=== PATIENT | female | born 1950 | race Caucasian/White ===

== ENCOUNTER 2021-10-27 13:24 | Outpatient (REF) | payer MEDICARE, SELFPAY ==
[2021-10-27 16:32] LABS: MANUAL DIFF FLAG NO
[2021-10-27 16:36] LABS: Basophils Percent Auto 0.3 % (0-2); Eosinophils Absolute Auto 0.1 X10*3/uL (0.0-0.4); Eosinophils Percent Auto 0.8 % (0-4); Hematocrit 35.3 % (37.0-47.0); Hemoglobin 11.5 g/dl (12.0-16.0); Imm Gran Abs Auto 0.03 X10*3/uL (0.00-0.03); Imm Gran Pct Auto 0.4 % (0.0-0.4); Lymphocytes Percent Auto 28.3 % (20-40); Mean Corpuscular HGB Conc 32.6 g/dl (31.0-35.0); Mean Corpuscular Hemoglobin 30.3 pg (27.0-33.0); Mean Corpuscular Volume 92.9 fL (80.0-98.0); Mean Platelet Volume 10.2 fL (9.4-12.3); Monocytes Absolute Auto 0.5 X10*3/uL (0.1-1.2); Monocytes Percent Auto 7.2 % (2-11); Neutrophils Absolute Auto 4.6 x10*3/uL (2.0-8.3); Platelet Count 315 X10*3/uL (160-400); Red Cell Distribution Width 15.1 % (11.0-16.0); White Blood Count 7.2 X10*3/uL (4.8-10.8)
[2021-10-27 16:55] LABS: Alanine Aminotransferase 18 U/L (0-31); Albumin Level 4.2 g/dL (3.5-5.0); Alkaline Phosphatase 89 U/L (39-117); Anion Gap 13 (12-20); Aspartate Amino Transferase 23 U/L (5-31); Bilirubin Total 0.6 mg/dL (0.0-1.0); Blood Urea Nitrogen 17 mg/dL (9-16); Calcium 9.8 mg/dL (8.4-10.2); Carbon Dioxide 26 mmol/L (22-29); Chloride 103 mmol/L (96-108); Cholesterol 286 mg/dL; Estimated Glomerular Filt Rate > 60; Glucose Fasting 89 mg/dL (60-99); HDL Cholesterol 56 mg/dL; Iron 63 mcg/dL (30-160); LDL Cholesterol Calculated 205 mg/dl; Magnesium 1.8 mg/dL (1.6-2.6); Percent Iron Saturation 23 % (15-50); Potassium 4.1 mmol/L (3.3-5.1); Sodium 138 mmol/L (135-145); Total Iron Binding Capacity 279 mcg/dL (228-428); Total Protein 7.2 g/dL (6.5-8.0); Triglycerides 129 mg/dL; Unsaturated Iron Binding 216 ug/dL
[2021-10-27 17:15] LABS: TSH reflex Free T4 1.32 uIU/mL (0.32-4.0)
== END 2021-10-27 13:25 | disposition home or self-care (01) ==
LOC: HO.HMGCLDS 13:24
PROVIDERS: PCP Internal Medicine; Visit Provider Internal Medicine
DX: Z00.00 Encounter for general adult medical examination without abnormal findings (principal); E78.5 Hyperlipidemia, unspecified; K21.9 Gastro-esophageal reflux disease without esophagitis; R25.2 Cramp and spasm; E55.9 Vitamin D deficiency, unspecified
CPT/HCPCS: 36415; 80053; 80061; 83540; 83735; 84443; 85025

== ENCOUNTER 2021-11-27 12:48 | Outpatient (REF) | payer MEDICARE, SELFPAY ==
--- NOTE | ~2021-11-27 | US_ITS ---
EXAMINATION: US VENOUS ULTRASOUND WITH DOPPLER LOWER EXTREMITY, LEFT CLINICAL INFORMATION: Swelling COMPARISON: None TECHNIQUE: Ultrasound of the deep veins is performed from the hip to the calf with compression sonography and color and pulse Doppler assessment. Spectral analysis with color-flow imaging is performed. FINDINGS: There is normal venous compression and respiratory variation and augmented flow. The visualized common femoral vein, superficial femoral vein, profunda femoral vein, popliteal vein, and the trifurcation region shows no evidence of deep venous thrombosis. There is no significant popliteal fossa cyst. US/US venous duplex LE LT IMPRESSION: No DVT demonstrated in the left lower extremity.
[2021-11-27 15:28] LABS: Vitamin D 25-OH Total 64.5 ng/mL (>30)
== END 2021-11-27 12:49 | disposition home or self-care (01) ==
LOC: HO.HMGCLDS 12:48
PROVIDERS: PCP Internal Medicine; Visit Provider Internal Medicine
DX: E55.9 Vitamin D deficiency, unspecified (principal); M79.89 Other specified soft tissue disorders
CPT/HCPCS: 36415; 82306; 93971

== ENCOUNTER 2021-12-22 13:55 | Outpatient (REF) | payer MEDICARE, SELFPAY | END 2021-12-22 13:56 | disposition home or self-care (01) | LOC: HO.HMGCX 13:55 | PROVIDERS: Visit Provider Internal Medicine | DX: R09.89 Other specified symptoms and signs involving the circulatory and respiratory systems (principal) | CPT/HCPCS: 93880 ==

== ENCOUNTER 2022-01-19 12:53 | Outpatient (REF) | payer MEDICARE, SELFPAY ==
--- NOTE | ~2022-01-19 | US_ITS ---
EXAMINATION: US THYROID CLINICAL INFORMATION: Nontoxic single thyroid nodule. COMPARISON: Carotid ultrasound 12/22/2021. TECHNIQUE: Linear transducer grayscale and color Doppler examination with attention to the region of the thyroid. FINDINGS: SIZE: Measurements of the thyroid lobes and nodules are given in sagittal, anteroposterior and transverse dimensions respectively. Right Thyroid Lobe: 5.5 x 3.5 x 3.9 cm, volume 39.3 mL. Parenchyma: The gland echotexture is heterogeneous. Thyroid vascularity is increased. Left Thyroid Lobe: 2.8 x 1.0 x 1.0 cm, volume 1.4 mL. Parenchyma: The gland echotexture is homogeneous. Thyroid vascularity is increased. Isthmus: 0.3 cm in maximum AP dimension. Estimated total number of nodules greater than or equal to 1 cm: 1. Finishing Room Supervisor nodules are described as follows: 1. Location: Right mid/lower pole. Size: 4.3 x 3.5 x 3.9 cm, volume 30.2 mL. Nodule characteristics: Composition: Solid/almost completely solid (2). Echogenicity: Hypoechoic (2). Shape: Not taller than wide (0). Margins: Smooth (0). Echogenic Foci: Macrocalcifications (1). ACR TI-RADS total points: 5 ACR TI-RADS category: 4 NODES: No lymphadenopathy is seen in the tissue surrounding the thyroid gland. US/US thyroid IMPRESSION: Enlarged heterogeneous right lobe and increased thyroid vascularity. Large right thyroid nodule. According to TI RADS criteria, fine-needle aspiration recommended. ACR TI-RADS RECOMMENDATION REFERENCE: Ultrasound-guided fine-needle aspiration, followup ultrasound, no further follow up. * TR1 (0 point) and TR 2 (2 points): No FNA or follow up. * TR3 (3 points): FNA if more than or equal to 2.5 cm in maximum dimension, followup ultrasound in 1, 3 and 5 years if 1.5 to 2.4 cm in maximum dimension. * TR4 (4-6 points): FNA if more than or equal to 1.5 cm in maximum dimension, followup ultrasound in 1, 2, 3 and 5 years if 1 to 1.4 cm in maximum dimension. * TR5 (more than or equal to 7 points): FNA if more than or equal to 1 cm in maximum dimension, followup ultrasound every year for 5 years if 0.5 to 0.9 cm in maximum dimension. * TR3, TR4 or TR5 nodules that are below the size threshold for followup receive no follow up.
== END 2022-01-19 12:54 | disposition home or self-care (01) ==
LOC: HO.HMGCX 12:53
PROVIDERS: PCP Internal Medicine; Visit Provider Internal Medicine
DX: E04.1 Nontoxic single thyroid nodule (principal)
CPT/HCPCS: 76536

== ENCOUNTER → 2022-02-09 14:49 | Outpatient (BNVA) | payer MEDICARE, SELFPAY | PROVIDERS: PCP Internal Medicine; Visit Provider Internal Medicine | DX: E04.1 Nontoxic single thyroid nodule (principal) | CPT/HCPCS: 99202 ==

== ENCOUNTER 2022-02-17 12:40 | Outpatient (REF) | payer MEDICARE, SELFPAY ==
--- NOTE | ~2022-02-17 | CT_ITS ---
CT SOFT TISSUE NECK WITHOUT CONTRAST CLINICAL INFORMATION: Nontoxic thyroid nodule. COMPARISON: Thyroid ultrasound 01/19/2022. TECHNIQUE: Helical imaging was performed in the axial plane with generation of coronal and sagittal reformatted images. This CT examination was performed using dose optimization techniques as appropriate, variously including the following: *Automated exposure control *Adjustment of mA and/or kV according to patient size (this includes techniques or standardized protocols for targeted exams where dose is matched to indication/reason for exam; i.e. extremities or head) *Use of iterative reconstruction technique FINDINGS: Redemonstration of an up to 4.3 cm large nodule within the right thyroid lobe that inferiorly contacts the upper margin of the brachiocephalic artery, that results in mild leftward deviation of the trachea and esophagus just above the thoracic inlet (both of which remain patent), and that laterally results in lateralization of the right internal jugular vein and the right common carotid artery. Partial fatty replacement of the parotid glands and submandibular glands bilaterally. The orbital soft tissues are unremarkable. No definite superficial mucosal space lesions however assessment is limited by the lack of intravenous contrast. There is sublingual gland herniation through the mylohyoid boutonniere's bilaterally. Laryngeal structures are symmetric and normal. There is no definite pathologic size criteria cervical lymphadenopathy with assessment limited by the lack of contrast. There is multilevel cervical spondylosis. There is mild mucosal thickening within the maxillary sinuses bilaterally and the right sphenoid sinus. Leftward deviation of the nasal septum. Degenerative changes involving the TMJs bilaterally. The imaged upper lungs are clear. Imaged upper mediastinum is unremarkable. CT/CT soft tissue neck wo IV con IMPRESSION: Redemonstration of an up to 4.3 cm large nodule within the right thyroid lobe that inferiorly contacts the upper margin of the brachiocephalic artery, that results in mild leftward deviation of the trachea and esophagus just above the thoracic inlet (both of which remain patent), and that laterally results in lateralization of the right internal jugular vein and the right common carotid artery. No substernal extension. As discussed on the prior ultrasound, FNA is recommended of the thyroid nodule.
== END 2022-02-17 12:41 | disposition home or self-care (01) ==
LOC: HO.CT 12:40
PROVIDERS: Visit Provider Internal Medicine
DX: E04.1 Nontoxic single thyroid nodule (principal)
CPT/HCPCS: 70490

== ENCOUNTER 2022-04-16 08:42 | Outpatient (REF) | payer MEDICARE, SELFPAY ==
--- NOTE | 2022-04-16 09:06 | PM.OP ---
Brief Operative Note Date of Service: 04/16/22 Pre-op diagnosis: Multinodular Thyroid Procedure: This is doctor Estrellita Mccann. This is an ultrasound-guided fine-needle aspiration report. Date of Examination: 04/16/2022 Indication: Multinodular Thyroid Porcedure: Procedure was explained to the patient. Alternatives, the risk and benefits were discussed. Written consent was obtained. A time-out was also obtained. After sterile preparation, fine-needle aspiration of a right mid pole 4.3 cm thyroid nodule was performed using direct ultrasound guidance to confirm accurate needle placement. Four aspirations were made using 27 gauge needles. Samples were submitted for cytology. One pass was dedicated for Afir[employer] Gene sequencing operations research scientist testing. The patient tolerated the procedure well. Aftercare instructions were provided. Impression: Uncomplicated fine needle aspiration biopsy of a right mid pole 4.3 cm thyroid nodule under ultrasound guidance. Surgeon: Estrellita Mccann, DO Was an Breaker Up Machine Operator used for this Procedure?: No Estimated blood loss (mL): 0
[2022-04-16] MEDS: Lidocaine HCl 1 % MPF 5 ML VIAL SUBCUT (09:26)
== END 2022-04-16 08:43 | disposition home or self-care (01) ==
LOC: HO.US 08:42
PROVIDERS: PCP Internal Medicine; Visit Provider Internal Medicine
DX: E04.2 Nontoxic multinodular goiter (principal)
CPT/HCPCS: 10005; 88172; 88173; 88177; 88305

== ENCOUNTER 2022-04-30 13:25 | Outpatient (REF) | payer MEDICARE, SELFPAY ==
[2022-04-30 15:12] LABS: Albumin Level 4.1 g/dL (3.5-5.0); Phosphorus 3.7 mg/dL (2.7-4.5)
[2022-04-30 15:24] LABS: Vitamin D 25-OH Total 62.7 ng/mL (>30)
[2022-05-04 13:15] LABS: Calcium (PTHI) 9.5 mg/dL (8.6-10.4); PTHI 55 pg/mL (16-77)
== END 2022-04-30 13:26 | disposition home or self-care (01) ==
LOC: HO.LAB 13:25
PROVIDERS: PCP Internal Medicine; Visit Provider Internal Medicine
DX: E04.1 Nontoxic single thyroid nodule (principal); E55.9 Vitamin D deficiency, unspecified
CPT/HCPCS: 36415; 82040; 82306; 83970; 84100; 99212

== ENCOUNTER 2022-07-08 11:25 | Outpatient (REF) | payer MEDICARE, SELFPAY ==
[2022-07-08 15:41] LABS: Free T4 (Free Thyroxine) 0.95 ng/dL (0.71-1.85); Thyroid Stimulating Hormone 3.33 uIU/mL (0.32-4.0); Vitamin D 25-OH Total 86.9 ng/mL (>30)
[2022-07-10 13:29] LABS: Calcium (PTHI) 9.6 mg/dL (8.6-10.4); PTHI 28 pg/mL (16-77)
== END 2022-07-08 11:26 | disposition home or self-care (01) ==
LOC: HO.HMGCLDS 11:25
PROVIDERS: PCP Internal Medicine; Visit Provider Internal Medicine
DX: E04.1 Nontoxic single thyroid nodule (principal); E55.9 Vitamin D deficiency, unspecified
CPT/HCPCS: 36415; 82040; 82306; 83970; 84439; 84443

== ENCOUNTER → 2022-07-16 13:33 | Outpatient (BNVA) | payer MEDICARE, SELFPAY | PROVIDERS: PCP Internal Medicine; Visit Provider Internal Medicine | DX: E04.1 Nontoxic single thyroid nodule (principal); E55.9 Vitamin D deficiency, unspecified | CPT/HCPCS: 99212 ==

== ENCOUNTER 2022-09-14 07:51 | Outpatient (REF) | payer MEDICARE, SELFPAY ==
[2022-09-14 12:14] LABS: Albumin Level 3.9 g/dL (3.5-5.0); Phosphorus 3.7 mg/dL (2.7-4.5)
[2022-09-14 12:35] LABS: Free T4 (Free Thyroxine) 0.91 ng/dL (0.71-1.85); Thyroid Stimulating Hormone 4.35 uIU/mL (0.32-4.0); Vitamin D 25-OH Total 68.6 ng/mL (>30)
[2022-09-15 16:44] LABS: Calcium (PTHI) 9.8 mg/dL (8.6-10.4); PTHI 38 pg/mL (16-77)
== END 2022-09-14 07:52 | disposition home or self-care (01) ==
LOC: HO.HMGCLDS 07:51
PROVIDERS: PCP Internal Medicine; Visit Provider Internal Medicine
DX: E04.1 Nontoxic single thyroid nodule (principal); E55.9 Vitamin D deficiency, unspecified
CPT/HCPCS: 36415; 82040; 82306; 83970; 84100; 84439; 84443

== ENCOUNTER 2022-09-25 10:40 | Outpatient (REF) | payer MEDICARE, SELFPAY ==
--- NOTE | ~2022-09-25 | XR_ITS ---
EXAMINATION: XR FOOT, RIGHT EXAMINATION: XR foot RT min 3V CLINICAL INFORMATION: Pain COMPARISON: None TECHNIQUE: 3 views of the foot FINDINGS: No fracture or dislocation. Post surgical changes of the first metatarsal with a surgical screw. No evidence of hardware fracture or complication. Mild degenerative changes the first metatarsal phalangeal joint with borderline loss of joint space. No joint effusion. Soft tissues are unremarkable. XR/XR foot RT min 3V IMPRESSION: 1. Post surgical changes of the first metatarsal. No evidence of hardware fracture or complication. 2. Mild degenerative changes the first metatarsophalangeal joint with borderline loss of joint space.
== END 2022-09-25 10:41 | disposition home or self-care (01) ==
LOC: HO.HMGCX 10:40
PROVIDERS: PCP Internal Medicine; Visit Provider Internal Medicine
DX: M79.671 Pain in right foot (principal); E03.9 Hypothyroidism, unspecified; E55.9 Vitamin D deficiency, unspecified; M10.9 Gout, unspecified
CPT/HCPCS: 73630

== ENCOUNTER 2022-10-02 10:36 | Outpatient (REF) | payer MEDICARE, SELFPAY ==
[2022-10-02 13:25] LABS: MANUAL DIFF FLAG NO
[2022-10-02 13:38] LABS: Basophils Percent Auto 0.4 % (0-2); Eosinophils Absolute Auto 0.1 X10*3/uL (0.0-0.4); Eosinophils Percent Auto 1.9 % (0-4); Hematocrit 35.8 % (37.0-47.0); Hemoglobin 11.2 g/dl (12.0-16.0); Imm Gran Abs Auto 0.02 X10*3/uL (0.00-0.03); Imm Gran Pct Auto 0.4 % (0.0-0.4); Lymphocytes Absolute Auto 1.6 X10*3/uL (1.2-4.9); Lymphocytes Percent Auto 28.8 % (20-40); Mean Corpuscular HGB Conc 31.3 g/dl (31.0-35.0); Mean Corpuscular Hemoglobin 29.2 pg (27.0-33.0); Mean Corpuscular Volume 93.2 fL (80.0-98.0); Mean Platelet Volume 10.7 fL (9.4-12.3); Monocytes Absolute Auto 0.4 X10*3/uL (0.1-1.2); Monocytes Percent Auto 6.9 % (2-11); Neutrophils Absolute Auto 3.5 x10*3/uL (2.0-8.3); Neutrophils Percent Auto 61.6 % (45-73); Platelet Count 309 X10*3/uL (160-400); Red Blood Count 3.84 X10*6/uL (4.20-5.50); Red Cell Distribution Width 14.6 % (11.0-16.0); White Blood Count 5.7 X10*3/uL (4.8-10.8)
[2022-10-02 15:27] LABS: Free T4 (Free Thyroxine) 0.82 ng/dL (0.71-1.85); Vitamin D 25-OH Total 63.4 ng/mL (>30)
[2022-10-02 15:48] LABS: Alanine Aminotransferase 39 U/L (0-31); Albumin Level 3.9 g/dL (3.5-5.0); Alkaline Phosphatase 142 U/L (39-117); Anion Gap 13 (12-20); Aspartate Amino Transferase 26 U/L (5-31); Blood Urea Nitrogen 13 mg/dL (9-16); Carbon Dioxide 25 mmol/L (22-29); Chloride 106 mmol/L (96-108); Cholesterol 238 mg/dL; Estimated Glomerular Filt Rate > 60; Glucose Fasting 90 mg/dL (60-99); HDL Cholesterol 45 mg/dL; Iron 63 mcg/dL (30-160); LDL Cholesterol Calculated 167 mg/dl; Percent Iron Saturation 27 % (15-50); Potassium 4.4 mmol/L (3.3-5.1); Sodium 140 mmol/L (135-145); Thyroid Stimulating Hormone 4.58 uIU/mL (0.32-4.0); Total Iron Binding Capacity 234 mcg/dL (228-428); Triglycerides 133 mg/dL; Unsaturated Iron Binding 171 ug/dL; Uric Acid 8.5 mg/dL (2.4-5.7)
[2022-10-02 16:33] LABS: Bilirubin Total 0.6 mg/dL (0.0-1.0)
== END 2022-10-02 10:37 | disposition home or self-care (01) ==
LOC: HO.HMGCLDS 10:36
PROVIDERS: Absent Provider Internal Medicine; PCP Internal Medicine; Visit Provider Internal Medicine
DX: E03.9 Hypothyroidism, unspecified (principal); E55.9 Vitamin D deficiency, unspecified; M10.9 Gout, unspecified; E04.1 Nontoxic single thyroid nodule
CPT/HCPCS: 36415; 80053; 80061; 82306; 83540; 84439; 84443; 84550; 85025

== ENCOUNTER 2022-10-23 11:42 | Outpatient (REF) | payer MEDICARE, SELFPAY ==
[2022-10-23 15:15] LABS: Free T4 (Free Thyroxine) 0.93 ng/dL (0.71-1.85); Thyroid Stimulating Hormone 2.32 uIU/mL (0.32-4.0)
== END 2022-10-23 11:43 | disposition home or self-care (01) ==
LOC: HO.HMGCLDS 11:42
PROVIDERS: PCP Internal Medicine; Visit Provider Internal Medicine
DX: E03.9 Hypothyroidism, unspecified (principal)
CPT/HCPCS: 36415; 84439; 84443

== ENCOUNTER 2022-10-28 08:11 | Outpatient (AMB) | payer MEDICARE, SELFPAY ==
--- NOTE | 2022-10-28 08:11 | MHC.OFFVIS ---
Intake Intake Visit Reasons: F/U Postoperative hypothyroidism Intake Note: Postoperative Hypothyroidism follow up visit. Electrical Design Technician Required: No Allergies nitrofurantoin [From MACROBID] Allergy (Severe, Verified 10/28/22 11:26) ANAPHYLAXIS Epdkfrd-UAR-RiS Reductase Inhibitor [QEWQLNH-TWE-XSF REDUCTASE INHIBITOR] Allergy (Intermediate, Verified 10/28/22 11:26) MUSCLE ACHES atorvastatin [Lipitor] Adverse Reaction (Unknown, Verified 10/28/22 11:26) muscle cramping Medication List - Last Reconciled 10/28/22 by Estrellita Mccann, allopurinol 200 mg PO DAILY levothyroxine 25 mcg PO DAILY 30 days omeprazole 10 mg PO DAILY HPI HPI Comments History of Present Illness Details 72 YO F with PMHx Sjogen's syndrome and a thyroid nodule who is seen in F/U for a thyroid nodule. Was initially diagnosed with a thyroid nodule in 2021 with a thyroid US revealing a 4.3 cm solitary R lobe thyroid nodule. She does currently complain of dysphagia as well as vocal hoarseness. She underwent FNA biopsy 04/16/2022 of her RMP 4.3 cm thyroid nodule with cytology revealing atypia of undetermined significance (bethesda category III). Affirma was suspicious. She also had a CT of the neck which revealed leftward deviation of the trachea and esophagus due to the thyroid nodule. She was referred to Dr. Rehman and underwent a R lobectomy 05/26/2022. Official surgical path revealed NIFT-P 4 cm. Postoperatively she was started on levothyroxine and remains on levothyroxine 25 mcg PO daily. Denies any history of head or neck irradiation. Denies any family history of thyroid cancer. Thyroid US: 01/05/2022 Right Thyroid Lobe: 5.5 x 3.5 x 3.9 cm, volume 39.3 mL. Parenchyma: The gland echotexture is heterogeneous. Thyroid vascularity is increased. Left Thyroid Lobe: 2.8 x 1.0 x 1.0 cm, volume 1.4 mL. Parenchyma: The gland echotexture is homogeneous. Thyroid vascularity is increased. Isthmus: 0.3 cm in maximum AP dimension. Estimated total number of nodules greater than or equal to 1 cm: 1. Director Of Kids nodules are described as follows: 1. Location: Right mid/lower pole. ?? ? Size: 4.3 x 3.5 x 3.9 cm, volume 30.2 mL. ?? ? Nodule characteristics: ?? ? Composition: Solid/almost completely solid (2). ?? ? Echogenicity: Hypoechoic (2). ?? ? Shape: Not taller than wide (0). ?? ? Margins: Smooth (0). ?? ? Echogenic Foci: Macrocalcifications (1). ?? ? ACR TI-RADS total points: 5 ?? ? ACR TI-RADS category: 4 NODES: No lymphadenopathy is seen in the tissue surrounding the thyroid gland. CT Neck: 02/17/2022 FINDINGS: Redemonstration of an up to 4.3 cm large nodule within the right thyroid lobe that inferiorly contacts the upper margin of the brachiocephalic artery, that results in mild leftward deviation of the trachea and esophagus just above the thoracic inlet (both of which remain patent), and that laterally results in lateralization of the right internal jugular vein and the right common carotid artery. Partial fatty replacement of the parotid glands and submandibular glands bilaterally. The orbital soft tissues are unremarkable. No definite superficial mucosal space lesions however assessment is limited by the lack of intravenous contrast. There is sublingual gland herniation through the mylohyoid boutonniere's bilaterally. Laryngeal structures are symmetric and normal. There is no definite pathologic size criteria cervical lymphadenopathy with assessment limited by the lack of contrast. There is multilevel cervical spondylosis. There is mild mucosal thickening within the maxillary sinuses bilaterally and the right sphenoid sinus. Leftward deviation of the nasal septum. Degenerative changes involving the TMJs bilaterally. The imaged upper lungs are clear. Imaged upper mediastinum is unremarkable. CT/CT soft tissue neck wo IV con IMPRESSION: Redemonstration of an up to 4.3 cm large nodule within the right thyroid lobe that inferiorly contacts the upper margin of the brachiocephalic artery, that results in mild leftward deviation of the trachea and esophagus just above the thoracic inlet (both of which remain patent), and that laterally results in lateralization of the right internal jugular vein and the right common carotid artery. No substernal extension. As discussed on the prior ultrasound, FNA is recommended of the thyroid nodule. Labs: Laboratory Tests 09/14/22 10/23/22 08:05 11:52 TSH 2.32 Free T4 0.93 PTH Intact 38 Calcium (PTH Intac t) 9.8 PFSH Medical History Hypothyroidism Primary osteoarthritis of both knees Raynaud's syndrome Surgical History H/O colonoscopy H/O esophagogastroduodenoscopy History of lobectomy of thyroid Hx of ultrasound guided needle biopsy S/P foot surgery, right Family History Mother No problems noted. Social History Household Members: None Housing: Other Patient Tobacco Use Status: Former Tobacco user Quit Date: >40yrs Current occupational status: retired Cognitive needs: No Hearing needs: Yes Vision needs: Yes Assessment & Plan Assessment & Plan (1) Thyroid nodule: Comment: US 02/10,R thyroid nodule 3.5 cm x 4.3 cm, s/p partial thyroidectomy 06/11 f/u [facility] endo Code(s): E04.1 - Nontoxic single thyroid nodule Plan: Patient with a solitary R lobe thyroid nodule. FNA revealed atypia of undetermined significance (bethesda category III) with suspicious affirma. She underwent R thyroid lobectomy 05/26/2022 with official surgical path revealing NIFT-P. We reviewed that NIFT-P is considered a benign lesion. No indication for completion thyroidectomy at this time. She remains on levothyroxine 25 mcg PO daily. TSH is at goal. Plan for now is for her to F/U with her PCP for further management of her hypothyroidism. All of her questions were answered. She is in agreement with this plan of care. I spent 20 minutes in reviewing the record, seeing the patient and documenting in the medical record, including 5 minutes on the phone with the Patient. Telehealth Telehealth Location of provider rendering services: practice address Location of patient: address on file Patient Identification confirmed using: Name, : Yes Telehealth method: voice only Patient verbally consented to treatment: Yes Patient verbally consented to billing insurance company: Yes Patient informed of any privacy concerns related to visit: Yes Coding Level of Care Code Tele Est Pt Level 3 (35191) Diagnoses Thyroid nodule E04.1
== END 2022-10-28 14:37 | disposition home or self-care (01) ==
LOC: HO.ENCR 08:11
PROVIDERS: PCP Internal Medicine; Visit Provider Internal Medicine
DX: E04.1 Nontoxic single thyroid nodule (principal)
CPT/HCPCS: 99443

== ENCOUNTER → 2022-10-28 08:11 | Outpatient (BNVA) | payer MEDICARE, SELFPAY | PROVIDERS: PCP Internal Medicine; Visit Provider Internal Medicine ==

== ENCOUNTER 2022-12-14 09:23 | Outpatient (REF) | payer MEDICARE, SELFPAY ==
[2022-12-14 13:21] LABS: Alanine Aminotransferase 9 U/L (0-31); Alkaline Phosphatase 95 U/L (39-117); Anion Gap 16 (12-20); Aspartate Amino Transferase 18 U/L (5-31); Bilirubin Total 0.7 mg/dL (0.0-1.0); Blood Urea Nitrogen 12 mg/dL (9-16); Carbon Dioxide 25 mmol/L (22-29); Chloride 102 mmol/L (96-108); Estimated Glomerular Filt Rate > 60; Glucose Fasting 98 mg/dL (60-99); Sodium 139 mmol/L (135-145); Total Protein 7.1 g/dL (6.5-8.0); Uric Acid 8.1 mg/dL (2.4-5.7)
[2022-12-14 13:26] LABS: TSH reflex Free T4 2.87 uIU/mL (0.32-4.0)
== END 2022-12-14 09:24 | disposition home or self-care (01) ==
LOC: HO.HMGCLDS 09:23
PROVIDERS: PCP Internal Medicine; Visit Provider Internal Medicine
DX: E03.9 Hypothyroidism, unspecified (principal); M10.9 Gout, unspecified; R79.89 Other specified abnormal findings of blood chemistry
CPT/HCPCS: 36415; 80053; 84443; 84550

== ENCOUNTER 2022-12-31 10:50 | Outpatient (AMB) | payer MEDICARE, SELFPAY ==
[2022-12-31 10:52] VITALS: BP 122/70; PULSE 69; O2SAT 96; BMI 29.9
--- NOTE | 2022-12-31 10:52 | A.OFFPC_ITS ---
Vital Signs 12/31/22 10:52 Height 5 ft 4 in Weight 174 lb BMI 29.9 BP 122/70 Blood Pressure Location Lt brachial Position Sitting Pulse 69 Pulse Source Pulse Oximeter Pulse Oximetry (%) 96 Oxygen Delivery Method Room Air Intake Visit Reasons: Lab f/u Intake Note: Pt is here today for a follow up visit on labs. Allergies nitrofurantoin [From MACROBID] Allergy (Severe, Verified 12/31/22 10:55) ANAPHYLAXIS Rmxhsux-SNO-EjS Reductase Inhibitor [CRDREPL-FOX-ADF REDUCTASE INHIBITOR] Allergy (Intermediate, Verified 12/31/22 10:55) MUSCLE ACHES atorvastatin [Lipitor] Adverse Reaction (Unknown, Verified 12/31/22 10:55) muscle cramping Tobacco use date assessed: 12/31/22 Fall risk assessment: No Falls in past year Last assessed Fall Risk: 12/31/22 Dental Screening Dental Screen Date: 12/31/22 Did you have a dental visit in the last 12 months?: Yes Did you have a dental problem in the last 6 months where you did not have access to dental care?: No Was dental information given to patient?: Patient has dentist HPI Lab f/u HPI Details Pt presents for f/u hypothyroid s/p partial thyroidectomy 06/11, benign pathology. Pt c/o L foot pain for 6 weeks started after hiking. Pt f/o with ortho. Patient reports feeling tired and having dyspnea on exertion after walking up the stairs. She denies palpitations chest pain PND orthopnea. Patient reports chronic GERD despite taking omeprazole. She is planning to call GI for colonoscopy and repeat EGD. [facility] Medical History Hypothyroidism Primary osteoarthritis of both knees Raynaud's syndrome Surgical History History of lobectomy of thyroid Hx of ultrasound guided needle biopsy S/P foot surgery, right H/O esophagogastroduodenoscopy H/O colonoscopy Family History Mother No problems noted. Social History Household Members: None Housing: Other Patient Tobacco Use Status: Former Tobacco user Quit Date: >40yrs e-Cigarette/Vaping Use: Never Used Current occupational status: retired Cognitive needs: No Hearing needs: Yes Vision needs: Yes Questionnaire Thrive Questionnaire Date Thrive assessed: 12/31/22 I am a: Patient What is your living situation today?: I have a steady place to live Within the past 12 months, did the food you bought not last and you didn't have the money to get more?: Never true Within the past 12 months, did you worry whether your food would run out before you got money to buy more?: Never true Do you have trouble paying for medicines?: No Do you have trouble getting transportation to medical appointments?: No Do you have trouble paying your heating and electricity bill?: No Do you have trouble taking care of your child, family member or friend?: No Do you have trouble with day-to-day activities such as bathing, preparing meals, shopping, managing finances, etc.?: No Are you currently unemployed and looking for a job?: No Are you interested in more education?: No Please select the resources that you would like help with: None NAOMI-7 AMB Questionnaire NAOMI-7 Date NAOMI - 7 assessed: 12/31/22 Feeling nervous, anxious, or on edge: 0 = Not at all Not being able to stop or control worryin = Not at all Worrying too much about different things: 0 = Not at all Trouble relaxin = Not at all Being so restless that it is hard to sit still: 0 = Not at all Becoming easily annoyed or irritable: 0 = Not at all Feeling afraid as if something awful might happen: 0 = Not at all Total NAOMI-7 score (0-4 normal; 5-9 mild; 10-14 moderate; 15-21 severe): 0 Source: Developed by Drs. Kirt Najera, Cici Wynn, James Scott and colleagues, with an educational amish from [employer]. Review of Systems Const All systems reviewed & are unremarkable except as noted in HPI and below Reports no additional complaints Eyes Reports no additional complaints ENT Reports no additional complaints Card Reports no additional complaints Resp Reports no additional complaints GI Reports no additional complaints Reports no additional complaints Physical exam (Primary Care) Vital Signs: Last Vital Signs Pulse 69 12/31/22 10:52 BP 122/70 12/31/22 10:52 Pulse Ox 96 12/31/22 10:52 Oxygen Delivery Method Room Air 12/31/22 10:52 BMI result Body Mass Index 29.9 Tobacco/Smoking Status: Tobacco use Status Tobacco use date assessed 12/31/22 12/31/22 11:02 Patient Tobacco Use Status Former Tobacco user 12/31/22 10:52 e-Cigarette/Vaping Use Never Used 12/31/22 11:02 Thrive Assessment: Date of Thrive Assessment Date Thrive assessed 12/31/22 12/31/22 11:02 Const General: no acute distress HENMT Ears: hearing grossly normal bilaterally Throat: Yes posterior oropharynx normal Eyes General: appearance normal, both eyes and all related structures Resp Effort & Inspection: normal respiratory effort Auscultation: clear to auscultation bilaterally Cardio Rhythm: regular rhythm Heart sounds: S1 normal heart sound present and S2 normal heart sound present GI Inspection: Yes normal to inspection Palpation (GI): Soft to palpation Percussion: Yes normal to percussion Auscultation: normal bowel sounds Assessment and Plan Assessment & Plan (1) Gout: Code(s): M10.9 - Gout, unspecified Plan: Continue allopurinol check uric acid in 2 months (2) Hypothyroidism: Comment: s/p partial thyroidectomy Code(s): E03.9 - Hypothyroidism, unspecified Plan: Continue levothyroxine monitor TSH (3) Hyperlipidemia: Comment: Intolerant to multiple statins Code(s): E78.5 - Hyperlipidemia, unspecified Plan: Continue low-cholesterol diet check lipid profile in 2 months (4) ROCA (dyspnea on exertion): Code(s): R06.09 - Other forms of dyspnea Plan: Obtain echocardiogram Orders: Orders Comprehensive [place]. Panel Fast 2 Months E03.9 - Hypothyroidism, unspecified, E78.5 - Hyperlipidemia, unspecified, M10.9 - Gout, unspecified TSH reflex Free T4 2 Months E03.9 - Hypothyroidism, unspecified, E78.5 - Hyperlipidemia, unspecified, M10.9 - Gout, unspecified Vitamin B12 and Folate 2 Months E03.9 - Hypothyroidism, unspecified, E78.5 - Hyperlipidemia, unspecified, M10.9 - Gout, unspecified Vitamin D 25-OH Total 2 Months E03.9 - Hypothyroidism, unspecified, E78.5 - Hyperlipidemia, unspecified, M10.9 - Gout, unspecified CA echo transthoracic complete Today R06.09 - Other forms of dyspnea Lipid Panel 2 Months E03.9 - Hypothyroidism, unspecified, E78.5 - Hyperlipidemia, unspecified, M10.9 - Gout, unspecified Uric Acid 2 Months E03.9 - Hypothyroidism, unspecified, E78.5 - Hyperlipidemia, unspecified, M10.9 - Gout, unspecified Complete Blood Count Auto Diff 2 Months E03.9 - Hypothyroidism, unspecified, E78.5 - Hyperlipidemia, unspecified, M10.9 - Gout, unspecified IRON PROFILE 2 Months E03.9 - Hypothyroidism, unspecified, E78.5 - Hyperlipidemia, unspecified, M10.9 - Gout, unspecified Coding Level of Care Code Est Pt Level 4 (81337) Diagnoses Gout M10.9 Hypothyroidism E03.9 Hyperlipidemia E78.5 ROCA (dyspnea on exertion) R06.09
== END 2022-12-31 11:37 | disposition home or self-care (01) ==
PROVIDERS: PCP Internal Medicine; Visit Provider Internal Medicine
DX: M10.9 Gout, unspecified (principal); E03.9 Hypothyroidism, unspecified; E78.5 Hyperlipidemia, unspecified; R06.09 Other forms of dyspnea
CPT/HCPCS: 99214

== ENCOUNTER → 2023-02-08 09:45 | Outpatient (REF) | payer MEDICARE, SELFPAY ==
--- NOTE | 2023-02-08 09:47 | CA_ITS ---
Transthoracic Echocardiogram Patient (Last, First, Middle): Magaly Ramirez C Gender: Female Date of : 1950 Age: 72 Procedure Date: 02/08/2023 Procedure Type: Transthoracic Echocardiogram Location: OP Height: 162.56 cm Weight: 79.38 kg BSA: 1.85 m2 Heart Rate: bpm BP: 110 / 70 mmHg Stress Analyst: Referring MD: Angela Deal MD Symptoms: R06.09 - Other forms of dyspnea Study Quality: Fair ECG Rhythm: Sinus Conclusions: - The left ventricular systolic function is normal. The calculated ejection fraction is 65% by biplane method. - No obvious valvular pathology seen on this study. Findings Left Ventricle Normal left ventricular cavity size. There is mildly increased left ventricular wall thickness. The left ventricular systolic function is normal. The calculated ejection fraction is 65% by biplane method. There is no evidence of regional wall motion abnormalities. Diastolic function is normal for age. Right Ventricle Normal right ventricular cavity size and systolic function. Atria Both atria are normal in size. Aortic Valve There is a normal trileaflet aortic valve. There is no aortic valve stenosis. There is no aortic valve regurgitation. Mitral Valve There is mild mitral annular calcification. There is mild mitral valve regurgitation. There is no mitral valve stenosis. Pulmonic Valve The pulmonic valve is likely normal. Tricuspid Valve There is mild tricuspid valve regurgitation. There is no evidence of pulmonary hypertension. Great Vessels The asc aorta is normal in size. Venous The inferior vena cava is normal in size and collapses greater than 50% with inspiration. Pericardium/Pleural There is no evidence of pericardial effusion. Prior Study Comparison No prior study available for comparison. Recommendations, Care & Conclusions No obvious valvular pathology seen on this study. Measurements 2D Linear Measurements IVSd: 1.11 0.6-0.9/0.6-1.0 cm LVIDd: 4.42 3.9-5.3/4.2-5.9 cm LVIDd Index: 2.39 2.4-3.2/2.2-3.1 cm/m2 LVIDs: 3.17 2.0-3.6 cm LVPWd: 1.21 0.7-1.1 cm Ao Root: 2.90 2.1-3.5 cm LA Diam: 3.60 2.7-3.8/3.0-4.0 cm LAIDs Index: 1.95 1.5-2.3 cm/m2 LV Mass: 228.62 67-162/88-224 g LV Mass Index: 123.58 43-95/49-115 g/m2 LVOT Diam: 2.00 3.0+(-)1.3 cm 2D Systolic Function EF 4C: 64.10 >55% EF 2C: 59.90 >55% EF BiP: 64.80 >55% Mitral Valve MV Pk E: 0.91 MV PK A: 0.76 MV Decel Time: 213.00 E/A: 1.20 E'Lateral: 8.59 E'Medial: 5.87 E/E' Med: 15.60 E/E' Lat: 10.60 PHT: 62.00 MVA PHT: 3.55 Decel Hughes: 4.28 Aortic Valve AoV Pk Gregorio: 1.13 AoV Mn Gregorio: 0.70 AoV VTI: 0.27 AoV Pk Grad: 5.00 Aov Mn Grad: 2.00 MIREYA Cont.VTI: 2.82 LVOT LVOT Pk Gregorio: 0.91 LVOT Mn Gregorio: 0.59 LVOT VTI: 0.24 LVOT Pk Grad: 3.00 LVOT Mn Grad: 2.00 LVOT Diam: 2.00 LVOT Area: 3.14 Diastolic Function MV Pk E: 0.91 MV Pk A: 0.76 E/A: 1.20 E'Medial: 5.87 E/E' Med: 15.60 E' Laterial: 8.59 E/E' Lat: 10.60 Right Ventricle TAPSE (mm): 27.00 TVS' Gregorio: 12.00 Tricuspid Valve TR Pk Gregorio: 2.31 TR Pk Grad: 21.00 RA Press: 3.00 RVSP: 24.00 Great Vessels Aorta Ao Root-2D: 2.90 2.0-3.7 cm Ao Asc: 3.20 2.1-3.4 cm Updated in Other Vendor System with Status of Final Jeffery Green MD electronically signed on 02/08/2023 4:08:42 PM with status of Final
== END ==
LOC: HO.CARD 09:45
PROVIDERS: PCP Internal Medicine; Visit Provider Internal Medicine
DX: R06.09 Other forms of dyspnea (principal)
CPT/HCPCS: 93306

== ENCOUNTER → 2023-02-08 09:47 | Outpatient (BNV) | payer MEDICARE, SELFPAY | PROVIDERS: PCP Internal Medicine; Visit Provider Internal Medicine | DX: I34.0 Nonrheumatic mitral (valve) insufficiency (principal) | CPT/HCPCS: 93306 ==

== ENCOUNTER 2023-03-01 11:00 | Outpatient (REF) | payer MEDICARE, SELFPAY ==
[2023-03-01 13:17] LABS: MANUAL DIFF FLAG NO
[2023-03-01 13:43] LABS: Basophils Percent Auto 0.5 % (0-2); Eosinophils Absolute Auto 0.1 X10*3/uL (0.0-0.4); Eosinophils Percent Auto 1.2 % (0-4); Imm Gran Abs Auto 0.02 X10*3/uL (0.00-0.03); Imm Gran Pct Auto 0.4 % (0.0-0.4); Lymphocytes Absolute Auto 1.5 X10*3/uL (1.2-4.9); Lymphocytes Percent Auto 25.9 % (20-40); Mean Corpuscular HGB Conc 31.4 g/dl (31.0-35.0); Mean Corpuscular Hemoglobin 29.4 pg (27.0-33.0); Mean Corpuscular Volume 93.6 fL (80.0-98.0); Mean Platelet Volume 10.9 fL (9.4-12.3); Monocytes Absolute Auto 0.4 X10*3/uL (0.1-1.2); Monocytes Percent Auto 7.8 % (2-11); Neutrophils Absolute Auto 3.6 x10*3/uL (2.0-8.3); Neutrophils Percent Auto 64.2 % (45-73); Platelet Count 265 X10*3/uL (160-400); Red Blood Count 3.74 X10*6/uL (4.20-5.50); Red Cell Distribution Width 15.6 % (11.0-16.0); White Blood Count 5.6 X10*3/uL (4.8-10.8)
[2023-03-01 14:10] LABS: Alanine Aminotransferase 14 U/L (0-31); Albumin Level 4.1 g/dL (3.5-5.0); Alkaline Phosphatase 92 U/L (39-117); Anion Gap 11 (12-20); Aspartate Amino Transferase 23 U/L (5-31); Bilirubin Total 0.5 mg/dL (0.0-1.0); Blood Urea Nitrogen 14 mg/dL (9-16); Calcium 9.4 mg/dL (8.4-10.2); Carbon Dioxide 24 mmol/L (22-29); Chloride 107 mmol/L (96-108); Cholesterol 237 mg/dL (<200); Estimated Glomerular Filt Rate 59; Glucose Fasting 93 mg/dL (60-99); HDL Cholesterol 44 mg/dL (>40); Iron 60 mcg/dL (30-160); LDL Cholesterol Calculated 160 mg/dL (<100); Percent Iron Saturation 25 % (15-50); Sodium 138 mmol/L (135-145); Total Iron Binding Capacity 243 mcg/dL (228-428); Total Protein 7.1 g/dL (6.5-8.0); Triglycerides 165 mg/dL (<150); Unsaturated Iron Binding 183 ug/dL; Uric Acid 6.2 mg/dL (2.4-5.7)
[2023-03-01 14:28] LABS: TSH reflex Free T4 2.88 uIU/mL (0.32-4.0); Vitamin D 25-OH Total 42.2 ng/mL (>30)
[2023-03-01 14:33] LABS: Folate 8.9 ng/mL (> or = 4.0); Vitamin B12 888 pg/mL (200-900)
== END 2023-03-01 11:01 | disposition home or self-care (01) ==
LOC: HO.HMGCLDS 11:00
PROVIDERS: PCP Internal Medicine; Visit Provider Internal Medicine
DX: M10.9 Gout, unspecified (principal); E03.9 Hypothyroidism, unspecified; E78.5 Hyperlipidemia, unspecified
CPT/HCPCS: 36415; 80053; 80061; 82306; 82607; 82746; 83540; 84443; 84550; 85025

== ENCOUNTER 2023-03-05 10:47 | Outpatient (AMB) | payer MEDICARE, SELFPAY ==
--- NOTE | 2023-03-05 11:10 | A.OFFPC_ITS ---
Vital Signs 03/05/23 11:11 Height 5 ft 4 in Weight 176 lb BMI 30.2 BP 124/66 Blood Pressure Location Lt brachial Position Sitting Pulse 70 Pulse Source Pulse Oximeter Intake Visit Reasons: Pre op L foot surgery on 03/19/23 Intake Note: Pt is here today for a pre op visit Allergies nitrofurantoin [From MACROBID] Allergy (Severe, Verified 03/05/23 11:24) ANAPHYLAXIS Fzpqmic-IKG-BhN Reductase Inhibitor [EQJMYWP-XVY-HOB REDUCTASE INHIBITOR] Allergy (Intermediate, Verified 03/05/23 11:24) MUSCLE ACHES atorvastatin [Lipitor] Adverse Reaction (Unknown, Verified 03/05/23 11:24) muscle cramping Medication List - Last Reconciled 03/05/23 by Angela Deal MD allopurinol 100 mg PO BID levothyroxine 25 mcg PO DAILY omeprazole 10 mg PO DAILY Tobacco use date assessed: 12/31/22 HPI Pre op L foot surgery on 03/19/23 HPI Details Pt is for preop for L foot hammertoe/hallux surgery. Hypothyroidism is stable on levothyroxine. [facility] Medical History (Updated 03/05/23 @ 12:29 by Angela Deal MD) Hypothyroidism Primary osteoarthritis of both knees Raynaud's syndrome Surgical History History of lobectomy of thyroid Hx of ultrasound guided needle biopsy S/P foot surgery, right H/O esophagogastroduodenoscopy H/O colonoscopy Family History Mother No problems noted. Social History Household Members: None Housing: Other Patient Tobacco Use Status: Former Tobacco user Quit Date: >40yrs e-Cigarette/Vaping Use: Never Used Current occupational status: retired Cognitive needs: No Hearing needs: Yes Vision needs: Yes Questionnaire Thrive Questionnaire Date Thrive assessed: 12/31/22 NAOMI-7 AMB Questionnaire NAOMI-7 Date NAOMI - 7 assessed: 12/31/22 Source: Developed by Drs. Kirt Najera, Cici Wynn, James Scott and colleagues, with an educational amish from [employer]. Review of Systems Const All systems reviewed & are unremarkable except as noted in HPI and below Reports no additional complaints Eyes Reports no additional complaints ENT Reports no additional complaints Card Reports no additional complaints Resp Reports no additional complaints GI Reports no additional complaints Reports no additional complaints Physical exam (Primary Care) Vital Signs: Last Vital Signs Pulse 70 03/05/23 11:11 BP 124/66 03/05/23 11:11 BMI result Body Mass Index 30.2 Tobacco/Smoking Status: Tobacco use Status Tobacco use date assessed 12/31/22 03/05/23 11:11 Patient Tobacco Use Status Former Tobacco user 03/05/23 11:11 e-Cigarette/Vaping Use Never Used 03/05/23 11:11 Thrive Assessment: Date of Thrive Assessment Date Thrive assessed 12/31/22 03/05/23 11:11 Const General: no acute distress HENMT Head: Yes normal to inspection Ears: hearing grossly normal bilaterally Face and sinus: Yes normal facial exam Throat: Yes posterior oropharynx normal Eyes General: appearance normal, both eyes and all related structures Resp Effort & Inspection: normal respiratory effort Auscultation: clear to auscultation bilaterally Cardio Rhythm: regular rhythm Heart sounds: S1 normal heart sound present and S2 normal heart sound present GI Inspection: Yes normal to inspection Palpation (GI): Soft to palpation Percussion: Yes normal to percussion Auscultation: normal bowel sounds Assessment and Plan Assessment & Plan (1) Hypothyroidism: Comment: s/p partial thyroidectomy Code(s): E03.9 - Hypothyroidism, unspecified Plan: CONTINUE LEVOTHYROXINE (2) Hyperlipidemia: Comment: Intolerant to multiple statins, refused PCSK9 Code(s): E78.5 - Hyperlipidemia, unspecified Plan: Continue low-cholesterol diet (3) Pre-op exam: Code(s): Z01.818 - Encounter for other preprocedural examination (4) Hallux flexus of right foot: Code(s): M20.21 - Hallux rigidus, right foot Plan: EKG showed normal sinus rhythm no ST-T changes, patient is medically cleared for hallux and hammertoe surgery Orders: Orders AMB EKG-In Office Today R06.09 - Other forms of dyspnea, R09.89 - Other specified symptoms and signs involving the circulatory and respiratory systems, Z00.00 - Encounter for general adult medical examination without abnormal findings Prothrombin Time INR Today Z01.818 - Encounter for other preprocedural examination Complete Blood Count Auto Diff 6 Months E03.9 - Hypothyroidism, unspecified, E78.5 - Hyperlipidemia, unspecified Comprehensive [place]. Panel Fast 6 Months E03.9 - Hypothyroidism, unspecified, E78.5 - Hyperlipidemia, unspecified TSH reflex Free T4 6 Months E03.9 - Hypothyroidism, unspecified, E78.5 - Hyperlipidemia, unspecified Lipid Panel 6 Months E03.9 - Hypothyroidism, unspecified, E78.5 - Hyperlipidemia, unspecified Partial Thromboplastin Time Today Z01.818 - Encounter for other preprocedural examination Uric Acid 6 Months E03.9 - Hypothyroidism, unspecified, E78.5 - Hyperlipidemia, unspecified Coding Level of Care Code Est Pt Level 3 (58058) Diagnoses Hypothyroidism E03.9 Hyperlipidemia E78.5 Pre-op exam Z01.818 Hallux flexus of right foot M20.21
[2023-03-05 11:11] VITALS: BP 124/66; PULSE 70; BMI 30.2
== END 2023-03-05 12:29 | disposition home or self-care (01) ==
PROVIDERS: PCP Internal Medicine; Visit Provider Internal Medicine
DX: E03.9 Hypothyroidism, unspecified (principal); E78.5 Hyperlipidemia, unspecified; Z01.818 Encounter for other preprocedural examination; M20.21 Hallux rigidus, right foot
CPT/HCPCS: 99213

== ENCOUNTER 2023-03-05 12:20 | Outpatient (REF) | payer MEDICARE, SELFPAY ==
[2023-03-05 13:41] LABS: INTERNATIONAL NORM RATIO 0.9 (0.9-1.1); Prothrombin Time 10.8 SEC (11.1-13.3)
[2023-03-05 13:44] LABS: Partial Thromboplastin Time 29.7 SEC (26.0-36.4)
== END 2023-03-05 12:21 | disposition home or self-care (01) ==
LOC: HO.HMGCLDS 12:20
PROVIDERS: PCP Internal Medicine; Visit Provider Internal Medicine
DX: Z01.818 Encounter for other preprocedural examination (principal)
CPT/HCPCS: 36415; 85610; 85730

== ENCOUNTER 2023-05-18 08:26 | Outpatient (AMB) | payer MEDICARE, SELFPAY ==
--- NOTE | 2023-05-18 08:28 | MHC.PC.OV ---
Vital Signs 05/18/23 08:29 Height 5 ft 4 in Weight 177 lb BMI 30.4 BP 126/72 Blood Pressure Location Lt brachial Position Sitting Pulse 80 Pulse Source Pulse Oximeter Pulse Oximetry (%) 100 Oxygen Delivery Method Room Air Intake Visit Reasons: ? of neuropathy Allergies nitrofurantoin [From MACROBID] Allergy (Severe, Verified 05/18/23 08:31) ANAPHYLAXIS Bghjznu-WFV-MjK Reductase Inhibitor [REDHFCH-ZSV-BHE REDUCTASE INHIBITOR] Allergy (Intermediate, Verified 05/18/23 08:31) MUSCLE ACHES atorvastatin [Lipitor] Adverse Reaction (Unknown, Verified 05/18/23 08:31) muscle cramping Medication List - Last Reconciled 05/18/23 by Angela Deal MD allopurinol 100 mg PO BID doxycycline hyclate 100 mg PO BID levothyroxine 25 mcg PO DAILY omeprazole 10 mg PO DAILY Tobacco use date assessed: 05/18/23 Fall risk assessment: No Falls in past year Last assessed Fall Risk: 05/18/23 Dental Screening Dental Screen Date: 05/18/23 Did you have a dental visit in the last 12 months?: Yes Did you have a dental problem in the last 6 months where you did not have access to dental care?: No Was dental information given to patient?: Patient has dentist HPI ? of neuropathy HPI Details Patient complains of chronic sensation of numbness in both feet progressing to ankle level for the last month. Patient denies any weakness change in balance when walking. She complains of right foot rash and itching sensation. Patient was seen by party planner and doxycycline was prescribed. Patient had left bunion surgery and recovered well. Patient denies lower back pain pain radiating to lower extremities change in bowel or bladder function, claudication. [facility] Medical History Hypothyroidism Primary osteoarthritis of both knees Raynaud's syndrome Surgical History History of lobectomy of thyroid Hx of ultrasound guided needle biopsy S/P foot surgery, right H/O esophagogastroduodenoscopy H/O colonoscopy Family History Mother No problems noted. Social History Household Members: None Housing: Other Patient Tobacco Use Status: Former Tobacco user Quit Date: >40yrs e-Cigarette/Vaping Use: Never Used Current occupational status: retired Cognitive needs: No Hearing needs: Yes Vision needs: Yes Questionnaire PHQ-9 Over the last 2 weeks, how often have you been bothered by any of the following problems? 1. Little interest or pleasure in doing things: not at all 2. Feeling down, depressed, or hopeless: not at all 3. Trouble falling or staying asleep, or sleeping too much: not at all 4. Feeling tired or having little energy: several days 5. Poor appetite or overeating: not at all 6. Feeling bad about yourself - or that you are a failure or have let yourself or your family down: not at all 7. Trouble concentrating on things, such as reading the newspaper or watching television: not at all 8. Moving or speaking so slowly that other people could have noticed. Or the opposite - being so fidgety or restless that you have been moving around a lot more than usual: not at all 9. Thoughts that you would be better off or of hurting yourself in some way: not at all Total score: 1 Depression Screening Interpretation: Negative Depression Screening Done: Yes 08095 - PHQ-9 Billing: Yes Source: Developed by Drs. Kirt Najera, Cici Wynn, James Scott and colleagues, with an educational amish from [employer] Thrive Questionnaire Date Thrive assessed: 05/18/23 I am a: Patient What is your living situation today?: I have a steady place to live Within the past 12 months, did the food you bought not last and you didn't have the money to get more?: Never true Within the past 12 months, did you worry whether your food would run out before you got money to buy more?: Never true Do you have trouble paying for medicines?: No Do you have trouble getting transportation to medical appointments?: No Do you have trouble paying your heating and electricity bill?: No Do you have trouble taking care of your child, family member or friend?: No Do you have trouble with day-to-day activities such as bathing, preparing meals, shopping, managing finances, etc.?: No Are you currently unemployed and looking for a job?: No Are you interested in more education?: No THRIVE Score: 0 AUDIT C Alcohol Use Questionnaire (AUDIT-C) 1. How often do you have a drink containing alcohol?: Monthly or less 2. How many drinks containing alcohol do you have on a typical day when you are drinking?: 1 or 2 3. How often do you have six or more drinks on one occasion?: Never Total Score: 1 NAOMI-7 AMB Questionnaire NAOMI-7 Date NAOMI - 7 assessed: 05/18/23 Feeling nervous, anxious, or on edge: 1 = Several days Not being able to stop or control worryin = Not at all Worrying too much about different things: 1 = Several days Trouble relaxin = Not at all Being so restless that it is hard to sit still: 0 = Not at all Becoming easily annoyed or irritable: 0 = Not at all Feeling afraid as if something awful might happen: 0 = Not at all Total NAOMI-7 score (0-4 normal; 5-9 mild; 10-14 moderate; 15-21 severe): 2 Source: Developed by Drs. Kirt Najera, Cici Wynn, James Scott and colleagues, with an educational amish from [employer] Review of Systems Const All systems reviewed & are unremarkable except as noted in HPI and below ENT Reports no additional complaints Card Reports no additional complaints Resp Reports no additional complaints GI Reports no additional complaints Reports no additional complaints Physical exam (Primary Care) Vital Signs: Last Vital Signs Pulse 80 05/18/23 08:29 BP 126/72 05/18/23 08:29 Pulse Ox 100 05/18/23 08:29 Oxygen Delivery Method Room Air 05/18/23 08:29 BMI result Body Mass Index 30.4 Tobacco/Smoking Status: Tobacco use Status Tobacco use date assessed 05/18/23 05/18/23 08:37 Patient Tobacco Use Status Former Tobacco user 05/18/23 08:37 e-Cigarette/Vaping Use Never Used 05/18/23 08:37 PHQ-9: PHQ-9 Score PHQ-9: Total score 1 05/18/23 08:40 Depression Screening Interpretation: Negative Thrive Assessment: Date of Thrive Assessment Date Thrive assessed 05/18/23 05/18/23 08:37 Const General: no acute distress HENMT Head: Yes normal to inspection Face and sinus: Yes normal facial exam Resp Effort & Inspection: normal respiratory effort Auscultation: clear to auscultation bilaterally Cardio Rhythm: regular rhythm Heart sounds: S1 normal heart sound present and S2 normal heart sound present Neuro Other: Decreased sensation to monofilament and vibration at the ankle level bilaterally, right foot erythematous vesicular rash Assessment and Plan Assessment & Plan (1) Numbness and tingling of both feet: Code(s): R20.0 - Anesthesia of skin; R20.2 - Paresthesia of skin Plan: Check EMG to evaluate for neuropathy, patient had normal B12 vitamin-D and thyroid level in February Orders: Orders NE electromyogram (EMG) Today R20.0 - Anesthesia of skin, R20.2 - Paresthesia of skin Coding Level of Care Code Est Pt Level 3 (06420) Diagnoses Numbness and tingling of both feet R20.0; R20.2
[2023-05-18 08:29] VITALS: BP 126/72; PULSE 80; O2SAT 100; BMI 30.4
== END 2023-05-18 09:09 | disposition home or self-care (01) ==
PROVIDERS: PCP Internal Medicine; Visit Provider Internal Medicine
DX: R20.0 Anesthesia of skin (principal); R20.2 Paresthesia of skin
CPT/HCPCS: 99213

== ENCOUNTER 2023-06-14 10:02 | Outpatient (AMB) | payer MEDICARE, SELFPAY ==
[2023-06-14 10:06] VITALS: BP 146/74; PULSE 67; BMI 30.3
--- NOTE | 2023-06-14 10:06 | A.OFFVIS_ITS ---
Intake Vital Signs 06/14/23 10:06 Height 5 ft 4 in Weight 176 lb 5.917 oz BMI 30.3 BP 146/74 H Blood Pressure Location Lt brachial Position Sitting Pulse 67 Intake Visit Reasons: GERD, Discuss Colonoscopy Intake Note: Magaly presents in the office as a new patient for GERD to discuss colonoscopy. CC: She states that she suffers from acid reflux. Her PCP has been hounding her to have a COLO for 2 years. Technical Training Coordinator Required: No Allergies nitrofurantoin [From MACROBID] Allergy (Severe, Verified 06/14/23 10:13) ANAPHYLAXIS Xdyqccv-FWO-TcN Reductase Inhibitor [QEQTNIW-QEZ-QVG REDUCTASE INHIBITOR] Allergy (Intermediate, Verified 06/14/23 10:13) MUSCLE ACHES atorvastatin [Lipitor] Adverse Reaction (Unknown, Verified 06/14/23 10:13) muscle cramping HPI GERD, Discuss Colonoscopy HPI Details HPI 72 yr old f here for assessment for GI s x she has reflux and regurgiation--not often, wakes her up at night, she is happy with the omeprazole her bowel habit is v variable, can be pellets, or soft sometimes, takes probitoics no blood in stool appetite is good weight is stable occ feels food gettign stuck upper throat, but unsure if due to sjogrens takes b12 regularly last colonoscopy--2011-- diverticulosis, last EGD: 2018-- small hiatal hernia. LA grade A esophagitis ROS: Constitutional : No Weight loss, No Fever, No Chills ENT/Mouth : No sore throat, No Rhinorrhea Eyes: No Swelling, No Redness Cardiovascular : No Chest Pain, No SOB, No Edema Respiratory : No Cough, No Sputum, No Wheezing Gastrointestinal : see HPI Genitourinary : NO Dysuria, No Urinary Frequency, No Hematuria, No Urgency Musculoskeletal : + joint pain, No Myalgias, No Joint Swelling Skin : No Skin Lesions, No rash Neuro : No Weakness, No Dizziness, No Headache--numbness in both legs Psych : No Anxiety/Panic, No Depression Heme/Lymph: No Bruising, No Lymphadenopathy Endocrine : No Polyuria, No Polydipsia All other systems reviewed and are negative. Medical History Hypothyroidism Primary osteoarthritis of both knees Raynaud's syndrome Surgical History H/O colonoscopy H/O esophagogastroduodenoscopy History of lobectomy of thyroid Hx of ultrasound guided needle biopsy S/P foot surgery, right Family History father NHL brother -throat ca mother - CHF Social History former smoker--no alcohol, or drug use EXAM: GENERAL: The patient is well developed and nontoxic. VITAL SIGNS:see workflow HEENT: Nonicteric sclerae, PERRLA, EOMI. Oropharynx clear. Moist mucous membranes. Conjunctivae appear well perfused. No thyroid mass. CHEST: Chest wall is nontender. HEART: Regular rate and rhythm without murmurs. LUNGS: Clear to auscultation bilaterally. ABDOMEN: Soft, positive bowel sounds, nontender, no organomegaly.no flank tenderness SKIN: bandages and stocking on NEUROLOGIC: Cranial nerves II-XII intact without motor/sensory deficit. Psych: normal affect A/P: 1/ GERD--dysphagia, possible due to sjog rens or stricture, worsening hiatal hernia 2/ colon screening PLAN: 1/ suprep for colonoscopy 2/ EGD with possible dilation --cont PPI meantime [facility] Medical History Hypothyroidism Primary osteoarthritis of both knees Raynaud's syndrome Surgical History History of lobectomy of thyroid Hx of ultrasound guided needle biopsy S/P foot surgery, right H/O esophagogastroduodenoscopy H/O colonoscopy Family History Mother No problems noted. Social History Household Members: None Housing: Other Patient Tobacco Use Status: Former Tobacco user Quit Date: >40yrs e-Cigarette/Vaping Use: Never Used Current occupational status: retired Cognitive needs: No Hearing needs: Yes Vision needs: Yes Physical Exam Vital Signs: Last Vital Signs Pulse 67 06/14/23 10:06 BP 146/74 H 06/14/23 10:06 BMI result Body Mass Index 30.3 Assessment & Plan Assessment & Plan (1) GERD (gastroesophageal reflux disease): Comment: EGD 2019, H. pylori txd Code(s): K21.9 - Gastro-esophageal reflux disease without esophagitis Plan: see above Medications: New sodium,potassium,mag sulfates 17.5-3.13-1.6 gram (Suprep Bowel Prep Kit) DILUTE; drink 1/2 at 6-8 pm and half at 11 PM- 1AM 354 mL 0RF Coding Level of Care Code New Pt Level 4 (04584) Diagnoses GERD (gastroesophageal reflux disease) K21.9
== END 2023-06-14 11:01 | disposition home or self-care (01) ==
PROVIDERS: PCP Internal Medicine; Visit Provider Internal Medicine Gastroenterology
DX: K21.9 Gastro-esophageal reflux disease without esophagitis (principal)
CPT/HCPCS: 99204

== ENCOUNTER → 2023-06-14 10:02 | Outpatient (BNVA) | payer MEDICARE, SELFPAY | PROVIDERS: PCP Internal Medicine; Visit Provider Internal Medicine Gastroenterology | DX: K21.9 Gastro-esophageal reflux disease without esophagitis (principal) | CPT/HCPCS: 99202 ==

== ENCOUNTER 2023-06-23 12:45 | Outpatient (REF) | payer MEDICARE, SELFPAY ==
--- NOTE | 2023-06-23 12:48 | EMG_ITS ---
Chief complaint: Bilateral feet numbness, intermittent back pain Reason for referral: Evaluate for neuropathy Referred by: Dr. Deal Procedure done: Bilateral lower extremity NCS, right lower extremity EMG Precautions and/or limitations: She has in nonhealing wound on left dorsal foot. Deferred NCS on dorsal foot. Can not do needle EMG on left lower extremity due to nonhealing wound. The limb temperature was monitored continuously and remained between 32-36 degrees C during the performance of the NCS. Nerve Conduction Studies Anti Sensory Summary Table ?Stim Site NR Onset (ms) Norm Onset (ms) Peak (ms) Norm Peak (ms) O-P Amp (?V) Norm O-P Amp Site1 Site2 Delta-0 (ms) Dist (cm) Gregorio (m/s) Norm Gregorio (m/s) Left Sural Anti Sensory (Lat Mall) Calf ? 2.5 3.8 <4.0 14.0 >5.0 Calf Lat Mall 2.5 14.0 56 Calf ? 2.1 3.5 8.3 Calf ? 2.2 3.5 21.5 Right Sural Anti Sensory (Lat Mall) Calf ? 2.3 3.4 <4.0 0.6 >5.0 Calf Lat Mall 2.3 14.0 61 Calf ? 2.0 2.9 4.0 Calf ? 1.5 2.8 6.9 Motor Summary Table ?Stim Site NR Onset (ms) Norm Onset (ms) O-P Amp (mV) Norm O-P Amp iAmp (mV) Amp (1st) (%) Site1 Site2 Delta-0 (ms) Dist (cm) Gregorio (m/s) Norm Gregorio (m/s) Right Peroneal Motor (Ext Dig Brev) Ankle ? 5.4 <4.0 2.3 >2.5 2.7 100.0 Ankle Ext Dig Brev 5.4 0.0 B Fib ? 12.3 2.2 2.5 95.7 B Fib Ankle 6.9 30.5 44 >40 Poplt ? 13.1 2.2 2.4 95.7 Poplt B Fib 0.8 4.5 56 >40 Right Tibial Motor (Abd Simon Brev) Ankle ? 4.7 <5 1.0 >2.5 1.3 100.0 Ankle Abd Simon Brev 4.7 0.0 Knee ? 12.6 0.8 1.2 80.0 Knee Ankle 7.9 37.0 47 >40 EMG ?Side Muscle Nerve Root Ins Act Fibs Psw Amp Dur Poly Recrt Int Pat Comment Right AbdHallucis MedPlantar S1-2 Nml Nml Nml Nml Nml 0 Nml Complete Right AntTibialis Dp Br Peron L4-5 Incr 1+ 1+ Nml Nml 0 Nml Complete Right PostTibialis Tibial L5, S1 Nml Nml Nml Nml Nml 0 Nml Complete Right MedGastroc Tibial S1-2 Nml Nml Nml Nml Nml 0 Nml Complete Right VastusMed Femoral L2-4 Nml Nml Nml Nml Nml 0 Nml Complete Paraspinal EMG ?Side Muscle Nerve Root Ins Act Fibs Psw Comment Right Lumbar Upper Rami Nml Nml Nml Right Lumbar Mid Rami Nml Nml Nml Right Lumbar Lower Rami Nml Nml Nml FINDINGS: Right peroneal nerve showed prolonged distal latency, small amplitude and normal conduction velocity. Right tibial nerve showed normal distal latency, small amplitude and normal conduction velocity. Bilateral sural nerves were present with normal amplitudes. Concentric needle EMG was performed in selected muscles of the right lower extremity and lumbar paraspinals. Study revealed Signs of electric abnormalities as shown in the table below. Right TA showed increased insertional activity, PSWs and fibrillations. IMPRESSION: 1. This is an abnormal study. 2. There is electrodiagnostic evidence for right L5-S1 radiculopathy. 3. No findings for peripheral neuropathy given normal sural sensory nerves. CLINICAL COMMENT: Further clinical correlation recommended. Thank you for your kind referral. Leila Larkin MD, ALAN Board Certified, [place] Board [employer] and Rehabilitation (ABPMR) Board Certified, [place] Board [employer] Electrodiagnostic Medicine (ABEM) [place] [id number] [facility]
== END 2023-06-23 12:46 | disposition home or self-care (01) ==
LOC: HO.NEURO 12:45
PROVIDERS: PCP Internal Medicine; Visit Provider Internal Medicine
DX: R20.0 Anesthesia of skin (principal); R20.2 Paresthesia of skin
CPT/HCPCS: 95886; 95908

== ENCOUNTER → 2023-06-23 12:48 | Outpatient (BNV) | payer MEDICARE, SELFPAY | PROVIDERS: PCP Internal Medicine; Visit Provider Physical Medicine & Rehabilitation | DX: M54.16 Radiculopathy, lumbar region (principal) | CPT/HCPCS: 95886; 95908 ==

== ENCOUNTER 2023-07-14 14:14 | Outpatient (AMB) | payer MEDICARE, SELFPAY ==
[2023-07-14 14:26] VITALS: BP 150/80; TEMP 36.7; BMI 30.6
--- NOTE | 2023-07-14 14:26 | AM.OFFWIN_ITS ---
Intake Vital Signs 07/14/23 14:26 Height 5 ft 4 in Weight 178 lb BMI 30.6 BP 150/80 H Blood Pressure Location Lt brachial Position Sitting Temp 98.1 F Temp Source Temporal Artery Scan Intake Visit Reasons: EP ?Phlebitis Intake Note: pt is here today for phlebites on rt cafe Patient Tobacco Use Status: Former Tobacco user Quit Date: >40yrs Allergies nitrofurantoin [From MACROBID] Allergy (Severe, Verified 07/14/23 14:30) ANAPHYLAXIS Crkdtcy-XSH-HcZ Reductase Inhibitor [LLZPFHO-WTT-HKY REDUCTASE INHIBITOR] Allergy (Intermediate, Verified 07/14/23 14:30) MUSCLE ACHES atorvastatin [Lipitor] Adverse Reaction (Unknown, Verified 07/14/23 14:30) muscle cramping Do you need a note to return to daycare/school/sports/work: No HPI HPI Comments History of Present Illness Details She presents to office with R medial calf tenderness Ongoing x 1.5 weeks Occured after a tens unit was placed on area for a nerve conduction study She has hx of varicose veins Has had pain similar in past with superficial phlebitis No hx of DVT, blood thinner use, calf pain, travel, surgery or stasis No CP or SOB Has tried compression stockings which helps Was tender to palpation but improved No redness but feels slightly hot No fever or chills PFSH Medical History Hypothyroidism Primary osteoarthritis of both knees Raynaud's syndrome Surgical History History of lobectomy of thyroid Hx of ultrasound guided needle biopsy S/P foot surgery, right H/O esophagogastroduodenoscopy H/O colonoscopy Family History Mother No problems noted. Social History Household Members: None Housing: Other Patient Tobacco Use Status: Former Tobacco user Quit Date: >40yrs e-Cigarette/Vaping Use: Never Used Current occupational status: retired Cognitive needs: No Hearing needs: Yes Vision needs: Yes Review of Systems Const Denies chills and Denies fever(s) Card Denies chest pain and Denies dyspnea Resp Denies cough and Denies dyspnea Musc Denies numbness, Denies tingling and Reports other (R medial calf tenderness) Skin/Breast Reports skin pain Neuro Denies numbness and Denies tingling Physical Exam Vital Signs: Last Vital Signs Temp 98.1 F 07/14/23 14:26 BP 150/80 H 07/14/23 14:26 BMI result Body Mass Index 30.6 General: Non-toxic, NAD. Speaking full sentences. Skin: Warm dry throughout. R lower extfremities has varicose veins. R anterio- medial calf has area of induration and slight tenderness to palpation. Approx 2cm x 3cm in size. No erythema or warmth. Respiratory: No respiratory distress Cardiac: No posterior calf tenderness or pitting edema MSK: Full ROM extremities. Neurology: A/O. No aphasia or facial droop. Gait without abnormality Psych: Good mood and affect Assessment & Plan Assessment & Plan (1) Superficial phlebitis: Code(s): I80.9 - Phlebitis and thrombophlebitis of unspecified site Plan: PE is consistent with superficial phlebitis vs hematoma Warm compress Naproxen (stop if GI upset) Compression stockings F/U with pcp and note sent to PCP about new vascular referral (Dr. Santoyo retiring) ER if worse Medications: New naproxen 500 mg PO BID 5 days 20 tabs 0RF Coding Level of Care Code Est Pt Level 3 (42963) Diagnoses Superficial phlebitis I80.9
== END 2023-07-14 14:49 | disposition home or self-care (01) ==
PROVIDERS: PCP Internal Medicine; Visit Provider Physician Assistant
DX: I80.9 Phlebitis and thrombophlebitis of unspecified site (principal)
CPT/HCPCS: 99213

== ENCOUNTER 2023-08-17 14:13 | Outpatient (AMB) | payer MEDICARE, SELFPAY ==
--- NOTE | 2023-08-17 14:15 | MHC.OFFVIS ---
Intake Visit Reasons: CARPENTER HELPER/PCP referral regarding Intake Note: New patient presents for . Patient states in the last 2 months her pain has been worsening. Right leg is worse. Has been elevating, and using heating pads. Also states she is using compression socks. Patient is a non smoker and does not have diabetes. Accompanied by: Self / Same As Patient Allergies nitrofurantoin [From MACROBID] Allergy (Severe, Verified 08/17/23 14:18) ANAPHYLAXIS Oaqlwhh-WIQ-SdC Reductase Inhibitor [[id number] REDUCTASE INHIBITOR] Allergy (Intermediate, Verified 08/17/23 14:18) MUSCLE ACHES atorvastatin [Lipitor] Adverse Reaction (Unknown, Verified 08/17/23 14:18) muscle cramping HPI HPI CARPENTER HELPER/PCP referral regarding : Details: Pleasant 72-year-old female patient presents for painful varicose veins. Complaints include pain over varicosities, swelling of lower extremities, of bilateral lower extremities. It has been affecting there daily activities including walking. It is noted more so in left leg. Patient notes prior venous ablation is by Dr. Santoyo - right leg in 2010 and left leg in 2014 Patient denies any history of DVT/ PE. Patient denies any history of phlebitis. Trial of compression includes - [id number]-[id number] They now present for vascular evaluation regarding their varicose veins. [facility] Medical History Hypothyroidism Primary osteoarthritis of both knees Raynaud's syndrome Surgical History History of lobectomy of thyroid Hx of ultrasound guided needle biopsy S/P foot surgery, right H/O esophagogastroduodenoscopy H/O colonoscopy Family History Mother No problems noted. Social History Household Members: None Housing: Other Patient Tobacco Use Status: Former Tobacco user Quit Date: >40yrs e-Cigarette/Vaping Use: Never Used Current occupational status: retired Cognitive needs: No Hearing needs: Yes Vision needs: Yes Review of Systems Const Reports as per HPI ENT Reports no additional complaints Card Denies chest pain, Denies chest pain at rest and Denies chest pain with activity Resp Denies chest congestion and Denies cough GI Reports no additional complaints Musc Details: pain over varicosities, aching of lower extremities, swelling, cramping, heaviness and tiredness, itching Denies abnormal gait Skin/Breast Reports pruritus and Denies wounds Neuro Reports no additional complaints and Denies abnormal gait Psych Denies no additional complaints Physical Exam Const General: cooperative, healthy appearing and comfortable Orientation/consciousness: oriented to person, oriented to place and oriented to time Neck Carotids: no bruits Chest Chest palpation & inspection: normal inspection of the chest and normal palpation of entire chest wall Resp Effort & Inspection: normal respiratory effort and able to speak in complete sentences Cardio Rate: regular rate Heart sounds: S1 normal heart sound present and S2 normal heart sound present Peripheral pulses: Peripheral pulses 2+ throughout GI Inspection: Yes normal to inspection Skin Other: +2 edema, large rope-like varicosities greater than 4 mm in particular left knee and thigh CEAP Classification C4 - skin color changes Ep - Etiology Primary As - superficial veins P - reflux General skin exam: dry skin Neuro General: oriented to person, oriented to place and oriented to time Extrem Right lower extremity: full ROM, normal capillary refill and edema Left lower extremity: full ROM, normal capillary refill and edema Psych Mental Status: mental status grossly normal Assessment & Plan Assessment & Plan (1) Varicose veins of left lower extremity with inflammation: Code(s): I83.12 - Varicose veins of left lower extremity with inflammation Category: Medical Plan: In short, the patient has evidence of venous insufficiency. I have discussed the pathophysiology with the patient. In addition I have provided informational material regarding venous disease to the patient. We have discussed conservative measures including compression, elevation, and exercise. I have also provided a handout regarding appropriate use of compression stockings and where to purchase good compression stockings as well. I have taken the liberty of ordering venous insufficiency testing with the patient. They will follow up with me after testing. The patient had an opportunity to ask questions regarding the treatment plan. All questions were answered. Imaging studies, laboratory studies and physical exam results were discussed and reviewed in detail. No major barriers to understanding were identified. The patient expressed understanding and agreement with the above treatment plan. The patient is aware they should contact our office by phone for worsening of the current condition or the appearance of new symptoms. Thank you for allowing me to participate in the vascular care of this patient. If you have any questions or concerns regarding the treatment for the above condition please do not hesitate to contact me. The office telephone contact is [phone]. This note is constructed using voice recognition software. While every effort has been made to ensure accuracy, supervisor frame sample and pattern errors may have been included. Thank you for allowing me to participate in the care of your patient. Yours sincerely, Silver Pulliam MD, FACS, R.P.V.I. Orders: Orders US venous duplex LE BI 1 Week I83.12 - Varicose veins of left lower extremity with inflammation Coding Level of Care Code New Pt Level 4 (93603) Diagnoses Varicose veins of left lower extremity with inflammation I83.12
== END 2023-08-17 14:49 | disposition home or self-care (01) ==
PROVIDERS: PCP Internal Medicine; Visit Provider Surgery Vascular Surgery
DX: I83.12 Varicose veins of left lower extremity with inflammation (principal)
CPT/HCPCS: 99203

== ENCOUNTER → 2023-08-17 14:13 | Outpatient (BNVA) | payer MEDICARE, SELFPAY | PROVIDERS: PCP Internal Medicine; Visit Provider Surgery Vascular Surgery | DX: I83.12 Varicose veins of left lower extremity with inflammation (principal) | CPT/HCPCS: 99202 ==

== ENCOUNTER 2023-08-24 12:44 | Outpatient (REF) | payer MEDICARE, SELFPAY ==
--- NOTE | ~2023-08-24 | US_ITS ---
EXAMINATION: US LOWER EXTREMITY VENOUS (REFLUX EXAM), BILATERAL CLINICAL INDICATION: Varicose veins of the left lower extremity COMPARISON: None. TECHNIQUE: Color flow triplex imaging and compression Doppler was performed to evaluate both the deep and the superficial systems bilaterally. To evaluate the superficial system, the examination was performed in the upright position. Color-flow Doppler ultrasound and compression ultrasound were utilized. In addition, maneuvers were utilized to demonstrate reflux. FINDINGS: RIGHT: 1. DEEP VENOUS ULTRASOUND OF THE RIGHT LOWER EXTREMITY: Common Femoral Vein: Compressible, normal respiratory variation and augmented flow. Popliteal Vein: Compressible, normal augmentation. Deep Venous Reflux: There is no evidence of reflux in the deep system in either the common femoral vein or the popliteal vein. There is no evidence of a Mehta's cyst. 2. SUPERFICIAL ULTRASOUND WITH DOPPLER OF RIGHT LOWER EXTREMITY: RIGHT GREAT SAPHENOUS VEIN: Saphenofemoral Junction: 7 mm. No reflux. Proximal Thigh: 5 mm. 1256 ms reflux. Mid Thigh: 4 mm. 1484 ms reflux. Above Knee: 2 mm. No reflux. Below Knee: Not seen Mid Calf: 2 mm. No reflux. Ankle: 2 mm. No reflux. DUPLICATED GREAT SAPHENOUS VEIN: None RIGHT SMALL SAPHENOUS VEIN: Proximal: 3 mm. No reflux. Distal: 3 mm. No reflux. PERFORATORS: Mid thigh: 5 mm. 944 ms reflux Below knee: 3 mm. No reflux Mid calf: 2 mm. 1208 ms reflux Varicose vein: Mid thigh: 4 mm. No reflux. LEFT: 1. DEEP VENOUS ULTRASOUND OF THE LEFT LOWER EXTREMITY: Common Femoral Vein: Compressible, normal respiratory variation and augmented flow. Popliteal Vein: Compressible, normal augmentation. Deep Venous Reflux: Positive for prolonged reflux within the common femoral vein 64243 ms. Femoral and popliteal veins also show evidence of reflux, but below threshold criteria. Mehta's cyst measures 4.4 x 1.1 x 1.9 cm. 2. SUPERFICIAL ULTRASOUND WITH DOPPLER OF LEFT LOWER EXTREMITY: LEFT GREAT SAPHENOUS VEIN: Saphenofemoral Junction: 6 mm. No reflux. Proximal Thigh: 4 mm. 1592 ms reflux. Mid Thigh: 3 mm. No reflux. Above Knee: 2 mm. No reflux. Below Knee: 3 mm. No reflux. Mid Calf: 1 mm. 2412 ms reflux. Ankle: 3 mm. 2128 ms reflux. DUPLICATED GREAT SAPHENOUS VEIN: None LEFT SMALL SAPHENOUS VEIN: Proximal: 3 mm. No reflux. Distal: 3 mm. No reflux. PERFORATORS: Distal calf: 3 mm. No reflux Mid calf: 4 mm. 2620 ms reflux. Varicose veins: Mid thigh: 3 mm. 932 ms Below knee: 5 mm. 1656 ms US/US venous duplex LE BI IMPRESSION: 1. Prolonged superficial venous reflux within the right great saphenous vein at the proximal and mid thigh. 2. Prolonged superficial venous reflux within the left great saphenous vein at the proximal thigh, mid calf, and ankle. 3. Prolonged reflux within left lower extremity varicosities at the mid thigh and below knee. 4. Prolonged deep venous reflux within the common femoral vein meeting threshold criteria. 5. Left popliteal cyst measures 4.4 x 1.1 x 1.9 cm. Abnormal lower extremity venous reflux times: Superficial and deep calf veins: >500 ms Femoropopliteal veins: >1000 ms Perforating veins: >350 ms Dottie N, Armando J, Miquel L, Kat AK, Tej SS, Joanne Martin M, Tyson WH. Definition of venous reflux in lower-extremity veins.J Vasc Surg. 2003; 38:793?798.
== END 2023-08-24 12:45 | disposition home or self-care (01) ==
LOC: HO.US 12:44
PROVIDERS: PCP Internal Medicine; Visit Provider Surgery Vascular Surgery
DX: I83.12 Varicose veins of left lower extremity with inflammation (principal)
CPT/HCPCS: 93970

== ENCOUNTER 2023-09-20 10:22 | Outpatient (REF) | payer MEDICARE, SELFPAY ==
[2023-09-20 13:42] LABS: MANUAL DIFF FLAG NO
[2023-09-20 13:51] LABS: Basophils Percent Auto 0.4 % (0-2); Eosinophils Percent Auto 0.7 % (0-4); Hematocrit 35.1 % (37.0-47.0); Hemoglobin 11.3 g/dl (12.0-16.0); Imm Gran Abs Auto 0.01 X10*3/uL (0.00-0.03); Imm Gran Pct Auto 0.2 % (0.0-0.4); Lymphocytes Absolute Auto 1.3 X10*3/uL (1.2-4.9); Lymphocytes Percent Auto 24.1 % (20-40); Mean Corpuscular HGB Conc 32.2 g/dl (31.0-35.0); Mean Corpuscular Hemoglobin 30.3 pg (27.0-33.0); Mean Corpuscular Volume 94.1 fL (80.0-98.0); Mean Platelet Volume 10.8 fL (9.4-12.3); Monocytes Absolute Auto 0.4 X10*3/uL (0.1-1.2); Monocytes Percent Auto 7.6 % (2-11); Neutrophils Absolute Auto 3.7 x10*3/uL (2.0-8.3); Platelet Count 286 X10*3/uL (160-400); Red Blood Count 3.73 X10*6/uL (4.20-5.50); Red Cell Distribution Width 14.7 % (11.0-16.0); White Blood Count 5.5 X10*3/uL (4.8-10.8)
[2023-09-20 14:11] LABS: Alanine Aminotransferase 8 U/L (0-31); Alkaline Phosphatase 97 U/L (39-117); Anion Gap 11 (12-20); Aspartate Amino Transferase 19 U/L (5-31); Bilirubin Total 0.5 mg/dL (0.0-1.0); Blood Urea Nitrogen 13 mg/dL (9-16); Calcium 9.9 mg/dL (8.4-10.2); Carbon Dioxide 26 mmol/L (22-29); Chloride 105 mmol/L (96-108); Cholesterol 213 mg/dL (<200); Estimated Glomerular Filt Rate > 60; Glucose Fasting 91 mg/dL (60-99); HDL Cholesterol 43 mg/dL (>40); LDL Cholesterol Calculated 142 mg/dL (<100); Potassium 4.1 mmol/L (3.3-5.1); Sodium 138 mmol/L (135-145); Total Protein 6.9 g/dL (6.5-8.0); Triglycerides 142 mg/dL (<150); Uric Acid 6.6 mg/dL (2.4-5.7)
[2023-09-20 14:27] LABS: TSH reflex Free T4 2.64 uIU/mL (0.32-4.0)
== END 2023-09-20 10:23 | disposition home or self-care (01) ==
LOC: HO.HMGCLDS 10:22
PROVIDERS: PCP Internal Medicine; Visit Provider Internal Medicine
DX: E03.9 Hypothyroidism, unspecified (principal); E78.5 Hyperlipidemia, unspecified
CPT/HCPCS: 36415; 80053; 80061; 84443; 84550; 85025

== ENCOUNTER 2023-09-27 08:01 | Outpatient (AMB) | payer MEDICARE, SELFPAY ==
--- NOTE | 2023-09-27 08:06 | A.OFFVIS_ITS ---
Intake Vital Signs 09/27/23 08:07 Height 5 ft 4 in Weight 177 lb 2 oz BMI 30.4 BP 120/80 Blood Pressure Location Rt brachial Position Sitting Pulse 70 Pulse Source Pulse Oximeter Pulse Oximetry (%) 96 Oxygen Delivery Method Room Air Intake Visit Reasons: AWV Allergies nitrofurantoin [From MACROBID] Allergy (Severe, Verified 09/27/23 08:08) ANAPHYLAXIS Dprokip-YTA-HoM Reductase Inhibitor [ODCFILL-ODY-OSR REDUCTASE INHIBITOR] Allergy (Intermediate, Verified 09/27/23 08:08) MUSCLE ACHES atorvastatin [Lipitor] Adverse Reaction (Unknown, Verified 09/27/23 08:08) muscle cramping Medication List - Last Reconciled 09/27/23 by Angela Deal MD A-C-E-zinc ox-selen AA-copper 1,000 unit-60 mg-30 unit tabs PO allopurinol 100 mg PO BID lactobacillus combination no.9 (Adult 50 Plus Probiotic) 4,000 mmu cells PO DAILY levothyroxine 25 mcg PO DAILY lysine (L-Lysine) 500 mg PO DAILY mecobalamin (vitamin B12) 1,000 mcg PO DAILY omeprazole 10 mg PO DAILY quercetin mg PO sodium,potassium,mag sulfates 17.5-3.13-1.6 gram (Suprep Bowel Prep Kit) DILUTE; drink 1/2 at 6-8 pm and half at 11 PM- 1AM HPI AWV HPI Details Initiated the conversation about Advanced Directives. Advanced Directives help? patients prepare for current and future decisions about their medical treatment? and place of care. Discussed with patient that it is a process where a patients? current condition and prognosis are reviewed, their wishes for information? regarding their illness are elicited, and likely medical dilemmas are presented? and options discussed. The form can be amended as needed, reviewed yearly and? make changes as needed IPPE/AWV ? year old presents? for her ? Annual? Wellness Visit, initial visit.? Medical / Social History Reviewed? Past Medical History ?Yes? . ? [place]? of Care / Care Team list updated ?Yes . ? Surgical/Hospitalization? History ?Yes . ? Current Medications? (including OTC and supplements) ?Yes . ? Family History ?Yes? . ? Tobacco? Control form ?Yes . ? AUDIT-C (Alcohol use) form? ?Yes . ? Illicit drug use in Social? History ?Yes . ? Current diagnosis of? depression? ?No ? Appropriate PHQ2/PHQ9? completed ?Yes . ? Data entered by ?Medical? Patient Service Specialist and reviewed by provider ? Fall Risk ? Fall? History? Have you had any falls with? injury in the past year? ?No . ? Have you had two or more? falls in the past year? ?No . ? Fall Risk Assessment: ?No? falls in the past year . ? HRA filled out by? the patient, reviewed by Provider and scanned. ? IPPE/AWV ? Balance? [place]? ?Yes . ? Tandem? walk ?Yes . ? Walk and? Turn ?Yes . ? Rise from? sit to stand ?Yes . ?Vision? Corrective? lens ?Yes ? Vision? screen ? Up-to-date, has an appointment [] for vision? screening and glaucoma screening ?Hearing? Whisper? test ?pass .? Initiated the conversation about Advanced Directives. Advanced Directives help? patients prepare for current and future decisions about their medical treatment? and place of care. Discussed with patient that it is a process where a patients? current condition and prognosis are reviewed, their wishes for information? regarding their illness are elicited, and likely medical dilemmas are presented? and options discussed. The form can be amended as needed, reviewed yearly and? make changes as needed Written? Plan?Completed. See Patient? Documents. [facility] Medical History Hypothyroidism Primary osteoarthritis of both knees Raynaud's syndrome Surgical History History of lobectomy of thyroid Hx of ultrasound guided needle biopsy S/P foot surgery, right H/O esophagogastroduodenoscopy H/O colonoscopy Family History Mother No problems noted. Social History Household Members: None Housing: Other Patient Tobacco Use Status: Former Tobacco user e-Cigarette/Vaping Use: Never Used Current occupational status: retired Cognitive needs: No Hearing needs: Yes Vision needs: Yes Questionnaire Medicare Wellness Checkup [age] What gender do you identify with?: female During the past 4 weeks, how much have you been bothered by emotional problems such as feeling anxious, depressed, irritable, sad or downhearted, and blue?: no t at all During the past 4 weeks, has your physical & emotional health limited your social activities with family, friends, neighbors, or groups?: not at all During the past 4 weeks, how much bodily pain have you generally had?: mild pain During the past 4 weeks, was someone available to help you if you needed & wanted help?: yes, as much as I wanted During the past 4 weeks, what was the hardest physical activity you could do for at least 2 minutes?: moderate Can you get to places out of walking distance without help? (For eg., can you travel alone on buses, taxis or drive your car?): Yes Can you go shopping for groceries or clothes without someone's help?: Yes Can you prepare your own meals?: Yes Can you do your housework without help?: Yes Because of any health problems, do you need the help of another person with your personal care needs such as eating, bathing, dressing or getting around the house?: No Can you handle your own money without help?: Yes During the past 4 weeks, how would you rate your health in general?: very good During the past 4 weeks how have things been going for you?: pretty well Are you having difficulties driving your car?: no Do you always fasten your seat belt when you are in a car?: yes, usually During past 4 weeks, have you been bothered by the following: never: Falling or dizzy when standing up, Sexual problems?, Trouble eating well?, Teeth or denture problems? and Problems using the telephone? and seldom: Tiredness or fatigue? Have you fallen 2 or more times in the past year?: No Are you afraid of falling?: No Are you a smoker?: no During the past 4 weeks, how many drinks of wine, beer, or other alcoholic beverages did you have?: no alcohol at all Do you exercise for about 20 minutes 3 or more times a week?: yes, most of the time Have you been given information to help with the following?: no: Hazards in your house that might hurt you? and no: Keeping track of your medications? How often do you have trouble taking medicines the way you have been told to take them?: I always take medicine as prescribed How confident are you that you can control & manage most of your health problems?: very confident What is your race?: White Mini Mental State Exam (MMSE) Orientation What is the (year) (season) (date) (day) (month)?: year, season, date, day and month Where are we (state) (county) (town or city) (hospital) (floor)?: state, county, town or city, hospital/clinic and floor Registration Name of 3 unrelated objects clearly and slowly, then ask patient to repeat all 3 of them. (1st repeat determines score. Make sure they can repeat all three): object 1, object 2 and object 3 Attention & Calculation (CHOOSE ONE) Spell WORLD backwards (DLROW): 5 letters Recall Ask patient to repeat the 3 items from question #3.: object 1, object 2 and object 3 Language Show patient a wristwatch & ask what it is. Repeat for pencil.: watch and pencil Ask the patient to repeat the phrase 'No ifs, ands, or buts' after you.: correct Ask the patient to 'take a piece of paper with their right hand' 'fold paper in half' 'place paper on floor': take paper in right hand, fold paper in half and place paper on floor Print the sentence 'CLOSE YOUR EYES' on a piece. If patient actually closes eyes then score.: followed written direction Give patient a blank piece of paper & ask to write a sentence. Score if it contains a noun & verb.: sentence contains subject and verb Score Score: 29 PHQ-9 Over the last 2 weeks, how often have you been bothered by any of the following problems? 1. Little interest or pleasure in doing things: not at all 2. Feeling down, depressed, or hopeless: not at all 3. Trouble falling or staying asleep, or sleeping too much: not at all 4. Feeling tired or having little energy: several days 5. Poor appetite or overeating: not at all 6. Feeling bad about yourself - or that you are a failure or have let yourself or your family down: not at all 7. Trouble concentrating on things, such as reading the newspaper or watching television: not at all 8. Moving or speaking so slowly that other people could have noticed. Or the opposite - being so fidgety or restless that you have been moving around a lot more than usual: not at all 9. Thoughts that you would be better off or of hurting yourself in some way: not at all Total score: 1 Depression Screening Interpretation: Negative Depression Screening Done: Yes 97205 - PHQ-9 Billing: Yes Source: Developed by Drs. Kirt Najera, Cici Wynn, James Scott and colleagues, with an educational amish from [employer]. Review of Systems Const All systems reviewed & are unremarkable except as noted in HPI and below Eyes Reports no additional complaints ENT Reports no additional complaints Card Reports no additional complaints Resp Reports no additional complaints GI Reports no additional complaints Reports no additional complaints Musc Reports no additional complaints Physical Exam Vital Signs: Last Vital Signs Pulse 70 09/27/23 08:07 BP 120/80 09/27/23 08:07 Pulse Ox 96 09/27/23 08:07 Oxygen Delivery Method Room Air 09/27/23 08:07 BMI result Body Mass Index 30.4 Const General: no acute distress HEENT Head: Yes normal to inspection Ears: hearing grossly normal bilaterally General nose exam: Normal external nose present Face and sinus: Yes normal facial exam Mouth: Normal oral and palatal mucosa present Teeth and gingiva: dentition normal Throat: Yes posterior oropharynx normal Eyes General: appearance normal, both eyes and all related structures Neck Neck: Yes no lymphadenopathy and Yes supple Resp Effort & Inspection: normal respiratory effort Auscultation: clear to auscultation bilaterally Cardio Rhythm: regular rhythm Heart sounds: S1 normal heart sound present and S2 normal heart sound present GI Inspection: Yes normal to inspection Palpation (GI): Soft to palpation Percussion: Yes normal to percussion Auscultation: normal bowel sounds Extrem Other: Chronic venous stasis changes in both lower extremities General: Yes no clubbing, cyanosis or edema Assessment & Plan Assessment & Plan (1) Annual physical exam: Code(s): Z00.00 - Encounter for general adult medical examination without abnormal findings Plan: Well-balanced diet regular physical activity weight loss discussed with the patient. She will return in 1 year. Patient is up-to-date with the mammogram (2) Hyperlipidemia: Comment: Intolerant to multiple statins, refused PCSK9 Code(s): E78.5 - Hyperlipidemia, unspecified Plan: Continue low-cholesterol diet (3) Vitamin D deficiency: Code(s): E55.9 - Vitamin D deficiency, unspecified Plan: Continue vitamin-D supplement (4) Hypothyroidism: Comment: s/p partial thyroidectomy Code(s): E03.9 - Hypothyroidism, unspecified Plan: Continue levothyroxine Orders: Orders Complete Blood Count Auto Diff 1 Year E03.9 - Hypothyroidism, unspecified, E55.9 - Vitamin D deficiency, unspecified, E78.5 - Hyperlipidemia, unspecified, Z00.00 - Encounter for general adult medical examination without abnormal findings TSH reflex Free T4 1 Year E03.9 - Hypothyroidism, unspecified, E55.9 - Vitamin D deficiency, unspecified, E78.5 - Hyperlipidemia, unspecified, Z00.00 - Encounter for general adult medical examination without abnormal findings TSH reflex Free T4 6 Months E03.9 - Hypothyroidism, unspecified MR lumbar spine wo con Today M54.16 - Radiculopathy, lumbar region Comprehensive [place]. Panel Fast 1 Year E03.9 - Hypothyroidism, unspecified, E55.9 - Vitamin D deficiency, unspecified, E78.5 - Hyperlipidemia, unspecified, Z00.00 - Encounter for general adult medical examination without abnormal findings Lipid Panel 1 Year E03.9 - Hypothyroidism, unspecified, E55.9 - Vitamin D deficiency, unspecified, E78.5 - Hyperlipidemia, unspecified, Z00.00 - Encounter for general adult medical examination without abnormal findings Vitamin D 25-OH Total 1 Year E03.9 - Hypothyroidism, unspecified, E55.9 - Vitamin D deficiency, unspecified, E78.5 - Hyperlipidemia, unspecified, Z00.00 - Encounter for general adult medical examination without abnormal findings Vitamin B12 and Folate 1 Year E03.9 - Hypothyroidism, unspecified, E55.9 - Vitamin D deficiency, unspecified, E78.5 - Hyperlipidemia, unspecified, Z00.00 - Encounter for general adult medical examination without abnormal findings Quality Reporting (2020) Depression/Bipolar (159/160/161/177) PHQ-9: Total score: 1 Coding Level of Care Code Medicare Subsequent (G0439) Diagnoses Annual physical exam Z00.00 Hyperlipidemia E78.5 Vitamin D deficiency E55.9 Hypothyroidism E03.9 CPT Codes Advance Care Planning - Time spent: 1-15 minutes, on File ([id number]) Advance Care Planning Advance Care Planning discussion: Completed/Scanned Forms completed: Health Care Proxy Time spent: 1-15 minutes, on File Did not discuss due to Cultural/Spiritual beliefs: Yes
[2023-09-27 08:07] VITALS: BP 120/80; PULSE 70; O2SAT 96; BMI 30.4
== END 2023-09-27 10:35 | disposition home or self-care (01) ==
PROVIDERS: PCP Internal Medicine; Visit Provider Internal Medicine
DX: Z00.00 Encounter for general adult medical examination without abnormal findings (principal); E78.5 Hyperlipidemia, unspecified; E55.9 Vitamin D deficiency, unspecified; E03.9 Hypothyroidism, unspecified
CPT/HCPCS: 1123F; G0439

== ENCOUNTER 2023-09-30 09:22 | Day surgery (SDC) | payer MEDICARE, SELFPAY ==
--- NOTE | 2023-09-29 09:24 | P.CONAN_ITS ---
Documented by User: Vee Ferris NP 09/29/23 09:25 HPI - Anesthesia Eval Consult details Narrative: 72yo F for Upper Endoscopy and Colonoscopy PMFSH Active Problems Active Problems: All Active Problems Varicose veins of left lower extremity with inflammation (Acute) Venous insufficiency (chronic) (peripheral) (Acute) Superficial phlebitis (Acute) Sciatica (Acute) Numbness and tingling of both feet (Acute) Hallux flexus of right foot (Acute) Pre-op exam (Acute) ROCA (dyspnea on exertion) (Acute) Elevated LFTs (Acute) Gout (Acute) Hypothyroidism (Acute) Thyroid nodule (Acute) Hx of screening mammography (Acute) Vitamin B12 deficiency (Acute) Carotid artery bruit (Acute) Left leg swelling (Acute) Vitamin D deficiency (Acute) Hyperlipidemia (Acute) Annual physical exam (Acute) Leg cramps (Acute) GERD (gastroesophageal reflux disease) (Acute) Past Medical History Medical History Hypothyroidism Primary osteoarthritis of both knees Raynaud's syndrome Family History Family History Mother No problems noted. Surgical History Surgical History History of lobectomy of thyroid Hx of ultrasound guided needle biopsy S/P foot surgery, right H/O esophagogastroduodenoscopy H/O colonoscopy Social History Social History Household Members: None Housing: Other Patient Tobacco Use Status: Former Tobacco user e-Cigarette/Vaping Use: Never Used Use of substances other than those prescribed or required for medical reasons: No Are you DNR?: No Advance Directives: No Advance Directives Information Provided: Yes Current occupational status: retired Cognitive needs: No Hearing needs: Yes Vision needs: Yes Meds Allergies Allergy/AdvReac Type Severity Reaction Status Date / Time nitrofurantoin Allergy Severe ANAPHYLAXIS Verified 09/27/23 08:08 [From MACROBID] Vougcmk-LNF-YmU Reductase Allergy Intermediate MUSCLE Verified 09/27/23 08:08 Inhibitor ACHES [KBNPKXZ-WUQ-OXL REDUCTASE INHIBITOR] atorvastatin [Lipitor] AdvReac Unknown muscle Verified 09/27/23 08:08 cramping Home Medications ?Medication ?Instructions ?Recorded ?Confirmed ?Last Taken ?Type lactobacillus combination no.9 4 4,000 mmu cells PO DAILY 06/14/23 09/27/23 Unknown History billion cell capsule (Adult 50 Plus Probiotic) lysine 500 mg tablet (L-Lysine) 500 mg PO DAILY 06/14/23 09/27/23 Unknown History mecobalamin (vitamin B12) 1,000 1,000 mcg PO DAILY 06/14/23 09/27/23 Unknown History mcg lozenges quercetin 500 mg capsule mg PO 06/14/23 09/27/23 Unknown History vit A 1,000 unit-C 60 mg-E 30 tab PO 06/14/23 09/27/23 Unknown History unit-zinc oxid-selenium AA-copper tablet Exam Pertinent Lab Results Pertinent Lab Results: Laboratory Tests 09/20/23 09/20/23 10:55 10:58 WBC 5.5 Hgb 11.3 L Hct 35.1 L Plt Count 286 Sodium 138 Potassium 4.1 Chloride 105 Carbon Dioxide 26 BUN 13 Creatinine 0.89 Assessment and Plan Assessment Anesthesia Assessment: Chart Reviewed Documented by User: Harrison Villa MD 09/30/23 10:53 COUNTS INCLUDE 234 BEDS AT THE [facility] Past Medical History Medical History Hypothyroidism Primary osteoarthritis of both knees Raynaud's syndrome Family History Family History Mother No problems noted. Family history of problems with anesthesia: No Surgical History Surgical History History of lobectomy of thyroid Hx of ultrasound guided needle biopsy S/P foot surgery, right H/O esophagogastroduodenoscopy H/O colonoscopy History of Problems with Anesthesia: No Social History Social History Household Members: None Housing: Other Patient Tobacco Use Status: Former Tobacco user e-Cigarette/Vaping Use: Never Used Use of substances other than those prescribed or required for medical reasons: No Are you DNR?: No Advance Directives: No Advance Directives Information Provided: Yes Current occupational status: retired Cognitive needs: No Hearing needs: Yes Vision needs: Yes Meds Allergies Allergy/AdvReac Type Severity Reaction Status Date / Time nitrofurantoin Allergy Severe ANAPHYLAXIS Verified 09/27/23 08:08 [From MACROBID] Hjqtqmr-IKG-CfZ Reductase Allergy Intermediate MUSCLE Verified 09/27/23 08:08 Inhibitor ACHES [ZBZROGD-IAA-ZFO REDUCTASE INHIBITOR] atorvastatin [Lipitor] AdvReac Unknown muscle Verified 09/27/23 08:08 cramping Home Medications ?Medication ?Instructions ?Recorded ?Confirmed ?Last Taken ?Type lactobacillus combination no.9 4 4,000 mmu cells PO DAILY 06/14/23 09/27/23 Unknown History billion cell capsule (Adult 50 Plus Probiotic) lysine 500 mg tablet (L-Lysine) 500 mg PO DAILY 06/14/23 09/27/23 Unknown History mecobalamin (vitamin B12) 1,000 1,000 mcg PO DAILY 06/14/23 09/27/23 Unknown History mcg lozenges quercetin 500 mg capsule mg PO 06/14/23 09/27/23 Unknown History vit A 1,000 unit-C 60 mg-E 30 tab PO 06/14/23 09/27/23 Unknown History unit-zinc oxid-selenium AA-copper tablet Exam Airway Mallampati Class: II TM Dist: >3cm Neck ROM: Full Other: permanent bridge, upper Assessment and Plan Assessment Anesthesia Assessment: Anesthesia Plan Discussed Final Anesthetic Review Family History of Problems with Anesthesia: No History of Problems with Anesthesia: No NPO: Yes ASA Class: II Final Preanesthetic Review: No Changes in Pt Med Stat, Meds/Allgs Chart Reviewed, Consent Obtained/Reviewed and Anes Risks/Benef Reviewed Patient Risk: Intermediate Procedure Risk: Low Anesthetic Plan Anesthetic Plan: TIVA Disposition: Standard PACU
[2023-09-30 10:23] VITALS: BP 143/74; PULSE 75; RESP 16; TEMP 36.4; O2SAT 98; BMI 30.4
[2023-09-30] MEDS: Lactated Ringers 1,000 ML 100 ML IVCONT (10:39)
--- NOTE | 2023-09-30 11:50 | MHC.SHP ---
Pre-Procedural Eval Section A - 24 Hr Update-Section A only Date of Service: 09/30/23 Section B - Complete if H&P > 30 days Chief Complaint: gerd and colo screen Relevant Family History (Specify if Yes): No Relevant Social History: None Present Medications: see Short Stay Collaborative assessment Medical History: Significant History (Hypothyroidism Primary osteoarthritis of both knees Raynaud's syndrome) History of Previous Operations: Relevant previous surgery/procedure and date(s) (History of lobectomy of thyroid Hx of ultrasound guided needle biopsy S/P foot surgery, right H/O esophagogastroduodenoscopy H/O colonoscopy) Allergies: Allergies Allergy/AdvReac Type Severity Reaction Status Date / Time nitrofurantoin Allergy Severe ANAPHYLAXIS Verified 09/27/23 08:08 [From MACROBID] Nfttlpk-MBN-UwC Reductase Allergy Intermediate MUSCLE Verified 09/27/23 08:08 Inhibitor ACHES [DDIELVD-IEG-LRU REDUCTASE INHIBITOR] atorvastatin [Lipitor] AdvReac Unknown muscle Verified 09/27/23 08:08 cramping Review of Systems Sugical H&P ROS: Negative: Constitution, Cardiovascular, Respiratory, Neurological, Psychiatric, Hem-Onc, Allergic/Immunologic, Gastrointestinal, Genitourinary, Musculoskeletal, Integumentary, Endocrine and Eyes/Ears/Nose/Throat Exam Surgical H&P Exam: Normal: HEENT, Normal: Heart, Normal: Lungs, Normal: Extremities, Normal: Abdomen, Normal: Skin and Normal: Neurological Plan Diagnosis/Plan: Unchanged I have reviewed the history and physical and performed a pertinent physical examination on my patient. No changes have occurred unless specified. Time Spent With Patient Time: Total time managing care of this patient today ____ minutes.
--- NOTE | 2023-09-30 13:03 | P.OPN-COLO_ITS ---
Colonoscopy Operative Note Operative Note Date of Service: 09/30/23 Narrative: Operative Information Procedure Description: EGD, Colonoscopy Indication: dysphagia Anesthesia: MAC FLEXIBLE TRANSORAL UPPER GASTROINTESTINAL ENDOSCOPY AND COLONOSCOPY PROCEDURE NOTE UPPER ENDOSCOPY Consent: Indications for the procedure and potential complications of bleeding, perforation, reaction to medications and missed diagnosis were discussed with the patient and informed consent was obtained. Instrument: Olympus GIF H 190 J mid size upper endoscope Monitoring: Vital signs and clinical assessment, continuous EKG monitoring, Pulse oximetry, Carbon Dioxide monitoring and blood pressure monitoring were done throughout the procedure. Procedure: The patient was placed in the left lateral decubitis position and pre-procedure medications were administered and a bite block was placed. The endoscope was inserted into the mouth and advanced under direct vision to the third part of duodenum. A careful inspection was made as the upper endoscope was withdrawn including a retroflexed examination of the proximal stomach; Findings and interventions are described below. Findings: Larynx:normal Esophagus: GE junction at 32 cm, diaphragm hiatus at 37 cm, consistent with 5 cm hiatal hernia, fixed. schatzki ring noted with lax LES, Balloon dilation done to 20 mm at UES and LES--no tears seen Stomach: Normal mucosa. Grade 3 flap valve on retroflexed examination of the cardia. Duodenum: Normal bulb and descending duodenum, Intervention: Biopsies as noted above, balloon dilation COLONOSCOPY Instrument: Olympus variable stiffness pediatric scope 190L Colonoscopy Monitoring: Vital signs and clinical assessment, continuous EKG monitoring, Pulse oximetry, Carbon Dioxide monitoring and blood pressure monitoring were done throughout the procedure. Colon withdrawal time was 7 minutes. Procedure: The patient was placed in the left lateral decubitis position and pre-procedure medications were administered. After a digital rectal examination of the ano-rectum, the video colonoscope was inserted into the rectum and advanced through the colon to the cecum/TI. The colonoscope was slowly withdrawn in a retrograde panoramic fashion and the colon mucosa was carefully examined including a retroflexed view of the rectum. Findings and interventions are described below. Procedure Difficulty:moderate Findings: Terminal Ileum-normal Cecum:normal Ascending Colon: normal Transverse Colon -normal Descending Colon:normal Sigmoid Colon: moderate severe diverticulosis Rectum: Retroflexion with small internal hemorrhoids, grade I Anorectum - normal Colon preparation: [place] Bowel Preparation Scale Right colon; 1-2 Transverse colon: 2 Left colon; 1-2 (0 = Unprepared colon segment with mucosa not seen due to solid stool that cannot be cleared. 1 = Portion of mucosa of the colon segment seen, but other areas of the colon segment not well seen due to staining, residual stool and/or opaque liquid. 2 = Minor amount of residual staining, small fragments of stool and/or opaque liquid, but mucosa of colon segment seen well. 3 = Entire mucosa of colon segment seen well with no residual staining, small fragments of stool or opaque liquid) Impression and Post Procedure Diagnosis: Endoscopy Findings: schatzki ring hiatal hernia lax LES Colonoscopy Findings: diverticulosis internal hemorrhoids Plan: Await Pathology results Repeat Colonoscopy in 3 years or earlier if clinically indicated High fiber diet leaflet avoid straining at stool, epsom salts and sitz bath, anusol supps or cream GERD precautions, consider referral for surgical repair of hiatal hernia Above findings were reviewed with the patient and relevant handouts were provided if indicated.
[2023-09-30 13:23] VITALS: BP 95/44; PULSE 75; RESP 18; TEMP 36.3; O2SAT 97
[2023-09-30 13:38] VITALS: BP 114/55; PULSE 64; RESP 18; TEMP 37; O2SAT 99
== END 2023-09-30 14:24 | disposition home or self-care (01) ==
PROVIDERS: PCP Registered Nurse; Visit Provider Internal Medicine Gastroenterology
PROC: (CPT 43249; principal; 2023-09-30 12:20)
DX: K22.2 Esophageal obstruction (principal); K22.4 Dyskinesia of esophagus; K44.9 Diaphragmatic hernia without obstruction or gangrene; K21.9 Gastro-esophageal reflux disease without esophagitis; R13.10 Dysphagia, unspecified; Z12.11 Encounter for screening for malignant neoplasm of colon; K57.30 Diverticulosis of large intestine without perforation or abscess without bleeding; K64.0 First degree hemorrhoids; Z87.891 Personal history of nicotine dependence; Z79.02 Long term (current) use of antithrombotics/antiplatelets; Z79.899 Other long term (current) drug therapy
CPT/HCPCS: 43249; 43239; G0121; 88305; 88313; C1726; J2704

== ENCOUNTER → 2023-09-30 09:22 | Outpatient (BNV) | payer MEDICARE, SELFPAY | PROVIDERS: PCP Registered Nurse; Visit Provider Internal Medicine Gastroenterology | DX: Z12.11 Encounter for screening for malignant neoplasm of colon (principal); K57.30 Diverticulosis of large intestine without perforation or abscess without bleeding; K64.0 First degree hemorrhoids; R13.10 Dysphagia, unspecified; K21.9 Gastro-esophageal reflux disease without esophagitis; K22.2 Esophageal obstruction | CPT/HCPCS: 43239; 43249; G0121 ==

== ENCOUNTER 2023-10-15 10:42 | Outpatient (AMB) | payer MEDICARE, SELFPAY ==
--- NOTE | 2023-10-15 10:52 | A.OFFVIS_ITS ---
Vital Signs 10/15/23 10:54 Height 5 ft 4 in Weight 174 lb 2.643 oz BMI 29.9 BP 141/65 H Blood Pressure Location Lt brachial Position Sitting Pulse 70 Intake Visit Reasons: S/P Dr. Nikki Young Intake Note: Magaly presents in the office as a follow up EGD and COLO. CC: No concerns - has questions about hiatal hernia. Allergies nitrofurantoin [From MACROBID] Allergy (Severe, Verified 10/15/23 10:55) ANAPHYLAXIS Lanujzk-OCH-NdI Reductase Inhibitor [TTUZTWD-JGZ-PIY REDUCTASE INHIBITOR] Allergy (Intermediate, Verified 10/15/23 10:55) MUSCLE ACHES atorvastatin [Lipitor] Adverse Reaction (Unknown, Verified 10/15/23 10:55) muscle cramping HPI HPI S/P Hector, Dr. Jordan: Details: 73 yr old f here for f/u RECAP: she has reflux and regurgiation--not often, wakes her up at night, she is happy with the omeprazole her bowel habit is v variable, can be pellets, or soft sometimes, takes probitoics occ feels food getting stuck upper throat, but unsure if due to sjogrens takes b12 regularly last colonoscopy--2011-- diverticulosis, last EGD: 2019-- small hiatal hernia. LA grade A esophagitis EGD/COlo- 09/2023 Endoscopy Findings: schatzki ring hiatal hernia lax LES Colonoscopy Findings: diverticulosis internal hemorrhoids INTERIM: no blood in stool appetite is good weight is stable ongoing issues with regurg and occ dysphagia EXAM: GENERAL: The patient is well developed and nontoxic. VITAL SIGNS:see workflow HEENT: Nonicteric sclerae, PERRLA, EOMI. Oropharynx clear. Moist mucous membranes. Conjunctivae appear well perfused. No thyroid mass. CHEST: Chest wall is nontender. HEART: Regular rate and rhythm without murmurs. LUNGS: Clear to auscultation bilaterally. ABDOMEN: Soft, positive bowel sounds, nontender, no organomegaly.no flank tenderness SKIN: bandages and stocking on NEUROLOGIC: Cranial nerves II-XII intact without motor/sensory deficit. Psych: normal affect A/P: 1/ GERD--dysphagia, due worsening hiatal hernia 2/ colon screening rept 3 yrs, has diverticulosis PLAN: 1/ see bariatrics for discussion abt hernia repair, 2/ she does not wish to increase PPI at this time although I recommend it [facility] Medical History Hypothyroidism Primary osteoarthritis of both knees Raynaud's syndrome Surgical History History of lobectomy of thyroid Hx of ultrasound guided needle biopsy S/P foot surgery, right H/O esophagogastroduodenoscopy H/O colonoscopy Family History Mother No problems noted. Social History (Reviewed 09/27/23 @ 08: by Angela Deal MD) Household Members: None Housing: Other Patient Tobacco Use Status: Former Tobacco user e-Cigarette/Vaping Use: Never Used Current occupational status: retired Cognitive needs: No Hearing needs: Yes Vision needs: Yes Physical Exam Vital Signs: Last Vital Signs Pulse 70 10/15/23 10:54 BP 141/65 H 10/15/23 10:54 BMI result Body Mass Index 29.9 Assessment & Plan Assessment & Plan (1) GERD (gastroesophageal reflux disease): Comment: EGD 2020, H. pylori txd Code(s): K21.9 - Gastro-esophageal reflux disease without esophagitis Category: Medical Plan: see above Coding Level of Care Code Est Pt Level 3 (24958) Diagnoses GERD (gastroesophageal reflux disease) K21.9
[2023-10-15 10:54] VITALS: BP 141/65; PULSE 70; BMI 29.9
== END 2023-10-15 11:42 | disposition home or self-care (01) ==
PROVIDERS: PCP Internal Medicine; Visit Provider Internal Medicine Gastroenterology
DX: K21.9 Gastro-esophageal reflux disease without esophagitis (principal)
CPT/HCPCS: 99213

== ENCOUNTER → 2023-10-15 10:42 | Outpatient (BNVA) | payer MEDICARE, SELFPAY | PROVIDERS: PCP Internal Medicine; Visit Provider Internal Medicine Gastroenterology | DX: K21.9 Gastro-esophageal reflux disease without esophagitis (principal) | CPT/HCPCS: 99212 ==

== ENCOUNTER 2023-10-28 12:47 | Outpatient (AMB) | payer MEDICARE, SELFPAY ==
--- NOTE | 2023-10-28 12:58 | MHC.OFFVIS ---
Vital Signs 10/28/23 13:00 Height 5 ft 4 in Weight 174 lb BMI 29.9 Intake Visit Reasons: Follow up [facility] 08/24/23 Intake Note: follow up 08/24/23 for bilateral LE VV, pt has history of bilateral venous ablations w/ . Pt states she has multiple superficial thrombus that are starting to go away on the right leg. Accompanied by: Self / Same As Patient Allergies nitrofurantoin [From MACROBID] Allergy (Severe, Verified 10/28/23 13:04) ANAPHYLAXIS Mqwytec-QYB-GgS Reductase Inhibitor [LDFPZOI-BIP-ZMV REDUCTASE INHIBITOR] Allergy (Intermediate, Verified 10/28/23 13:04) MUSCLE ACHES atorvastatin [Lipitor] Adverse Reaction (Unknown, Verified 10/28/23 13:04) muscle cramping HPI HPI Follow up [facility] 08/24/23: Details: Pleasant 73-year-old female presents for follow-up regarding venous insufficiency. She has had prior venous ablation is and continues to have swollen lower extremities and varicosities which have become phlebitic in nature. She has used compression with minimal relief. She now presents for follow-up with venous insufficiency testing. [facility] Medical History Hypothyroidism Primary osteoarthritis of both knees Raynaud's syndrome Surgical History History of lobectomy of thyroid Hx of ultrasound guided needle biopsy S/P foot surgery, right H/O esophagogastroduodenoscopy H/O colonoscopy Family History Mother No problems noted. Social History Household Members: None Housing: Other Patient Tobacco Use Status: Former Tobacco user e-Cigarette/Vaping Use: Never Used Current occupational status: retired Cognitive needs: No Hearing needs: Yes Vision needs: Yes Review of Systems Const Reports as per HPI ENT Reports no additional complaints Card Denies chest pain, Denies chest pain at rest and Denies chest pain with activity Resp Denies chest congestion and Denies cough GI Reports no additional complaints Musc Details: pain over varicosities, aching of lower extremities, swelling, cramping, heaviness and tiredness, itching Denies abnormal gait Skin/Breast Reports pruritus and Denies wounds Neuro Reports no additional complaints and Denies abnormal gait Psych Denies no additional complaints Physical Exam Vital Signs: BMI result Body Mass Index 29.9 Const General: cooperative, healthy appearing and comfortable Orientation/consciousness: oriented to person, oriented to place and oriented to time Neck Carotids: no bruits Chest Chest palpation & inspection: normal inspection of the chest and normal palpation of entire chest wall Resp Effort & Inspection: normal respiratory effort and able to speak in complete sentences Cardio Rate: regular rate Heart sounds: S1 normal heart sound present and S2 normal heart sound present Peripheral pulses: Peripheral pulses 2+ throughout GI Inspection: Yes normal to inspection Skin Other: +2 edema, large rope-like varicosities greater than 4 mm CEAP Classification C4 - skin color changes Ep - Etiology Primary As - superficial veins P - reflux General skin exam: dry skin Neuro General: oriented to person, oriented to place and oriented to time Extrem Right lower extremity: full ROM, normal capillary refill and edema Left lower extremity: full ROM, normal capillary refill and edema Psych Mental Status: mental status grossly normal Results Reviewed Results Reviewed: Brief summary of venous insufficiency testing is as follows: right great saphenous vein: Positive right small saphenous vein: negative right accessory vein: none present left great saphenous vein: Positive left small saphenous vein: negative left accessory vein: none present Please note there is no evidence of any venous aneurysms or significant tortuosity Assessment & Plan Assessment & Plan (1) Varicose veins of right lower extremity with inflammation: Code(s): I83.11 - Varicose veins of right lower extremity with inflammation Category: Medical Plan: This patient has varicose veins with inflammation. They continue to be a source of discomfort for the patient. The patient has tried conservative treatment with compression, leg elevation and exercise program for over 3 months time. They have been compliant with all treatment. This has provided minimal relief for the patient. I do not anticipate this course of treatment will alter the underlying etiology. The patient has been scheduled for lower extremity venous treatment inclusive of --- right great saphenous vein Cyanoacralate ablation. Risks, benefits, and complications of this procedure has been discussed in detail with the patient including but not limited to bleeding, infection, and the development of a DVT. The patient has demonstrated a clear understanding and has consented. We will schedule the patient as soon as possible. Thank you for allowing us to participate in this patient's care. If there are any questions or concerns please do not hesitate to contact us. Coding Level of Care Code Est Pt Level 4 (79648) Diagnoses Varicose veins of right lower extremity with inflammation I83.11
[2023-10-28 13:00] VITALS: BMI 29.9
== END 2023-10-28 13:44 | disposition home or self-care (01) ==
PROVIDERS: PCP Internal Medicine; Visit Provider Surgery Vascular Surgery
DX: I83.11 Varicose veins of right lower extremity with inflammation (principal)
CPT/HCPCS: 99214

== ENCOUNTER → 2023-10-28 12:47 | Outpatient (BNVA) | payer MEDICARE, SELFPAY | PROVIDERS: PCP Internal Medicine; Visit Provider Surgery Vascular Surgery | DX: I83.11 Varicose veins of right lower extremity with inflammation (principal) | CPT/HCPCS: 99212 ==

== ENCOUNTER 2023-11-08 10:43 | Outpatient (AMB) | payer MEDICARE, SELFPAY ==
--- NOTE | 2023-11-08 10:45 | MHC.OFFVISWM ---
VS Expanded 11/08/23 11:03 BP 141/81 H Blood Pressure Location Rt brachial Blood Pressure Position Sitting Pulse 70 Pulse Source Pulse Oximeter Temp 96.5 F L Temperature Source Temporal Artery Scan Pulse Oximetry 95 Oxygen Delivery Method Room Air Height 5 ft 4 in Weight 172 lb 12.8 oz BMI 29.7 Body Fat % 38.8 Body Fat Mass 67.0 Fat Free Mass 105.6 Visceral Fat Rating 11.0 Body Water % 43.0 Body Water Mass 74.2 Muscle Mass/Score 100.4 Basal Metabolic Rate/Score 1,437 Intake Visit Reasons: OV Hiatal Hernia - Dr. Jordan Ref. Allergies nitrofurantoin [From MACROBID] Allergy (Severe, Verified 11/08/23 11:50) ANAPHYLAXIS Irdciyh-NJW-FoG Reductase Inhibitor [QRHXVYM-MRS-UWC REDUCTASE INHIBITOR] Allergy (Intermediate, Verified 11/08/23 10:57) MUSCLE ACHES atorvastatin [Lipitor] Adverse Reaction (Unknown, Verified 11/08/23 10:57) muscle cramping Medication List - Last Reconciled 11/08/23 by Milton Nino MD A-C-E-zinc ox-selen AA-copper 1,000 unit-60 mg-30 unit tabs PO allopurinol 100 mg PO BID collagenase clostridium histo. (Santyl) topical DAILY lactobacillus combination no.9 (Adult 50 Plus Probiotic) 4,000 mmu cells PO DAILY levothyroxine 25 mcg PO DAILY lysine (L-Lysine) 500 mg PO DAILY mecobalamin (vitamin B12) 1,000 mcg PO DAILY omeprazole 10 mg PO DAILY quercetin mg PO HPI Comments Details: Referred by Dr. Jordan for a 5cm fixed hiatal hernia. Patient reports persistent heartburn even on continuous use of Omeprazole. In addition, she reports episodes of regurgitation when she sleeps that wake her up and they are terrifying to her. She wants to fix the hernia EGD: 5cm HH Path: moderate esophagits H pylori negative PFSH Medical History Hypothyroidism Primary osteoarthritis of both knees Raynaud's syndrome Surgical History History of lobectomy of thyroid Hx of ultrasound guided needle biopsy S/P foot surgery, right H/O esophagogastroduodenoscopy H/O colonoscopy Family History Mother No problems noted. Social History (Updated 11/08/23 @ 10:58 by Marietta Peck CMA) Household Members: None Housing: Other Alcohol intake: current Alcohol intake frequency: holidays/special occasions only Patient Tobacco Use Status: Former Tobacco user e-Cigarette/Vaping Use: Never Used Current occupational status: retired Cognitive needs: No Hearing needs: Yes Vision needs: Yes Physical Exam Vital Signs: Last Vital Signs Temp 96.5 F L 11/08/23 11:03 Pulse 70 11/08/23 11:03 BP 141/81 H 11/08/23 11:03 Pulse Ox 95 11/08/23 11:03 Oxygen Delivery Method Room Air 11/08/23 11:03 BMI result Body Mass Index 29.7 GI Inspection: Yes normal to inspection (android body habitus), Yes incision (well healed) and Yes obesity Extrem Right lower extremity: lower leg (varicose veins) Left lower extremity: lower leg (varicose veins) Assessment & Plan Assessment & Plan (1) Hiatal hernia: Code(s): K44.9 - Diaphragmatic hernia without obstruction or gangrene Category: Medical Plan: 1. We discussed the potential etiology of the hernia that could have been worsened by her weight. We discussed the details of the diaphragmatic hernia repair and the potential technical challenges such as being able to achieve enough mobilization of the esophagus back in the abdomen and being able to close the diaphragmatic muscle (crura) primarily with sutures. We also discussed the possibility of using a biologic mesh to close the hernia defect if the crura cannot be adequately re-approximated primarily with sutures. We also discussed the option of doing a gastropexy or a fundoplication to prevent postoperative reflux and prevent hernia recurrence. As we discussed, I favor the gastropexy as the fundoplication can cause several distrurbing symptoms such as gas-bloating, flatulence, inability to burp which can be bothersome to patients. Also we discussed the complexity of a potential hernia recurrence in association with a hernia recurrence. He was in agreement not to have a fundoplication. The patient is in agreement to proceed with the surgery and we will schedule it. Orders: Orders RT home sleep study Today G47.30 - Sleep apnea, unspecified, Z01.818 - Encounter for other preprocedural examination ECG 12 lead EKG Today G47.30 - Sleep apnea, unspecified, Z01.818 - Encounter for other preprocedural examination
[2023-11-08 11:03] VITALS: BP 141/81; PULSE 70; TEMP 35.8; O2SAT 95; BMI 29.7
== END 2023-11-08 11:55 | disposition home or self-care (01) ==
PROVIDERS: PCP Registered Nurse; Visit Provider Surgery
DX: K44.9 Diaphragmatic hernia without obstruction or gangrene (principal)
CPT/HCPCS: 99204

== ENCOUNTER → 2023-11-08 10:43 | Outpatient (REF) | payer MEDICARE, SELFPAY ==
--- NOTE | 2023-11-08 11:57 | ECG_ITS ---
Test Reason : PER OP Blood Pressure : / mmHG Vent. Rate : 067 BPM Atrial Rate : 067 BPM P-R Int : 146 ms QRS Dur : 094 ms QT Int : 392 ms P-R-T Axes : 029 -25 039 degrees QTc Int : 414 ms Normal sinus rhythm Normal ECG No previous ECGs available Referred By: Milton Nino Electronically Signed By:KATHLEEN HERNANDEZ
== END ==
LOC: HO.CARD 10:43
PROVIDERS: PCP Registered Nurse; Visit Provider Surgery
DX: Z01.818 Encounter for other preprocedural examination (principal); G47.30 Sleep apnea, unspecified
CPT/HCPCS: 93005; 99202

== ENCOUNTER → 2023-11-15 14:01 | Outpatient (REF) | payer MEDICARE, SELFPAY | LOC: HO.SL 14:01 | PROVIDERS: Visit Provider Surgery | DX: G47.30 Sleep apnea, unspecified (principal); Z01.818 Encounter for other preprocedural examination | CPT/HCPCS: 95806 ==

== ENCOUNTER → 2023-11-16 14:29 | Outpatient (BNV) | payer MEDICARE, SELFPAY | PROVIDERS: Visit Provider Internal Medicine | DX: G47.33 Obstructive sleep apnea (adult) (pediatric) (principal) | CPT/HCPCS: 95806 ==

== ENCOUNTER 2023-11-29 13:49 | Outpatient (AMB) | payer MEDICARE, SELFPAY ==
--- NOTE | 2023-11-29 13:50 | MHC.OFFVISWM ---
VS Expanded 11/29/23 14:00 BP 141/82 H Blood Pressure Location Rt brachial Blood Pressure Position Sitting Pulse 83 Pulse Source Pulse Oximeter Temp 97.4 F Temperature Source Temporal Artery Scan Pulse Oximetry 99 Oxygen Delivery Method Room Air Height 5 ft 4 in Weight 168 lb 12.8 oz BMI 29.0 Body Fat % 41.2 Body Fat Mass 69.4 Fat Free Mass 99.2 Visceral Fat Rating 12.0 Body Water % 41.4 Body Water Mass 69.8 Muscle Mass/Score 94.2 Basal Metabolic Rate/Score 1,366 Intake Visit Reasons: (OV) Pre Op Hiatal Hernia 12/14/23 *SEE COMMENTS* Allergies nitrofurantoin [From MACROBID] Allergy (Severe, Verified 11/29/23 13:54) ANAPHYLAXIS Accqtak-KIB-UjL Reductase Inhibitor [IUJTVMF-LCJ-RDL REDUCTASE INHIBITOR] Allergy (Intermediate, Verified 11/29/23 13:54) MUSCLE ACHES atorvastatin [Lipitor] Adverse Reaction (Unknown, Verified 11/29/23 13:54) muscle cramping Medication List - Last Reviewed 11/29/23 by Marietta Peck CMA A-C-E-zinc ox-selen AA-copper 1,000 unit-60 mg-30 unit tabs PO allopurinol 100 mg PO BID collagenase clostridium histo. (Santyl) topical DAILY lactobacillus combination no.9 (Adult 50 Plus Probiotic) 4,000 mmu cells PO DAILY levothyroxine 25 mcg PO DAILY lysine (L-Lysine) 500 mg PO DAILY mecobalamin (vitamin B12) 1,000 mcg PO DAILY omeprazole 10 mg PO DAILY ondansetron 4 mg PO Q12H pantoprazole 40 mg PO DAILY polyethylene glycol 3350 17 grams PO DAILY quercetin mg PO sucralfate 10 mL PO BID HPI Comments Details: Here for her preoperative visit for laparoscopic diaphragmatic hernia repair [facility] Medical History Hypothyroidism Primary osteoarthritis of both knees Raynaud's syndrome Surgical History History of lobectomy of thyroid Hx of ultrasound guided needle biopsy S/P foot surgery, right H/O esophagogastroduodenoscopy H/O colonoscopy Family History Mother No problems noted. Social History (Updated 11/08/23 @ 10:58 by Marietta Peck CMA) Household Members: None Housing: Other Alcohol intake: current Alcohol intake frequency: holidays/special occasions only Patient Tobacco Use Status: Former Tobacco user e-Cigarette/Vaping Use: Never Used Current occupational status: retired Cognitive needs: No Hearing needs: Yes Vision needs: Yes Assessment & Plan Assessment & Plan (1) Hiatal hernia: Code(s): K44.9 - Diaphragmatic hernia without obstruction or gangrene Category: Medical Plan: 1. I discussed the details of the diaphragmatic hernia repair and the potential technical challenges such as being able to achieve enough mobilization of the esophagus back in the abdomen and being able to close the diaphragmatic muscle (crura) primarily with sutures. I also discussed the possibility of using a biologic mesh to close the hernia defect if the crura cannot be adequately re-approximated primarily with sutures. I also discussed the option of doing a gastropexy or a fundoplication to prevent postoperative reflux and prevent hernia recurrence. As we discussed, I favor the gastropexy as the fundoplication can cause several distrurbing symptoms such as gas-bloating, flatulence, inability to burp which can be bothersome to patients. Also we discussed the complexity of a potential hernia recurrence in association with a hernia recurrence. She was in agreement not to have a fundoplication. Risks and complications were discussed in detail including possible conversion to an open procedure, infection from esophageal or gastric injury, bleeding requiring transfusion, small bowel obstruction, , DVT and pulmonary embolism, cardiac, or pulmonary complications. 2. Preop prescriptions were provided and explained the purpose of each one. Need to be purchased preop. Start Pantoprazole now as you get it from the pharmacy, 1 pill per day. Sucralfate and Zofran are for after surgery as needed. 3. Bowel prep: please do 7 packets ?of Miralax mixing each one with a an 8oz glass of water, crystal light, gatorade zero, or propel ?on 12/12/23 and the same amount on 12/13/23. The Miralax you begin with one packet at a time in 8oz water or crystal light, gatorade zero, or propel ?as early in the day as you can and you do them back to back until you finish them. Continue the protein shakes during ?the bowel prep. 4. Needs to purchase 1oz medicine cups . 5. Needs to purchase Children's liquid Tylenol for postop pain control. 6. She needs to stop all supplements as of tomorrow such as Quercetin, Santyl. Copper. Probiotics. Lysine. Avoid aspirin, motrin, Advil, Aleve, Ibuprofen, Naproxyn. Tylenol is OK. 7. She needs to purchase the Celebrate REBUILD protein shakes from the hospital's gift shop. 8. Will do basic preop blood work-up any day between Wednesday12/06/23 and Wednesday12/10/23 fasting for 12 hours and is scheduled to see the Anesthesiologist prior to the day of surgery. 9. Importance of adherence to postop folllow-up and recommendations was underscored and she understands that. 10.Stop food and bars as of 12/09/23 and continue with 4 Celebrate Rebuild protein shakes (ONE scoop EACH in 8oz almond milk) at 10am-12pm, 1pm-3pm, 4pm-6pm, 7pm-9pm and one more Celebrate REBUILD protein shake with TWO scoops in 8oz of almond milk at 10pm-12am (midnight) 11. No soups, broths or V8 12. The patient's?medical?history has been reviewed and they are considered low risk for post op DVT and therefore DVT prophylaxis is not considered necessary. Travel after surgery was reviewed. The patient has not disclosed any travel plans during the first 30 days after surgery and they have been advised that within the first 30 days after surgery any bus, plane, train or car travel over 2 hours in duration is contraindicated due to the possibility of developing blood clots from immobility. Any travel, needs to include periods of ambulation of 10 minutes in duration every 2 hours.? Patient was instructed to discuss any plans for travel during this period with their bariatric surgeon.? 13. Please take at the day of surgery the following medications: NONE 14. Absolutely no smoking or vaping, or marijuana until the surgery and for at least the first 4 weeks. Only nicotine patches are allowed. 15. Avoid any steroids by mouth for any reason. Let me know if someone prescribes them to you Orders: Orders TSH reflex Free T4 Today E03.9 - Hypothyroidism, unspecified, E78.5 - Hyperlipidemia, unspecified, K21.9 - Gastro-esophageal reflux disease without esophagitis, K44.9 - Diaphragmatic hernia without obstruction or gangrene Prothrombin Time INR Today E03.9 - Hypothyroidism, unspecified, E78.5 - Hyperlipidemia, unspecified, K21.9 - Gastro-esophageal reflux disease without esophagitis, K44.9 - Diaphragmatic hernia without obstruction or gangrene Type and Screen Today E03.9 - Hypothyroidism, unspecified, E78.5 - Hyperlipidemia, unspecified, K21.9 - Gastro-esophageal reflux disease without esophagitis, K44.9 - Diaphragmatic hernia without obstruction or gangrene Complete Blood Count Auto Diff Today E03.9 - Hypothyroidism, unspecified, E78.5 - Hyperlipidemia, unspecified, K21.9 - Gastro-esophageal reflux disease without esophagitis, K44.9 - Diaphragmatic hernia without obstruction or gangrene Lipid Panel Today E03.9 - Hypothyroidism, unspecified, E78.5 - Hyperlipidemia, unspecified, K21.9 - Gastro-esophageal reflux disease without esophagitis, K44.9 - Diaphragmatic hernia without obstruction or gangrene Partial Thromboplastin Time Today E03.9 - Hypothyroidism, unspecified, E78.5 - Hyperlipidemia, unspecified, K21.9 - Gastro-esophageal reflux disease without esophagitis, K44.9 - Diaphragmatic hernia without obstruction or gangrene Comprehensive Met. Panel Today E03.9 - Hypothyroidism, unspecified, E78.5 - Hyperlipidemia, unspecified, K21.9 - Gastro-esophageal reflux disease without esophagitis, K44.9 - Diaphragmatic hernia without obstruction or gangrene Hemoglobin A1c Today E03.9 - Hypothyroidism, unspecified, E78.5 - Hyperlipidemia, unspecified, K21.9 - Gastro-esophageal reflux disease without esophagitis, K44.9 - Diaphragmatic hernia without obstruction or gangrene C Reactive Protein Today E03.9 - Hypothyroidism, unspecified, E78.5 - Hyperlipidemia, unspecified, K21.9 - Gastro-esophageal reflux disease without esophagitis, K44.9 - Diaphragmatic hernia without obstruction or gangrene Medications: New sucralfate 10 mL PO BID 600 mL 2RF K21.9 - Gastro-esophageal reflux disease without esophagitis ondansetron Only take one every 12 hours as needed if you have nausea 4 mg PO Q12H 20 tabs 0RF nausea and vomiting R11.0 - Nausea polyethylene glycol 3350 Mix each measuring cup with 8oz of water, Crystal light, or Gatorade zero, or Propel and do 7 measuring cups on 12/12/23 and another 7 measuring cups on 12/13/23 17 grams PO DAILY 238 grams 0RF Z01.818 - Encounter for other preprocedural examination pantoprazole 40 mg PO DAILY 90 tabs 0RF K21.9 - Gastro-esophageal reflux disease without esophagitis
[2023-11-29 14:00] VITALS: BP 141/82; PULSE 83; TEMP 36.3; O2SAT 99; BMI 29.0
== END 2023-11-29 14:17 | disposition home or self-care (01) ==
PROVIDERS: PCP Registered Nurse; Visit Provider Surgery
DX: K44.9 Diaphragmatic hernia without obstruction or gangrene (principal)
CPT/HCPCS: 99214

== ENCOUNTER → 2023-11-29 13:49 | Outpatient (BNVA) | payer MEDICARE, SELFPAY | PROVIDERS: PCP Registered Nurse; Visit Provider Surgery | DX: K44.9 Diaphragmatic hernia without obstruction or gangrene (principal) | CPT/HCPCS: 99212 ==

== ENCOUNTER 2023-12-14 09:44 | Inpatient (IN) | payer MEDICARE, SELFPAY ==
[2023-12-10 09:57] LABS: MANUAL DIFF FLAG NO
[2023-12-10 11:01] LABS: Basophils Percent Auto 0.3 % (0-2); Eosinophils Absolute Auto 0.1 X10*3/uL (0.0-0.4); Eosinophils Percent Auto 1.5 % (0-4); Hematocrit 35.3 % (37.0-47.0); Hemoglobin 11.3 g/dl (12.0-16.0); Imm Gran Abs Auto 0.02 X10*3/uL (0.00-0.03); Imm Gran Pct Auto 0.3 % (0.0-0.4); Lymphocytes Absolute Auto 1.4 X10*3/uL (1.2-4.9); Lymphocytes Percent Auto 22.5 % (20-40); Mean Corpuscular Hemoglobin 29.7 pg (27.0-33.0); Mean Corpuscular Volume 92.7 fL (80.0-98.0); Mean Platelet Volume 10.7 fL (9.4-12.3); Monocytes Absolute Auto 0.4 X10*3/uL (0.1-1.2); Neutrophils Absolute Auto 4.2 x10*3/uL (2.0-8.3); Neutrophils Percent Auto 68.4 % (45-73); Platelet Count 282 X10*3/uL (160-400); Red Blood Count 3.81 X10*6/uL (4.20-5.50); Red Cell Distribution Width 14.8 % (11.0-16.0); White Blood Count 6.1 X10*3/uL (4.8-10.8)
[2023-12-10 11:08] LABS: Prothrombin Time 11.2 SEC (10.9-12.4)
[2023-12-10 11:09] LABS: Estimated Average Glucose 111 mg/dL; Hemoglobin A1c % 5.5 % (<6.0)
[2023-12-10 11:11] LABS: Partial Thromboplastin Time 30.3 SEC (26.0-36.8)
[2023-12-10 11:55] LABS: Alanine Aminotransferase 10 U/L (0-31); Albumin Level 4.1 g/dL (3.5-5.0); Alkaline Phosphatase 107 U/L (39-117); Anion Gap 14 (12-20); Aspartate Amino Transferase 19 U/L (5-31); Bilirubin Total 0.6 mg/dL (0.0-1.0); Blood Urea Nitrogen 15 mg/dL (9-16); C Reactive Protein 1.23 mg/dL (< or = 0.50); Calcium 9.6 mg/dL (8.4-10.2); Carbon Dioxide 26 mmol/L (22-29); Chloride 107 mmol/L (96-108); Cholesterol 211 mg/dL (<200); Estimated Glomerular Filt Rate > 60; Glucose Random 98 mg/dL (60-115); HDL Cholesterol 40 mg/dL (>40); LDL Cholesterol Calculated 143 mg/dL (<100); Potassium 4.5 mmol/L (3.3-5.1); Sodium 142 mmol/L (135-145); Total Protein 7.3 g/dL (6.5-8.0); Triglycerides 140 mg/dL (<150)
[2023-12-10 12:03] LABS: TSH reflex Free T4 2.56 uIU/mL (0.32-4.0)
--- NOTE | 2023-12-10 13:19 | HO.ANESPROP2 ---
Documented by User: Vee Ferris NP 12/10/23 13:22 HPI - Anesthesia Eval Consult details Narrative: 73yo F for Hernia Diaphragmatic Lap PMFSH Active Problems Active Problems: All Active Problems Hiatal hernia (Acute) Varicose veins of right lower extremity with inflammation (Acute) Varicose veins of left lower extremity with inflammation (Acute) Venous insufficiency (chronic) (peripheral) (Acute) Superficial phlebitis (Acute) Sciatica (Acute) Numbness and tingling of both feet (Acute) Hallux flexus of right foot (Acute) Pre-op exam (Acute) ROCA (dyspnea on exertion) (Acute) Elevated LFTs (Acute) Gout (Acute) Hypothyroidism (Acute) Thyroid nodule (Acute) Hx of screening mammography (Acute) Vitamin B12 deficiency (Acute) Carotid artery bruit (Acute) Left leg swelling (Acute) Vitamin D deficiency (Acute) Hyperlipidemia (Acute) Annual physical exam (Acute) Leg cramps (Acute) GERD (gastroesophageal reflux disease) (Acute) Past Medical History Medical History Hypothyroidism Primary osteoarthritis of both knees Raynaud's syndrome Family History Family History Mother No problems noted. Family history of problems with anesthesia: No Surgical History Surgical History History of lobectomy of thyroid Hx of ultrasound guided needle biopsy S/P foot surgery, right H/O esophagogastroduodenoscopy H/O colonoscopy History of Problems with Anesthesia: No Social History Social History Household Members: None Housing: Other Alcohol intake: current Alcohol intake frequency: holidays/special occasions only Patient Tobacco Use Status: Former Tobacco user e-Cigarette/Vaping Use: Never Used Have you been hit, kicked, punched, or otherwise hurt by someone within the past year? If so, by whom?: No Are you DNR?: No Advance Directives: No Nutrition Risks: No Nutritional Risk Current occupational status: retired Cognitive needs: No Hearing needs: Yes Vision needs: Yes Meds Allergies Allergy/AdvReac Type Severity Reaction Status Date / Time nitrofurantoin Allergy Severe ANAPHYLAXIS Verified 11/29/23 13:54 [From MACROBID] Wqmdskw-DJS-WvQ Reductase Allergy Intermediate MUSCLE Verified 11/29/23 13:54 Inhibitor ACHES [[id number]-[id number]-VNL REDUCTASE INHIBITOR] atorvastatin [Lipitor] AdvReac Unknown muscle Verified 11/29/23 13:54 cramping Home Medications ?Medication ?Instructions ?Recorded ?Confirmed ?Last Taken ?Type lysine 500 mg tablet (L-Lysine) 500 mg PO DAILY 06/14/23 12/14/23 11/23/23 History quercetin 500 mg capsule 500 mg PO DAILY 06/14/23 12/14/23 11/23/23 History Mecobalamin Sylvester 1,000 mcg PO DAILY 12/14/23 12/14/23 11/23/23 History ascorbic acid (vitamin C) 500 mg 500 mg PO DAILY 12/14/23 12/14/23 11/23/23 History tablet (Vitamin C) ergocalciferol (vitamin D2) 200 100 mcg PO DAILY 12/14/23 12/14/23 11/23/23 History mcg/mL (8,000 unit/mL) oral drops levothyroxine 25 mcg tablet 25 mcg PO DAILY@0600 12/14/23 12/14/23 12/13/23 History pantoprazole 40 mg tablet,delayed 40 mg PO DAILY@0630 12/14/23 12/14/23 Unknown History release Exam Pertinent Lab Results Pertinent Lab Results: Laboratory Tests 12/10/23 12/10/23 09:20 09:56 WBC 6.1 RBC 3.81 L Hgb 11.3 L Hct 35.3 L MCV 92.7 MCH 29.7 MCHC 32.0 RDW 14.8 Plt Count 282 MPV 10.7 Immature Gran % (Auto) 0.3 Neut % (Auto) 68.4 Lymph % (Auto) 22.5 Gregory % (Auto) 7.0 Eos % (Auto) 1.5 Baso % (Auto) 0.3 Lymph # (Auto) 1.4 Gregory # (Auto) 0.4 Eos # (Auto) 0.1 Baso # (Auto) 0.0 Abs Immat Gran (auto) 0.02 Absolute Neuts (auto) 4.2 Absolute Nucleated RBC 0.000 Nucleated RBC % (auto) 0.0 PT 11.2 INR 1.0 APTT 30.3 Sodium 142 Potassium 4.5 Chloride 107 Carbon Dioxide 26 Anion Gap 14 BUN 15 Creatinine 0.83 Estim Creat Clear Calc TNP Estimated GFR > 60 Random Glucose 98 Estimat Average Glucose 111 Hemoglobin A1c % 5.5 Calcium 9.6 Total Bilirubin 0.6 AST 19 ALT 10 Alkaline Phosphatase 107 C-Reactive Protein 1.23 H Total Protein 7.3 Albumin 4.1 Triglycerides 140 Cholesterol 211 H LDL Cholesterol, Calc 143 H HDL Cholesterol 40 L TSH 2.56 Blood Type A Positive Antibody Screen NEGATIVE Narrative Narrative: EKG 10/2023 Vent. Rate : 067 BPM Atrial Rate : 067 BPM P-R Int : 146 ms QRS Dur : 094 ms QT Int : 392 ms P-R-T Axes : 029 -25 039 degrees QTc Int : 414 ms Normal sinus rhythm Normal ECG No previous ECGs available US carotid duplex BI 2021 IMPRESSION: 1. RIGHT: Minimal, non-hemodynamically significant stenosis of the proximal right internal carotid artery corresponding to a 0-49% stenosis by velocity criteria. 2. LEFT: Minimal, non-hemodynamically significant stenosis of the proximal left internal carotid artery corresponding to a 0-49% stenosis by velocity criteria. 3. Right thyroid nodule and bilateral small cervical lymph nodes. Consider dedicated thyroid ultrasound for further evaluation. Assessment and Plan Assessment Anesthesia Assessment: Chart Reviewed Final Anesthetic Review Family History of Problems with Anesthesia: No History of Problems with Anesthesia: No Documented by User: Dorothy Vogel MD 12/14/23 12:33 [facility] Past Medical History Medical History Hypothyroidism Primary osteoarthritis of both knees Raynaud's syndrome Family History Family History Mother No problems noted. Surgical History Surgical History History of lobectomy of thyroid Hx of ultrasound guided needle biopsy S/P foot surgery, right H/O esophagogastroduodenoscopy H/O colonoscopy Social History Social History Household Members: None Housing: Other Alcohol intake: current Alcohol intake frequency: holidays/special occasions only Patient Tobacco Use Status: Former Tobacco user e-Cigarette/Vaping Use: Never Used Have you been hit, kicked, punched, or otherwise hurt by someone within the past year? If so, by whom?: No Are you DNR?: No Advance Directives: No Nutrition Risks: No Nutritional Risk Current occupational status: retired Cognitive needs: No Hearing needs: Yes Vision needs: Yes Meds Allergies Allergy/AdvReac Type Severity Reaction Status Date / Time nitrofurantoin Allergy Severe ANAPHYLAXIS Verified 11/29/23 13:54 [From MACROBID] Whqlwor-WUS-CoR Reductase Allergy Intermediate MUSCLE Verified 11/29/23 13:54 Inhibitor ACHES [PAUEFXN-JHG-UGG REDUCTASE INHIBITOR] atorvastatin [Lipitor] AdvReac Unknown muscle Verified 11/29/23 13:54 cramping Home Medications ?Medication ?Instructions ?Recorded ?Confirmed ?Last Taken ?Type lysine 500 mg tablet (L-Lysine) 500 mg PO DAILY 06/14/23 12/14/23 11/23/23 History quercetin 500 mg capsule 500 mg PO DAILY 06/14/23 12/14/23 11/23/23 History Mecobalamin Sylvester 1,000 mcg PO DAILY 12/14/23 12/14/23 11/23/23 History ascorbic acid (vitamin C) 500 mg 500 mg PO DAILY 12/14/23 12/14/23 11/23/23 History tablet (Vitamin C) ergocalciferol (vitamin D2) 200 100 mcg PO DAILY 12/14/23 12/14/23 11/23/23 History mcg/mL (8,000 unit/mL) oral drops levothyroxine 25 mcg tablet 25 mcg PO DAILY@0600 12/14/23 12/14/23 12/13/23 History pantoprazole 40 mg tablet,delayed 40 mg PO DAILY@0612/14/23 12/14/23 Unknown History release Exam Airway Mallampati Class: III TM Dist: >3cm Neck ROM: Full Heart: rrr Lungs: cta Assessment and Plan Assessment Anesthesia Assessment: Anesthesia Plan Discussed Final Anesthetic Review NPO: Yes ASA Class: III Final Preanesthetic Review: No Changes in Pt Med Stat, Meds/Allgs Chart Reviewed, Consent Obtained/Reviewed and Anes Risks/Benef Reviewed Patient Risk: Intermediate Procedure Risk: Low Anesthetic Plan Anesthetic Plan: GA Disposition: Standard PACU
[2023-12-14] VITALS (15 sets, daily range): BP systolic 129–157; BP diastolic 55–74; PULSE 68–97; RESP 16–20; TEMP 36–36.6; O2SAT 95–100; BMI 28.2
[2023-12-14] MEDS: Aprepitant 32 MG/4.4 ML VIAL IVPUSH (10:12)
[2023-12-14] MEDS: Lactated Ringers 1,000 ML 999 ML IV (10:13)
[2023-12-14] MEDS: Lactated Ringers 1,000 ML 100 ML IVCONT ×2 (10:14→20:06)
--- NOTE | 2023-12-14 10:34 | PHA.MEDREC ---
Addendum entered by Jesse Dowling [facility] 12/14/23 10:40: Pt states she took omeprazole at home, but has stopped and stitched to Protonix post op. Addendum entered by Jesse Dowling [facility] 12/14/23 10:37: Reviewed by [facility]. Original Note: Pharmacy Consult ? Medication Reconciliation Pharmacy has completed the medication reconciliation. Spoke to patent to confirm med list.
--- NOTE | 2023-12-14 12:03 | PC.NURSE ---
one liter of fluid given in preop pt to bathroom voided
--- NOTE | 2023-12-14 12:17 | PM.OP ---
Brief Operative Note Date of Service: 12/14/23 Pre-op diagnosis: Diaphragmatic hernia and GERD with comorbidities (see below) Post-op diagnosis: same Procedure: Date of Service: 12/14/23 Pre-op diagnosis: Paraesophageal hernia Post-op diagnosis: same (Giant paraesophageal hernia & abdominal adhesions) Procedure: Procedure: COMORBIDITIES: GERD, diaphragmatic hernia, hypothyroidism, sleep apnea, gout ?INDICATIONS: The patient is a 73 year old female who was referred to me from Dr. Jordan for a diaphragmatic hernia and GERD confirmed by EGD. The patient is scheduled today for diaphragmatic hernia repair. Risks of recurrent hernia, dysphagia, persistent GERD, VTE, leak, infection and bleeding were discussed with the patient and he is in agreement with the plan. PROCEDURE: Esophago-gastroscopy, laparoscopic lysis of adhesions, laparoscopic repair of incarcerated diaphragmatic hernia and laparoscopic gastropexy. DESCRIPTION OF PROCEDURE: After informed consent was obtained from the patient, the patient was given preoperative antibiotics, and was transferred to the operating room. After successful induction of general anesthesia, pneumatic compression devices were placed on both lower extremities. An upper endoscopy was performed next. The oropharynx and upper esophagus appeared to be within normal limits. Because of the paraesophageal hernia I was not able to pass the scope into the distal stomach. After all fluid and air were suctioned and the stomach was fully decompressed, the scope was withdrawn and secured in the mid esophagus. The patient was then prepped and draped in the usual sterile manner. Access to the abdomen was estalbished at the left uper quadrant with the Cynthia technique. A 12mm Cynthia port was inserted and the abdomen was insufflated with CO2 to a pressure of 15 mmHg and a 5 mm Versi step port was placed at the left mid-abdomen. Following that additional ports were placed, specifically two 5 mm Versi-step ports to the left upper quadrant and one 5 mm Versi step right upper quadrant.. 1% lidocaine plain was used to infiltrate all port sites as well as all fascia defects. Following that, the patient was placed in a steep reverse Trendelenburg position. An additional 5 mm port was placed to the right flank for the Mediflex retractor that was used to retract the left lobe of the liver. There was a large diaphragmatic hernia with about half of the stomach herniated into the chest next to the esophagus. I then opened the gastrocolic ligament between the transverse colon and the greater curvature of the stomach with the ultrasonic device to enter the lesser sac and facilitate the ligation of the short gastric vessels. I started at at the upper third along the greater curvature and using the Thunderbeat, all attachments were divided. There was an obvious significant-sized hiatal hernia. The stomach was incarcerated into the mediastinum with multiple thick adhesions. Mobilization of the stomach was difficult and required tedious and careful dissection. I continued dissecting along the hiatus toward the left ebony into the mediastinum mobilizing the hernia sac from the mediastinum. The esophagus was dissected off the aorta. The pars flaccida was opened. The vena cava was identified and it was carefully protected. I then continued by dissecting even further into the posterior retro-esophageal space all the way to the angle of His. I continued to mobilize the esophagus into the mediastinum circumferentially. The esophagus was densely adhrent to the aorta and the majority of these adhesions were mobilized. Both vagal nerves were seen and preserved. With extensive circumferential dissection into the mediastinum, I was able to bring the GE junction at least 4cm below the crura. I closed the hernia defect with three interrupted #0 Surgidac sutures using the Endo Stitch device, two of which were placed posterior and one of which anterior to the esophagus. ? A gastropexy was then performed in order to prevent postoperative GERD and partial gastric volvulus. Several interrupted 2.0 Surgidac sutures were placed between the greater curvature of the dissected stomach and the previously divided greater omentum and gastro-colic ligament using the Endo-Stitch device. ?An upper endoscopy was performed. There was no narrowing at the GE junction or any esophageal injury. The scope was easily advanced all the way to the pylorus which was clearly visualized. There was no narrowing anywhere. I confirmed that the GE junction was 3cm intra-abdominally. At that point the gastroscope was withdrawn from the patient?s mouth while we were decompressing the bowel and the stomach from any remaining air. I looked into the lesser sac to see how the stomach was situating and it was situating well. There was no bleeding from the, spleen, or short gastric vessels. The Mediflex retractor was removed, and the undersurface of the liver was inspected and there was no bleeding. The patient was placed in supine position. Then 30cc of Ropivacaine plain with 10 mg of Dexamethasone were used to infiltrate the fascial closure as well as all skin incisions. At this point, the abdomen was deflated, all ports were removed under direct vision, and no bleeding was noted from any of the port sites. The skin incisions were irrigated with saline and were closed with 4-0 absorbable monofilament sutures. Steri-Strips and OpSites were used to cover all incisions. The patient was extubated and was transferred in stable condition to the recovery room for further care. I was present and performed all del toro parts of the procedure. Mr. Lundy was the general surgery physician assistant. There were no residents to assist with this case. Harpal Nino MD, PhD, FACS Surgeon: Milton Nino MD Anesthesia: GETA, local and other (TAP block) Was an Automotive T[employer] Technician used for this Procedure?: No Automotive T[employer] Technician: Daniel Lundy Estimated blood loss (mL): 10 IV fluids (mL): 2,000 Urine output (mL): 0 (No Toro to record output) Pathology: other (gastro-esophageal fat pad) Condition: stable Disposition: PACU
--- NOTE | 2023-12-14 12:21 | P.PNGS_ITS ---
Subjective Subjective Date of Service: 12/15/23 Interval history: Feels well. Mild incisional pain. She is tolerating phase 1 bariatric diet Physical Exam 2 Vital Signs: Vital Signs: Last Vital Signs Temp 97.7 F 12/14/23 09:45 Pulse 79 12/14/23 09:45 Resp 20 12/14/23 09:45 BP 141/55 H 12/14/23 09:45 Pulse Ox 98 12/14/23 09:45 O2 Del Method Room Air 12/14/23 09:45 BMI result Body Mass Index 28.2 GI: Inspection: Yes normal to inspection and Yes incision (clean, dry and intact) Palpation (GI): Soft to palpation Extrem: Right lower extremity: normal to inspection (no calf tenderness) L eft lower extremity: normal to inspection (no calf tenderness) Objective Data Active Medications Lactated Ringer's (Lr) 1,000 mls @ 100 mls/hr IVCONT .Q10H JIMI Last Admin: 12/14/23 10:14 Dose: 100 mls/hr Documented By: [facility] 12/15/23 05:56 12/15/23 05:56 Procedures Date of Service Date of Service: 12/15/23 Progress Note: A&P Assessment and plan (1) S/P laparoscopic hernia repair: Status: Acute Assessment and Plan: s/p laparoscopic lysis of adhesions, diaphragmatic hernia repair and gastropexy Doing well Will check am labs and if OK the patient will be discharged home (2) Hiatal hernia: Status: Acute (3) Gout: Status: Acute (4) Hypothyroidism: Status: Acute Time Spent With Patient Time: Total time managing care of this patient today ____ minutes. Quality Stroke Does the patient have a stroke diagnosis?: No VTE Prior VTE?: No VTE Risk Level:: Surgical - moderate VTE Device Contraindication: N/A - Device Ordered VTE Drug Contraindication: Treatment Not Indicated
--- NOTE | 2023-12-14 13:17 | MHC.SHP ---
Pre-Procedural Eval Section A - 24 Hr Update-Section A only Date of Service: 12/14/23 The patient is an INPATIENT: Yes The patient has been examined within 24 hours of the surgical procedure. The History & Physical has been completed within 30 days and I have reviewed it.: No Section B - Complete if H&P > 30 days Chief Complaint: Diaphragmatic hernia Relevant Family History (Specify if Yes): No Relevant Social History: None Present Medications: None Medical History: No relevant PMH History of Previous Operations: No relevant previous surgery Allergies: Allergies Allergy/AdvReac Type Severity Reaction Status Date / Time nitrofurantoin Allergy Severe ANAPHYLAXIS Verified 11/29/23 13:54 [From MACROBID] Tqlhxdx-QIO-ZsE Reductase Allergy Intermediate MUSCLE Verified 11/29/23 13:54 Inhibitor ACHES [[id number]-[id number]-OBO REDUCTASE INHIBITOR] atorvastatin [Lipitor] AdvReac Unknown muscle Verified 11/29/23 13:54 cramping Review of Systems Sugical H&P ROS: Negative: Constitution, Cardiovascular, Respiratory, Neurological, Psychiatric, Hem-Onc, Allergic/Immunologic, Gastrointestinal, Genitourinary, Musculoskeletal, Integumentary, Endocrine and Eyes/Ears/Nose/Throat Exam Surgical H&P Exam: Normal: HEENT, Normal: Heart, Normal: Lungs, Normal: Extremities, Normal: Abdomen, Normal: Skin and Normal: Neurological Plan Diagnosis/Plan: Unchanged I have reviewed the history and physical and performed a pertinent physical examination on my patient. No changes have occurred unless specified. Time Spent With Patient Time: Total time managing care of this patient today ____ minutes.
--- NOTE | 2023-12-14 15:46 | P.DS_ITS ---
DS: Providers Provider Date of Service: 12/15/23 Date of admission: 12/14/23 09:44 Primary care physician: SHARRON Valiente DS: Summary Hospital Course Hospital Course: ADMITTING DIAGNOSIS: hiatal hernia, gout hypothyroid, hld ? DISCHARGE DIAGNOSIS: same, s/p laparoscopic repair diaphragmatic hernia ? PAST SURGICAL HISTORY: right thyroidectomy ? PROCEDURE: upper endoscopy, laparoscopic repair of diaphragmatic hernia ? DISCHARGE SUMMARY: ? History of Present Illness: ? The patient is a?73 year-old woman with a BMI of??28.2 kg/m2 and associated co- morbidities as described above. The patient had extensive work-up and was electively scheduled for laparoscopic, possible open repair of diaphragmatic hernia and gastropexy. Risks and complications of the surgery were discussed with the patient in advance, particularly the possibility of , pulmonary embolism, anastomotic leak, bleeding, bowel injury, GERD, cardiac, renal or pulmonary complications. The patient understood all the risks and was in agreement with the surgical plan. ? Hospital Course: ? The patient underwent an uneventful laparoscopic repair of diaphragmatic hernia with gastropexy on the day of admission. Postoperatively, the patient was transferred to the surgical floor. The patient received IV Acetaminophen and IV dilaudid for pain control. Patient was started on bariatric phase 1 diet POD #0. On postoperative day one, the patient was feeling well without nausea, vomiting, fevers, or tachycardia. The patient had some mild incisional pain and the abdomen was soft. ? On the morning of postoperative day one, the patient was continued on 1 ounce of water or ice every half hour. During the day, the patient did fairly well, having some incisional pain, but able to ambulate adequately and to tolerate liquids well. ? Since the patient is doing well, we decided that the patient was ready to be discharged. The patient was given instructions to follow-up with me next week and to call my office for any fever over 101, persistent abdominal pain, nausea, vomiting, GERD, symptoms of DVT such as calf tenderness, or leg swelling, or pulmonary embolism such as chest pain or shortness of breath. The patient was also instructed to drink 40-60 ounces of liquids per day using the 1-ounce cups. The patient had been given prescriptions for Tylenol for pain, Zofran prn for nausea, and pantoprazole and carafate previously. The patient was encouraged to ambulate and use the incentive spirometer. The patient was allowed to shower, but no baths, and encouraged to stay active at home. All of these instructions were given to the patient personally. All questions were answered and the patient understood all instructions, the instructions were also given to the patient in print. Time Attestation Total time managing care of this patient today: 25 mintues. Discharge Coordination Time (in mins): 25 Quality: Safe Use of Opioids Does Pt have an Active Cancer Diagnosis on the Problem List?: No Quality: Stroke Does the patient have a stroke diagnosis?: No Physical Exam Vital Signs: Vital Signs: Last Vital Signs Temp 97.7 F 12/14/23 09:45 Pulse 79 12/14/23 09:45 Resp 20 12/14/23 09:45 BP 141/55 H 12/14/23 09:45 Pulse Ox 98 12/14/23 09:45 O2 Del Method Room Air 12/14/23 09:45 BMI result Body Mass Index 28.2 DS: Data Data Completed and Pending Pending studies at discharge: Pending at discharge 12/14/23 15:05 Surgical [PTH] Routine Discharge Plan Discharge Anticipated Discharge Date/Time: 12/15/23 12:20 Patient Disposition: Home, Self-Care Discharge Diagnosis: Diaphragmatic hernia Referrals: Ileana Paige FNP [Nurse Practitioner] - 1 Week Discharge Medications: Continued allopurinol 100 mg tablet 100 mg PO BID Qty: 180 3RF Mecobalamin [place] 1,000 mcg fluid extract 1,000 mcg PO DAILY levothyroxine 25 mcg tablet 25 mcg PO DAILY@0600 ascorbic acid (vitamin C) [Vitamin C] 500 mg Tablet 500 mg PO DAILY pantoprazole 40 mg tablet,delayed release (DR/EC) 40 mg PO DAILY@0630 sucralfate 100 mg/mL suspension 10 ml PO BID Qty: 600 2RF ondansetron 4 mg tablet,disintegrating 4 mg PO Q12H Qty: 20 0RF Rx Instructions: Only take one every 12 hours as needed if you have nausea Held ergocalciferol (vitamin D2) 200 mcg/mL (8,000 unit/mL) Drops 100 mcg PO DAILY Hold Instructions: Resume on 12/22/23. lysine [L-Lysine] 500 mg tablet 500 mg PO DAILY Hold Instructions: Resume on 12/22/23. quercetin 500 mg capsule 500 mg PO DAILY Hold Instructions: Resume on 12/22/23. Discharge Orders: Discharge Order (Routine); Ordered 12/15/23 Ordered By: Milton Nino Activity on Discharge: No heavy lifting Stand Alone Forms: Patient Portal Discharge page Print Language: Spanish Care Plan Goals: improve gerd Health Concerns: gerd Plan of Treatment: No tub baths, sex or returning to work until discussed at first post op appoi ntment. No exercise, alcohol, tobacco or illegal drug use. Continue to use incentive spirometer hourly while awake. Walk in home for 5- 10 minutes every 2 hours during the first week. Follow all instructions in the bariatric handbook and call with any questions.Discharge Instructions 1. Please call your doctor or come back to the emergency room should any new symptoms arise. 2. You will receive a courtesy call from [facility] 24-48 hours after discharge. 3. Activity: abstain from alcohol, practice limited stair climbing, no bending, no driving, no exercise, no illicit substances, no lifting, no sex, no tub bath, no work. 4. Diet: continue as discussed with Dr. Nino. 5. Dressing Change/Wound Care: Your incision is covered by clear bandages and guaze underneath. If the area is tender, you may apply an ice pack for short intervals (no more than 20 minutes on, followed by at least 20 minutes off). Do not apply heat. Do not use creams, lotions, or topical antibiotics unless instructed to do so by your surgeon. These can cause infection or allergic reaction. 6. Call your doctor if: - Your temperature exceeds 101.5 F - You experience excessive pain or swelling - You have an unexpected reaction to medication - You have excessive bleeding - You experience continued vomiting/nausea - Your incision begins to separate - Your incision shows signs of infection such as increased redness, swelling, excessive pain, heat, or drainage (light blood or clear fluid is normal) 7. General instructions: No lifting greater than 5 lbs for 1 week and not more than 20lbs the next 3?weeks. No driving until seen at the office in 5-7 days after surgery. If you do not move your bowels in the next 2 days, please tell?Dr. Nino. Please walk around your home every hour or two to prevent blood clots from forming in your legs. You do not need to wake from sleeping to walk. Please sleep in a bed or couch to prevent kinking at the hips and knees. Please take your incentive spirometer (your lung research advisor) home with you and use it for the next few days to prevent pneumonia. You may shower, no hot tubs, baths or swimming pools.?Please follow the post op diet instructions you are?given by Dr Nino? and text me daily at 5-6pm for an update.?If you have any issues or concerns or questions please communicate this to him via text.? The Celebrate shakes have all of the bariatric vitamins you need if you consume these shakes. If you are drinking other protein shakes, you will need to purchase the Celebrate multivitamins and calcium that are available in the hospital gift shop on the first floor of the [facility].??Do not take anything without first discussing with Dr Nino. Please make sure you are consuming at least 40 ounces of fluids per day starting the?day AFTER your discharge from the hospital. Always drink 1-2 ml per minute using the 5ml?syringe. If you drink faster you may experience?bloating,?gas pain, burping, nausea or heartburn. In that case please slow down your pace and use the syringe to?understand better the?proper?pace and volume of drinking. Do not hesitate to contact the office with any questions at . The patient's medical history has been reviewed and they are considered low risk for post op DVT and therefore DVT prophylaxis is not considered necessary. Travel after surgery was reviewed. The patient has not disclosed any travel plans during the first 30 days after surgery and they have been advised that within the first 30 days after surgery any bus, plane, train or car travel over 2 hours in duration is contraindicated due to the possibility of developing blood clots from immobility. Any travel, needs to include periods of ambulation of 10 minutes in duration every 2 hours.? The patient was instructed to discuss any plans for travel during this period with their bariatric surgeon. Assessment: stable s/p laparoscopic repair of diaphragmatic hernia Discharge Date/Time: 12/15/23 09:32
[2023-12-14] MEDS: HYDROmorphone HCl 0.5 MG/0.5 ML SYRINGE 0.25 MG IVPUSH ×2 (15:48→19:44)
[2023-12-14 16:30] LABS: Hematocrit 32.7 % (37.0-47.0)
[2023-12-14 18:15] LABS: Anion Gap 14 (12-20); Blood Urea Nitrogen 21 mg/dL (9-16); Calcium 9.4 mg/dL (8.4-10.2); Carbon Dioxide 20 mmol/L (22-29); Chloride 108 mmol/L (96-108); Creatinine Clr Calc Pharmacy 58.2; Estimated Glomerular Filt Rate > 60; Glucose Random 117 mg/dL (60-115); Potassium 4.1 mmol/L (3.3-5.1); Sodium 138 mmol/L (135-145)
[2023-12-14] MEDS: ceFAZolin Sodium/Dextrose,Iso 2 GM/50 ML PIGGYBACK IV (18:40)
[2023-12-14] MEDS: Acetaminophen 1,000 MG/100 ML PIGGYBACK 16.7 MG IV (20:05)
[2023-12-14] MEDS: 0.9 % Sodium Chloride Flush 3 ML SYRINGE IVFLUSH (21:37)
[2023-12-14] MEDS: Famotidine/PF 20 MG/2 ML VIAL IVPUSH (21:54)
[2023-12-15] MEDS: Acetaminophen 1,000 MG/100 ML PIGGYBACK 16.7 MG IV (02:02)
[2023-12-15 03:46] VITALS: BP 127/66; PULSE 58; RESP 16; TEMP 36.2; O2SAT 96
[2023-12-15] MEDS: HYDROmorphone HCl 0.5 MG/0.5 ML SYRINGE 0.25 MG IVPUSH (04:06)
[2023-12-15] MEDS: Levothyroxine Sodium 25 MCG TABLET PO (05:34)
[2023-12-15] MEDS: Lactated Ringers 1,000 ML 100 ML IVCONT (05:40)
[2023-12-15 06:10] LABS: MANUAL DIFF FLAG NO
[2023-12-15 06:21] LABS: Basophils Percent Auto 0.1 % (0-2); Hematocrit 33.8 % (37.0-47.0); Hemoglobin 11.1 g/dl (12.0-16.0); Imm Gran Abs Auto 0.05 X10*3/uL (0.00-0.03); Imm Gran Pct Auto 0.5 % (0.0-0.4); Lymphocytes Absolute Auto 0.9 X10*3/uL (1.2-4.9); Lymphocytes Percent Auto 10.3 % (20-40); Mean Corpuscular HGB Conc 32.8 g/dl (31.0-35.0); Mean Corpuscular Hemoglobin 29.9 pg (27.0-33.0); Mean Corpuscular Volume 91.1 fL (80.0-98.0); Mean Platelet Volume 10.7 fL (9.4-12.3); Monocytes Absolute Auto 0.2 X10*3/uL (0.1-1.2); Monocytes Percent Auto 1.7 % (2-11); Neutrophils Percent Auto 87.4 % (45-73); Platelet Count 262 X10*3/uL (160-400); Red Blood Count 3.71 X10*6/uL (4.20-5.50); Red Cell Distribution Width 14.3 % (11.0-16.0); White Blood Count 9.2 X10*3/uL (4.8-10.8)
[2023-12-15 06:41] LABS: Anion Gap 15 (12-20); Blood Urea Nitrogen 17 mg/dL (9-16); Calcium 9.1 mg/dL (8.4-10.2); Carbon Dioxide 21 mmol/L (22-29); Chloride 106 mmol/L (96-108); Creatinine Clr Calc Pharmacy 55.6; Estimated Glomerular Filt Rate > 60; Glucose Random 144 mg/dL (60-115); Potassium 4.5 mmol/L (3.3-5.1); Sodium 137 mmol/L (135-145)
[2023-12-15 08:00] VITALS: BP 145/66; PULSE 57; RESP 16; TEMP 36.8; O2SAT 94
[2023-12-15] MEDS: 0.9 % Sodium Chloride Flush 3 ML SYRINGE IVFLUSH (08:52)
[2023-12-15] MEDS: Famotidine/PF 20 MG/2 ML VIAL IVPUSH (08:52)
--- NOTE | 2023-12-15 09:16 | MHC.CM.PN ---
Patient lives in a mobile home alone. Functionally independent. Has walker/cane, but does not use. Denies use of services. PCP Angela Deal MD Patient reports she has an HCP naming friend, Sandra, as HCA. Copy requested. IMM delivered. DP: Per EMR, patient medically cleared for dc home self care. Friend will transport. RN aware.
== END 2023-12-15 09:32 | disposition home or self-care (01) | DRG 328 ==
LOC: HO.SSSA 12:21 → HO.S3 20:04
PROVIDERS: Physician Assistant Surgical; Admitting Provider Surgery; PCP Internal Medicine; Visit Provider Surgery
PROC: 0BQT4ZZ Repair Diaphragm, Percutaneous Endoscopic Approach (ICD-10-PCS; CPT 43281; principal; 2023-12-14 11:40)
DX: K44.0 Diaphragmatic hernia with obstruction, without gangrene (principal); E89.0 Postprocedural hypothyroidism; K66.0 Peritoneal adhesions (postprocedural) (postinfection); K21.9 Gastro-esophageal reflux disease without esophagitis; G47.30 Sleep apnea, unspecified; M10.9 Gout, unspecified; Z87.891 Personal history of nicotine dependence; Z79.890 Hormone replacement therapy; Z79.899 Other long term (current) drug therapy
CPT/HCPCS: 43281; 43659; 36415; 80048; 80053; 80061; 83036; 84443; 85014; 85018; 85025; 85610; 85730; 86140; 86850; 86900; 86901; 88304; 88305; 96365; 96366; 96367; 96375; 96376; A4649; C9145; J0131; J0690; J1100; J1170; J2250; J2371; J2405; J2704; J2795; J3010; J7120

== ENCOUNTER → 2023-12-14 09:44 | Outpatient (BNV) | payer MEDICARE, SELFPAY | PROVIDERS: Admitting Provider Surgery; PCP Registered Nurse; Visit Provider Surgery | DX: K44.9 Diaphragmatic hernia without obstruction or gangrene (principal) | CPT/HCPCS: 43281; 99024; 99499 ==

== ENCOUNTER 2023-12-21 12:08 | Outpatient (AMB) | payer MEDICARE, SELFPAY ==
--- NOTE | 2023-12-21 12:10 | MHC.OFFVISWM ---
VS Expanded 12/21/23 12:17 BP 148/70 H Blood Pressure Location Rt brachial Blood Pressure Position Sitting Pulse 73 Pulse Source Pulse Oximeter Temp 96.9 F Temperature Source Temporal Artery Scan Pulse Oximetry 100 Oxygen Delivery Method Room Air Intake Visit Reasons: (OV) s/p Hiatal Hernia 12/14/23 Allergies nitrofurantoin [From MACROBID] Allergy (Severe, Verified 12/21/23 12:17) ANAPHYLAXIS Klxrcjc-TCR-MbD Reductase Inhibitor [VAFYBQM-EXG-KNH REDUCTASE INHIBITOR] Allergy (Intermediate, Verified 12/21/23 12:17) MUSCLE ACHES atorvastatin [Lipitor] Adverse Reaction (Unknown, Verified 12/21/23 12:17) muscle cramping HPI Comments Details: 73-year-old female, status post hiatal hernia repair performed on 12/14/2023. She is postop day 7. She is tolerating 3 celebrate rebuild shakes with 1 scoop each and approximately 40 oz of fluids per day. She has moved her bowels. Offers no complaints of pain. [facility] Medical History Hypothyroidism Primary osteoarthritis of both knees Raynaud's syndrome Surgical History (Updated 12/21/23 @ 12:18 by Marietta Peck CMA) S/P laparoscopic hernia repair History of lobectomy of thyroid Hx of ultrasound guided needle biopsy S/P foot surgery, right H/O esophagogastroduodenoscopy H/O colonoscopy Family History Mother No problems noted. Social History Household Members: None Housing: Other Housing Other:: mobile home Do you presently have visiting nurse or other home services: No Alcohol intake: current Alcohol intake frequency: holidays/special occasions only Patient Tobacco Use Status: Former Tobacco user Tobacco use type: Cigarette e-Cigarette/Vaping Use: Never Used service: No Current occupational status: retired Cognitive needs: No Hearing needs: Yes Vision needs: Yes Physical Exam Vital Signs: Last Vital Signs Temp 96.9 F 12/21/23 12:17 Pulse 73 12/21/23 12:17 BP 148/70 H 12/21/23 12:17 Pulse Ox 100 12/21/23 12:17 Oxygen Delivery Method Room Air 12/21/23 12:17 GI Inspection: Yes incision (Clean, dry, intact.) Assessment & Plan Assessment & Plan (1) S/P laparoscopic hernia repair: Code(s): Z98.890 - Other specified postprocedural states; Z87.19 - Personal history of other diseases of the digestive system Category: Surgical Plan: Patient is a pleasant 77-year-old female who is 7 days post hiatal hernia repair. She is tolerating 3 celebrate rebuild shakes. She offers no significant complaints. She has been instructed to continue to wear her abdominal binder for 2 weeks with exercise and activity. She will text with Dr. Nino regarding her meal plan. We will have her follow-up in the office in approximately 3 weeks.
[2023-12-21 12:17] VITALS: BP 148/70; PULSE 73; TEMP 36.1; O2SAT 100
== END 2023-12-21 12:36 | disposition home or self-care (01) ==
LOC: HO.HBS 12:08
PROVIDERS: PCP Internal Medicine; Visit Provider Physician Assistant Surgical
DX: Z98.890 Other specified postprocedural states (principal); Z87.19 Personal history of other diseases of the digestive system
CPT/HCPCS: 99024

== ENCOUNTER → 2023-12-21 12:08 | Outpatient (BNVA) | payer MEDICARE, SELFPAY | PROVIDERS: PCP Internal Medicine; Visit Provider Physician Assistant Surgical | DX: Z48.815 Encounter for surgical aftercare following surgery on the digestive system (principal) | CPT/HCPCS: 99212 ==

== ENCOUNTER 2023-12-31 13:48 | Outpatient (AMB) | payer MEDICARE, SELFPAY ==
[2023-12-31 14:00] VITALS: BP 118/74; PULSE 72; O2SAT 100; BMI 27.3
--- NOTE | 2023-12-31 14:00 | A.OFFPC_ITS ---
Vital Signs 12/31/23 14:00 Height 5 ft 4 in Weight 159 lb BMI 27.3 BP 118/74 Blood Pressure Location Lt brachial Position Sitting Pulse 72 Pulse Source Pulse Oximeter Pulse Oximetry (%) 100 Oxygen Delivery Method Room Air Intake Visit Reasons: Hospital follow up after hernia surgery Intake Note: Pt is here today for a Hospital follow up visit after hernia surgery. Allergies nitrofurantoin [From MACROBID] Allergy (Severe, Verified 12/31/23 14:04) ANAPHYLAXIS Ueyzcxy-ZWD-MuV Reductase Inhibitor [WVOTWMS-ZBV-PRO REDUCTASE INHIBITOR] Allergy (Intermediate, Verified 12/31/23 14:04) MUSCLE ACHES atorvastatin [Lipitor] Adverse Reaction (Unknown, Verified 12/31/23 14:04) muscle cramping Tobacco use date assessed: 12/31/23 Fall risk assessment: No Falls in past year Last assessed Fall Risk: 12/31/23 Dental Screening Dental Screen Date: 05/18/23 [facility] Hospital follow up after hernia surgery HPI Details PATIENT PRESENTS FOR THE FOLLOW-UP. She underwent laparoscopic hiatal hernia repair on December 13. Patient has been drinking shakes and starting to eat solid foods had eggs this morning. She has been having normal bowel movements , denies nausea vomiting fever chills. Patient complains of leg cramps worse at night. [facility] Medical History (Updated 12/23/23 @ 00:01 by Ronak Ozuna) Superficial phlebitis Pre-op exam ROCA (dyspnea on exertion) Elevated LFTs Thyroid nodule Hx of screening mammography Annual physical exam Hypothyroidism Primary osteoarthritis of both knees Raynaud's syndrome Surgical History (Updated 12/31/23 @ 14:48 by Angela Deal MD) S/P laparoscopic hernia repair History of lobectomy of thyroid Hx of ultrasound guided needle biopsy S/P foot surgery, right H/O esophagogastroduodenoscopy H/O colonoscopy Family History Mother No problems noted. Social History Household Members: None Housing: Other Housing Other:: mobile home Do you presently have visiting nurse or other home services: No Alcohol intake: current Alcohol intake frequency: holidays/special occasions only Patient Tobacco Use Status: Former Tobacco user Tobacco use type: Cigarette e-Cigarette/Vaping Use: Never Used service: No Current occupational status: retired Cognitive needs: No Hearing needs: Yes Vision needs: Yes Questionnaire PHQ-9 Over the last 2 weeks, how often have you been bothered by any of the following problems? 1. Little interest or pleasure in doing things: not at all 2. Feeling down, depressed, or hopeless: not at all 3. Trouble falling or staying asleep, or sleeping too much: not at all 4. Feeling tired or having little energy: several days 5. Poor appetite or overeating: not at all 6. Feeling bad about yourself - or that you are a failure or have let yourself or your family down: not at all 7. Trouble concentrating on things, such as reading the newspaper or watching television: not at all 8. Moving or speaking so slowly that other people could have noticed. Or the opposite - being so fidgety or restless that you have been moving around a lot more than usual: not at all 9. Thoughts that you would be better off or of hurting yourself in some way: not at all Total score: 1 Depression Screening Interpretation: Negative Depression Screening Done: Yes 51355 - PHQ-9 Billing: Yes Source: Developed by Drs. Kirt Najera, Cici Wynn, James Scott and colleagues, with an educational amish from [employer]. Thrive Questionnaire Date Thrive assessed: 12/29/23 I am a: Patient What is your living situation today?: I have a steady place to live Within the past 12 months, did the food you bought not last and you didn't have the money to get more?: Never true Within the past 12 months, did you worry whether your food would run out before you got money to buy more?: Never true Do you have trouble paying for medicines?: No Do you have trouble getting transportation to medical appointments?: No Do you have trouble paying your heating and electricity bill?: No Do you have trouble taking care of your child, family member or friend?: No Do you have trouble with day-to-day activities such as bathing, preparing meals, shopping, managing finances, etc.?: No Are you interested in more education?: No Please select the resources that you would like help with: None Currently or been in a relationship where the following occur: No concerns reported THRIVE Score: 0 AUDIT C Alcohol Use Questionnaire (AUDIT-C) 1. How often do you have a drink containing alcohol?: Never 3. How often do you have six or more drinks on one occasion?: Never Total Score: 0 NAOMI-7 AMB Questionnaire NAOMI-7 Date NAOMI - 7 assessed: 12/31/23 Feeling nervous, anxious, or on edge: 0 = Not at all Not being able to stop or control worryin = Not at all Worrying too much about different things: 0 = Not at all Trouble relaxin = Not at all Being so restless that it is hard to sit still: 0 = Not at all Becoming easily annoyed or irritable: 0 = Not at all Feeling afraid as if something awful might happen: 0 = Not at all Total NAOMI-7 score (0-4 normal; 5-9 mild; 10-14 moderate; 15-21 severe): 0 Source: Developed by Drs. Kirt Najera, Cici Wynn, James Scott and colleagues, with an educational amish from [employer]. Review of Systems Const All systems reviewed & are unremarkable except as noted in HPI and below Eyes Reports no additional complaints ENT Reports no additional complaints Card Reports no additional complaints Resp Reports no additional complaints GI Reports no additional complaints Physical exam (Primary Care) Vital Signs: Last Vital Signs Pulse 72 12/31/23 14:00 BP 118/74 12/31/23 14:00 Pulse Ox 100 12/31/23 14:00 Oxygen Delivery Method Room Air 12/31/23 14:00 BMI result Body Mass Index 27.3 Tobacco/Smoking Status: Tobacco use Status Tobacco use date assessed 12/31/23 12/31/23 14:07 Patient Tobacco Use Status Former Tobacco user 12/31/23 14:07 Tobacco use type Cigarette 12/31/23 14:07 e-Cigarette/Vaping Use Never Used 12/31/23 14:07 PHQ-9: PHQ-9 Score PHQ-9: Total score 1 12/31/23 14:07 Depression Screening Interpretation: Negative Thrive Assessment: Date of Thrive Assessment Date Thrive assessed 12/29/23 12/31/23 14:07 Currently or been in a relationship where the following occur: No concerns reported Const General: no acute distress Resp Effort & Inspection: normal respiratory effort Auscultation: clear to auscultation bilaterally Cardio Rhythm: regular rhythm Heart sounds: S1 normal heart sound present and S2 normal heart sound present GI Inspection: Yes normal to inspection Palpation (GI): Soft to palpation Percussion: Yes normal to percussion Auscultation: normal bowel sounds Extrem General: Yes no clubbing, cyanosis or edema Coding Level of Care Code Est Pt Level 3 (80075) Diagnoses S/P laparoscopic hernia repair Z98.890; Z87.19 Hypothyroidism E03.9 Assessment & Plan Assessment & Plan (1) S/P laparoscopic hernia repair: Comment: 12/14/2023 [facility] Code(s): Z98.890 - Other specified postprocedural states; Z87.19 - Personal history of other diseases of the digestive system Category: Surgical Plan: FOLLOW-UP WITH SURGERY (2) Hypothyroidism: Comment: s/p partial thyroidectomy Code(s): E03.9 - Hypothyroidism, unspecified Category: Medical Plan: Continue levothyroxine
== END 2023-12-31 14:48 | disposition home or self-care (01) ==
PROVIDERS: PCP Internal Medicine; Visit Provider Internal Medicine
DX: Z98.890 Other specified postprocedural states (principal); Z87.19 Personal history of other diseases of the digestive system; E03.9 Hypothyroidism, unspecified

== ENCOUNTER → 2023-12-31 13:48 | Outpatient (BNVA) | payer MEDICARE, SELFPAY | PROVIDERS: PCP Internal Medicine; Visit Provider Internal Medicine | DX: E03.9 Hypothyroidism, unspecified (principal); Z98.890 Other specified postprocedural states; Z87.19 Personal history of other diseases of the digestive system | CPT/HCPCS: 96127; 99212 ==

== ENCOUNTER 2024-01-07 09:19 | Outpatient (AMB) | payer MEDICARE, SELFPAY ==
[2024-01-07 09:25] VITALS: BMI 27.3
--- NOTE | 2024-01-07 09:25 | MHC.OFFVIS ---
Vital Signs 01/07/24 09:25 Height 5 ft 4 in Weight 159 lb BMI 27.3 Intake Visit Reasons: Venaseal Allergies nitrofurantoin [From MACROBID] Allergy (Severe, Verified 12/31/23 14:04) ANAPHYLAXIS Abnmzls-GWT-XxP Reductase Inhibitor [MHIBEZU-NDO-HDJ REDUCTASE INHIBITOR] Allergy (Intermediate, Verified 12/31/23 14:04) MUSCLE ACHES atorvastatin [Lipitor] Adverse Reaction (Unknown, Verified 12/31/23 14:04) muscle cramping PFSH Medical History (Updated 01/07/24 @ 11:16 by Silver Pulliam MD) Superficial phlebitis Pre-op exam ROCA (dyspnea on exertion) Elevated LFTs Thyroid nodule Hx of screening mammography Annual physical exam Hypothyroidism Primary osteoarthritis of both knees Raynaud's syndrome Surgical History (Updated 12/31/23 @ 14:48 by Angela Deal MD) S/P laparoscopic hernia repair History of lobectomy of thyroid Hx of ultrasound guided needle biopsy S/P foot surgery, right H/O esophagogastroduodenoscopy H/O colonoscopy Family History Mother No problems noted. Social History Household Members: None Housing: Other Housing Other:: mobile home Do you presently have visiting nurse or other home services: No Alcohol intake: current Alcohol intake frequency: holidays/special occasions only Patient Tobacco Use Status: Former Tobacco user Tobacco use type: Cigarette e-Cigarette/Vaping Use: Never Used service: No Current occupational status: retired Cognitive needs: No Hearing needs: Yes Vision needs: Yes Physical Exam Vital Signs: BMI result Body Mass Index 27.3 Office Procedures Vascular Office Procedure Details Details: Diagnosis: Right Leg varicose veins with inflammation Procedure: Endovenous Ablation of the right Great Saphenous Vein with VenaSeal Closure System Anesthesia: Local infiltration 5 cc, Estimated Blood Loss: min Specimen: none Duplex ultrasound was used to map out the insufficient saphenous vein, and access was determined and marked on the overlying skin. The depth and diameter of the vein(s) to be treated was documented. The patient was placed supine on the procedure table and the leg was prepped and draped using sterile technique. Ultasound guidance was again used to localize the access site. 1% lidocaine was injected as a local anesthetic in the subcutaneous tissues at the target location in the GSV in the lower leg. Using ultrasound guidance, access was gained at this location with the 19 gauge thin walled access needle and followed by introduction of a short guidewire, location confirmed with ultrasound. A small, 3 mm incision was made at the access site to allow for introduction and placement of the 7 Fr x7cm introducer/dilator. The dilator and guidewire were removed. The 0.035 guidewire from the VenaSeal kit was then introduced and positioned at the saphenofemoral junction using ultrasound guidance. The 80 cm 7 Fr introducer sheath/dilator was positioned 5cm from the saphenofemoral junction. The guidewire and dilator were removed, and the remaining sheath was flushed with sterile saline, with the syringe remaining in place prior to the next steps. The cyanoacrylate adhesive was precisely primed into the 5 F delivery catheter and this catheter/syringe combination was attached within the dispenser gun. This assembly was introduced through the 7F sheath and positioned 5 cm caudal of the saphenofemoral junction under ultrasound guidance. The steps from the IFU were followed for dispensing amounts, locations and compression times, 2 aliquots proximally with 3 minutes of compression, and 1 aliquot every 3 cm distally with 30 sec of compression along the course of the vessel. Following the last injection and compression sequence, the catheter and introducer sheath were pulled out from the access site. Hemostasis was achieved with manual compression and an adhesive bandage was applied to the incision. Ultrasound confirmed complete coaptation and closure of the treated segments of the GSV, and the absence of any DVT at the saphenofemoral junction. Treatment time was approximately 5 minutes and the vein length treated was 22 cm. The drapes were removed and the patient cleaned and prepared for discharge. Post op ultrasound check is scheduled for 48-72 hours and the patient was given written post-op instructions. 34274 - Endoven Ther Chem Adhes 1st All charges added?: Procedure code (CPT) selection complete Assessment & Plan Assessment & Plan (1) Varicose veins of right lower extremity with inflammation: Comment: 01/07/2024 - right great saphenous vein Cyanoacralate ablation Code(s): I83.11 - Varicose veins of right lower extremity with inflammation Category: Medical Plan: See op note Coding Level of Care Code Procedure Only Diagnoses Varicose veins of right lower extremity with inflammation I83.11 CPT Codes Details - Vascular 3: 45406 - Endoven Ther Chem Adhes 1st ([id number])
== END 2024-01-07 11:18 | disposition home or self-care (01) ==
PROVIDERS: PCP Registered Nurse; Visit Provider Surgery Vascular Surgery
DX: I83.11 Varicose veins of right lower extremity with inflammation (principal)
CPT/HCPCS: 36482

== ENCOUNTER → 2024-01-07 09:19 | Outpatient (BNVA) | payer MEDICARE, SELFPAY | PROVIDERS: PCP Registered Nurse; Visit Provider Surgery Vascular Surgery | DX: I83.11 Varicose veins of right lower extremity with inflammation (principal) | CPT/HCPCS: 36482; J2003 ==

== ENCOUNTER 2024-01-10 13:49 | Outpatient (REF) | payer MEDICARE, SELFPAY ==
--- NOTE | ~2024-01-10 | US_ITS ---
EXAMINATION: TRIPLEX SCANNING OF RIGHT LOWER EXTREMITY; SUPERFICIAL ULTRASOUND WITH DOPPLER OF RIGHT LOWER EXTREMITY CLINICAL INFORMATION: Status post cyanoacrylate ablation of the right great saphenous vein. Originally performed on 01/07/2024. COMPARISON: preprocedure studies. TECHNIQUE: Color flow triplex imaging and compression Doppler were performed as well as superficial ultrasound with Doppler. FINDINGS: TRIPLEX SCANNING OF RIGHT LOWER EXTREMITY: Respiratory variation, normal compression and augmented flow are noted throughout the lower extremity. The visualized common femoral vein, femoral vein, profunda femoral vein, popliteal vein and the calf veins show no evidence of deep venous thrombosis. SUPERFICIAL ULTRASOUND WITH DOPPLER OF RIGHT LOWER EXTREMITY: The right great saphenous vein is occluded from the access site to just before the sapheno-femoral junction, with a 0.7 cm patent proximal great saphenous vein at the level of the saphenofemoral junction. There is no extension of thrombus into the deep system. There is no evidence of Mehta's cyst. US/US venous duplex LE RT IMPRESSION: 1. Normal triplex scan of the right without evidence of deep venous thrombosis. 2. Occluded right great saphenous vein status post cyanoacrylate ablation. Electronically signed by: Enedina Stevens MD 01/20/2024 09:14 AM EDT
== END 2024-01-10 13:50 | disposition home or self-care (01) ==
LOC: HO.HMGCX 13:49
PROVIDERS: PCP Internal Medicine; Visit Provider Surgery Vascular Surgery
DX: M79.604 Pain in right leg (principal)
CPT/HCPCS: 93971

== ENCOUNTER 2024-01-11 14:21 | Outpatient (AMB) | payer MEDICARE, SELFPAY ==
--- NOTE | 2024-01-11 14:23 | A.OFFVIS_ITS ---
VS Expanded 01/11/24 14:36 BP 125/73 Blood Pressure Location Lt brachial Blood Pressure Position Sitting Pulse 90 Pulse Oximetry 97 Height 5 ft 4 in Weight 155 lb 6 oz BMI 26.7 Body Fat % 41.1 Body Fat Mass 64.0 Fat Free Mass 91.4 Visceral Fat Rating 11.0 Body Water % 41.3 Body Water Mass 64.2 Muscle Mass/Score 86.8 Basal Metabolic Rate/Score 1,267 Intake Visit Reasons: (ov) Hiatal hernia 12/14/23 F/u Allergies nitrofurantoin [From MACROBID] Allergy (Severe, Verified 01/11/24 14:37) ANAPHYLAXIS Ykpundu-MKG-VmT Reductase Inhibitor [RPVLONI-BUN-LOI REDUCTASE INHIBITOR] Allergy (Intermediate, Verified 01/11/24 14:37) MUSCLE ACHES atorvastatin [Lipitor] Adverse Reaction (Unknown, Verified 01/11/24 14:37) muscle cramping HPI Comments Details: Patient is a pleasant 73-year-old female who returns to the office today in follow-up. She is approximately 1 month status post hiatal hernia repair performed on 12/14/2023. She is tolerating 2 celebrate rebuild shakes with 1 scoop each, 2 celebrate bars and a meal with 6 forks of protein and 6 of vegetables. She is having several tbsp of cottage cheese without difficulty. She does not like yogurt. She reports that she was supposed to be having for shakes but is becoming intolerant to them. She is getting to in. She will discuss this with Dr. Nino to potentially add an extra scoop to each of the 2 shakes that she is taking. She reports some fatigue in the late afternoon otherwise no complaints. She is drinking approximately 48 oz of fluid in addition to her shakes. No nausea no vomiting. FORMERLY [facility] Medical History Superficial phlebitis Pre-op exam ROCA (dyspnea on exertion) Elevated LFTs Thyroid nodule Hx of screening mammography Annual physical exam Hypothyroidism Primary osteoarthritis of both knees Raynaud's syndrome Surgical History S/P laparoscopic hernia repair History of lobectomy of thyroid Hx of ultrasound guided needle biopsy S/P foot surgery, right H/O esophagogastroduodenoscopy H/O colonoscopy Family History Mother No problems noted. Social History Household Members: None Housing: Other Housing Other:: mobile home Do you presently have visiting nurse or other home services: No Alcohol intake: current Alcohol intake frequency: holidays/special occasions only Patient Tobacco Use Status: Former Tobacco user Tobacco use type: Cigarette e-Cigarette/Vaping Use: Never Used service: No Current occupational status: retired Cognitive needs: No Hearing needs: Yes Vision needs: Yes Physical Exam Vital Signs: Last Vital Signs Pulse 90 01/11/24 14:36 BP 125/73 01/11/24 14:36 Pulse Ox 97 01/11/24 14:36 BMI result Body Mass Index 26.7 GI Inspection: Yes incision (Clean, dry, intact.) Assessment & Plan Assessment & Plan (1) S/P laparoscopic hernia repair: Comment: 12/14/2023 [facility] [place] Code(s): Z98.890 - Other specified postprocedural states; Z87.19 - Personal history of other diseases of the digestive system Category: Surgical Plan: Overall doing very well. She will discuss with Dr. Nino her intolerance to the multiple shakes per day. She may increase scoops per shake, based on his advice. She will continue to communicate and text weight is weekly as well as any concerns regarding her meal plan. She is overall very satisfied with the results of her procedure.
[2024-01-11 14:36] VITALS: BP 125/73; PULSE 90; O2SAT 97; BMI 26.7
== END 2024-01-11 15:07 | disposition home or self-care (01) ==
PROVIDERS: PCP Internal Medicine; Visit Provider Physician Assistant Surgical
DX: Z98.890 Other specified postprocedural states (principal); Z87.19 Personal history of other diseases of the digestive system
CPT/HCPCS: 99024

== ENCOUNTER → 2024-01-11 14:21 | Outpatient (BNVA) | payer MEDICARE, SELFPAY | PROVIDERS: PCP Internal Medicine; Visit Provider Physician Assistant Surgical | DX: K44.9 Diaphragmatic hernia without obstruction or gangrene (principal); Z98.890 Other specified postprocedural states | CPT/HCPCS: 99212 ==

== ENCOUNTER 2024-01-20 12:47 | Outpatient (AMB) | payer MEDICARE, SELFPAY ==
--- NOTE | 2024-01-20 12:54 | A.OFFVIS_ITS ---
Intake Visit Reasons: 2 week follow up venaseal Intake Note: Patient presents for venaseal follow up . States she had pain for about a week and a half. Accompanied by: Self / Same As Patient Allergies nitrofurantoin [From MACROBID] Allergy (Severe, Verified 01/20/24 12:55) ANAPHYLAXIS Kqhvlpk-FWD-ZrA Reductase Inhibitor [XATZLFX-TJA-BEX REDUCTASE INHIBITOR] Allergy (Intermediate, Verified 01/20/24 12:55) MUSCLE ACHES atorvastatin [Lipitor] Adverse Reaction (Unknown, Verified 01/20/24 12:55) muscle cramping HPI HPI 2 week follow up venaseal: Details: Very pleasant 73-year-old female presents for follow-up status post right lower extremity Cyanoacralate ablation. Reports doing extremely well postprocedure. No interval issues. Now presents for routine postprocedure follow-up. FORMERLY [facility] Medical History Superficial phlebitis Pre-op exam ROCA (dyspnea on exertion) Elevated LFTs Thyroid nodule Hx of screening mammography Annual physical exam Hypothyroidism Primary osteoarthritis of both knees Raynaud's syndrome Surgical History S/P laparoscopic hernia repair History of lobectomy of thyroid Hx of ultrasound guided needle biopsy S/P foot surgery, right H/O esophagogastroduodenoscopy H/O colonoscopy Family History Mother No problems noted. Social History Household Members: None Housing: Other Housing Other:: mobile home Do you presently have visiting nurse or other home services: No Alcohol intake: current Alcohol intake frequency: holidays/special occasions only Patient Tobacco Use Status: Former Tobacco user Tobacco use type: Cigarette e-Cigarette/Vaping Use: Never Used service: No Current occupational status: retired Cognitive needs: No Hearing needs: Yes Vision needs: Yes Review of Systems Const All systems reviewed & are unremarkable except as noted in HPI and below Reports no additional complaints ENT Reports Normal hearing present Card Denies chest pain, Denies chest pain at rest, Denies chest pain with activity and Denies pedal edema Resp Denies cough GI Denies abdominal pain Musc Denies abnormal gait, Denies muscle cramps and Denies radiating pain into limb Skin/Breast Denies skin ulcer and Denies wounds Neuro Reports Normal hearing present and Denies abnormal gait Psych Reports no additional complaints Physical Exam Const General: cooperative, healthy appearing and comfortable Orientation/consciousness: oriented to person, oriented to place and oriented to time HEENT Head: Yes normal to inspection Neck Neck: Yes normal visual inspection Carotids: no bruits Chest Chest palpation & inspection: normal inspection of the chest Resp Effort & Inspection: normal respiratory effort and able to speak in complete sentences Auscultation: clear to auscultation bilaterally, no crackles, no rales, no rhonchi and no wheezes Cardio Rate: regular rate Rhythm: regular rhythm Heart sounds: S1 normal heart sound present and S2 normal heart sound present Bruits: no carotid bruits Peripheral pulses: Peripheral pulses 2+ throughout GI Inspection: Yes normal to inspection Skin Wounds: no wounds Hair: normal Neuro General: oriented to person, oriented to place and oriented to time Cranial nerves: Yes CN's II-XII intact bilaterally and Yes Normal hearing present Cognition (Neuro): normal cognition Motor exam (neuro): 5/5 motor strength present throughout Extrem Other: venous exam: No significant superficial varicosities or spider telangiectasias, minimal edema General: No clubbing, No cyanosis and No edema Psych Appearance: grossly normal Mental Status: mental status grossly normal Speech and movement: Normal speech and movement present Assessment & Plan Assessment & Plan (1) Varicose veins of right lower extremity with inflammation: Comment: 01/07/2024 - right great saphenous vein Cyanoacralate ablation Code(s): I83.11 - Varicose veins of right lower extremity with inflammation Category: Medical Plan: The patient has done extremely well with all venous treatments. Patient's may often experience postprocedure phlebitic episodes and I have discussed with the patient use of warm compresses and NSAIDS if tolerated for pain discomfort. In addition, I have discussed continued conservative measures including use of compression, leg elevation, and exercise. The patient was also given an information sheet regarding appropriate use of compression stockings and future purchases. Thank you for allowing us to care for your patient with venous disease. (2) Varicose veins of left lower extremity with inflammation: Code(s): I83.12 - Varicose veins of left lower extremity with inflammation Category: Medical Plan: Currently asymptomatic from the left side. Vein is also smaller in caliber. Should it become an issue in the future we requested that she call us for re- evaluation. Coding Level of Care Code Est Pt Level 3 (89178) Diagnoses Varicose veins of right lower extremity with inflammation I83.11 Varicose veins of left lower extremity with inflammation I83.12
== END 2024-01-20 13:19 | disposition home or self-care (01) ==
LOC: HO.HVS 12:48
PROVIDERS: PCP Registered Nurse; Visit Provider Surgery Vascular Surgery
DX: I83.11 Varicose veins of right lower extremity with inflammation (principal); I83.12 Varicose veins of left lower extremity with inflammation
CPT/HCPCS: 99213

== ENCOUNTER → 2024-01-20 12:47 | Outpatient (BNVA) | payer MEDICARE, SELFPAY | PROVIDERS: PCP Registered Nurse; Visit Provider Surgery Vascular Surgery | DX: I83.11 Varicose veins of right lower extremity with inflammation (principal); I83.12 Varicose veins of left lower extremity with inflammation | CPT/HCPCS: 99212 ==

== ENCOUNTER 2024-02-14 14:14 | Outpatient (AMB) | payer MEDICARE, SELFPAY ==
--- NOTE | 2024-02-14 14:15 | MHC.OFFVISWM ---
VS Expanded 02/14/24 14:33 BP 121/58 L Blood Pressure Location Rt brachial Blood Pressure Position Sitting Pulse 87 Pulse Source Pulse Oximeter Temp 98.1 F Temperature Source Temporal Artery Scan Pulse Oximetry 99 Oxygen Delivery Method Room Air Height 5 ft 4 in Weight 145 lb 12.8 oz BMI 25.0 Body Fat % 37.5 Body Fat Mass 54.6 Fat Free Mass 91.0 Visceral Fat Rating 10.0 Body Water % 43.9 Body Water Mass 64.0 Muscle Mass/Score 86.4 Basal Metabolic Rate/Score 1,246 Intake Visit Reasons: (ov) Hiatal hernia 12/14/23 F/u Allergies nitrofurantoin [From MACROBID] Allergy (Severe, Verified 01/20/24 12:55) ANAPHYLAXIS Xghokzn-UUS-RxW Reductase Inhibitor [MQWJYNO-JQG-ILO REDUCTASE INHIBITOR] Allergy (Intermediate, Verified 01/20/24 12:55) MUSCLE ACHES atorvastatin [Lipitor] Adverse Reaction (Unknown, Verified 01/20/24 12:55) muscle cramping HPI Comments Details: Patient is a pleasant 73-year-old female who returns to the office today in follow-up. She is approximately 2 months status post hiatal hernia repair performed on 12/14/2023. Weight today is 145.8 lb with a BMI of 25. She is tolerating 2 celebrate rebuild shakes with 1 scoop each, and a meal with 5 forks of protein and 5 of vegetables. She states that she has recently noticed a feeling of fullness in the upper abdomen. She is no longer using the medicine cups although she states she is taking 2 hours to finish her shakes. She is not measuring the volume of her sips. She does not feel as though she has this problem with solids. She additionally reports 2 episodes of vomiting over the past week, at night, she does drink much more fluids at night because of her history of dry mouth. She offers no other complaints at this time. FORMERLY [facility], [facility] Medical History Superficial phlebitis Pre-op exam ROCA (dyspnea on exertion) Elevated LFTs Thyroid nodule Hx of screening mammography Annual physical exam Hypothyroidism Primary osteoarthritis of both knees Raynaud's syndrome Surgical History S/P laparoscopic hernia repair History of lobectomy of thyroid Hx of ultrasound guided needle biopsy S/P foot surgery, right H/O esophagogastroduodenoscopy H/O colonoscopy Family History Mother No problems noted. Social History Household Members: None Housing: Other Housing Other:: mobile home Do you presently have visiting nurse or other home services: No Alcohol intake: current Alcohol intake frequency: holidays/special occasions only Patient Tobacco Use Status: Former Tobacco user Tobacco use type: Cigarette e-Cigarette/Vaping Use: Never Used service: No Current occupational status: retired Cognitive needs: No Hearing needs: Yes Vision needs: Yes Physical Exam GI Inspection: Yes incision (Clean, dry, intact.) Assessment & Plan Assessment & Plan (1) S/P laparoscopic hernia repair: Comment: 12/14/2023 [facility] [place] Code(s): Z98.890 - Other specified postprocedural states; Z87.19 - Personal history of other diseases of the digestive system Category: Surgical Plan: Discussed the importance of following recommendations for p.o. intake. I have recommended that she return to using the 1 oz medicine cup every 15 minutes with a goal of approximately 15 sips per cup or 2 mL/minute she states that she does not particularly care for almond milk and would like to use water for her shakes which she can do. Additionally discussed decreasing her overall volume at night as she did have 2 episodes of vomiting. She does drink more fluid at night given her dry mouth. We will have her return to the office in approximately 1 month, encouraged to text with any further issues or concerns.
[2024-02-14 14:33] VITALS: BP 121/58; PULSE 87; TEMP 36.7; O2SAT 99; BMI 25.0
== END 2024-02-14 14:55 | disposition home or self-care (01) ==
PROVIDERS: PCP Internal Medicine; Visit Provider Physician Assistant Surgical
DX: Z98.890 Other specified postprocedural states (principal); Z87.19 Personal history of other diseases of the digestive system
CPT/HCPCS: 99024

== ENCOUNTER → 2024-02-14 14:14 | Outpatient (BNVA) | payer MEDICARE, SELFPAY | PROVIDERS: PCP Internal Medicine; Visit Provider Physician Assistant Surgical | DX: Z71.3 Dietary counseling and surveillance (principal); Z87.19 Personal history of other diseases of the digestive system; Z98.890 Other specified postprocedural states | CPT/HCPCS: 99212 ==

== ENCOUNTER 2024-03-13 12:43 | Outpatient (AMB) | payer MEDICARE, SELFPAY ==
--- OUTSIDE RECORDS SUMMARY | 2024-03-13 12:47 | XMS_ITS | Data Portability ---
Author Organization [place] [facility] [place] Address [address] [place] [address] Care Team Providers Care Sales And Merchandising Representative Name Role Phone ANDRE SNYDER Primary Care Provider [phone] Assessment Encounter Date Assessment Date Assessment LastModified by Organization Details LastModified Time 06/10/2023 06/10/2023 She is now approximately 3 months postoperatively. It is certainly normal for her to have this degree of ongoing swelling 3 months postoperatively. I have given her prescription for Santyl as I think this may help with debriding her wound. We discussed that we could consider a damp to dry dressing if the Santyl is not working. She will follow-up in 6 weeks or sooner if needed. She does not need imaging at her next visit. She can certainly follow-up sooner or send a photo of her wound if she has any concerns as well. Not available 06/13/2023 15:57:05 07/08/2023 07/08/2023 Her swelling has continued to improve. She will continue with the Santyl as it is certainly improving her wound and she is taking great care of this. She will follow-up in 4 weeks for wound check. She does not need any imaging. Not available 07/08/2023 13:03:26 08/05/2023 08/05/2023 Her wound continues to improve and is looking great. continue with Santyl use and monitoring. Follow up with Dr. Almonte in 4 weeks for another wound check. [email or web address] Not available 08/05/2023 11:39:38 09/09/2023 09/09/2023 Overall, she is doing much better. Her wound has finally healed. She may continue to advance her activities and we discussed that her swelling should continue to improve. She will follow-up in 3 months for repeat evaluation with repeat x-rays of her left foot. She may contact me sooner if she needs. [email or web address] Not available 09/09/2023 13:34:57 12/09/2023 12/09/2023 She is approximately 9 months out from surgery. Her foot looks great. She may follow-up as needed. [email or web address] Not available 12/11/2023 18:56:40 Plan of Treatment Reminders Order Date Submit Date Provider Last Modified By Organization Details Last Modified Time Details Appointments None recorded. Lab None recorded. Referral None recorded. Procedures None recorded. Surgeries None recorded. Imaging XR, foot, 3 or more view 2023 024 [email or web address] [id number] [facility], [address], [place], [address], 20:15:48 XR, foot, 3 or more view 2023 024 [place] [id number] [facility], [address], [place], [address], 4 13:53:06 Medication Orders Santyl 250 unit/gram topical ointment 2023 024 [email or web address] [id number], [address] [place], [address], 11:33:19 Patient TargetsNo targets recorded. Patient Instructions Encounter Date Encounter Id Patient Instructions Last Modified By Organization Details Last Modified Time 06/10/2023 [id number] 3 views of the left foot obtained weightbearing demonstrate a first MTP fusion as well as PIP arthroplasties of the second, third, fourth, and fifth toes. There is second and third metatarsal osteotomies. Alignment of her forefoot is excellent. [email or web address] Not available 06/10/2023 09:33:04 07/08/2023 [id number] 3 views of the left foot obtained weightbearing demonstrate a first MTP fusion as well as PIP arthroplasties of the second, third, fourth, and fifth toes. There is second and third metatarsal osteotomies. Alignment of her forefoot is excellent. [email or web address] Not available 07/08/2023 07:56:02 08/05/2023 32758 3 views of the left foot obtained weightbearing demonstrate a first MTP fusion as well as PIP arthroplasties of the second, third, fourth, and fifth toes. There is second and third metatarsal osteotomies. Alignment of her forefoot is excellent. [email or web address] Not available 08/05/2023 09:10:00 09/09/2023 85501 3 views of the left foot obtained weightbearing demonstrate a first MTP fusion as well as PIP arthroplasties of the second, third, fourth, and fifth toes. There is second and third metatarsal osteotomies. Alignment of her forefoot is excellent. Not available 09/09/2023 08:14:20 12/09/2023 73727 3 views of the left foot obtained weightbearing 12/09/2023 demonstrate a first MTP fusion as well as PIP arthroplasties of the second, third, fourth, and fifth toes. There are second and third metatarsal osteotomies. Alignment of her forefoot is excellent. Not available 12/11/2023 18:57:35 Reason for Referral None Reported. Problems Name Problem SNOMED Code Status Onset Date Resolution Date Notes Provider Name and Address Organization Details Recorded Time Metatarsalg ia of left foot 7795091369722 06 Active 2022 OLGA WEI PA-C [address], [place], [address], [place] [facility] 3 11:59:54 Hammer toe 565945927 Active 2022 OLGA WEI PA-C [address], [place], [address], [place] [facility] 3 12:00:22 Hammer toe 827763073 Active 2022 OLGA WEI PA-C [address], [place], [address], [place] [facility] 3 12:00:29 Acquired left hallux rigidus 0593346873218 05 Active 2022 Zulema Almonte MD [address], [place], [address], [facility], [facility] 3 16:04:28 Postoperati ve wound infection 86747866 Active 2023 Zulema Almonte MD [address], [place], [address], [facility], [facility] 4 13:16:07 Problem Notes None recorded. Procedures Surgical History Date Name Laterality Status Provider Name and Address Organization Details Recorded Time procedure on foot completed Merrick Avila [facility] 07/08/2023 11:21:54 Imaging Results None recorded. Procedure Notes None recorded. Medical Equipment None Reported. Allergies Allergen ID Allergen Name Allergen Category Reaction Reaction Severity Criticality Documentation Date Start Date Code Code System Note Provider Name and Address Organization Details Recorded Time 8157 Macrobid medicatio n Not available Not available Not available 12/03/2022 09209 1 RxNorm Isabel baer, [facility], [facility] 3 11:53:33 8158 Product containin g 3-hydroxy -3-methyl glutaryl- coenzyme A reductase inhibitor (product) medicatio n Not available Not available Not available 12/03/2022 48188 [facility] 11:[facility] Medications Name Sig Start Date Stop Date Status Note LastModified by Organization Details LastModified Time Santyl 250 unit/gram topical ointment APPLY TO CLEANSED AFFECTED AREA BY TOPICAL ROUTE ONCE DAILY 09/08 completed Not Available Not Available Not Available terbinafine HCl 1 % topical cream APPLY 1 APPLICATI ON (TOPICAL) 2 TIMES PER DAY FOR 1 WEEKS *OTC N/C* 09/08 completed Not Available Not Available Not Available valacyclovi r 1 gram tablet TAKE 1 TABLET BY MOUTH 3 TIMES A DAY FOR 7 DAYS 09/08 completed Not Available Not Available Not Available sucralfate 100 mg/mL oral suspension TAKE 10ML BY MOUTH TWICE A DAY active Not Available Not Available No t Available prednisone 20 mg tablet TAKE 2 TABLETS BY MOUTH EVERY DAY FOR 5 DAYS 12/01 completed Not Available Not Available Not Available allopurinol 100 mg tablet active Not Available Not Available Not Available doxycycline monohydrate 100 mg tablet TAKE 1 TABLET BY MOUTH TWICE A DAY AFTER MEALS, NO DAIRY FOR 10 DAYS 09/08 completed Not Available Not Available Not Available levothyroxi ne 25 mcg tablet TAKE ONE TABLET BY MOUTH DAILY. active Not Available Not Available No t Available omeprazole 10 mg capsule,del ayed release TAKE 1 CAPSULE BY MOUTH EVERY DAY active Not Available Not Available No t Available triamcinolo ne acetonide 0.025 % topical cream APPLY TO THE AFFECTED AREA TWICE A DAY X 7 DAYS 09/08 completed Not Available Not Available Not Available cephalexin 500 mg capsule TAKE 1 CAPSULE BY MOUTH EVERY 6 HOURS FOR 7 DAYS 09/08 completed Not Available Not Available Not Available pantoprazol e 40 mg tablet,pedro yed release TAKE 1 TABLET BY MOUTH EVERY DAY active Not Available Not Available No t Available mupirocin 2 % topical ointment APPLY TO AFFECTED AREA TWICE A DAY 09/08 completed Not Available Not Available Not Available ibuprofen 600 mg tablet TAKE 1 TABLET BY MOUTH EVERY 6 HOURS 04/01 completed Not Available Not Available Not Available ondansetron 4 mg disintegrat ing tablet TAKE 1 TABLET BY MOUTH EVERY 12 HOURS NEEDED FOR NAUSEA VOMITING active Not Available Not Available No t Available naproxen 500 mg tablet TAKE 1 TABLET BY MOUTH TWICE A DAY FOR 5 DAYS 09/08 completed Not Available Not Available Not Available amoxicillin 875 mg-potassiu m clavulanate 125 mg tablet TAKE 1 TABLET BY MOUTH TWICE A DAY FOR 7 DAYS 09/08 completed Not Available Not Available Not Available oxycodone 5 mg tablet TAKE 1 TABLET BY MOUTH EVERY 4 HOURS 04/01 completed Not Available Not Available Not Available metronidazo le 1 % topical gel APPLY TO FACE EVERY DAY 03/22 completed Not Available Not Available Not Available Gavilax 17 gram/dose oral powder PLEASE SEE ATTACHED FOR DETAILED DIRECTION S active Not Available Not Available No t Available sodium,pota ssium,mag sulfates 17.5 gram-3.13 gram-1.6 gram oral soln DILUTE DRINK 1/2 AT 6-8 PM AND HALF AT 11 PM- 1AM active Not Available Not Available No t Available Vitals Date Recorded Body height Body mass index (BMI) Body weight Provider Name and Address Organization Details Last Updated DateTime 06/10/2023 167.64 cm 28.2 kg/m2 35518.[address] [place] [facility] 06/10/2023 12:59:32 Date Recorded Body height Body mass index (BMI) Body weight Provider Name and Address Organization Details Last Updated DateTime 07/08/2023 167.64 cm 28.2 kg/m2 48905.[address] [place] [facility] 07/08/2023 11:19:03 Date Recorded Body height Body mass index (BMI) Body weight Provider Name and Address Organization Details Last Updated DateTime 08/05/2023 167.64 cm 28.2 kg/m2 83028.66 g Merrick Austin [facility] 08/05/2023 11:31:57 Date Recorded Body height Body mass index (BMI) Body weight Provider Name and Address Organization Details Last Updated DateTime 09/09/2023 167.64 cm 28.2 kg/m2 57484.66 g Merrick Wheat [facility] 09/09/2023 11:25:04 Date Recorded Body height Body mass index (BMI) Body weight Provider Name and Address Organization Details Last Updated DateTime 12/09/2023 167.64 cm 28.2 kg/m2 09529.66 g Merrick Austin [facility] 12/09/2023 11:12:53 Social History Question Answer Notes LastModified by Organizat ion Details LastModified Time Tobacco Smoking Status Former Smoker Merrick Avila null, [place] [facility] 12/17/2022 12:05:24 What Is Your Level Of Alcohol Consumption? None [email or web address] Information not available 12/17/2022 Sex: Unknown Functional Status None recorded. Mental Status None recorded. Family History Nothing Reported. Medical History Condition Response Gout Y Reflux/GERD Y Gynecological HistoryNo gynecological history recorded. Obstetrics History GPAL:G 0 P 0 0 0 0 Past Encounters Encounter ID Performer Location Encounter Start Date Encounter Closed Date Diagnosis/Indication Diagnosis SNOMED-CT Code Diagnosis ICD10 Code [id number] MD KAMALJIT Castaneda [facility] [address] [place], [place] [address] 12/03/2022 11:41:10 12/03/2022 13:18:25 Pain in left foot 4048602784 86733 M79.672 Metatarsal [place] of left foot 6130259615 92363 M77.42 Hammer toe 278784521 M20 .42 [id number] MD KAMALJIT Castaneda [place] [id number] 12/17/2022 11:35:43 12/17/2022 12:18:59 Metatarsalgia of left foot 2821625673 14510 M77.42 Hammer toe 533031686 M20 .42 [id number] MD KAMALJIT Castaneda [place] [id number] 01/07/2023 12:46:19 01/07/2023 13:17:32 Metatarsalgia of left foot 5947139875 21753 M77.42 Hammer toe 679418041 M20 .42 [id number] MD KAMALJIT Castaneda [place] [id number] 02/25/2023 11:34:58 02/25/2023 12:03:50 Metatarsalgia of left foot 5093510625 32370 M77.42 Hammer toe 062691566 M20 .42 Acquired l eft hallux rigidus 9215829785 03190 M20.22 [id number] MD KAMALJIT Castaneda [address] [address] 04/01/2023 12:53:30 04/01/2023 14:00:12 Metatarsalgia of left foot 8673189876 02235 M77.42 Hammer toe 056399960 M20 .42 Acquired l eft hallux rigidus 2112559267 22485 M20.22 [id number] MD KAMALJIT Castaneda [place] [id number] 04/29/2023 12:47:41 04/29/2023 13:41:06 Metatarsalgia of left foot 2153381882 34403 M77.42 Hammer toe 417652897 M20 .42 Acquired l eft hallux rigidus 5723982209 61276 M20.22 [id number] [place] [address] 06/10/2023 12:52:47 06/10/2023 13:19:16 Metatarsalgia of left foot 1621003061 73573 M77.42 Hammer toe 904346587 M20 .42 Acquired l eft hallux rigidus 0198474393 19424 M20.22 Postoperat bekah wound infection 75317154 T81.49XA [id number] [place] [address] 07/08/2023 11:17:45 07/08/2023 11:33:43 Metatarsalgia of left foot 7538873303 45568 M77.42 Hammer toe 425528397 M20 .42 Acquired l eft hallux rigidus 3429279857 12527 M20.22 Postoperat bekah wound infection 30035038 T81.49XA [id number] Zulema Almonte MD [place] [address] 08/05/2023 11:18:12 08/05/2023 11:39:37 Metatarsalgia of left foot 8095303024 74223 M77.42 Hammer toe 762242930 M20 .42 Acquired l eft hallux rigidus 7160661959 84204 M20.22 Postoperat bekah wound infection 02211990 T81.49XA [id number] Zulema Almonte MD [place] [address] 09/09/2023 11:22:08 09/09/2023 12:04:59 Metatarsalgia of left foot 8628255063 15229 M77.42 Hammer toe 355829358 M20 .42 Acquired l eft hallux rigidus 2321243171 72072 M20.22 Postoperat bekah wound infection 51731477 T81.49XA [id number] MD KAMALJIT Castaneda [place] [address] [facility] [address] [place] [address] 12/09/2023 11:10:32 12/09/2023 11:29:02 Metatarsalgia of left foot 5801216464 13069 M77.42 Hammer toe 333255267 M20 .42 Acquired l eft hallux rigidus 6303852469 23028 M20.22 Postoperat bekah wound infection 65892603 T81.49XA Health Concerns Section Related Observation LastModified by Organization Detai ls LastModified Time None Recorded Concern Status LastModified by Organization Details LastModified Time None Recorded Advance Directives Directive None Recorded Payers Encounter Date Sequence Insurance Name Policy Number Policy [place] Covered Member ID [place] Member ID Guarantor Name 06/10/2023 1 [place]: [employer] Magaly Fisheregrini [id number] Magaly Fisheregrini 06/10/2023 2 [employer] - OPTIONS Magaly Fisheregrini [id number] Magaly Fisheregrini 07/08/2023 1 [place] [employer] Magaly Robbins [place] [id number] Magaly Fisheregrini 07/08/2023 2 [employer] - OPTIONS Magaly Fisheregrini [id number] Magaly Fisheregrini 08/05/2023 2 [employer] - OPTIONS Magaly Fisheregrini [id number] Magaly Fisheregrini 08/05/2023 1 [place] Magaly Robbins [place] [id number] Magaly Fisheregrini 09/09/2023 2 [employer] - OPTIONS Magaly Fisheregrini [id number] Magaly Fisheregrini 09/09/2023 1 [place] Magaly Robbins [place] [id number] Magaly Ashley 12/09/2023 2 [employer] - OPTIONS Magaly Fisheregrini [id number] Magaly Ashley 12/09/2023 1 [place] Magaly Robbins [place] [id number] Magaly Ashley Notes Date Note Type Note Provider Name and Address Organization Details Recorded Time 06/10/2023 text/html Date of Surgery: 03/19/23 left foot 1st MTP fusion, hammertoe correction 2-5, modified umu osteotomies 2 and 3 Magaly Ramirez is a 72-year-old female who presents today for follow-up evaluation regarding her left foot. She had sent a photo of her foot and earlier this week that a scab is fallen off her lateral foot. She was placed provisionally on antibiotics and recommended to follow-up in the office. She reports that her pain is a 7-10 out of 10. It is moderate and intermittent. She reports ongoing swelling over her foot. She denies any drainage from her left dorsal midfoot. From 04/29/23 (AJF): for follow-up evaluation now approximately 6 weeks postoperatively. She is overall doing well. She does report ongoing eschar over her lateral foot. Her pain is burning and shooting and stabbing and a 5-7 out of 10. It is moderate and intermittent and improving. From 04/01/23 (TK): for her first post operative appointment. She is doing well. Her pain is well controlled. She is only requiring Tylenol at this time. Pain is a 6/10 on average. {{He She*}} denies chest pain, shortness of breath, calf pain, calf swelling or fevers. From 02/25/23 AJ: today for follow-up evaluation regarding her left foot. She would like to proceed with operative intervention as she reports ongoing pain. Of note, she had an echocardiogram performed last week and is scheduled to see her primary care physician next week. She reports ongoing pain whenever she wears shoes and is limited in how far she can walk secondary to her toe pain. She takes Advil with moderate improvement. From 01/07/23 (AJ): for follow-up evaluation regarding her left foot. She reports that she has made some improvements but she still cannot wear multiple shoes or walk for long distances. Her pain continues to be on average of 4 and at worst a 10 out of 10. It is moderate and constant and improving. She does feel like her swelling has improved. She takes Advil as needed. From 12/17/22 (AJ): for follow-up evaluation regarding her left foot. She reports that she took a train [place] the [place] in [place] and then got out to climb to the top over a few rocks and began experiencing foot pain. She reports that by the time she got home that evening, she had significant pain and difficulty weightbearing. She then iced and elevated and took Advil and ultimately went to an urgent care where she was given a prednisone Dosepak. She presented to our urgent care for follow-up as she was having ongoing pain. She localizes her pain is predominantly over her second MTP joint. She reports that this also radiates back across her midfoot. Her pain is burning, shooting, stabbing, and sharp. It is an 8-10 out of 10. It is moderate and constant. She feels like some of her swelling has improved but overall she continues to have ongoing severe pain. She has past medical history of previous right forefoot surgery x2 that she feels both went quite poorly. She has a past medical history of reflux and hypothyroidism. She is retired. She does not smoke. Zulema Almonte MD [address], [place], [address], [place] [facility] 06/13/2023 15:57:15 07/08/2023 text/html Date of Surgery: 03/19/23 left foot 1st MTP fusion, hammertoe correction 2-5, modified umu osteotomies 2 and 3 Magaly Ramirez is a 72-year-old female who presents today for follow-up evaluation regarding her left foot. She has been using Santyl in her wound and she feels like it is getting smaller. She has been debriding this with a Q-tip and placing the Santyl. She does note she has ongoing swelling over her second toe. Overall, she is improving. From 06/10/23 ([facility]): who presents today for follow-up evaluation regarding her left foot. She had sent a photo of her foot and earlier this week that a scab is fallen off her lateral foot. She was placed provisionally on antibiotics and recommended to follow-up in the office. She reports that her pain is a 7-10 out of 10. It is moderate and intermittent. She reports ongoing swelling over her foot. She denies any drainage from her left dorsal midfoot. From 04/29/23 ([facility]): for follow-up evaluation now approximately 6 weeks postoperatively. She is overall doing well. She does report ongoing eschar over her lateral foot. Her pain is burning and shooting and stabbing and a 5-7 out of 10. It is moderate and intermittent and improving. From 04/01/23 (TK): for her first post operative appointment. She is doing well. Her pain is well controlled. She is only requiring Tylenol at this time. Pain is a 6/10 on average. {{He She*}} denies chest pain, shortness of breath, calf pain, calf swelling or fevers. From 02/25/23 AJ: today for follow-up evaluation regarding her left foot. She would like to proceed with operative intervention as she reports ongoing pain. Of note, she had an echocardiogram performed last week and is scheduled to see her primary care physician next week. She reports ongoing pain whenever she wears shoes and is limited in how far she can walk secondary to her toe pain. She takes Advil with moderate improvement. From 01/07/23 (AJ): for follow-up evaluation regarding her left foot. She reports that she has made some improvements but she still cannot wear multiple shoes or walk for long distances. Her pain continues to be on average of 4 and at worst a 10 out of 10. It is moderate and constant and improving. She does feel like her swelling has improved. She takes Advil as needed. From 12/17/22 (AJ): for follow-up evaluation regarding her left foot. She reports that she took a [place] and then got out to climb to the top over a few rocks and began experiencing foot pain. She reports that by the time she got home that evening, she had significant pain and difficulty weightbearing. She then iced and elevated and took Advil and ultimately went to an urgent care where she was given a prednisone Dosepak. She presented to our urgent care for follow-up as she was having ongoing pain. She localizes her pain is predominantly over her second MTP joint. She reports that this also radiates back across her midfoot. Her pain is burning, shooting, stabbing, and sharp. It is an 8-10 out of 10. It is moderate and constant. She feels like some of her swelling has improved but overall she continues to have ongoing severe pain. She has past medical history of previous right forefoot surgery x2 that she feels both went quite poorly. She has a past medical history of reflux and hypothyroidism. She is retired. She does not smoke. Zulema Almonte MD [address], [place], [address], [place] [facility] 07/08/2023 13:03:36 08/05/2023 text/html Date of Surgery: 03/19/23 left foot 1st MTP fusion, hammertoe correction 2-5, modified umu osteotomies 2 and 3 Magaly Ramirez is a 72-year-old female who presents today for her wound check of the left foot. She has continued with Santyl use. She denies any recent drainage, erythema or warmth. She has been keeping this covered with a bandaid. She has avoided soaking the foot. From 07/08/23 AJF: follow-up evaluation regarding her left foot. She has been using Santyl in her wound and she feels like it is getting smaller. She has been debriding this with a Q-tip and placing the Santyl. She does note she has ongoing swelling over her second toe. Overall, she is improving. From 06/10/23 (AJF): who presents today for follow-up evaluation regarding her left foot. She had sent a photo of her foot and earlier this week that a scab is fallen off her lateral foot. She was placed provisionally on antibiotics and recommended to follow-up in the office. She reports that her pain is a 7-10 out of 10. It is moderate and intermittent. She reports ongoing swelling over her foot. She denies any drainage from her left dorsal midfoot. From 04/29/23 (AJF): for follow-up evaluation now approximately 6 weeks postoperatively. She is overall doing well. She does report ongoing eschar over her lateral foot. Her pain is burning and shooting and stabbing and a 5-7 out of 10. It is moderate and intermittent and improving. From 04/01/23 (TK): for her first post operative appointment. She is doing well. Her pain is well controlled. She is only requiring Tylenol at this time. Pain is a 6/10 on average. {{He She*}} denies chest pain, shortness of breath, calf pain, calf swelling or fevers. From 02/25/23 AJF: today for follow-up evaluation regarding her left foot. She would like to proceed with operative intervention as she reports ongoing pain. Of note, she had an echocardiogram performed last week and is scheduled to see her primary care physician next week. She reports ongoing pain whenever she wears shoes and is limited in how far she can walk secondary to her toe pain. She takes Advil with moderate improvement. From 01/07/23 ([facility]): for follow-up evaluation regarding her left foot. She reports that she has made some improvements but she still cannot wear multiple shoes or walk for long distances. Her pain continues to be on average of 4 and at worst a 10 out of 10. It is moderate and constant and improving. She does feel like her swelling has improved. She takes Advil as needed. From 12/17/22 ([facility]): for follow-up evaluation regarding her left foot. She reports that she took a train [place] the [place] in [place] and then got out to climb to the top over a few rocks and began experiencing foot pain. She reports that by the time she got home that evening, she had significant pain and difficulty weightbearing. She then iced and elevated and took Advil and ultimately went to an urgent care where she was given a prednisone Dosepak. She presented to our urgent care for follow-up as she was having ongoing pain. She localizes her pain is predominantly over her second MTP joint. She reports that this also radiates back across her midfoot. Her pain is burning, shooting, stabbing, and sharp. It is an 8-10 out of 10. It is moderate and constant. She feels like some of her swelling has improved but overall she continues to have ongoing severe pain. She has past medical history of previous right forefoot surgery x2 that she feels both went quite poorly. She has a past medical history of reflux and hypothyroidism. She is retired. She does not smoke. ZITA LEOS PA-C [address], [place], [address], [place] [facility] 08/05/2023 11:39:51 09/09/2023 text/html Date of Surgery: 03/19/23 left foot 1st MTP fusion, hammertoe correction 2-5, modified umu osteotomies 2 and 3 Magaly Ramirez is a 72-year-old female who presents today for follow-up evaluation regarding her left foot. She reports that she is overall doing better. She does have ongoing pain over her second toe when she ambulates or with close she was on a did have to buy shoes that are half size bigger. She notes that her wound is finally fully healed. From 08/05/23 (TK): for her wound check of the left foot. She has continued with Santyl use. She denies any recent drainage, erythema or warmth. She has been keeping this covered with a bandaid. She has avoided soaking the foot. From 07/08/23 AJ[facility]: follow-up evaluation regarding her left foot. She has been using Santyl in her wound and she feels like it is getting smaller. She has been debriding this with a Q-tip and placing the Santyl. She does note she has ongoing swelling over her second toe. Overall, she is improving. From 06/10/23 ([facility]): who presents today for follow-up evaluation regarding her left foot. She had sent a photo of her foot and earlier this week that a scab is fallen off her lateral foot. She was placed provisionally on antibiotics and recommended to follow-up in the office. She reports that her pain is a 7-10 out of 10. It is moderate and intermittent. She reports ongoing swelling over her foot. She denies any drainage from her left dorsal midfoot. From 04/29/23 ([facility]): for follow-up evaluation now approximately 6 weeks postoperatively. She is overall doing well. She does report ongoing eschar over her lateral foot. Her pain is burning and shooting and stabbing and a 5-7 out of 10. It is moderate and intermittent and improving. From 04/01/23 (TK): for her first post operative appointment. She is doing well. Her pain is well controlled. She is only requiring Tylenol at this time. Pain is a 6/10 on average. {{He She*}} denies chest pain, shortness of breath, calf pain, calf swelling or fevers. From 02/25/23 AJF: today for follow-up evaluation regarding her left foot. She would like to proceed with operative intervention as she reports ongoing pain. Of note, she had an echocardiogram performed last week and is scheduled to see her primary care physician next week. She reports ongoing pain whenever she wears shoes and is limited in how far she can walk secondary to her toe pain. She takes Advil with moderate improvement. From 01/07/23 ([facility]): for follow-up evaluation regarding her left foot. She reports that she has made some improvements but she still cannot wear multiple shoes or walk for long distances. Her pain continues to be on average of 4 and at worst a 10 out of 10. It is moderate and constant and improving. She does feel like her swelling has improved. She takes Advil as needed. From 12/17/22 ([facility]): for follow-up evaluation regarding her left foot. She reports that she [place] a [place] the [place] and then got out to climb to the top over a few rocks and began experiencing foot pain. She reports that by the time she got home that evening, she had significant pain and difficulty weightbearing. She then iced and elevated and took Advil and ultimately went to an urgent care where she was given a prednisone Dosepak. She presented to our urgent care for follow-up as she was having ongoing pain. She localizes her pain is predominantly over her second MTP joint. She reports that this also radiates back across her midfoot. Her pain is burning, shooting, stabbing, and sharp. It is an 8-10 out of 10. It is moderate and constant. She feels like some of her swelling has improved but overall she continues to have ongoing severe pain. She has past medical history of previous right forefoot surgery x2 that she feels both went quite poorly. She has a past medical history of reflux and hypothyroidism. She is retired. She does not smoke. Zulema Almonte MD [address], [place], [address], [place] [facility] 09/09/2023 13:35:08 12/09/2023 text/html Date of Surgery: 03/19/23: Left foot 1st MTP fusion, hammertoe correction 2-5, modified umu osteotomies 2 and 3 Magaly Ramirez is a 73-year-old female who presents today for follow-up evaluation regarding her left foot. She is now approximately 9 months postoperatively. She reports that her wound is healed. She continues to have some difficulty with shoewear and her third toe nail did not grow back. Otherwise, she is pleased with her outcome. From 09/09/23 ([facility]): for follow-up evaluation regarding her left foot. She reports that she is overall doing better. She does have ongoing pain over her second toe when she ambulates or with close she was on a did have to buy shoes that are half size bigger. She notes that her wound is finally fully healed. From 08/05/23 (TK): for her wound check of the left foot. She has continued with Santyl use. She denies any recent drainage, erythema or warmth. She has been keeping this covered with a bandaid. She has avoided soaking the foot. From 07/08/23 AJF: follow-up evaluation regarding her left foot. She has been using Santyl in her wound and she feels like it is getting smaller. She has been debriding this with a Q-tip and placing the Santyl. She does note she has ongoing swelling over her second toe. Overall, she is improving. From 06/10/23 (AJF): who presents today for follow-up evaluation regarding her left foot. She had sent a photo of her foot and earlier this week that a scab is fallen off her lateral foot. She was placed provisionally on antibiotics and recommended to follow-up in the office. She reports that her pain is a 7-10 out of 10. It is moderate and intermittent. She reports ongoing swelling over her foot. She denies any drainage from her left dorsal midfoot. From 04/29/23 (AJ[facility]): for follow-up evaluation now approximately 6 weeks postoperatively. She is overall doing well. She does report ongoing eschar over her lateral foot. Her pain is burning and shooting and stabbing and a 5-7 out of 10. It is moderate and intermittent and improving. From 04/01/23 (TK): for her first post operative appointment. She is doing well. Her pain is well controlled. She is only requiring Tylenol at this time. Pain is a 6/10 on average. {{He She*}} denies chest pain, shortness of breath, calf pain, calf swelling or fevers. From 02/25/23 AJF: today for follow-up evaluation regarding her left foot. She would like to proceed with operative intervention as she reports ongoing pain. Of note, she had an echocardiogram performed last week and is scheduled to see her primary care physician next week. She reports ongoing pain whenever she wears shoes and is limited in how far she can walk secondary to her toe pain. She takes Advil with moderate improvement. From 01/07/23 ([facility]): for follow-up evaluation regarding her left foot. She reports that she has made some improvements but she still cannot wear multiple shoes or walk for long distances. Her pain continues to be on average of 4 and at worst a 10 out of 10. It is moderate and constant and improving. She does feel like her swelling has improved. She takes Advil as needed. From 12/17/22 ([facility]): for follow-up evaluation regarding her left foot. She reports that she took a [place] and then got out to climb to the top over a few rocks and began experiencing foot pain. She reports that by the time she got home that evening, she had significant pain and difficulty weightbearing. She then iced and elevated and took Advil and ultimately went to an urgent care where she was given a prednisone Dosepak. She presented to our urgent care for follow-up as she was having ongoing pain. She localizes her pain is predominantly over her second MTP joint. She reports that this also radiates back across her midfoot. Her pain is burning, shooting, stabbing, and sharp. It is an 8-10 out of 10. It is moderate and constant. She feels like some of her swelling has improved but overall she continues to have ongoing severe pain. She has past medical history of previous right forefoot surgery x2 that she feels both went quite poorly. She has a past medical history of reflux and hypothyroidism. She is retired. She does not smoke. Zulema Almonte MD [address], [place], [id number], [place] - [facility] 12/11/2023 18:57:46 OBGyn Episode No OBEpisode recorded.
--- NOTE | 2024-03-13 13:02 | MHC.OFFVISWM ---
VS Expanded 03/13/24 13:12 BP 125/66 Blood Pressure Location Rt brachial Blood Pressure Position Sitting Pulse 83 Pulse Source Pulse Oximeter Temp 97.8 F Temperature Source Temporal Artery Scan Pulse Oximetry 98 Oxygen Delivery Method Room Air Height 5 ft 4 in Weight 141 lb BMI 24.2 Body Fat % 34.4 Body Fat Mass 48.6 Fat Free Mass 92.4 Visceral Fat Rating 9.0 Body Water % 46.0 Body Water Mass 64.8 Muscle Mass/Score 87.8 Basal Metabolic Rate/Score 1,251 Intake Visit Reasons: (OV) Hiatal hernia 12/14/23 Allergies nitrofurantoin [From MACROBID] Allergy (Severe, Verified 03/13/24 13:05) ANAPHYLAXIS Uuupytt-PYU-WlK Reductase Inhibitor [OXXWJAC-[id number]-ODL REDUCTASE INHIBITOR] Allergy (Intermediate, Verified 03/13/24 13:05) MUSCLE ACHES atorvastatin [Lipitor] Adverse Reaction (Unknown, Verified 03/13/24 13:05) muscle cramping HPI Comments Details: Patient is a pleasant 73-year-old female who returns to the office today in follow-up. She is approximately 3 months status post hiatal hernia repair performed on 12/14/2023. Weight today is 141 lb with a BMI of 24.2. She is generally doing well. She has had no nausea no vomiting. She did have episode of diarrhea requiring Imodium x1. She stopped her medications and shakes. The diarrhea has resolved. She has no pain and is overall feeling satisfied with the results of her procedure. She was enquiring about food. Discussed following a meal plan including 1 premier protein shake and 2 small meals. She states that she has absolutely willing to do this. She additionally is exercising daily using her treadmill for a proximally 45 minutes to an hour. [facility] Medical History Superficial phlebitis Pre-op exam ROCA (dyspnea on exertion) Elevated LFTs Thyroid nodule Hx of screening mammography Annual physical exam Hypothyroidism Primary osteoarthritis of both knees Raynaud's syndrome Surgical History S/P laparoscopic hernia repair History of lobectomy of thyroid Hx of ultrasound guided needle biopsy S/P foot surgery, right H/O esophagogastroduodenoscopy H/O colonoscopy Family History Mother No problems noted. Social History Household Members: None Housing: Other Housing Other:: mobile home Do you presently have visiting nurse or other home services: No Alcohol intake: current Alcohol intake frequency: holidays/special occasions only Patient Tobacco Use Status: Former Tobacco user Tobacco use type: Cigarette e-Cigarette/Vaping Use: Never Used service: No Current occupational status: retired Cognitive needs: No Hearing needs: Yes Vision needs: Yes Physical Exam Const General: cooperative, healthy appearing and no acute distress Orientation/consciousness: patient oriented x3 Neuro General: patient oriented x3 Assessment & Plan Assessment & Plan (1) S/P laparoscopic hernia repair: Comment[place] [facility] [place]): Z98.890 - Other specified postprocedural states; Z87.19 - Personal history of other diseases of the digestive system Category: Surgical Plan: Patient is a proximally three-month postop. She is doing well. Recommend 1 premier protein ready to drink shake followed by 2 small meals throughout the day. She may continue to have fruit if she wishes. Imodium as needed for diarrhea. Follow-up with GI as previously scheduled in March. Continue exercises she is doing. Return to the office as needed.
[2024-03-13 13:12] VITALS: BP 125/66; PULSE 83; TEMP 36.6; O2SAT 98; BMI 24.2
== END 2024-03-13 13:28 | disposition home or self-care (01) ==
PROVIDERS: PCP Internal Medicine; Visit Provider Physician Assistant Surgical
DX: Z98.890 Other specified postprocedural states (principal); Z87.19 Personal history of other diseases of the digestive system
CPT/HCPCS: 99024

== ENCOUNTER → 2024-03-13 12:43 | Outpatient (BNVA) | payer MEDICARE, SELFPAY | PROVIDERS: PCP Internal Medicine; Visit Provider Physician Assistant Surgical | DX: Z98.890 Other specified postprocedural states (principal); Z87.19 Personal history of other diseases of the digestive system | CPT/HCPCS: 99212 ==

== ENCOUNTER → 2024-04-14 11:01 | Outpatient (BNVA) | payer MEDICARE, SELFPAY | PROVIDERS: PCP Internal Medicine; Visit Provider Internal Medicine Gastroenterology | DX: R19.8 Other specified symptoms and signs involving the digestive system and abdomen (principal) | CPT/HCPCS: 99212 ==

== ENCOUNTER 2024-06-08 11:53 | Day surgery (SDC) | payer MEDICARE, SELFPAY ==
--- OUTSIDE RECORDS SUMMARY | 2024-05-22 08:14 | XMS_ITS | Clinical Summary ---
Author Organization [facility] Address [phone] [address] [place] [address] Care Team Providers Care Run Boat Operator Name Role Phone Angela Deal MD Primary Care Provider [phone] Allergies Active Allergy Reactions Criticality Noted Date Comments Nitrofurantoin Monohyd/M-Cryst Unknown 01/28 Medications Medication Sig Dispensed Refills Start Date End Date Status omeprazole (PRILOSEC) 10 MG capsule Take 10 mg by mouth daily. Active Encounters Date Type Department Care Team Description 04/17/2024 Transcribe Orders Virtual Department [address] [place] [address] Hesham Jordan MD Other specified symptoms and signs involving the digestive system and abdomen (Primary Dx) from Last 3 Months Social History Tobacco Use Types Packs/Day Years Used Date Smoking Tobacco: Former Cigarettes Q uit: 01/29/1976 Smokeless Tobacco: Never Alcohol Use Standard Drinks/Week Comments Not Currently 0 (1 standard drink = 0.6 oz pur e alcohol) Education Answer Date Recorded Are you interested in more education? Not on mia e 07/18/2022 Are you concerned about learning? Not on file 07/18/2022 No 07/18/2022 No 07/18/2022 Digital Access Answer Date Recorded No 08/16/2022 No 08/16/2022 No 08/16/2022 Reliable internet access at home? Not on file 08/16/2022 Device with a working camera? Not on file Sex and Gender Information Value Date Recorded Sex Assigned at Not on file Gender Identity Not on file Sexual Orientation Not on file Last Filed Vital Signs Vital Sign Reading Time Taken Comments Blood Pressure - - Pulse - - Temperature - - Respiratory Rate - - Oxygen Saturation - - Inhaled Oxygen Concentration - - Weight 74.8 kg (165 lb) 01/28/2021 11:29 AM EST Height 162.6 cm (5' 4 ) 08/22/2021 9:32 AM EDT Body Mass Index 28.32 01/28/2021 11:29 AM EST Plan of Treatment Upcoming Encounters Date Type Department Care Team (Late st Contact Info) Description 05/31/2024 1:45 PM EDT Office Visit [facility] [address] [place] [id number] Kindra Marie MD [address] [place] [address] Orthopedics & Sports Medicine, [place] [address] [email or web address] Health Maintenance Due Date Last Done Comments LIPID PANEL 1950 DEPRESSION SCREENING 1962 SMOKING Hx and SMOKELESS TOBACCO SCREENING 10/07/1963 HEPATITIS B SCREENING 1968 HEPATITIS C SCREENING 1968 MAMMOGRAM 1990 COLOGUARD 10/07/1995 COLONOSCOPY 10/07/1995 COLORECTAL CANCER SCREENING 10/07/1995 FIT TEST 10/07/1995 FOBT 10/07/1995 SIGMOIDOSCOPY 10/07/1995 VIRTUAL COLONOSCOPY 10/07/1995 PNEUMOCOCCAL VACCINES (50+ years) (1 of 1 - PCV) 2000 ZOSTER VACCINES (1 of 2) 2000 OSTEOPOROSIS SCREENING INITI AL (ONE-TIME) 10/07/2015 INFLUENZA VACCINE (#1) 2023 COVID-19 VACCINE (1 - 2023-2 5 season) 2023 RSV VACCINE (1 - 1-dose 75+ series) 2025 Adult Td,Tdap Booster 05/07/2027 05/07/2017 , 04/26/2017 HEPATITIS A VACCINES Aged Out No long er eligible based on patient's age to complete this topic HEPATITIS B VACCINES Aged Out No long er eligible based on patient's age to complete this topic HIB VACCINES Aged Out No longer eligi ble based on patient's age to complete this topic MENINGOCOCCAL VACCINES (ACWY) Aged Out No longer eligible based on patient's age to complete this topic Medical Devices Not on file Care Teams Run Boat Operator Relationship Specialty Start Date End Date Cichon, Angela S, MD [facility] [place] [address] PCP - General Internal Medicine 01/28/21 Additional Source Comments The information contained in this document represents components of the legal health record. It is not the complete legal health record.[facility]
--- OUTSIDE RECORDS SUMMARY | 2024-05-22 08:14 | XMS_ITS | Data Portability ---
Author Organization [place] [facility] Lolly Chin AONE Sanborn Address [address] [place] [address] Care Team Providers Care Tower Director Name Role Phone ANDRE SNYDER Primary Care Provider [phone] Assessment Encounter Date Assessment Date Assessment LastModified [...] in 4 weeks for another wound check. [email or web address] Not available 08/05/2023 11:39:38 09/09/2023 09/09/2023 Overall, [...] foot, 3 or more view 2023 024 [place] [address] [facility], [address], [place], [address], 13:53:06 XR, foot, 3 or more view 2023 024 [place] [address] [facility], [address], [place], [address], 4 20:15:48 Medication Orders Santyl 250 unit/gram topical ointment 2023 024 [email or web address] [id number], [address] [place], [address], 11:33:19 Patient TargetsNo targets recorded. Patient Instructions Encounter Date Encounter Id Patient Instructions Last Modified By Organization Details Last Modified Time 06/10/2023 [id number] 3 views of the left foot obtained weightbearing demonstrate a first MTP fusion as well as PIP arthroplasties of the second, third, fourth, and fifth toes. There is second and third metatarsal osteotomies. Alignment of her forefoot is excellent. [email or web address] Not available 06/10/2023 09:33:04 07/08/2023 38009 3 views of the left foot obtained weightbearing demonstrate a first MTP fusion as well as PIP arthroplasties of the second, third, fourth, and fifth toes. There is second and third metatarsal osteotomies. Alignment of her forefoot is excellent. [email or web address] Not available 07/08/2023 07:56:02 08/05/2023 29135 3 views of the left foot obtained weightbearing demonstrate a first MTP fusion as well as PIP arthroplasties of the second, third, fourth, and fifth toes. There is second and third metatarsal osteotomies. Alignment of her forefoot is excellent. [email or web address] Not available 08/05/2023 09:10:00 09/09/2023 30462 3 views of the left foot obtained weightbearing demonstrate a first MTP fusion as well as PIP arthroplasties of the second, third, fourth, and fifth toes. There is second and third metatarsal osteotomies. Alignment of her forefoot is excellent. [email or web address] Not available 09/09/2023 08:14:20 12/09/2023 35629 3 views of the left foot obtained [...] Recorded Time Metatarsalg ia of left foot 6894348197614 06 Active 2022 OLGA WEI PA-C [address], [place], [address], [place] [facility] 3 11:59:54 Hammer toe 881467869 Active 2022 OLGA WEI PA-C [address], [place], [address], [place] [facility] 3 12:00:22 Hammer toe 707223124 Active 2022 OLGA WEI PA-C [address], [place], [address], [place] [facility] 3 12:00:29 Acquired left hallux rigidus 2990151382868 05 Active 2022 Zulema Almonte MD [address], [place], [address], [facility], [facility] 3 16:04:28 Postoperati ve wound infection 10222971 Active 2023 Zulema Almonte MD [address], [place], [address], [facility], P 4 13:16:07 Problem Notes None recorded. Procedures Surgical History Date Name Laterality Status Provider Name and Address Organization Details Recorded Time procedure on foot completed Merrick Avila [facility] 07/08/2023 11:21:54 Imaging Results None recorded. Procedure Notes None recorded. Medical Equipment None Reported. Allergies Allergen ID Allergen Name Allergen Category Reaction Reaction Severity Criticality Documentation Date Start Date Code Code System Note Provider Name and Address Organization Details Recorded Time 8157 Macrobid medicatio n Not available Not available Not available 12/03/2022 88333 1 RxNorm Isabel baer, [facility], [facility] 3 11:53:33 8158 Product containin g 3-hydroxy -3-methyl glutaryl- coenzyme A reductase inhibitor (product) medicatio n Not available Not available Not available 12/03/2022 90544 00[facility] 11:53:37 Medications Name Sig Start [...] Updated DateTime 06/10/2023 167.64 cm 28.2 kg/m2 36909.[address] [place] [facility] 06/10/2023 12:59:32 Date Recorded Body height Body mass index (BMI) Body weight Provider Name and Address Organization Details Last Updated DateTime 07/08/2023 167.64 cm 28.2 kg/m2 05929.[address] [place] [facility] 07/08/2023 11:19:03 Date Recorded Body height Body mass index (BMI) Body weight Provider Name and Address Organization Details Last Updated DateTime 08/05/2023 167.64 cm 28.2 kg/m2 33258.66 g Merrick Austin [facility] 08/05/2023 11:31:57 Date Recorded Body height Body mass index (BMI) Body weight Provider Name and Address Organization Details Last Updated DateTime 09/09/2023 167.64 cm 28.2 kg/m2 87132.66 g Merrick Wheat [facility] 09/09/2023 11:25:04 Date Recorded Body height Body mass index (BMI) Body weight Provider Name and Address Organization Details Last Updated DateTime 12/09/2023 167.64 cm 28.2 kg/m2 28781.66 g Merrick Austin [facility] 12/09/2023 11:12:53 Social History Question Answer Notes LastModified by Organizat ion Details LastModified Time Tobacco Smoking Status Former Smoker Merrick Avila null, [place] [facility] 12/17/2022 12:05:24 What Is Your Level [...] Diagnosis/Indication Diagnosis SNOMED-CT Code Diagnosis ICD10 Code Diagnosis Note [id number] MD KAMALJIT Castaneda [facility] [address] [place], [place] [address] 12/03/2022 11:41:10 12/03/2022 13:18:25 Pain in left foot 9422852366 69592 M79.672 Metatarsal eduin of left foot 0306630731 32696 M77.42 Hammer toe 977875637 M20 .42 [id number] MD KAMALJIT Castaneda [place] [address] 12/17/2022 11:35:43 12/17/2022 12:18:59 Metatarsalgia of left foot 1365066072 33537 M77.42 Hammer toe 242424839 M20 .42 [id number] MD KAMALJIT Castaneda [place] [address] 01/07/2023 12:46:19 01/07/2023 13:17:32 Metatarsalgia of left foot 6791672256 95112 M77.42 Hammer toe 597779372 M20 .42 [id number] MD KAMALJIT Castaneda [place] [address] 02/25/2023 11:34:58 02/25/2023 12:03:50 Metatarsalgia of left foot 5474088519 77986 M77.42 Hammer toe 049779530 M20 .42 Acquired l eft hallux rigidus 8512707859 44809 M20.22 [id number] MD KAMALJIT Castaneda [address] [address] 04/01/2023 12:53:30 04/01/2023 14:00:12 Metatarsalgia of left foot 2600156821 94086 M77.42 Hammer toe 556987179 M20 .42 Acquired l eft hallux rigidus 7674426576 24980 M20.22 [id number] MD KAMALJIT Castaneda [place] [address] 04/29/2023 12:47:41 04/29/2023 13:41:06 Metatarsalgia of left foot 1582742171 34209 M77.42 Hammer toe 524818079 M20 .42 Acquired l eft hallux rigidus 8280459982 83388 M20.22 [id number] Zulema Almonte MD [place] [address] 06/10/2023 12:52:47 06/10/2023 13:19:16 Metatarsalgia of left foot 8096985203 25695 M77.42 Hammer toe 400030886 M20 .42 Acquired l eft hallux rigidus 7066303237 70791 M20.22 Postoperat bkeah wound infection 11946044 T81.49XA [id number] Zulema Almonte MD [place] [address] 07/08/2023 11:17:45 07/08/2023 11:33:43 Metatarsalgia of left foot 6721884679 05471 M77.42 Hammer toe 598888415 M20 .42 Acquired l eft hallux rigidus 9938661503 45420 M20.22 Postoperat bekah wound infection 07211004 T81.49XA [id number] Zulema Almonte MD [place] [address] 08/05/2023 11:18:12 08/05/2023 11:39:37 Metatarsalgia of left foot 6335849744 36094 M77.42 Hammer toe 082394930 M20 .42 Acquired l eft hallux rigidus 3891662350 25639 M20.22 Postoperat bekah wound infection 54838001 T81.49XA [id number] Zulema Almonte MD [place] [address] 09/09/2023 11:22:08 09/09/2023 12:04:59 Metatarsalgia of left foot 5813595523 05763 M77.42 Hammer toe 508759206 M20 .42 Acquired l eft hallux rigidus 5524611416 29152 M20.22 Postoperat bekah wound infection 73346829 T81.49XA [id number] MD KAMALJIT Castaneda [place] [address] [facility] [address] [place] [address] 12/09/2023 11:10:32 12/09/2023 11:29:02 Metatarsalgia of left foot 3635908539 73170 M77.42 Hammer toe 455924268 M20 .42 Acquired l eft hallux rigidus 2187910475 00489 M20.22 Postoperat bekah wound infection 87334573 T81.49XA Health Concerns Section Related Observation LastModified by Organization Detai ls LastModified Time None Recorded Concern Status LastModified by Organization Details LastModified Time None Recorded Advance Directives Directive None Recorded Payers Encounter Date Sequence Insurance Name Policy Number Policy [place] Covered Member ID [place] Member ID Guarantor Name 06/10/2023 1 MEDICARE [place]: N[employer] Magaly Robbins Ashley [id number] Magaly Fisheregrini 06/10/2023 2 [employer] - OPTIONS Magaly Fisheregrini [id number] Magaly Fisheregrini 07/08/2023 1 [place]: [employer] Magaly Robbins Ashley [id number] Magaly Fisheregrini 07/08/2023 2 [employer] - OPTIONS Magaly Fisheregrini [id number] Magaly Fisheregrini 08/05/2023 2 [employer] - OPTIONS Magaly Fisheregrini [id number] Magaly Fisheregrini 08/05/2023 1 MEDICARE [place]: NGS Mala Ashley [id number] Magaly Fisheregrini 09/09/2023 2 [employer] - OPTIONS Magaly Fisheregrini [id number] Magaly Fisheregrini 09/09/2023 1 MEDICARE B-[place]: NGS Mala Ashley [id number] Magaly Ashley 12/09/2023 2 [employer] - OPTIONS Magaly Fisheregrini [id number] Magaly Ashley 12/09/2023 1 MEDICARE B-[place]: NGS Mala Ashley [id number] Magaly Ashley Notes Date Note Type Note Provider Name and Address Organization Details Recorded Time 06/10/2023 text/html Date of Surgery: 12/29/23 left foot 1st MTP fusion, hammertoe correction [...] [place] and then got out to [...] Zulema Almonte MD [address], [place], [address], [place] [facility] 06/13/2023 15:57:15 07/08/2023 text/html Date of [...] toe. Overall, she is improving. From 06/10/23 ([facility]): who presents today for follow-up evaluation [...] from her left dorsal midfoot. From 04/29/23 ([facility]): for follow-up evaluation now approximately 6 weeks postoperatively. She is overall doing well. She does report ongoing eschar over her lateral foot. Her pain is burning and shooting and stabbing and a 5-7 out of 10. It is moderate and intermittent and improving. From 04/01/23 (): for her first post operative appointment. She [...] [place] and then got out to [...] Zulema Almonte MD [address], [place], [address], [place] [facility] 07/08/2023 13:03:36 08/05/2023 text/html Date of [...] takes Advil with moderate improvement. From 01/07/23 ([facility]): for follow-up evaluation regarding her left [...] She takes Advil as needed. From 12/17/22 ([facility]): for follow-up evaluation regarding her left foot. She reports that she [place] and then got out to [...] ZITA LEOS PA-C [address], [place], [address], [place] [facility] 08/05/2023 11:39:51 09/09/2023 text/html Date of [...] takes Advil with moderate improvement. From 01/07/23 ([facility]): for follow-up evaluation regarding her left [...] She takes Advil as needed. From 12/17/22 ([facility]): for follow-up evaluation regarding her left foot. She reports that she [place] and then got out to [...] Zulema Almonte MD [address], [place], [address], [place] [facility] 09/09/2023 13:35:08 12/09/2023 text/html Date of [...] takes Advil with moderate improvement. From 01/07/23 ([facility]): for follow-up evaluation regarding her left [...] She takes Advil as needed. From 12/17/22 ([facility]): for follow-up evaluation regarding her left foot. She reports that she [place] and then got out to [...] Zulema Almonte MD [address], [place], [address], [place] [facility] 12/11/2023 18:57:46 OBGyn Episode No OBEpisode recorded.
[2024-06-06 07:11] VITALS: BMI 24.9
--- NOTE | 2024-06-07 09:13 | P.CONAN_ITS ---
Documented by User: Vee Ferris NP 06/07/24 09:14 HPI - Anesthesia Eval Consult details Narrative: 73yo F for Upper Endo Valera s/p diaphragmatic hernia repair 11/2023 with GA-ETT 7 PMFSH Active Problems Active Problems: All Active Problems Abnormal bowel habits (Acute) Constipation (Acute) S/P laparoscopic hernia repair (Acute) Hiatal hernia (Acute) Varicose veins of right lower extremity with inflammation (Acute) Varicose veins of left lower extremity with inflammation (Acute) Venous insufficiency (chronic) (peripheral) (Acute) Sciatica (Acute) Numbness and tingling of both feet (Acute) Hallux flexus of right foot (Acute) Gout (Acute) Hypothyroidism (Acute) Vitamin B12 deficiency (Acute) Carotid artery bruit (Acute) Left leg swelling (Acute) Vitamin D deficiency (Acute) Hyperlipidemia (Acute) Leg cramps (Acute) GERD (gastroesophageal reflux disease) (Acute) Past Medical History Medical History Superficial phlebitis Pre-op exam ROCA (dyspnea on exertion) Elevated LFTs Thyroid nodule Hx of screening mammography Annual physical exam Hypothyroidism Primary osteoarthritis of both knees Raynaud's syndrome Family History Family History Mother No problems noted. Family history of problems with anesthesia: No Surgical History Surgical History S/P laparoscopic hernia repair History of lobectomy of thyroid Hx of ultrasound guided needle biopsy S/P foot surgery, right H/O esophagogastroduodenoscopy H/O colonoscopy History of Problems with Anesthesia: No Social History Social History Household Members: None Housing: Other Housing Other:: mobile home Are you a primary day care center director to a significant other at home: No Do you presently have visiting nurse or other home services: No Alcohol intake: current Alcohol intake frequency: holidays/special occasions only Patient Tobacco Use Status: Former Tobacco user Tobacco use type: Cigarette e-Cigarette/Vaping Use: Never Used Use of substances other than those prescribed or required for medical reasons: No Have you been hit, kicked, punched, or otherwise hurt by someone within the past year? If so, by whom?: No Are you DNR?: No Advance Directives: No Advance Directives Information Provided: Yes Advance Directives on File: No Recently lost weight without trying: No Nutrition Risks: No Nutritional Risk service: No Current occupational status: retired Cognitive needs: No Hearing needs: Yes Vision needs: Yes Meds Allergies Allergy/AdvReac Type Severity Reaction Status Date / Time nitrofurantoin Allergy Severe ANAPHYLAXIS Verified 06/08/24 12:14 [From MACROBID] Euqdhkf-JRM-AeX Reductase Allergy Intermediate MUSCLE Verified 06/08/24 12:14 Inhibitor ACHES [HBZHSLT-TVD-KLO REDUCTASE INHIBITOR] atorvastatin [Lipitor] AdvReac Unknown muscle Verified 06/08/24 12:14 cramping Home Medications ?Medication ?Instructions ?Recorded ?Confirmed ?Last Taken ?Type lysine 500 mg tablet (L-Lysine) 500 mg PO DAILY 06/14/23 06/08/24 11/23/23 History quercetin 500 mg capsule 500 mg PO DAILY 06/14/23 06/08/24 11/23/23 History Mecobalamin Telephone 1,000 mcg PO DAILY 12/14/23 06/08/24 11/23/23 History ascorbic acid (vitamin C) 500 mg 500 mg PO DAILY 12/14/23 06/08/24 11/23/23 History tablet (Vitamin C) ergocalciferol (vitamin D2) 200 100 mcg PO DAILY 12/14/23 06/08/24 11/23/23 History mcg/mL (8,000 unit/mL) oral drops Exam Height,Weight and Vital Signs: Height 5 ft 4 in Weight 65.771 kg Pertinent Lab Results Pertinent Lab Results: Laboratory Tests 12/10/23 12/10/23 09:20 09:56 WBC 6.1 RBC 3.81 L Hgb 11.3 L Hct 35.3 L MCV 92.7 MCH 29.7 MCHC 32.0 RDW 14.8 Plt Count 282 MPV 10.7 Immature Gran % (Auto) 0.3 Neut % (Auto) 68.4 Lymph % (Auto) 22.5 Ferry % (Auto) 7.0 Eos % (Auto) 1.5 Baso % (Auto) 0.3 Lymph # (Auto) 1.4 [place]erry # (Auto) 0.4 Eos # (Auto) 0.1 Baso # (Auto) 0.0 Abs Immat Gran (auto) 0.02 Absolute Neuts (auto) 4.2 Absolute Nucleated RBC 0.000 Nucleated RBC % (auto) 0.0 PT 11.2 INR 1.0 APTT 30.3 Sodium 142 Potassium 4.5 Chloride 107 Carbon Dioxide 26 Anion Gap 14 BUN 15 Creatinine 0.83 Estim Creat Clear Calc TNP Estimated GFR > 60 Random Glucose 98 Estimat Average Glucose 111 Hemoglobin A1c % 5.5 Calcium 9.6 Total Bilirubin 0.6 AST 19 ALT 10 Alkaline Phosphatase 107 C-Reactive Protein 1.23 H Total Protein 7.3 Albumin 4.1 Triglycerides 140 Cholesterol 211 H LDL Cholesterol, Calc 143 H HDL Cholesterol 40 L TSH 2.56 Narrative Narrative: EKG 10/2023 Vent. Rate : 067 BPM Atrial Rate : 067 BPM P-R Int : 146 ms QRS Dur : 094 ms QT Int : 392 ms P-R-T Axes : 029 -25 039 degrees QTc Int : 414 ms Normal sinus rhythm Normal ECG No previous ECGs available US carotid duplex BI 2021 IMPRESSION: 1. RIGHT: Minimal, non-hemodynamically significant stenosis of the proximal right internal carotid artery corresponding to a 0-49% stenosis by velocity criteria. 2. LEFT: Minimal, non-hemodynamically significant stenosis of the proximal left internal carotid artery corresponding to a 0-49% stenosis by velocity criteria. 3. Right thyroid nodule and bilateral small cervical lymph nodes. Consider dedicated thyroid ultrasound for further evaluation. Assessment and Plan Assessment Anesthesia Assessment: Chart Reviewed Final Anesthetic Review Family History of Problems with Anesthesia: No History of Problems with Anesthesia: No Documented by User: Dorothy Vogel MD 06/08/24 13:54 [facility] Past Medical History Medical History Superficial phlebitis Pre-op exam ROCA (dyspnea on exertion) Elevated LFTs Thyroid nodule Hx of screening mammography Annual physical exam Hypothyroidism Primary osteoarthritis of both knees Raynaud's syndrome Family History Family History Mother No problems noted. Surgical History Surgical History S/P laparoscopic hernia repair History of lobectomy of thyroid Hx of ultrasound guided needle biopsy S/P foot surgery, right H/O esophagogastroduodenoscopy H/O colonoscopy Social History Social History Household Members: None Housing: Other Housing Other:: mobile home Are you a primary day care center director to a significant other at home: No Do you presently have visiting nurse or other home services: No Alcohol intake: current Alcohol intake frequency: holidays/special occasions only Patient Tobacco Use Status: Former Tobacco user Tobacco use type: Cigarette e-Cigarette/Vaping Use: Never Used Use of substances other than those prescribed or required for medical reasons: No Have you been hit, kicked, punched, or otherwise hurt by someone within the past year? If so, by whom?: No Are you DNR?: No Advance Directives: No Advance Directives Information Provided: Yes Advance Directives on File: No Recently lost weight without trying: No Nutrition Risks: No Nutritional Risk service: No Current occupational status: retired Cognitive needs: No Hearing needs: Yes Vision needs: Yes Meds Allergies Allergy/AdvReac Type Severity Reaction Status Date / Time nitrofurantoin Allergy Severe ANAPHYLAXIS Verified 06/08/24 12:14 [From MACROBID] Htsrklv-FYT-AqH Reductase Allergy Intermediate MUSCLE Verified 06/08/24 12:14 Inhibitor ACHES [XVLKATG-PUJ-AQB REDUCTASE INHIBITOR] atorvastatin [Lipitor] AdvReac Unknown muscle Verified 06/08/24 12:14 cramping Home Medications ?Medication ?Instructions ?Recorded ?Confirmed ?Last Taken ?Type lysine 500 mg tablet (L-Lysine) 500 mg PO DAILY 06/14/23 06/08/24 11/23/23 History quercetin 500 mg capsule 500 mg PO DAILY 06/14/23 06/08/24 11/23/23 History Mecobalamin Telephone 1,000 mcg PO DAILY 09/06/08/24 11/23/23 History ascorbic acid (vitamin C) 500 mg 500 mg PO DAILY 12/14/23 06/08/24 11/23/23 History tablet (Vitamin C) ergocalciferol (vitamin D2) 200 100 mcg PO DAILY 12/14/23 06/08/24 11/23/23 History mcg/mL (8,000 unit/mL) oral drops Exam Airway Mallampati Class: III TM Dist: >3cm Neck ROM: Limited Heart: rrr Lungs: cta Assessment and Plan Assessment Anesthesia Assessment: Anesthesia Plan Discussed Final Anesthetic Review NPO: Yes ASA Class: III Final Preanesthetic Review: No Changes in Pt Med Stat, Meds/Allgs Chart Reviewed and Consent Obtained/Reviewed Patient Risk: Intermediate Procedure Risk: Low Anesthetic Plan Anesthetic Plan: MAC: Disposition: Standard PACU
[2024-06-08] VITALS (9 sets, daily range): BP systolic 125–165; BP diastolic 63–84; PULSE 60–79; RESP 12–20; TEMP 36.3–36.7; O2SAT 97–100; BMI 22.3
[2024-06-08] MEDS: Lactated Ringers 1,000 ML 80 ML IVCONT (12:19)
--- NOTE | 2024-06-08 13:53 | MHC.SHP ---
Pre-Procedural Eval Section A - 24 Hr Update-Section A only Date of Service: 06/08/24 The patient is an INPATIENT: No The patient has been examined within 24 hours of the surgical procedure. The History & Physical has been completed within 30 days and I have reviewed it.: Yes Section B - Complete if H&P > 30 days Chief Complaint: Encounter for surgical aftercare following surgery Details of Present Illness: GERD Relevant Family History (Specify if Yes): Yes Relevant Social History: None Present Medications: None Medical History: No relevant PMH History of Previous Operations: Relevant previous surgery/procedure and date(s) (Laparoscopic diaphragmatic hernia) Allergies: Allergies Allergy/AdvReac Type Severity Reaction Status Date / Time nitrofurantoin Allergy Severe ANAPHYLAXIS Verified 06/08/24 12:14 [From MACROBID] Tvegage-TNN-SiL Reductase Allergy Intermediate MUSCLE Verified 06/08/24 12:14 Inhibitor ACHES [CJFAGHM-YJS-KIZ REDUCTASE INHIBITOR] atorvastatin [Lipitor] AdvReac Unknown muscle Verified 06/08/24 12:14 cramping Review of Systems Sugical H&P ROS: Negative: Constitution, Cardiovascular, Respiratory, Neurological, Psychiatric, Hem-Onc, Allergic/Immunologic, Gastrointestinal, Genitourinary, Musculoskeletal, Integumentary, Endocrine and Eyes/Ears/Nose/Throat Exam Surgical H&P Exam: Normal: HEENT, Normal: Heart, Normal: Lungs, Normal: Extremities, Normal: Abdomen, Normal: Skin and Normal: Neurological Plan Diagnosis/Plan: Unchanged (EGD with Valera to assess etiology and severity of GERD. Risks of bleeding and perforation were discussed with the patient and she is in agreement with the plan.) I have reviewed the history and physical and performed a pertinent physical examination on my patient. No changes have occurred unless specified. Time Spent With Patient Time: Total time managing care of this patient today ____ minutes.
--- NOTE | 2024-06-08 14:02 | P.BOP_ITS ---
Brief Operative Note Date of Service: 06/08/24 Pre-op diagnosis: GERD and regurgitation Post-op diagnosis: same Procedure: PROCEDURE DATE: 06/08/2024 PREOPERATIVE DIAGNOSIS: GERD and regurgitation, s/p diaphragmatic hernia repair POSTOPERATIVE DIAGNOSIS: ?Same as above. Food bizoar PROCEDURE: Rbfhmkga-giujbd-eenlxvvzuzgs with biopsies and Valera procedure Surgeon: ?Harpal Nino M.D.. Ph.D. Compliance Testing Analyst: None ? Anesthesia: IV sedation Estimated blood loss: ?Minimal FINDINGS AND PROCEDURE: ? OPERATIVE INDICATIONS: ?The patient is a 73 year old female who underwent a laparoscopic diaphragmatic hernia repair on 12/14/2023. During the last 4 weeks, t patient has been complaining for increasing GERD and regurgitation. Based on this information I recommended an upper endoscopy with the Valera procedure to evaluate the patient's symptoms and assess her GERD. Risks and complications of the surgery were discussed with the patient in advance particularly the possibility of perforation or bleeding that may require surgical intervention. The patient understood the risks and was in agreement with the plan. ? PROCEDURE: After informed consent was obtained by the patient, the patient was ?transferred to the Operating Room and was placed in the supine position.? After successful induction of IV sedation, a mouth block was inserted and the patient was placed in the left lateral decubitus position. An upper endoscopy was performed next, the oropharynx and esophagus appeared within the normal limits. There was no esophagitis present. A hiatal hernia was not appreciated but due to the large amount of food and the risk of aspiration the procedure was very brief. The z-line was smooth and it was at 38cm from incisors. The stomach was entered and it appeared to be of normal size. There was a large amount of retained food although the patient claimed that she did not eat anything solid for 2 days. Due to the large amount of food the scope was not advanced into the duodenum. Retroflexion was not performed either. At that point the stomach were decompressed and the scope was withdrawn from the patient's mouth and the procedure was ended. The patient extubated and was transferred in stable condition to the Recovery Room for further care. I was present and performed all steps of the procedure. There were no residents to assist with this case. Harpal Nino M.D., Ph.D. Surgeon: Milton Nino MD Anesthesia: MAC Was an Compliance Testing Analyst used for this Procedure?: No Estimated blood loss (mL): 0 IV fluids (mL): 400 Urine output (mL): 0 (No Toro to record output) Pathology: none sent Condition: stable Disposition: PACU
[2024-06-08] MEDS: Folic Acid 1 MG in 0.9 % Sodium Chloride 50 ML 100.4 MG IV (15:28)
[2024-06-08 15:33] LABS: MANUAL DIFF FLAG NO
[2024-06-08 15:35] LABS: Basophils Percent Auto 0.2 % (0-2); Eosinophils Percent Auto 0.2 % (0-4); Hematocrit 32.8 % (37.0-47.0); Hemoglobin 11.3 g/dl (12.0-16.0); Imm Gran Abs Auto 0.02 X10*3/uL (0.00-0.03); Imm Gran Pct Auto 0.3 % (0.0-0.4); Lymphocytes Absolute Auto 1.6 X10*3/uL (1.2-4.9); Lymphocytes Percent Auto 26.2 % (20-40); Mean Corpuscular HGB Conc 34.5 g/dl (31.0-35.0); Mean Corpuscular Hemoglobin 31.1 pg (27.0-33.0); Mean Corpuscular Volume 90.4 fL (80.0-98.0); Monocytes Absolute Auto 0.4 X10*3/uL (0.1-1.2); Monocytes Percent Auto 6.8 % (2-11); Neutrophils Percent Auto 66.3 % (45-73); Platelet Count 257 X10*3/uL (160-400); Red Blood Count 3.63 X10*6/uL (4.20-5.50); Red Cell Distribution Width 15.3 % (11.0-16.0); White Blood Count 6.1 X10*3/uL (4.8-10.8)
[2024-06-08 15:51] LABS: Alanine Aminotransferase 10 U/L (0-31); Alkaline Phosphatase 77 U/L (39-117); Anion Gap 10 (12-20); Aspartate Amino Transferase 21 U/L (5-31); Bilirubin Total 0.5 mg/dL (0.0-1.0); Blood Urea Nitrogen 26 mg/dL (9-16); Calcium 9.5 mg/dL (8.4-10.2); Carbon Dioxide 25 mmol/L (22-29); Chloride 108 mmol/L (96-108); Creatinine Clr Calc Pharmacy 56.9; Estimated Glomerular Filt Rate > 60; Glucose Random 88 mg/dL (60-115); Potassium 4.2 mmol/L (3.3-5.1); Sodium 139 mmol/L (135-145); Total Protein 7.2 g/dL (6.5-8.0)
[2024-06-08] MEDS: Thiamine HCL 100 MG in 0.9 % Sodium Chloride 100 ML 202 MG IV (15:57)
[2024-06-08] MEDS: Cyanocobalamin (Vitamin B-12) 1,000 MCG/ML VIAL 1000 MCG IM (15:57)
== END 2024-06-08 16:33 | disposition home or self-care (01) ==
PROVIDERS: PCP Internal Medicine; Visit Provider Surgery
PROC: 0DJ08ZZ Inspection of Upper Intestinal Tract, Via Natural or Artificial Opening Endoscopic (ICD-10-PCS; CPT 43235; principal; 2024-06-08 14:20)
DX: Z48.815 Encounter for surgical aftercare following surgery on the digestive system (principal); T18.2XXA Foreign body in stomach, initial encounter; W44.F3XA Food entering into or through a natural orifice, initial encounter; K21.9 Gastro-esophageal reflux disease without esophagitis; R11.10 Vomiting, unspecified; Z98.890 Other specified postprocedural states
CPT/HCPCS: 43235; 36415; 80053; 85025; J2003; J2704; J3411; J3420

== ENCOUNTER → 2024-06-08 11:53 | Outpatient (BNV) | payer MEDICARE, SELFPAY | PROVIDERS: PCP Internal Medicine; Visit Provider Surgery | DX: K21.9 Gastro-esophageal reflux disease without esophagitis (principal) | CPT/HCPCS: 43239 ==

== ENCOUNTER 2024-06-16 09:55 | Outpatient (REF) | payer MEDICARE, SELFPAY ==
--- NOTE | ~2024-06-16 | XR_ITS ---
EXAMINATION: XR ABDOMEN KUB CLINICAL INDICATION: K59.00 - Constipation, unspecified COMPARISON: None available. TECHNIQUE: AP view of the abdomen. FINDINGS: Gas throughout the intestine. No intestinal dilatation. Abundant stool. No air-fluid levels. Vascular calcifications, abdominal aorta. Multilevel thoracolumbar spondylosis with a levoconvex rotoscoliosis. Vascular clips in the right upper Abdomen and epigastric region. XR/XR abdomen 1V IMPRESSION: No intestinal obstruction pattern. Electronically signed by: Rishi Arellano MD 06/16/2024 10:53 AM EDT
== END 2024-06-16 09:56 | disposition home or self-care (01) ==
LOC: HO.HMGCX 09:55
PROVIDERS: PCP Internal Medicine; Visit Provider Internal Medicine
DX: K59.00 Constipation, unspecified (principal); F41.9 Anxiety disorder, unspecified; F32.A Depression, unspecified; Z87.19 Personal history of other diseases of the digestive system; Z98.890 Other specified postprocedural states
CPT/HCPCS: 74018; 96127; 99212

== ENCOUNTER 2024-06-16 09:55 | Outpatient (AMB) | payer MEDICARE, SELFPAY ==
--- NOTE | 2024-06-16 09:57 | A.OFFPC_ITS ---
Vital Signs 06/16/24 09:58 Height 5 ft 4 in Weight 129 lb BMI 22.1 BP 118/78 Blood Pressure Location Lt brachial Position Sitting Respiration 18 Pulse 65 Pulse Source Pulse Oximeter Temp 97.8 F Temp Source Oral Pulse Oximetry (%) 96 Oxygen Delivery Method Room Air Intake Visit Reasons: digestive issues, numbness, and leg/foot cramping Intake Note: Pt is here today for a sick visit. Pt c/o digestive issues, numbness in her leg and weight loss. Allergies nitrofurantoin [From MACROBID] Allergy (Severe, Verified 06/16/24 10:02) ANAPHYLAXIS Oskftzd-VOT-XgL Reductase Inhibitor [RENTDSY-TEB-HND REDUCTASE INHIBITOR] Allergy (Intermediate, Verified 06/16/24 10:02) MUSCLE ACHES atorvastatin [Lipitor] Adverse Reaction (Unknown, Verified 06/16/24 10:02) muscle cramping Medication List - Last Reconciled 06/16/24 by Angela Deal MD allopurinol 100 mg PO BID PRN ascorbic acid (vitamin C) (Vitamin C) 500 mg PO DAILY ergocalciferol (vitamin D2) 100 mcg PO DAILY levothyroxine 25 mcg PO DAILY@0600 [Mecobalamin [place] 1,000 mcg PO DAILY] mirtazapine 7.5 mg PO BEDTIME omeprazole 10 mg PO DAILY Tobacco use date assessed: 06/16/24 Fall risk assessment: No Falls in past year Last assessed Fall Risk: 06/16/24 Dental Screening Dental Screen Date: 06/16/24 Did you have a dental visit in the last 12 months?: Yes Did you have a dental problem in the last 6 months where you did not have access to dental care?: No Was dental information given to patient?: Patient has dentist HPI digestive issues, numbness, and leg/foot cramping HPI Details Patient presents complaining of abdominal fullness, decreased p.o. intake and weight lost 10 lb in the last week. She underwent laparoscopic hiatal hernia repair in November and has been following the regiment of taking protein shakes instead of regular food. Patient reports having abdominal pain worse at night after laying down. She had a few episodes of vomiting after laying down. Patient is very anxious upset and crying today. She complains of insomnia. She underwent EGD last week which revealed no esophagitis but large amount of food retained in the stomach. Patient reports not having bowel movement for a week but reports passing gas. [facility] Medical History (Updated 06/16/24 @ 15:15 by Angela Deal MD) Superficial phlebitis Pre-op exam ROCA (dyspnea on exertion) Elevated LFTs Thyroid nodule Hx of screening mammography Annual physical exam Hypothyroidism Primary osteoarthritis of both knees Raynaud's syndrome Surgical History S/P laparoscopic hernia repair History of lobectomy of thyroid Hx of ultrasound guided needle biopsy S/P foot surgery, right H/O esophagogastroduodenoscopy H/O colonoscopy Family History Mother No problems noted. Social History Household Members: None Housing: Other Housing Other:: mobile home Are you a primary home health care social worker to a significant other at home: No Do you presently have visiting nurse or other home services: No Alcohol intake: current Alcohol intake frequency: holidays/special occasions only Patient Tobacco Use Status: Former Tobacco user Tobacco use type: Cigarette e-Cigarette/Vaping Use: Never Used service: No Current occupational status: retired Cognitive needs: No Hearing needs: Yes Vision needs: Yes Questionnaire PHQ-9 Over the last 2 weeks, how often have you been bothered by any of the following problems? 1. Little interest or pleasure in doing things: not at all 2. Feeling down, depressed, or hopeless: not at all 3. Trouble falling or staying asleep, or sleeping too much: not at all 4. Feeling tired or having little energy: not at all 5. Poor appetite or overeating: not at all 6. Feeling bad about yourself - or that you are a failure or have let yourself or your family down: not at all 7. Trouble concentrating on things, such as reading the newspaper or watching television: not at all 8. Moving or speaking so slowly that other people could have noticed. Or the opposite - being so fidgety or restless that you have been moving around a lot more than usual: not at all 9. Thoughts that you would be better off or of hurting yourself in some way: not at all Total score: 0 Depression Screening Interpretation: Negative Depression Screening Done: Yes [id number] - PHQ-9 Billing: Yes Source: Developed by Drs. Kirt Najera, Cici Wynn, James Scott and colleagues, with an educational amish from [employer]. Thrive Questionnaire Date Thrive assessed: 06/13/24 I am a: Patient What is your living situation today?: I have a steady place to live Within the past 12 months, did the food you bought not last and you didn't have the money to get more?: Sometimes True Within the past 12 months, did you worry whether your food would run out before you got money to buy more?: Never true Do you have trouble paying for medicines?: No Do you have trouble getting transportation to medical appointments?: No Do you have trouble paying your heating and electricity bill?: No Do you have trouble taking care of your child, family member or friend?: No Do you have trouble with day-to-day activities such as bathing, preparing meals, shopping, managing finances, etc.?: No Are you currently unemployed and looking for a job?: No Are you interested in more education?: No Please select the resources that you would like help with: None Currently or been in a relationship where the following occur: No concerns reported THRIVE Score: 1 AUDIT C Alcohol Use Questionnaire (AUDIT-C) 1. How often do you have a drink containing alcohol?: Monthly or less 2. How many drinks containing alcohol do you have on a typical day when you are drinking?: 1 or 2 3. How often do you have six or more drinks on one occasion?: Never Total Score: 1 NAOMI-7 AMB Questionnaire NAOMI-7 Date NAOMI - 7 assessed: 06/16/24 Feeling nervous, anxious, or on edge: 1 = Several days Not being able to stop or control worryin = Not at all Worrying too much about different things: 0 = Not at all Trouble relaxin = Not at all Being so restless that it is hard to sit still: 0 = Not at all Becoming easily annoyed or irritable: 1 = Several days Feeling afraid as if something awful might happen: 0 = Not at all Total NAOMI-7 score (0-4 normal; 5-9 mild; 10-14 moderate; 15-21 severe): 2 Source: Developed by Drs. Kirt Najera, Cici Wynn, James Scott and colleagues, with an educational amish from [employer]. NAOMI-7 Assessment Billing NAOMI-7 Assessment Tool: NAOMI-7 Assessment 22101 Review of Systems Const All systems reviewed & are unremarkable except as noted in HPI and below ENT Reports no additional complaints Card Reports no additional complaints Resp Reports no additional complaints GI Reports no additional complaints Reports no additional complaints Physical exam (Primary Care) Vital Signs: Last Vital Signs Temp 97.8 F 06/16/24 09:58 Pulse 65 06/16/24 09:58 Resp 18 06/16/24 09:58 BP 118/78 06/16/24 09:58 Pulse Ox 96 06/16/24 09:58 Oxygen Delivery Method Room Air 06/16/24 09:58 BMI result Body Mass Index 22.1 Tobacco/Smoking Status: Tobacco use Status Tobacco use date assessed 06/16/24 06/16/24 10:07 Patient Tobacco Use Status Former Tobacco user 06/16/24 09:58 Tobacco use type Cigarette 06/16/24 09:58 e-Cigarette/Vaping Use Never Used 06/16/24 09:58 PHQ-9: PHQ-9 Score PHQ-9: Total score 0 06/16/24 10:58 Depression Screening Interpretation: Negative Thrive Assessment: Date of Thrive Assessment Date Thrive assessed 06/13/24 06/16/24 09:58 Currently or been in a relationship where the following occur: No concerns reported Const General: anxious HENMT Head: Yes normal to inspection Throat: Yes posterior oropharynx normal Neck Neck: Yes supple Resp Effort & Inspection: normal respiratory effort Auscultation: clear to auscultation bilaterally Cardio Rhythm: regular rhythm Heart sounds: S1 normal heart sound present and S2 normal heart sound present GI Inspection: Yes normal to inspection Palpation (GI): Soft to palpation Percussion: Yes normal to percussion Auscultation: normal bowel sounds Coding Level of Care Code Est Pt Level 4 (01727) Diagnoses Constipation K59.00 History of repair of hiatal hernia Z98.890; Z87.19 Anxiety and depression F41.9; F32.A Additional Codes NAOMI-7 Assessment Billing - NAOMI-7 Assessment Tool: NAOMI-7 Assessment 16369 ([id number]) PHQ-9 - 01044 - PHQ-9 Billing: Yes ([id number]) Assessment & Plan Assessment & Plan (1) Constipation: Code(s): K59.00 - Constipation, unspecified Category: Medical Plan: Check abdominal series to rule out SBO (2) History of repair of hiatal hernia: Comment: Laparoscopic 12/14/2023 Code(s): Z98.890 - Other specified postprocedural states; Z87.19 - Personal history of other diseases of the digestive system Category: Surgical Plan: Patient was advised to follow protein shake regiment recommended by the surgeon (3) Anxiety and depression: Code(s): F41.9 - Anxiety disorder, unspecified; F32.A - Depression, unspecified Category: Medical Plan: Stress management discussed with the patient. Start mirtazapine 7.5 mg q.h.s. follow-up in 2 weeks Medications: New mirtazapine 7.5 mg PO BEDTIME 30 tabs 4RF Changed From allopurinol 100 mg PO BID 180 tabs 3RF To allopurinol 100 mg PO BID PRN
[2024-06-16 09:58] VITALS: BP 118/78; PULSE 65; RESP 18; TEMP 36.6; O2SAT 96; BMI 22.1
== END 2024-06-16 11:28 | disposition home or self-care (01) ==
LOC: HO.HMCC 09:56
PROVIDERS: PCP Internal Medicine; Visit Provider Internal Medicine
DX: K59.00 Constipation, unspecified (principal); Z98.890 Other specified postprocedural states; Z87.19 Personal history of other diseases of the digestive system; F41.9 Anxiety disorder, unspecified; F32.A Depression, unspecified

== ENCOUNTER → 2024-06-16 10:37 | Outpatient (BNV) | payer MEDICARE, SELFPAY | PROVIDERS: PCP Internal Medicine; Visit Provider Radiology Diagnostic Radiology | DX: K59.00 Constipation, unspecified (principal) | CPT/HCPCS: 74018 ==

== ENCOUNTER → 2024-06-20 12:30 | Day surgery (SDC) | payer MEDICARE, SELFPAY ==
--- OUTSIDE RECORDS SUMMARY | 2024-06-20 07:20 | XMS_ITS | Data Portability ---
Author Organization [place] [facility] L[facility] AONE [facility] Address [address] [place] [address] Care Team Providers Care Shift Superintendent Caustic Cresylate Name Role Phone ANDRE SNYDER Primary Care Provider Assessment Encounter Date Assessment Date Assessment LastModified [...] in 4 weeks for another wound check. [email or web address] Not available 08/05/2023 11:39:38 09/09/2023 09/09/2023 Overall, [...] foot, 3 or more view 2023 024 [place] [address] [facility], [address], [place], [address], 13:53:06 XR, foot, 3 or more view 2023 024 [place] [address] [facility], [address], [place], [address], 4 20:15:48 Medication Orders Santyl 250 unit/gram topical ointment 2023 024 [email or web address] [id number], [address] [place], [address], 11:33:19 Patient TargetsNo targets recorded. Patient Instructions Encounter Date Encounter Id Patient Instructions Last Modified By Organization Details Last Modified Time 06/10/2023 [id number] 3 views of the left foot obtained weightbearing demonstrate a first MTP fusion as well as PIP arthroplasties of the second, third, fourth, and fifth toes. There is second and third metatarsal osteotomies. Alignment of her forefoot is excellent. [email or web address] Not available 06/10/2023 09:33:04 07/08/2023 08697 3 views of the left foot obtained weightbearing demonstrate a first MTP fusion as well as PIP arthroplasties of the second, third, fourth, and fifth toes. There is second and third metatarsal osteotomies. Alignment of her forefoot is excellent. [email or web address] Not available 07/08/2023 07:56:02 08/05/2023 30285 3 views of the left foot obtained weightbearing demonstrate a first MTP fusion as well as PIP arthroplasties of the second, third, fourth, and fifth toes. There is second and third metatarsal osteotomies. Alignment of her forefoot is excellent. [email or web address] Not available 08/05/2023 09:10:00 09/09/2023 82197 3 views of the left foot obtained weightbearing demonstrate a first MTP fusion as well as PIP arthroplasties of the second, third, fourth, and fifth toes. There is second and third metatarsal osteotomies. Alignment of her forefoot is excellent. [email or web address] Not available 09/09/2023 08:14:20 12/09/2023 46544 3 views of the left foot obtained [...] Recorded Time Metatarsalg ia of left foot 8476220207231 06 Active 2022 OLGA WEI PA-C [address], [place], [address], [place] [facility] 3 11:59:54 Hammer toe 031955238 Active 2022 OLGA WEI PA-C [address], [place], [address], [place] [facility] 3 12:00:22 Hammer toe 549956402 Active 2022 OLGA WEI PA-C [address], [place], [address], [place] [facility] 3 12:00:29 Acquired left hallux rigidus 8454345637925 05 Active 2022 Zulema Almonte MD [address], [place], [address], [facility], [facility] 3 16:04:28 Postoperati ve wound infection 38891757 Active 2023 Zulema Almonte MD [address], [place], [address], [facility], P 4 13:16:07 Problem Notes None recorded. Procedures Surgical History Date Name Laterality Status Provider Name and Address Organization Details Recorded Time procedure on foot completed Merrick Avila [facility] 07/08/2023 11:21:54 Imaging Results None recorded. Procedure Notes None recorded. Medical Equipment None Reported. Allergies Allergen ID Allergen Name Allergen Category Reaction Reaction Severity Criticality Documentation Date Start Date Code Code System Note Provider Name and Address Organization Details Recorded Time 8157 Macrobid medicatio n Not available Not available Not available 12/03/2022 90022 1 RxNorm Isabel baer, [facility], [facility] 3 11:53:33 8158 Product containin g 3-hydroxy -3-methyl glutaryl- coenzyme A reductase inhibitor (product) medicatio n Not available Not available Not available 12/03/2022 37941 [facility] 11:53:37 Medications Name Sig Start [...] Updated DateTime 06/10/2023 167.64 cm 28.2 kg/m2 85030.[address] [facility] 06/10/2023 12:59:32 Date Recorded Body height Body mass index (BMI) Body weight Provider Name and Address Organization Details Last Updated DateTime 07/08/2023 167.64 cm 28.2 kg/m2 06890.[address] [place] [facility] 07/08/2023 11:19:03 Date Recorded Body height Body mass index (BMI) Body weight Provider Name and Address Organization Details Last Updated DateTime 08/05/2023 167.64 cm 28.2 kg/m2 43869.[address] [facility] 08/05/2023 11:31:57 Date Recorded Body height Body mass index (BMI) Body weight Provider Name and Address Organization Details Last Updated DateTime 09/09/2023 167.64 cm 28.2 kg/m2 75149.66 g Merrick Wheat [facility] 09/09/2023 11:25:04 Date Recorded Body height Body mass index (BMI) Body weight Provider Name and Address Organization Details Last Updated DateTime 12/09/2023 167.64 cm 28.2 kg/m2 07133.66 g Merrick Austin [facility] 12/09/2023 11:12:53 Social History Question Answer Notes LastModified by Organizat ion Details LastModified Time Tobacco Smoking Status Former Smoker Merrick Avila null, [place] [facility] 12/17/2022 12:05:24 What Is Your Level [...] SNOMED-CT Code Diagnosis ICD10 Code Diagnosis Note [id number] MD KAMALJIT Castaneda [facility] [address] [place], [place] [address] 12/03/2022 11:41:10 12/03/2022 13:18:25 Pain in left foot 3498635646 08035 M79.672 Metatarsal eduin of left foot 7719079134 16222 M77.42 Hammer toe 421862180 M20 .42 [id number] MD KAMALJIT Castaneda [place] [phone] 12/17/2022 11:35:43 12/17/2022 12:18:59 Metatarsalgia of left foot 6793246114 95101 M77.42 Hammer toe 733495869 M20 .42 [id number] MD KAMALJIT Castaneda [place] [phone] 01/07/2023 12:46:19 01/07/2023 13:17:32 Metatarsalgia of left foot 1228262068 95329 M77.42 Hammer toe 019086672 M20 .42 [id number] MD KAMALJIT Castaneda [place] [phone] 02/25/2023 11:34:58 02/25/2023 12:03:50 Metatarsalgia of left foot 7277653938 71742 M77.42 Hammer toe 359461961 M20 .42 Acquired l eft hallux rigidus 4559768701 39494 M20.22 [id number] MD KAMALJIT Castaneda [address] [address] 04/01/2023 12:53:30 04/01/2023 14:00:12 Metatarsalgia of left foot 1356183144 85245 M77.42 Hammer toe 535683855 M20 .42 Acquired l eft hallux rigidus 3329495952 12225 M20.22 [id number] MD KAMALJIT Castaneda [place] [phone] 04/29/2023 12:47:41 04/29/2023 13:41:06 Metatarsalgia of left foot 1216279442 62970 M77.42 Hammer toe 992427673 M20 .42 Acquired l eft hallux rigidus 4627705804 66825 M20.22 30446 Zulema Almonte MD [place] [address] 06/10/2023 12:52:47 06/10/2023 13:19:16 Metatarsalgia of left foot 1700920269 86256 M77.42 Hammer toe 778671340 M20 .42 Acquired l eft hallux rigidus 0608437452 97403 M20.22 Postoperat bekah wound infection 64989293 T81.49XA 61809 Zulema Almonte MD [place] [address] 07/08/2023 11:17:45 07/08/2023 11:33:43 Metatarsalgia of left foot 7310250616 67305 M77.42 Hammer toe 993331061 M20 .42 Acquired l eft hallux rigidus 7916199169 59109 M20.22 Postoperat bekah wound infection 13261802 T81.49XA 47535 Zulema Almonte MD [place] [address] 08/05/2023 11:18:12 08/05/2023 11:39:37 Metatarsalgia of left foot 3167766988 33532 M77.42 Hammer toe 243495114 M20 .42 Acquired l eft hallux rigidus 4866886759 71842 M20.22 Postoperat bekah wound infection 54088632 T81.49XA 83018 Zulema Almonte MD [place] [address] 09/09/2023 11:22:08 09/09/2023 12:04:59 Metatarsalgia of left foot 7150461801 49637 M77.42 Hammer toe 250589536 M20 .42 Acquired l eft hallux rigidus 1864027307 55987 M20.22 Postoperat bekah wound infection 70314555 T81.49XA [id number] MD KAMALJIT Castaneda [place] [address] [facility] [address] [place] [address] 12/09/2023 11:10:32 12/09/2023 11:29:02 Metatarsalgia of left foot 6621620980 37448 M77.42 Hammer toe 335930494 M20 .42 Acquired l eft hallux rigidus 1481777014 49975 M20.22 Postoperat bekah wound infection 15675499 T81.49XA Health Concerns Section Related Observation LastModified by Organization Detai ls LastModified Time None Recorded Concern Status LastModified by Organization Details LastModified Time None Recorded Advance Directives Directive None Recorded Payers Encounter Date Sequence Insurance Name Policy Number Policy [place] Covered Member ID [place] Member ID Guarantor Name 06/10/2023 1 [place]: [employer] Magaly Robbins Ashley [id number] Magaly Fisheregrini 06/10/2023 2 [employer] - OPTIONS Magaly Fisheregrini [id number] Magaly Fisheregrini 07/08/2023 1 [place] [employer] Magaly Robbins Ashley [id number] Magaly Fisheregrini 07/08/2023 2 [employer] - OPT[employer] Magaly Fisheregrini [id number] Magaly Fisheregrini 08/05/2023 2 [employer] - [employer] Magaly Fisheregrini [id number] Magaly Fisheregrini 08/05/2023 1 [place] Mala Ashley [id number] Magaly Fisheregrini 09/09/2023 2 [employer] - OPTIONS Magaly Fisheregrini [id number] Magaly Fisheregrini 09/09/2023 1 [place]ARE [place] Mala Ashley [id number] Magaly Ashley 12/09/2023 2 [employer] - OPTIONS Magaly Fisheregrini [id number] Magaly Ashley 12/09/2023 1 [place]ARE [place]: [place] Mala Ashley [id number] Magaly Ashley Notes Date Note Type Note [...] [place] and then got out to [...] Zulema Almonte MD [address], [place], [address], [facility] 06/13/2023 15:57:15 07/08/2023 text/html Date of [...] toe. Overall, she is improving. From 06/10/23 ([facility]): who presents today for follow-up evaluation regarding [...] from her left dorsal midfoot. From 04/29/23 ([facility]): for follow-up evaluation now approximately 6 weeks [...] [place] and then got out to [...] Zulema Almonte MD [address], [place], [address], [place] [facility] 07/08/2023 13:03:36 08/05/2023 text/html Date of [...] takes Advil with moderate improvement. From 01/07/23 ([facility]): for follow-up evaluation regarding her left foot. [...] She takes Advil as needed. From 12/17/22 ([facility]): for follow-up evaluation regarding her left foot. She reports that she [place] and then got out to [...] ZITA LEOS PA-C [address], [place], [address], [place] [facility] 08/05/2023 11:39:51 09/09/2023 text/html Date of [...] takes Advil with moderate improvement. From 01/07/23 ([facility]): for follow-up evaluation regarding her left foot. [...] She takes Advil as needed. From 12/17/22 ([facility]): for follow-up evaluation regarding her left foot. She reports that she [place] and then got out to [...] Zulema Almonte MD [address], [place], [address], [place] [facility] 09/09/2023 13:35:08 12/09/2023 text/html Date of [...] takes Advil with moderate improvement. From 01/07/23 ([facility]): for follow-up evaluation regarding her left foot. [...] She takes Advil as needed. From 12/17/22 ([facility]): for follow-up evaluation regarding her left foot. She reports that she [place] and then got out to [...] Zulema Almonte MD [address], [place], [address], [place] [facility] 12/11/2023 18:57:46 OBGyn Episode No OBEpisode recorded.
--- OUTSIDE RECORDS SUMMARY | 2024-06-20 07:21 | XMS_ITS | Clinical Summary ---
Author Organization [facility] Address [address] [facility] [address] [place] [address] Phone Care Team Providers Care Inventory Technician Name Role Phone Angela Deal MD Primary Care Provider [phone] Allergies Active Allergy Reactions Criticality Noted Date Comments Nitrofurantoin Monohyd/M-Cryst Unknown 01/28 Medications Medication Sig Dispensed Refills Start Date End Date Status omeprazole (PRILOSEC) 10 MG capsule Take 10 mg by mouth daily. Active Hospital, Clinic, or Other Facility Administered Medication Ordered Dose Route Frequency Start Date End Date Status lidocaine (XYLOCAINE) 1% injection 2 mLIndications:Right hip pain 2 mL See Adm Inst Once 05/31/2024 08/29/2024 Active BUPivacaine HCl (MARCAINE) 0.25% injection 2 mLIndications:Right hip pain 2 mL See Adm Inst Once 05/31/2024 08/29/2024 Active triamcinolone acetonide (KENALOG-40) 40 mg/mL injection 80 mgIndications:Right hip pain 80 mg See Adm Inst Once 05/31/2024 08/29/2024 Active Encounters Date Type Department Care Team Description 05/31/2024 1:47 PM EDT - 05/31/2024 11:59 PM EDT Hospital Encounter [address] [address] Kindra Marie MD Discharge Disposition: Home or Self Care 05/31/2024 1:45 PM EDT Office Visit [facility] [address] [place] [address] Kindra Marie MD Trochanteric bursitis of right hip (Primary Dx); Right hip pain; Degeneration of intervertebral disc of lumbar region with discogenic back pain and lower extremity pain; Lumbar radiculopathy, chronic 04/17/2024 Transcribe Orders Virtual Department [address] [place] [address] Hesham Jordan MD Other specified symptoms and [...] Answer Date Recorded No 08/16/2022 No 08/16/2022 Reliable internet access [...] 01/28/2021 11:29 AM EST Plan of Treatment Health Maintenance Due Date Last Done Comments LIPID PANEL 1950 DEPRESSION SCREENING 1962 HEPATITIS C SCREENING 1968 MAMMOGRAM 1990 COLOGUARD 10/07/1995 COLONOSCOPY 10/07/1995 COLORECTAL CANCER SCREENING 10/07/1995 FIT TEST 10/07/1995 FOBT 10/07/1995 SIGMOIDOSCOPY 10/07/1995 VIRTUAL COLONOSCOPY 10/07/1995 PNEUMOCOCCAL VACCINES (50+ years) (1 of 1 - PCV) 2000 ZOSTER VACCINES (1 of 2) 2000 OSTEOPOROSIS SCREENING INITI AL (ONE-TIME) 10/07/2015 INFLUENZA VACCINE (#1) 2023 COVID-19 VACCINE ( - 2023-2 5 season) 2023 SMOKING Hx and SMOKELESS TOBACCO SCREENING 05/31/2025 05/31/2024 RSV VACCINE (1 - 1-dose 75+ series) [...] this topic Medical Devices Not on file Procedures Procedure Name Priority Date/Time Associated Diagnosis Comments XR HIP 1 VW RIGHT PLUS PELVIS Routine 05/31/2024 1:54 PM EDT Right hip pain from Last 3 Months Results * XR HIP 1 VW RIGHT PLUS PELVIS (05/31/2024 1:54 PM EDT) Narrative SYSTEMGENERATED, DOCUMENTATION - 05/31/2024 1:54 PM EDT This image report has been auto-finalized and has not been read by a Radiologist. Interpretation has been included in the provider encounter note for this date of service. Kindra Marie MD IMG XR PELVIS from Last 3 Months Jag Ramirez, Magaly Personal/Family Self 1950 [address] [facility], [place] [address] [place], Magaly Personal/Family Self 1950 [address] [facility], [place] [address]Jag [place], Magaly Personal/Family Self [address] [place] [address] Care Teams Inventory Technician Relationship Specialty Start Date End Date Angela Deal MD [address] [place] [address] PCP - General Internal Medicine 01/28/21 Additional Source Comments The information contained in this document represents components of the legal health record. It is not the complete legal health record.[facility]
[2024-06-20 12:54] VITALS: BP 131/44; PULSE 74; RESP 12; TEMP 36.7; O2SAT 100; BMI 21.2
[2024-06-20] MEDS: Lactated Ringers 1,000 ML 80 ML IVCONT (13:09)
--- NOTE | 2024-06-20 13:53 | MHC.SHP ---
Pre-Procedural Eval Section A - 24 Hr Update-Section A only Date of Service: 06/20/24 The patient is an INPATIENT: No The patient has been examined within 24 hours of the surgical procedure. The History & Physical has been completed within 30 days and I have reviewed it.: Yes Section B - Complete if H&P > 30 days Chief Complaint: Obesity, unspecified Details of Present Illness: Food bezoar Relevant Family History (Specify if Yes): No Relevant Social History: None Present Medications: None Medical History: No relevant PMH History of Previous Operations: Relevant previous surgery/procedure and date(s) (Laparoscopic diaphragmatic hernia repair) Allergies: Allergies Allergy/AdvReac Type Severity Reaction Status Date / Time nitrofurantoin Allergy Severe ANAPHYLAXIS Verified 06/20/24 12:38 [From MACROBID] Ibugmpj-ZRA-FrU Reductase Allergy Intermediate MUSCLE Verified 06/20/24 12:38 Inhibitor ACHES [ESITJEB-OYX-LWH REDUCTASE INHIBITOR] atorvastatin [Lipitor] AdvReac Unknown muscle Verified 06/20/24 12:38 cramping Review of Systems Sugical H&P ROS: Negative: Constitution, Cardiovascular, Respiratory, Neurological, Psychiatric, Hem-Onc, Allergic/Immunologic, Gastrointestinal, Genitourinary, Musculoskeletal, Integumentary, Endocrine and Eyes/Ears/Nose/Throat Exam Surgical H&P Exam: Normal: HEENT, Normal: Heart, Normal: Lungs, Normal: Extremities, Normal: Abdomen, Normal: Skin and Normal: Neurological Plan Diagnosis/Plan: Unchanged (EGD to assess the status of the food bezoar we saw at the previous EGD. Risks and complications were discussed with the patient.) I have reviewed the history and physical and performed a pertinent physical examination on my patient. No changes have occurred unless specified. Time Spent With Patient Time: Total time managing care of this patient today ____ minutes.
--- NOTE | 2024-06-20 13:58 | P.BOP_ITS ---
Brief Operative Note Date of Service: 06/20/24 Pre-op diagnosis: Food bezoar Post-op diagnosis: same (Resolved food bezoar) Procedure: PROCEDURE DATE: 06/20/2024 PREOPERATIVE DIAGNOSIS: Food bezoar, s/p laparoscopic diaphragmatic hernia repair POSTOPERATIVE DIAGNOSIS: ?Same as above. 1) small hiatal hernia, 2) distal gastritis PROCEDURE: Ybdcbrwn-ehcnzv-jpdrslowyzfa with biopsies Surgeon: ?Harpal Nino M.D.. Ph.D. Director Of Health Care Marketing: None ? Anesthesia: IV sedation Estimated blood loss: ?Minimal FINDINGS AND PROCEDURE: ? OPERATIVE INDICATIONS: ?The patient is a 73 year old female known to me who had a diaphragmatic hernia repair in November 2023. She was doing well until approximately 3-4 weeks when she started experiencing GERD and food regurgitation. An endoscopy was performed 11 days ago which revealed a large amount of retained food in the stomach. The patient was placed on a liquid diet and the symptoms resolved. Based on this information I recommended a follow-up upper endoscopy to evaluate the stomach and assess if the food bezoar has resolved. Risks and complications of the surgery were discussed with the patient in advance particularly the possibility of perforation or bleeding that may require surgical intervention. The patient understood the risks and was in agreement with the plan. ? PROCEDURE: After informed consent was obtained by the patient, the patient was ?transferred to the Operating Room and was placed in the supine position.? After successful induction of IV sedation, a mouth block was inserted and the patient was placed in the left lateral decubitus position. An upper endoscopy was performed next, the oropharynx and esophagus appeared within the normal limits. There was no significant hiatal hernia. The z-line was smooth and there was no esophagitis. The stomach was entered and it appeared to be of normal size withut any food contents. There was no gastritis. There was no stricture or ulcer. Retroflexion of the scope revealed a normal GE junction. The scope was then advanced into the duodenum which appeared to be normal as well. At that point the duodenum ?and the stomach were decompressed and the scope was withdrawn from the patient's mouth. The patient extubated and was transferred in stable condition to the Recovery Room for further care. I was present and performed all steps of the procedure. There were no residents to assist with this case. Harpal Nino M.D., Ph.D. Surgeon: Milton Nino MD Anesthesia: MAC Was an Director Of Health Care Marketing used for this Procedure?: No Estimated blood loss (mL): 0 Urine output (mL): 0 (No Toro to record output) Pathology: none sent Condition: stable Disposition: PACU
--- NOTE | 2024-06-20 13:59 | HO.ANESPROP2 ---
HPI - Anesthesia Eval Consult details Narrative: 73 yo female patient for EGD PMFSH Active Problems Active Problems: All Active Problems (Updated 06/16/24 @ 15:15 by Angela Deal MD) Anxiety and depression (Acute) History of repair of hiatal hernia (Acute) Abnormal bowel habits (Acute) Constipation (Acute) S/P laparoscopic hernia repair (Acute) Hiatal hernia (Acute) Varicose veins of right lower extremity with inflammation (Acute) Varicose veins of left lower extremity with inflammation (Acute) Venous insufficiency (chronic) (peripheral) (Acute) Sciatica (Acute) Numbness and tingling of both feet (Acute) Hallux flexus of right foot (Acute) Gout (Acute) Hypothyroidism (Acute) Vitamin B12 deficiency (Acute) Carotid artery bruit (Acute) Left leg swelling (Acute) Vitamin D deficiency (Acute) Hyperlipidemia (Acute) Leg cramps (Acute) GERD (gastroesophageal reflux disease) (Acute) Past Medical History Medical History Superficial phlebitis Pre-op exam ROCA (dyspnea on exertion) Elevated LFTs Thyroid nodule Hx of screening mammography Annual physical exam Hypothyroidism Primary osteoarthritis of both knees Raynaud's syndrome Family History Family History Mother No problems noted. Family history of problems with anesthesia: No Surgical History Surgical History S/P laparoscopic hernia repair History of lobectomy of thyroid Hx of ultrasound guided needle biopsy S/P foot surgery, right H/O esophagogastroduodenoscopy H/O colonoscopy History of Problems with Anesthesia: No Social History Social History Household Members: None Housing: Other Housing Other:: mobile home Are you a primary customer care assistant to a significant other at home: No Do you presently have visiting nurse or other home services: No Alcohol intake: current Alcohol intake frequency: does not drink Patient Tobacco Use Status: Former Tobacco user Tobacco use type: Cigarette e-Cigarette/Vaping Use: Never Used Use of substances other than those prescribed or required for medical reasons: No Have you been hit, kicked, punched, or otherwise hurt by someone within the past year? If so, by whom?: No Are you DNR?: No Advance Directives: No Advance Directives Information Provided: Yes service: No Current occupational status: retired Cognitive needs: No Hearing needs: Yes Vision needs: Yes Meds Allergies Allergy/AdvReac Type Severity Reaction Status Date / Time nitrofurantoin Allergy Severe ANAPHYLAXIS Verified 06/20/24 12:38 [From MACROBID] Udcvcps-YCP-YxP Reductase Allergy Intermediate MUSCLE Verified 06/20/24 12:38 Inhibitor ACHES [[id number]-IAM-FLU REDUCTASE INHIBITOR] atorvastatin [Lipitor] AdvReac Unknown muscle Verified 06/20/24 12:38 cramping Active Medications: Current Medications Lactated Ringer's (Lr) 1,000 mls @ 80 mls/hr IVCONT .[id number] JIMI Last Admin: 06/20/24 13:09 Dose: 80 mls/hr Home Medications ?Medication ?Instructions ?Recorded ?Confirmed ?Last Taken ?Type Mecobalamin [place] 1,000 mcg PO DAILY 12/14/23 06/20/24 11/23/23 History ascorbic acid (vitamin C) 500 mg 500 mg PO DAILY 12/14/23 06/20/24 11/23/23 History tablet (Vitamin C) ergocalciferol (vitamin D2) 200 100 mcg PO DAILY 12/14/23 06/20/24 11/23/23 History mcg/mL (8,000 unit/mL) oral drops allopurinol 100 mg tablet 100 mg PO BID PRN Pain 06/16/24 06/20/24 Unknown History Exam Height,Weight and Vital Signs: Height 5 ft 4 in Weight 56 kg Last Vital Signs Temp 98.0 F 06/20/24 12:54 Pulse 74 06/20/24 12:54 Resp 12 06/20/24 12:54 BP 131/44 L 06/20/24 12:54 Pulse Ox 100 06/20/24 12:54 O2 Del Method Room Air 06/20/24 12:54 Airway Mallampati Class: II TM Dist: >3cm Neck ROM: Full Loose/Missing/Broken Teeth: No (Implants intact. Denies broken or loose teeth) Heart: RRR Lungs: CTAB Assessment and Plan Assessment Anesthesia Assessment: Anesthesia Plan Discussed and Chart Reviewed Final Anesthetic Review Family History of Problems with Anesthesia: No History of Problems with Anesthesia: No NPO: Yes ASA Class: III Final Preanesthetic Review: No Changes in Pt Med Stat, Meds/Allgs Chart Reviewed, Consent Obtained/Reviewed and Anes Risks/Benef Reviewed Patient Risk: Intermediate Procedure Risk: Low Assessment/Block/Sedation in SS: Assess/Block/Sedation-SS Anesthetic Plan Anesthetic Plan: TIVA Disposition: Standard PACU
[2024-06-20 14:32] VITALS: BP 100/57; PULSE 64; RESP 15; TEMP 37.1; O2SAT 98
[2024-06-20 14:46] VITALS: BP 105/46; PULSE 58; RESP 16; O2SAT 100
[2024-06-20 15:00] VITALS: BP 116/60; PULSE 55; RESP 16; TEMP 36.6; O2SAT 100
== END | disposition home or self-care (01) ==
PROVIDERS: PCP Internal Medicine; Visit Provider Surgery
PROC: 0DJ08ZZ Inspection of Upper Intestinal Tract, Via Natural or Artificial Opening Endoscopic (ICD-10-PCS; CPT 43235; principal; 2024-06-20 14:10)
DX: E66.9 Obesity, unspecified (principal); Z87.19 Personal history of other diseases of the digestive system; K29.50 Unspecified chronic gastritis without bleeding; Z98.890 Other specified postprocedural states; Z88.8 Allergy status to other drugs, medicaments and biological substances
CPT/HCPCS: 43235; J2003; J2704

== ENCOUNTER → 2024-06-20 12:30 | Outpatient (BNV) | payer MEDICARE, SELFPAY | PROVIDERS: PCP Internal Medicine; Visit Provider Surgery | DX: K44.9 Diaphragmatic hernia without obstruction or gangrene (principal) | CPT/HCPCS: 43235 ==

== ENCOUNTER 2024-06-30 10:34 | Outpatient (AMB) | payer MEDICARE, SELFPAY ==
--- NOTE | 2024-06-30 10:41 | A.OFFPC_ITS ---
Vital Signs 06/30/24 10:44 Height 5 ft 4 in Weight 129 lb BMI 22.1 BP 100/68 Blood Pressure Location Rt brachial Position Sitting Respiration 16 Pulse 80 Pulse Source Pulse Oximeter Temp 98.1 F Temp Source Oral Pulse Oximetry (%) 100 Oxygen Delivery Method Room Air Intake Visit Reasons: 2 week follow up Intake Note: Pt is here today for her 2weeks f/u Allergies nitrofurantoin [From MACROBID] Allergy (Severe, Verified 06/30/24 10:42) ANAPHYLAXIS Koxjmaf-LNI-WoT Reductase Inhibitor [MCQZIZX-DFQ-UUG REDUCTASE INHIBITOR] Allergy (Intermediate, Verified 06/30/24 10:42) MUSCLE ACHES atorvastatin [Lipitor] Adverse Reaction (Unknown, Verified 06/30/24 10:42) muscle cramping Medication List - Last Reconciled 06/30/24 by Angela Deal MD allopurinol 100 mg PO BID PRN ascorbic acid (vitamin C) (Vitamin C) 500 mg PO DAILY ergocalciferol (vitamin D2) 100 mcg PO DAILY levothyroxine 25 mcg PO DAILY@0600 [Mecobalamin [place] 1,000 mcg PO DAILY] mirtazapine 7.5 mg PO BEDTIME omeprazole 10 mg PO DAILY Tobacco use date assessed: 06/30/24 Fall risk assessment: No Falls in past year Last assessed Fall Risk: 06/30/24 Dental Screening Dental Screen Date: 06/30/24 Did you have a dental visit in the last 12 months?: Yes Did you have a dental problem in the last 6 months where you did not have access to dental care?: No Was dental information given to patient?: Patient has dentist HPI 2 week follow up HPI Details Pt presents for f/u. Pt had a repeat EGD after having liquid diet which was normal on 06/20 Pt started eating soft solid diet as recommended by the surgeon and is starting to feel abdominal fullness for the last few days. Patient reports having bowel movements mainly soft but occasionally hard stool. She reports intermittent heartburn but no vomiting fever chills hematochezia melena. Patient has been taking 10 mg of omeprazole. Anxiety improved and patient did not take mirtazapine. [facility] Medical History Superficial phlebitis Pre-op exam ROCA (dyspnea on exertion) Elevated LFTs Thyroid nodule Hx of screening mammography Annual physical exam Hypothyroidism Primary osteoarthritis of both knees Raynaud's syndrome Surgical History S/P laparoscopic hernia repair History of lobectomy of thyroid Hx of ultrasound guided needle biopsy S/P foot surgery, right H/O esophagogastroduodenoscopy H/O colonoscopy Family History Mother No problems noted. Social History Household Members: None Housing: Other Housing Other:: mobile home Are you a primary patient centered care specialist to a significant other at home: No Do you presently have visiting nurse or other home services: No Alcohol intake: current Alcohol intake frequency: does not drink Patient Tobacco Use Status: Former Tobacco user Tobacco use type: Cigarette e-Cigarette/Vaping Use: Never Used service: No Current occupational status: retired Cognitive needs: No Hearing needs: Yes Vision needs: Yes Questionnaire Thrive Questionnaire Date Thrive assessed: 06/13/24 I am a: Patient What is your living situation today?: I have a steady place to live Within the past 12 months, did the food you bought not last and you didn't have the money to get more?: Sometimes True Within the past 12 months, did you worry whether your food would run out before you got money to buy more?: Never true Do you have trouble paying for medicines?: No Do you have trouble getting transportation to medical appointments?: No Do you have trouble paying your heating and electricity bill?: No Do you have trouble taking care of your child, family member or friend?: No Do you have trouble with day-to-day activities such as bathing, preparing meals, shopping, managing finances, etc.?: No Are you currently unemployed and looking for a job?: No Are you interested in more education?: No Please select the resources that you would like help with: None Currently or been in a relationship where the following occur: No concerns reported THRIVE Score: 1 NAOMI-7 AMB Questionnaire NAOMI-7 Date NAOMI - 7 assessed: 06/16/24 Source: Developed by Drs. Kirt Najera, Cici B.James Rodrigez and colleagues, with an educational amish from [employer]. Review of Systems Const All systems reviewed & are unremarkable except as noted in HPI and below Eyes Reports no additional complaints ENT Reports no additional complaints Card Reports no additional complaints Resp Reports no additional complaints GI Reports no additional complaints Reports no additional complaints Physical exam (Primary Care) Vital Signs: Last Vital Signs Temp 98.1 F 06/30/24 10:44 Pulse 80 06/30/24 10:44 Resp 16 06/30/24 10:44 BP 100/68 06/30/24 10:44 Pulse Ox 100 06/30/24 10:44 Oxygen Delivery Method Room Air 06/30/24 10:44 BMI result Body Mass Index 22.1 Tobacco/Smoking Status: Tobacco use Status Tobacco use date assessed 06/30/24 06/30/24 10:49 Patient Tobacco Use Status Former Tobacco user 06/30/24 10:49 Tobacco use type Cigarette 06/30/24 10:49 e-Cigarette/Vaping Use Never Used 06/30/24 10:49 Thrive Assessment: Date of Thrive Assessment Date Thrive assessed 06/13/24 06/30/24 10:49 Currently or been in a relationship where the following occur: No concerns reported Const General: no acute distress HENMT Head: Yes normal to inspection Throat: Yes posterior oropharynx normal Resp Effort & Inspection: normal respiratory effort Auscultation: clear to auscultation bilaterally Cardio Rhythm: regular rhythm Heart sounds: S1 normal heart sound present and S2 normal heart sound present GI Inspection: Yes normal to inspection Palpation (GI): Soft to palpation Percussion: Yes normal to percussion Auscultation: normal bowel sounds Coding Level of Care Code Est Pt Level 4 (60564) Diagnoses Vitamin D deficiency E55.9 Hypothyroidism E03.9 GERD (gastroesophageal reflux disease) K21.9 S/P laparoscopic hernia repair Z98.890; Z87.19 Assessment & Plan Assessment & Plan (1) Vitamin D deficiency: Code(s): E55.9 - Vitamin D deficiency, unspecified Category: Medical Plan: Check vitamin-D level continue supplement (2) Hypothyroidism: Comment: s/p partial thyroidectomy Code(s): E03.9 - Hypothyroidism, unspecified Category: Medical Plan: Continue levothyroxine check TSH level (3) GERD (gastroesophageal reflux disease): Comment: EGD 2019, H. pylori txd Code(s): K21.9 - Gastro-esophageal reflux disease without esophagitis Category: Medical Plan: Patient was advised to increase omeprazole to twice a day (4) S/P laparoscopic hernia repair: Comment: 12/14/2023 [facility] Code(s): Z98.890 - Other specified postprocedural states; Z87.19 - Personal history of other diseases of the digestive system Category: Surgical Plan: Follow-up with the surgeon Orders: Orders IRON PROFILE Today E03.9 - Hypothyroidism, unspecified, E55.9 - Vitamin D deficiency, unspecified Vitamin D 25-OH Total Today E03.9 - Hypothyroidism, unspecified, E55.9 - Vitamin D deficiency, unspecified TSH reflex Free T4 Today E03.9 - Hypothyroidism, unspecified, E55.9 - Vitamin D deficiency, unspecified
[2024-06-30 10:44] VITALS: BP 100/68; PULSE 80; RESP 16; TEMP 36.7; O2SAT 100; BMI 22.1
--- OUTSIDE RECORDS SUMMARY | 2024-06-30 11:24 | XMS_ITS | Continuity of Care Document ---
Author Organization [facility] Address [address] [place] [address] Phone Care Team Providers Care Price Accuracy Supervisor Name Role Phone [place] ROBLES, GRISELDA, Kirt [...] Mins- [place] & [place] [facility], [address], [place], [id number], [place] tel:[phone] R - [place] Varicose veins of bilateral lower extremities with other complicationsPa in in right legPain in left legRestless legs syndromeEssenti al (primary) hypertensionCra mp and spasmLocalized edema 4 Phoenix ROBLES, GRISELDA, TYRELL Moralez. [address], [address], [place], [place], [id number] , [place]. tel:[phone] Referring Provider: Angela Deal MD S, [address], [place], [address]. tel:[phone] [facility], [address], [place], [id number], [place] tel:[phone] CVR - [place] Varicose veins of bilateral lower extremities with pain 4 [place] ROBLES, RVT, RPVI Kirt. [address], [address], [place], [place], [id number] , [place]. tel:[phone] Referring Provider: Angela Deal MD S, [address], [place], [address]. tel:[phone] Family History Family Member Type Diagnosis Age At Onset No Information Payers Payer name Insurance type Covered democrat ID Authoriza tion(s) Medicare MICHELL SPRAGUE [id number] [facility] AARP Supplement CI [id number] Social History Type Description Quantity Date [...]
--- OUTSIDE RECORDS SUMMARY | 2024-06-30 11:24 | XMS_ITS | Data Portability ---
Author Organization [facility] [place] Address [address] [place] [address] Care Team Providers Care Patient Access Specialist Name Role Phone ANDRE SNYDER Primary Care [...] in 4 weeks for another wound check. [email or web address] Not available 08/05/2023 11:39:38 09/09/2023 09/09/2023 Overall, [...] foot, 3 or more view 2023 024 [place] [address] [facility], [address], [place], [address], 13:53:06 XR, foot, 3 or more view 2023 024 [place] [address] [facility], [address], [place], [address], 4 20:15:48 Medication Orders Santyl 250 unit/gram topical ointment 2023 024 [email or web address] [id number], [address] [place], [address], 11:33:19 Patient TargetsNo targets recorded. Patient Instructions Encounter Date Encounter Id Patient Instructions Last Modified By Organization Details Last Modified Time 06/10/2023 [id number] 3 views of the left foot obtained weightbearing demonstrate a first MTP fusion as well as PIP arthroplasties of the second, third, fourth, and fifth toes. There is second and third metatarsal osteotomies. Alignment of her forefoot is excellent. [email or web address] Not available 06/10/2023 09:33:04 07/08/2023 [id number] 3 views of the left foot obtained weightbearing demonstrate a first MTP fusion as well as PIP arthroplasties of the second, third, fourth, and fifth toes. There is second and third metatarsal osteotomies. Alignment of her forefoot is excellent. [email or web address] Not available 07/08/2023 07:56:02 08/05/2023 85167 3 views of the left foot obtained weightbearing demonstrate a first MTP fusion as well as PIP arthroplasties of the second, third, fourth, and fifth toes. There is second and third metatarsal osteotomies. Alignment of her forefoot is excellent. [email or web address] Not available 08/05/2023 09:10:00 09/09/2023 63462 3 views of the left foot obtained weightbearing demonstrate a first MTP fusion as well as PIP arthroplasties of the second, third, fourth, and fifth toes. There is second and third metatarsal osteotomies. Alignment of her forefoot is excellent. [email or web address] Not available 09/09/2023 08:14:20 12/09/2023 78648 3 views of the left foot obtained [...] Recorded Time Metatarsalg ia of left foot 7938208246749 06 Active 2022 OLGA WEI PA-C [address], [place], [address], [place] [facility] 3 11:59:54 Hammer toe 804142553 Active 2022 OLGA WEI PA-C [address], [place], [address], [place] [facility] 3 12:00:22 Hammer toe 274037203 Active 2022 OLGA WEI PA-C [address], [place], [address], [place] [facility] 3 12:00:29 Acquired left hallux rigidus 1504156571839 05 Active 2022 Zulema Almonte MD [address], [place], [address], [facility], P 3 16:04:28 Postoperati ve wound infection 23592815 Active 2023 Zulema Almonte MD [address], [place], [address], [facility], P 4 13:16:07 Problem Notes None recorded. Procedures Surgical History Date Name Laterality Status Provider Name and Address Organization Details Recorded Time procedure on foot completed Merrick Avila [facility] 07/08/2023 11:21:54 Imaging Results None recorded. Procedure Notes None recorded. Medical Equipment None Reported. Allergies Allergen ID Allergen Name Allergen Category Reaction Reaction Severity Criticality Documentation Date Start Date Code Code System Note Provider Name and Address Organization Details Recorded Time 8157 Macrobid medicatio n Not available Not available Not available 12/03/2022 08218 1 RxNorm Isabel baer, [facility], P 3 11:53:33 8158 Product containin g 3-hydroxy -3-methyl glutaryl- coenzyme A reductase inhibitor (product) medicatio n Not available Not available Not available 12/03/2022 22022 009 [facility] 11:53:37 Medications Name Sig Start [...] Updated DateTime 06/10/2023 167.64 cm 28.2 kg/m2 36721.[address] [facility] 06/10/2023 12:59:32 Date Recorded Body height Body mass index (BMI) Body weight Provider Name and Address Organization Details Last Updated DateTime 07/08/2023 167.64 cm 28.2 kg/m2 74512.[address] [place] [facility] 07/08/2023 11:19:03 Date Recorded Body height Body mass index (BMI) Body weight Provider Name and Address Organization Details Last Updated DateTime 08/05/2023 167.64 cm 28.2 kg/m2 53429.66 g Merrick Austin [facility] 08/05/2023 11:31:57 Date Recorded Body height Body mass index (BMI) Body weight Provider Name and Address Organization Details Last Updated DateTime 09/09/2023 167.64 cm 28.2 kg/m2 26831.66 g Merrick Wheat [facility] 09/09/2023 11:25:04 Date Recorded Body height Body mass index (BMI) Body weight Provider Name and Address Organization Details Last Updated DateTime 12/09/2023 167.64 cm 28.2 kg/m2 64006.66 g Merrick Austin [facility] 12/09/2023 11:12:53 Social History Question Answer Notes LastModified by Organizat ion Details LastModified Time Tobacco Smoking Status Former Smoker Merrick Avila null, [place] [facility] 12/17/2022 12:05:24 What Is Your Level [...] SNOMED-CT Code Diagnosis ICD10 Code Diagnosis Note [id number] MD KAMALJIT Castaneda [facility] [address] [place], [place] [address] 12/03/2022 11:41:10 12/03/2022 13:18:25 Pain in left foot 9801322680 27077 M79.672 Metatarsal ed[place] of left foot 4121854258 69098 M77.42 Hammer toe 367742975 M20 .42 [id number] MD KAMALJIT Castaneda [place] [address] 12/17/2022 11:35:43 12/17/2022 12:18:59 Metatarsalgia of left foot 4799544720 91523 M77.42 Hammer toe 636610730 M20 .42 [id number] MD KAMALJIT Castaneda [place] [address] 01/07/2023 12:46:19 01/07/2023 13:17:32 Metatarsalgia of left foot 6662101715 01865 M77.42 Hammer toe 642411132 M20 .42 [id number] MD KAMALJIT Castaneda [place] [id number] 02/25/2023 11:34:58 02/25/2023 12:03:50 Metatarsalgia of left foot 3243798384 08601 M77.42 Hammer toe 141159185 M20 .42 Acquired l eft hallux rigidus 4935519849 43939 M20.22 [id number] MD KAMALJIT Castaneda [address] [address] 04/01/2023 12:53:30 04/01/2023 14:00:12 Metatarsalgia of left foot 3159256892 57202 M77.42 Hammer toe 571593921 M20 .42 Acquired l eft hallux rigidus 1512591239 22694 M20.22 [id number] MD KAMALJIT Castaneda [place] [id number] 04/29/2023 12:47:41 04/29/2023 13:41:06 Metatarsalgia of left foot 9044734752 70772 M77.42 Hammer toe 380494052 M20 .42 Acquired l eft hallux rigidus 1746005865 64149 M20.22 [id number] Zulema Almonte MD [place] [address] 06/10/2023 12:52:47 06/10/2023 13:19:16 Metatarsalgia of left foot 1136219596 40460 M77.42 Hammer toe 323881343 M20 .42 Acquired l eft hallux rigidus 1030925680 66582 M20.22 Postoperat bekah wound infection 16692076 T81.49XA [id number] Zulema Almonte MD [place] [address] 07/08/2023 11:17:45 07/08/2023 11:33:43 Metatarsalgia of left foot 5985387916 99047 M77.42 Hammer toe 608060419 M20 .42 Acquired l eft hallux rigidus 5892770995 26428 M20.22 Postoperat bekah wound infection 82719787 T81.49XA 61438 Zulema Almonte MD [place] [address] 08/05/2023 11:18:12 08/05/2023 11:39:37 Metatarsalgia of left foot 8055883508 74924 M77.42 Hammer toe 333695458 M20 .42 Acquired l eft hallux rigidus 3849222089 72366 M20.22 Postoperat bekah wound infection 45584935 T81.49XA [id number] Zulema Almonte MD [place] [address] 09/09/2023 11:22:08 09/09/2023 12:04:59 Metatarsalgia of left foot 0038168383 26702 M77.42 Hammer toe 412807917 M20 .42 Acquired l eft hallux rigidus 9383877907 86026 M20.22 Postoperat bekah wound infection 82390939 T81.49XA [id number] MD KAMALJIT Castaneda [place] [address] [place] [address] 12/09/2023 11:10:32 12/09/2023 11:29:02 Metatarsalgia of left foot 1633363624 28905 M77.42 Hammer toe 595128891 M20 .42 Acquired l eft hallux rigidus 8540009194 47553 M20.22 Postoperat bekah wound infection 34791952 T81.49XA Health Concerns Section Related Observation LastModified by Organization Detai ls LastModified Time None Recorded Concern Status LastModified by Organization Details LastModified Time None Recorded Advance Directives Directive None Recorded Payers Encounter Date Sequence Insurance Name Policy Number Policy [place] Covered Member ID [place] Member ID Guarantor Name 06/10/2023 1 [place]: NATIONAL [employer]MENT [employer] Magaly Robbins Ashley [id number] Magaly Fisheregrini 06/10/2023 2 [employer] - OPTIONS Magaly Fisheregrini [id number] Magaly Fisheregrini 07/08/2023 1 [place] [employer]MENT [employer] Magaly Robbins Ashley [id number] Magaly Fisheregrini 07/08/2023 2 [employer] - OPTIONS Magaly Fisehregrini [id number] Magaly Fisheregrini 08/05/2023 2 [employer] - OPTIONS Magaly Fisheregrini [id number] Magaly Fisheregrini 08/05/2023 1 MEDICARE [place]: N[place] Mala Ashley [id number] Magaly Fisheregrini 09/09/2023 2 [employer] - OPTIONS Magaly Fisheregrini [id number] Magaly Fisheregrini 09/09/2023 1 MEDICARE B-[place]: NGS Mala Ashley [id number] Magaly Ashley 12/09/2023 2 [employer] - OPTIONS Magaly Fisheregrini [id number] Magaly Ashley 12/09/2023 1 MEDICARE B-[place]: NGS Mala Ashley [id number] Magaly Ashley Notes Date Note Type Note [...] [place] and then got out to [...] Zulema Almonte MD [address], [place], [address], [place] [facility] 06/13/2023 15:57:15 07/08/2023 text/html Date of [...] Overall, she is improving. From 06/10/23 (MCLAREN FLINT): who presents today for follow-up evaluation regarding [...] her left dorsal midfoot. From 04/29/23 (MCLAREN FLINT): for follow-up evaluation now approximately 6 weeks [...] [place] and then got out to [...] Zulema Almonte MD [address], [place], [address], [place] [facility] 07/08/2023 13:03:36 08/05/2023 text/html Date of [...] Advil with moderate improvement. From 01/07/23 (MCLAREN FLINT): for follow-up evaluation regarding her left foot. [...] takes Advil as needed. From 12/17/22 (MCLAREN FLINT): for follow-up evaluation regarding her left foot. She reports that she [place] and then got out to [...] ZITA LEOS PA-C [address], [place], [address], [place] [facility] 08/05/2023 11:39:51 09/09/2023 text/html Date of [...] Advil with moderate improvement. From 01/07/23 (MCLAREN FLINT): for follow-up evaluation regarding her left foot. [...] takes Advil as needed. From 12/17/22 (MCLAREN FLINT): for follow-up evaluation regarding her left foot. She reports that she [place] and then got out to [...] Zulema Almonte MD [address], [place], [address], [place] [facility] 09/09/2023 13:35:08 12/09/2023 text/html Date of [...] Advil with moderate improvement. From 01/07/23 (MCLAREN FLINT): for follow-up evaluation regarding her left foot. [...] takes Advil as needed. From 12/17/22 (MCLAREN FLINT): for follow-up evaluation regarding her left foot. She reports that she [place] and then got out to [...] Zulema Almonte MD [address], [place], [address], [place] [facility] 12/11/2023 18:57:46 OBGyn Episode No OBEpisode recorded.
--- OUTSIDE RECORDS SUMMARY | 2024-06-30 11:24 | XMS_ITS | Clinical Summary ---
Author Organization [facility] Address [address] [place] [address] Phone Care Team Providers Care Nba Player Name Role Phone Angela Deal MD Primary Care Provider [phone] Allergies Active Allergy Reactions Criticality Noted Date [...] - 05/31/2024 11:59 PM EDT Hospital Encounter [address] [address] Kindra Marie MD Discharge Disposition: Home or Self Care 05/31/2024 1:45 PM EDT Office Visit [facility] [address] [place] [address] Kindra Marie MD Trochanteric bursitis of right hip (Primary Dx); Right hip pain; 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 Not on ima e 07/18/2022 Are you concerned about learning? [...] Ramirez, Magaly Personal/Family Self 1950 [address] [facility] [address]Jag Ramirez, Magaly Personal/Family Self 1950 [address] [facility] [facility], [place] [address]Jag Ramirez, Magaly Personal/Family Self 1950 [facility] [place] [address] Care Teams Nba Player Relationship Specialty Start Date End Date Angela Deal MD [address] [place] [address] PCP - General Internal Medicine 01/28/21 Additional Source Comments The information contained in this document represents components of the legal health record. It is not the complete legal health record.[facility]
== END 2024-06-30 11:39 | disposition home or self-care (01) ==
LOC: HO.HMCC 10:35
PROVIDERS: PCP Internal Medicine; Visit Provider Internal Medicine
DX: E55.9 Vitamin D deficiency, unspecified (principal); E03.9 Hypothyroidism, unspecified; K21.9 Gastro-esophageal reflux disease without esophagitis; Z98.890 Other specified postprocedural states; Z87.19 Personal history of other diseases of the digestive system

== ENCOUNTER 2024-06-30 10:34 | Outpatient (REF) | payer MEDICARE, SELFPAY ==
--- OUTSIDE RECORDS SUMMARY | 2024-06-30 12:19 | XMS_ITS | Continuity of Care Document ---
Author Organization [facility] Address [address] [place] [address] Phone Care Team Providers Care Union Steward Name Role Phone [place] ROBLES, GRISELDA, Kirt [...] Mins- [place] & [place] [facility], [address], [place], [id number], [place] tel:[phone] R - [place] Varicose veins of bilateral lower extremities with other complicationsPa in in right legPain in left legRestless legs syndromeEssenti al (primary) hypertensionCra mp and spasmLocalized edema 4 [place] RBOLES, GRISELDA, TYRELL Moralez. [address], [address], [place], [place], [id number] , [place]. tel:[phone] Referring Provider: Angela Deal MD S, [address], [place], [address]. tel:[phone] [facility], [address] [facility] [address] [address], [place], [id number], [place] tel:[phone] CVR - [place] Varicose veins of bilateral lower extremities with pain 4 [place] ROBLES, RVT, RPVI Kirt. [address], [address], [place], [place], [id number] , [place]. tel:[phone] Referring Provider: Angela Deal MD S, [address], [place], [address]. tel:[phone] Family History Family Member Type Diagnosis Age At Onset No Information Payers Payer name Insurance type Covered democrat ID Authoriza tion(s) Medicare MICHELL SPRAGUE [id number] [facility] AARP Supplement CI [id number] Social History Type Description Quantity Date [...]
--- OUTSIDE RECORDS SUMMARY | 2024-06-30 12:19 | XMS_ITS | Clinical Summary ---
Author Organization [facility] Address [address] [facility] [address] [place] [id number] Phone Care Team Providers Care Farm Machinery Engine Mechanic Name Role Phone Angela Deal MD Primary Care Provider [phone] Allergies Active Allergy Reactions Criticality Noted Date [...] 05/31/2024 11:59 PM EDT Hospital Encounter [address] [address] Kindra Marie MD Discharge Disposition: Home or Self Care 05/31/2024 1:45 PM EDT Office Visit [facility] [address] [place] [id number] Kindra Marie MD Trochanteric bursitis of right hip (Primary Dx); Right hip pain; Degeneration of intervertebral disc of lumbar region with discogenic back pain and lower extremity pain; Lumbar radiculopathy, chronic 04/17/2024 Transcribe Orders Virtual Department [address] [place] [id number] Hesham Jordan MD Other specified symptoms and [...] Ramirez, Magaly Personal/Family Self 1950 [address] [facility] [place], [place] [address]Jag Ramirez, Magaly Personal/Family Self 1950 [address] [facility] [place], [place] [address]Jag Ramirez, Magaly Personal/Family Self [address] [place] [address] Care Teams Farm Machinery Engine Mechanic Relationship Specialty Start Date End Date Angela Deal MD [address] [place] [address] PCP - General Internal Medicine 01/28/21 Additional Source Comments The information contained in this document represents components of the legal health record. It is not the complete legal health record.[facility]
[2024-06-30 14:00] LABS: Iron 58 mcg/dL (30-160); Percent Iron Saturation 30 % (15-50); Total Iron Binding Capacity 194 mcg/dL (228-428); Unsaturated Iron Binding 136 ug/dL
[2024-06-30 14:08] LABS: TSH reflex Free T4 2.38 uIU/mL (0.32-4.0); Vitamin D 25-OH Total 81.5 ng/mL (>30)
== END 2024-06-30 10:35 | disposition home or self-care (01) ==
LOC: HO.HMGCLDS 10:34
PROVIDERS: PCP Internal Medicine; Visit Provider Internal Medicine
DX: E55.9 Vitamin D deficiency, unspecified (principal); K21.9 Gastro-esophageal reflux disease without esophagitis; E89.0 Postprocedural hypothyroidism; Z87.19 Personal history of other diseases of the digestive system; Z79.899 Other long term (current) drug therapy
CPT/HCPCS: 36415; 82306; 83540; 84443; 99212

== ENCOUNTER 2024-08-03 07:52 | Day surgery (SDC) | payer MEDICARE, SELFPAY ==
--- OUTSIDE RECORDS SUMMARY | 2024-06-22 10:17 | XMS_ITS | Data Portability ---
Author Organization [place] [facility] [place] Address [address] [place] [address] Care Team Providers Care Wardrobe Stylist Name Role Phone ANDRE SNYDER Primary Care [...] in 4 weeks for another wound check. [email or web address] Not available 08/05/2023 11:39:38 09/09/2023 09/09/2023 Overall, [...] foot, 3 or more view 2023 024 [place] [address] [facility], [address], [place], [address], 13:53:06 XR, foot, 3 or more view 2023 024 [place] [address] [facility], [address], [place], [address], 4 20:15:48 Medication Orders Santyl 250 unit/gram topical ointment 2023 024 [email or web address] [id number], [address] [place], [address], 11:33:19 Patient TargetsNo targets recorded. Patient Instructions Encounter Date Encounter Id Patient Instructions Last Modified By Organization Details Last Modified Time 06/10/2023 [id number] views of the left foot obtained weightbearing demonstrate a first MTP fusion as well as PIP arthroplasties of the second, third, fourth, and fifth toes. There is second and third metatarsal osteotomies. Alignment of her forefoot is excellent. [email or web address] Not available 06/10/2023 09:33:04 07/08/2023 [id number] 3 views of the left foot obtained weightbearing demonstrate a first MTP fusion as well as PIP arthroplasties of the second, third, fourth, and fifth toes. There is second and third metatarsal osteotomies. Alignment of her forefoot is excellent. [email or web address] Not available 07/08/2023 07:56:02 08/05/2023 19992 3 views of the left foot obtained weightbearing demonstrate a first MTP fusion as well as PIP arthroplasties of the second, third, fourth, and fifth toes. There is second and third metatarsal osteotomies. Alignment of her forefoot is excellent. Not available 08/05/2023 09:10:00 09/09/2023 19033 3 views of the left foot obtained weightbearing demonstrate a first MTP fusion as well as PIP arthroplasties of the second, third, fourth, and fifth toes. There is second and third metatarsal osteotomies. Alignment of her forefoot is excellent. [email or web address] Not available 09/09/2023 08:14:20 12/09/2023 85546 3 views of the left foot obtained [...] Recorded Time Metatarsalg ia of left foot 8984843105368 06 Active 2022 OLGA WEI PA-C [address], [place], [address], [place] [facility] 3 11:59:54 Hammer toe 235546538 Active 2022 OLGA WEI PA-C [address], [place], [address], [place] [facility] 3 12:00:22 Hammer toe 532652596 Active 2022 OLGA WEI PA-C [address], [place], [address], [place] [facility] 3 12:00:29 Acquired left hallux rigidus 5594998817194 05 Active 2022 Zulema Almonte MD [address], [place], [address], [facility], [facility] 3 16:04:28 Postoperati ve wound infection 18927628 Active 2023 Zulema Almonte MD [address], [place], [address], [facility], P 4 13:16:07 Problem Notes None recorded. Procedures Surgical History Date Name Laterality Status Provider Name and Address Organization Details Recorded Time procedure on foot completed Merrick Avila [facility] 07/08/2023 11:21:54 Imaging Results None recorded. Procedure Notes None recorded. Medical Equipment None Reported. Allergies Allergen ID Allergen Name Allergen Category Reaction Reaction Severity Criticality Documentation Date Start Date Code Code System Note Provider Name and Address Organization Details Recorded Time 8157 Macrobid medicatio n Not available Not available Not available 12/03/2022 44182 1 RxNorm Isabel baer, [facility], [facility] 3 11:53:33 8158 Product containin g 3-hydroxy -3-methyl glutaryl- coenzyme A reductase inhibitor (product) medicatio n Not available Not available Not available 12/03/2022 09589 00[facility] 11:53:37 Medications Name Sig Start [...] Updated DateTime 06/10/2023 167.64 cm 28.2 kg/m2 92378.[address] [facility] 06/10/2023 12:59:32 Date Recorded Body height Body mass index (BMI) Body weight Provider Name and Address Organization Details Last Updated DateTime 07/08/2023 167.64 cm 28.2 kg/m2 [address]958.[address] [place] [facility] 07/08/2023 11:19:03 Date Recorded Body height Body mass index (BMI) Body weight Provider Name and Address Organization Details Last Updated DateTime 08/05/2023 167.64 cm 28.2 kg/m2 25775.66 g Merrick Austin [facility] 08/05/2023 11:31:57 Date Recorded Body height Body mass index (BMI) Body weight Provider Name and Address Organization Details Last Updated DateTime 09/09/2023 167.64 cm 28.2 kg/m2 54114.66 g Merrick Wheat [facility] 09/09/2023 11:25:04 Date Recorded Body height Body mass index (BMI) Body weight Provider Name and Address Organization Details Last Updated DateTime 12/09/2023 167.64 cm 28.2 kg/m2 89743.66 g Merrick Austin [facility] 12/09/2023 11:12:53 Social History Question Answer Notes LastModified by Organizat ion Details LastModified Time Tobacco Smoking Status Former Smoker Merrick Avila null, [place] [facility] 12/17/2022 12:05:24 What Is Your Level [...] SNOMED-CT Code Diagnosis ICD10 Code Diagnosis Note [id number] MD KAMALJIT Castaneda [facility] [address] [place], [place] [address] 12/03/2022 11:41:10 12/03/2022 13:18:25 Pain in left foot 0584830025 73925 M79.672 Metatarsal [place] of left foot 4734895450 03950 M77.42 Hammer toe 394474603 M20 .42 [id number] MD KAMALJIT Castaneda [place] [id number] 12/17/2022 11:35:43 12/17/2022 12:18:59 Metatarsalgia of left foot 0713336420 81642 M77.42 Hammer toe 679088607 M20 .42 [id number] MD KAMALJIT Castaneda [place] [id number] 01/07/2023 12:46:19 01/07/2023 13:17:32 Metatarsalgia of left foot 5415717735 42867 M77.42 Hammer toe 486670661 M20 .42 [id number] MD KAMALJIT Castaneda [place] [id number] 02/25/2023 11:34:58 02/25/2023 12:03:50 Metatarsalgia of left foot 0280074934 12753 M77.42 Hammer toe 084963475 M20 .42 Acquired l eft hallux rigidus 0868089666 01786 M20.22 [id number] MD KAMALJIT Castaneda [address] [address] 04/01/2023 12:53:30 04/01/2023 14:00:12 Metatarsalgia of left foot 7384184197 21429 M77.42 Hammer toe 461074135 M20 .42 Acquired l eft hallux rigidus 8175110220 76832 M20.22 [id number] MD KAMALJIT Castaneda [place] [id number] 04/29/2023 12:47:41 04/29/2023 13:41:06 Metatarsalgia of left foot 1541283379 64989 M77.42 Hammer toe 856623260 M20 .42 Acquired l eft hallux rigidus 2293688236 90813 M20.22 [id number] Zulema Almonte MD [place] [address] 06/10/2023 12:52:47 06/10/2023 13:19:16 Metatarsalgia of left foot 6459010097 80563 M77.42 Hammer toe 315457536 M20 .42 Acquired l eft hallux rigidus 1383148968 87737 M20.22 Postoperat bekah wound infection 70447827 T81.49XA [id number] Zulema Almonte MD [place] [address] 07/08/2023 11:17:45 07/08/2023 11:33:43 Metatarsalgia of left foot 6497561904 82984 M77.42 Hammer toe 449590858 M20 .42 Acquired l eft hallux rigidus 7422501891 08301 M20.22 Postoperat bekah wound infection 51261636 T81.49XA [id number] Zulema Almonte MD [place] [address] 08/05/2023 11:18:12 08/05/2023 11:39:37 Metatarsalgia of left foot 6768828100 68691 M77.42 Hammer toe 943815808 M20 .42 Acquired l eft hallux rigidus 2890769353 71972 M20.22 Postoperat bekah wound infection 12202629 T81.49XA [id number] Zulema Almonte MD [place] [address] 09/09/2023 11:22:08 09/09/2023 12:04:59 Metatarsalgia of left foot 4729491393 80588 M77.42 Hammer toe 466628260 M20 .42 Acquired l eft hallux rigidus 8563060546 69166 M20.22 Postoperat bekah wound infection 32601849 T81.49XA [id number] MD KAMALJIT Castaneda [place] [address] [facility] [address] [place] [address] 12/09/2023 11:10:32 12/09/2023 11:29:02 Metatarsalgia of left foot 1901097879 42506 M77.42 Hammer toe 455207300 M20 .42 Acquired l eft hallux rigidus 3152467312 42662 M20.22 Postoperat bekah wound infection 37856393 T81.49XA Health Concerns Section Related Observation LastModified by Organization Detai ls LastModified Time None Recorded Concern Status LastModified by Organization Details LastModified Time None Recorded Advance Directives Directive None Recorded Payers Encounter Date Sequence Insurance Name Policy Number Policy [place] Covered Member ID [place] Member ID Guarantor Name 06/10/2023 1 MEDICARE [place]: [employer] Magaly Robbins Ashley [id number] Magaly Fisheregrini 06/10/2023 2 [employer] - OPTIONS Magaly Fisheregrini [id number] Magaly Fisheregrini 07/08/2023 1 [place]: [employer] Magaly Robbins Ashley [id number] Magaly Fisheregrini 07/08/2023 2 [employer] - OPTIONS Magaly Fisheregrini [id number] Magaly Fisheregrini 08/05/2023 2 [employer] - OPTIONS Magaly Fisheregrini [id number] Magaly Fisheregrini 08/05/2023 1 MEDICARE [place]: [place] Mala Ashley [id number] Magaly Fisheregrini 09/09/2023 2 [employer] - OPTIONS Magaly Fisheregrini [id number] Magaly Fisheregrini 09/09/2023 1 MEDICARE [place]: NGS Mala Ashley [id number] Magaly Ashley 12/09/2023 2 [employer] - OPTIONS Magaly Fisheregrini [id number] Magaly Ashley 12/09/2023 1 MEDICARE [place]: NGS Mala Ashley [id number] Magaly Ashley Notes Date Note Type Note [...] [place] in November and then got out to [...] Zulema Almonte MD [address], [place], [address], [place] [facility] 06/13/2023 15:57:15 07/08/2023 text/html Date of [...] toe. Overall, she is improving. From 06/10/23 ([facility]): who presents today for follow-up evaluation [...] from her left dorsal midfoot. From 04/29/23 ([facility]): for follow-up evaluation now approximately 6 [...] took a [place] the [place] November and then got out to [...] Zulema Almonte MD [address], [place], [address], [place] [facility] 07/08/2023 13:03:36 08/05/2023 text/html Date of [...] takes Advil with moderate improvement. From 01/07/23 ([facility]): for follow-up evaluation regarding her left [...] She takes Advil as needed. From 12/17/22 ([facility]): for follow-up evaluation regarding her left foot. She reports that she took a [place] the [place] in November and then got out to [...] ZITA LEOS PA-C [address], [place], [address], [place] [facility] 08/05/2023 11:39:51 09/09/2023 text/html Date of [...] takes Advil with moderate improvement. From 01/07/23 ([facility]): for follow-up evaluation regarding her left [...] She takes Advil as needed. From 12/17/22 ([facility]): for follow-up evaluation regarding her left foot. She reports that she [place] a [place] November and then got out to [...] Zulema Almonte MD [address], [place], [address], [place] [facility] 09/09/2023 13:35:08 12/09/2023 text/html Date of [...] takes Advil with moderate improvement. From 01/07/23 ([facility]): for follow-up evaluation regarding her left [...] She takes Advil as needed. From 12/17/22 ([facility]): for follow-up evaluation regarding her left foot. She reports that she [place] and then got out to [...] Zulema Almonte MD [address], [place], [address], [place] [facility] 12/11/2023 18:57:46 OBGyn Episode No OBEpisode recorded.
--- OUTSIDE RECORDS SUMMARY | 2024-06-22 10:17 | XMS_ITS | Clinical Summary ---
Author Organization [facility] Address [address] [place] [address] Phone Care Team Providers Care Secretary Of Police Name Role Phone Angela Deal MD Primary Care Provider [phone] Allergies Active Allergy Reactions Criticality Noted Date [...] 05/31/2024 11:59 PM EDT Hospital Encounter [address] [address] Kindra Marie MD Discharge Disposition: Home or Self Care 05/31/2024 1:45 PM EDT Office Visit [facility] [address] [place] [address] Kindra Marie MD Trochanteric bursitis of right hip (Primary Dx); Right hip pain; Degeneration of intervertebral disc of lumbar region with discogenic back pain and lower extremity pain; Lumbar radiculopathy, chronic 04/17/2024 Transcribe Orders Virtual Department [address] [place] [address] Hesham Jordan MD Other specified symptoms and [...] Ramirez, Magaly Personal/Family Self 1950 [address] [facility], [place] [address]Jag Ramirez, Magaly Personal/Family Self 1950 [address] [facility], [place] [address] Ramirez, Magaly Personal/Family Self 1950 [employer] [place] [address] Care Teams Secretary Of Police Relationship Specialty Start Date End Date Angela Deal MD [address] [place] [address] PCP - General Internal Medicine 01/28/21 Additional Source Comments The information contained in this document represents components of the legal health record. It is not the complete legal health record.[facility]
[2024-08-01 11:37] VITALS: BMI 24.9
--- NOTE | 2024-08-01 14:59 | P.CONAN_ITS ---
Documented by User: Vee Ferris NP 08/01/24 15:01 HPI - Anesthesia Eval Consult details Narrative: 73yo F for Upper Endoscopy PMFSH Active Problems Active Problems: All Active Problems Anxiety and depression (Acute) History of repair of hiatal hernia (Acute) Abnormal bowel habits (Acute) Constipation (Acute) S/P laparoscopic hernia repair (Acute) Hiatal hernia (Acute) Varicose veins of right lower extremity with inflammation (Acute) Varicose veins of left lower extremity with inflammation (Acute) Venous insufficiency (chronic) (peripheral) (Acute) Sciatica (Acute) Numbness and tingling of both feet (Acute) Hallux flexus of right foot (Acute) Gout (Acute) Hypothyroidism (Acute) Vitamin B12 deficiency (Acute) Carotid artery bruit (Acute) Left leg swelling (Acute) Vitamin D deficiency (Acute) Hyperlipidemia (Acute) Leg cramps (Acute) GERD (gastroesophageal reflux disease) (Acute) Past Medical History Medical History Superficial phlebitis Pre-op exam ROCA (dyspnea on exertion) Elevated LFTs Thyroid nodule Hx of screening mammography Annual physical exam Hypothyroidism Primary osteoarthritis of both knees Raynaud's syndrome Family History Family History Mother No problems noted. Family history of problems with anesthesia: No Surgical History Surgical History S/P laparoscopic hernia repair History of lobectomy of thyroid Hx of ultrasound guided needle biopsy S/P foot surgery, right H/O esophagogastroduodenoscopy H/O colonoscopy History of Problems with Anesthesia: No Social History Social History Household Members: None Housing: Other Housing Other:: mobile home Are you a primary primary care pediatrician to a significant other at home: No Do you presently have visiting nurse or other home services: No Alcohol intake: current Alcohol intake frequency: does not drink Patient Tobacco Use Status: Former Tobacco user Tobacco use type: Cigarette e-Cigarette/Vaping Use: Never Used Second Hand Smoke Exposure: No Use of substances other than those prescribed or required for medical reasons: No Have you been hit, kicked, punched, or otherwise hurt by someone within the past year? If so, by whom?: No Are you DNR?: No Advance Directives: No Advance Directives Information Provided: Yes Advance Directives on File: No Patient : No : No Poor oral hygiene: No service: No Current occupational status: retired Cognitive needs: No Hearing needs: Yes Vision needs: Yes Meds Allergies Allergy/AdvReac Type Severity Reaction Status Date / Time nitrofurantoin Allergy Severe ANAPHYLAXIS Verified 06/30/24 10:42 [From MACROBID] Sssllka-OEG-AvI Reductase Allergy Intermediate MUSCLE Verified 06/30/24 10:42 Inhibitor ACHES [ZGMUFHJ-BIV-CJA REDUCTASE INHIBITOR] atorvastatin [Lipitor] AdvReac Unknown muscle Verified 06/30/24 10:42 cramping Home Medications ?Medication ?Instructions ?Recorded ?Confirmed ?Last Taken ?Type Mecobalamin [place] 1,000 mcg PO DAILY 12/14/23 06/30/24 11/23/23 History ascorbic acid (vitamin C) 500 mg 500 mg PO DAILY 12/14/23 06/30/24 11/23/23 History tablet (Vitamin C) ergocalciferol (vitamin D2) 200 100 mcg PO DAILY 12/14/23 06/30/24 11/23/23 History mcg/mL (8,000 unit/mL) oral drops allopurinol 100 mg tablet 100 mg PO BID PRN Pain 06/16/24 06/30/24 Unknown H istory Exam Height,Weight and Vital Signs: Height 5 ft 4 in Weight 65.771 kg Narrative Narrative: US carotid duplex BI 2021 IMPRESSION: 1. RIGHT: Minimal, non-hemodynamically significant stenosis of the proximal right internal carotid artery corresponding to a 0-49% stenosis by velocity criteria. 2. LEFT: Minimal, non-hemodynamically significant stenosis of the proximal left internal carotid artery corresponding to a 0-49% stenosis by velocity criteria. Assessment and Plan Assessment Anesthesia Assessment: Chart Reviewed Final Anesthetic Review Family History of Problems with Anesthesia: No History of Problems with Anesthesia: No Documented by User: Venita Ornelas MD 08/03/24 08:56 [facility] Past Medical History Medical History Superficial phlebitis Pre-op exam ROCA (dyspnea on exertion) Elevated LFTs Thyroid nodule Hx of screening mammography Annual physical exam Hypothyroidism Primary osteoarthritis of both knees Raynaud's syndrome Family History Family History Mother No problems noted. Surgical History Surgical History S/P laparoscopic hernia repair History of lobectomy of thyroid Hx of ultrasound guided needle biopsy S/P foot surgery, right H/O esophagogastroduodenoscopy H/O colonoscopy Social History Social History Household Members: None Housing: Other Housing Other:: mobile home Are you a primary primary care pediatrician to a significant other at home: No Do you presently have visiting nurse or other home services: No Alcohol intake: current Alcohol intake frequency: does not drink Patient Tobacco Use Status: Former Tobacco user Tobacco use type: Cigarette e-Cigarette/Vaping Use: Never Used Second Hand Smoke Exposure: No Use of substances other than those prescribed or required for medical reasons: No Have you been hit, kicked, punched, or otherwise hurt by someone within the past year? If so, by whom?: No Are you DNR?: No Advance Directives: No Advance Directives Information Provided: Yes Advance Directives on File: No Patient : No : No Poor oral hygiene: No service: No Current occupational status: retired Cognitive needs: No Hearing needs: Yes Vision needs: Yes Meds Allergies Allergy/AdvReac Type Severity Reaction Status Date / Time nitrofurantoin Allergy Severe ANAPHYLAXIS Verified 06/30/24 10:42 [From MACROBID] Phnzqrg-YSI-HyW Reductase Allergy Intermediate MUSCLE Verified 06/30/24 10:42 Inhibitor ACHES [GIUWCPO-EQL-GJX REDUCTASE INHIBITOR] atorvastatin [Lipitor] AdvReac Unknown muscle Verified 06/30/24 10:42 cramping Home Medications ?Medication ?Instructions ?Recorded ?Confirmed ?Last Taken ?Type Mecobalamin [place] 1,000 mcg PO DAILY 12/14/23 06/30/24 11/23/23 History ascorbic acid (vitamin C) 500 mg 500 mg PO DAILY 12/14/23 06/30/24 11/23/23 History tablet (Vitamin C) ergocalciferol (vitamin D2) 200 100 mcg PO DAILY 12/14/23 06/30/24 11/23/23 History mcg/mL (8,000 unit/mL) oral drops allopurinol 100 mg tablet 100 mg PO BID PRN Pain 06/16/24 06/30/24 Unknown History Exam Airway Mallampati Class: III TM Dist: >3cm Neck ROM: Full Denture: Upper and Lower Loose/Missing/Broken Teeth: Yes Heart: RRR Lungs: CTA Assessment and Plan Assessment Anesthesia Assessment: Anesthesia Plan Discussed Final Anesthetic Review NPO: Yes ASA Class: II Final Preanesthetic Review: Meds/Allgs Chart Reviewed, Consent Obtained/Reviewed and Anes Risks/Benef Reviewed Patient Risk: Low Procedure Risk: Intermediate Anesthetic Plan Anesthetic Plan: MAC: Disposition: Standard PACU
[2024-08-03 08:12] VITALS: BMI 21.6
[2024-08-03 08:17] VITALS: BP 128/60; PULSE 61; RESP 16; TEMP 36.1
[2024-08-03] MEDS: Lactated Ringers 1,000 ML 80 ML IVCONT (08:27)
--- NOTE | 2024-08-03 08:51 | MHC.SHP ---
Pre-Procedural Eval Section A - 24 Hr Update-Section A only Date of Service: 08/03/24 The patient is an INPATIENT: No The patient has been examined within 24 hours of the surgical procedure. The History & Physical has been completed within 30 days and I have reviewed it.: Yes Section B - Complete if H&P > 30 days Chief Complaint: Encounter for surgical aftercare following surgery Details of Present Illness: Assess for gastroparesis Relevant Family History (Specify if Yes): No Relevant Social History: None Present Medications: None Medical History: No relevant PMH History of Previous Operations: No relevant previous surgery Allergies: Allergies Allergy/AdvReac Type Severity Reaction Status Date / Time nitrofurantoin Allergy Severe ANAPHYLAXIS Verified 06/30/24 10:42 [From MACROBID] Aszmjzw-HJC-ScY Reductase Allergy Intermediate MUSCLE Verified 06/30/24 10:42 Inhibitor ACHES [VEJEWNW-MKP-BWL REDUCTASE INHIBITOR] atorvastatin [Lipitor] AdvReac Unknown muscle Verified 06/30/24 10:42 cramping Review of Systems Sugical H&P ROS: Negative: Constitution, Cardiovascular, Respiratory, Neurological, Psychiatric, Hem-Onc, Allergic/Immunologic, Gastrointestinal, Genitourinary, Musculoskeletal, Integumentary, Endocrine and Eyes/Ears/Nose/Throat Exam Surgical H&P Exam: Normal: HEENT, Normal: Heart, Normal: Lungs, Normal: Extremities, Normal: Abdomen, Normal: Skin and Normal: Neurological Plan Diagnosis/Plan: Unchanged (EGD to assess the stomach's anatomy and for a food bezoar. Risks of bleeding and perforation were discussed with the patient and she is in agreement with the plan.) I have reviewed the history and physical and performed a pertinent physical examination on my patient. No changes have occurred unless specified. Time Spent With Patient Time: Total time managing care of this patient today ____ minutes.
--- NOTE | 2024-08-03 08:57 | PM.OP ---
Brief Operative Note Date of Service: 08/03/24 Pre-op diagnosis: S/p diaphragmatic hernia, food bezoar Post-op diagnosis: same (Recurrent food bezoar) Procedure: PROCEDURE DATE: 08/03/2024 PREOPERATIVE DIAGNOSIS: GERD POSTOPERATIVE DIAGNOSIS: ?Same as above. 1) small hiatal hernia PROCEDURE: Esophago-gastroscopy with biopsies Surgeon: ?Harpal Nino M.D.. Ph.D. Roller Shop Supervisor: None ? Anesthesia: IV sedation Estimated blood loss: ?Minimal FINDINGS AND PROCEDURE: ? OPERATIVE INDICATIONS: ?The patient is a 73 year old female known to me who underwent a laparoscopic diaphragmatic hernia in November 2023. She did very well but in April presented with food regurgiation and abdominal discomfort. An endoscopy showed a large amount of retained food in the stomach. The diet was modified on a liquid diet and a follow-up endoscopy a month later showed a completely normal stomach with complete resolution of the food bezoar. The patient was placed back on a solid food plan which she has been tolerating very well. She presents today electively to assess the stomach's status. Risks and complications of the surgery were discussed with the patient in advance particularly the possibility of perforation or bleeding that may require surgical intervention. The patient understood the risks and was in agreement with the plan. ? PROCEDURE: After informed consent was obtained by the patient, the patient was ?transferred to the Operating Room and was placed in the supine position.? After successful induction of IV sedation, a mouth block was inserted and the patient was placed in the left lateral decubitus position. An upper endoscopy was performed next, the oropharynx and esophagus appeared within the normal limits. There was a small 1-2cm diaphragmatic hernia. The z-line was smooth. One biopsy was obtained from the GE junction. The stomach was entered and it appeared to be of normal size. There was no gastritis. There was a recurrent food bezoar but much smaller than previous time. There was no stricture or ulcer. A biopsy was obtained from the antrum. No significant bleeding was noted from any of the biopsy sites. Retroflexion of the scope was not performed due to the food bezoar. The duodenum was also not examined. At that point the stomach were decompressed and the scope was withdrawn from the patient's mouth. The patient extubated and was transferred in stable condition to the Recovery Room for further care. I was present and performed all steps of the procedure. There were no residents to assist with this case. Harpal Nino M.D., Ph.D. Surgeon: Milton Nino MD Anesthesia: MAC Was an Roller Shop Supervisor used for this Procedure?: No Estimated blood loss (mL): 0 IV fluids (mL): 400 Pathology: other (1) Antrum x1, 2) GE junction x1) Condition: stable Disposition: PACU
[2024-08-03 09:20] VITALS: BP 110/49; PULSE 65; RESP 18; TEMP 36.7; O2SAT 100
[2024-08-03 09:25] VITALS: BP 109/56; PULSE 52; RESP 18; O2SAT 100
[2024-08-03 09:30] VITALS: BP 105/53; PULSE 59; RESP 18; O2SAT 100
[2024-08-03 09:35] VITALS: BP 107/53; PULSE 57; RESP 16; O2SAT 98
[2024-08-03 09:42] VITALS: BP 119/52; PULSE 56; RESP 16; TEMP 36.9; O2SAT 96
== END 2024-08-03 10:24 | disposition home or self-care (01) ==
PROVIDERS: PCP Internal Medicine; Visit Provider Surgery
PROC: 0DJ08ZZ Inspection of Upper Intestinal Tract, Via Natural or Artificial Opening Endoscopic (ICD-10-PCS; CPT 43235; principal; 2024-08-03 09:30)
DX: T18.2XXA Foreign body in stomach, initial encounter (principal); W44.F1XA Bezoar entering into or through a natural orifice, initial encounter; Z87.19 Personal history of other diseases of the digestive system; K20.80 Other esophagitis without bleeding; R79.89 Other specified abnormal findings of blood chemistry; I73.00 Raynaud's syndrome without gangrene; I80.9 Phlebitis and thrombophlebitis of unspecified site; R06.09 Other forms of dyspnea; E03.9 Hypothyroidism, unspecified; E04.1 Nontoxic single thyroid nodule; Z79.899 Other long term (current) drug therapy; Z88.8 Allergy status to other drugs, medicaments and biological substances; Z98.890 Other specified postprocedural states; Z87.891 Personal history of nicotine dependence
CPT/HCPCS: 43239; 88305; 88313; 88342; J2003; J2704

== ENCOUNTER → 2024-08-03 07:52 | Outpatient (BNV) | payer MEDICARE, SELFPAY | PROVIDERS: PCP Internal Medicine; Visit Provider Surgery | DX: K21.9 Gastro-esophageal reflux disease without esophagitis (principal); W44.F1XA Bezoar entering into or through a natural orifice, initial encounter | CPT/HCPCS: 43239 ==

== ENCOUNTER 2024-08-30 10:07 | Day surgery (SDC) | payer MEDICARE, SELFPAY ==
--- NOTE | 2024-08-28 12:53 | HO.ANESPROP2 ---
Documented by User: Vee Ferris NP 08/28/24 12:55 HPI - Anesthesia Eval Consult details Narrative: 73yo F for Upper Endoscopy PMFSH Active Problems Active Problems: All Active Problems Gastroparesis (Acute) Anxiety and depression (Acute) History of repair of hiatal hernia (Acute) Abnormal bowel habits (Acute) Constipation (Acute) S/P laparoscopic hernia repair (Acute) Hiatal hernia (Acute) Varicose veins of right lower extremity with inflammation (Acute) Varicose veins of left lower extremity with inflammation (Acute) Venous insufficiency (chronic) (peripheral) (Acute) Sciatica (Acute) Numbness and tingling of both feet (Acute) Hallux flexus of right foot (Acute) Gout (Acute) Hypothyroidism (Acute) Vitamin B12 deficiency (Acute) Carotid artery bruit (Acute) Left leg swelling (Acute) Vitamin D deficiency (Acute) Hyperlipidemia (Acute) Leg cramps (Acute) GERD (gastroesophageal reflux disease) (Acute) Past Medical History Medical History Superficial phlebitis Pre-op exam ROCA (dyspnea on exertion) Elevated LFTs Thyroid nodule Hx of screening mammography Annual physical exam Hypothyroidism Primary osteoarthritis of both knees Raynaud's syndrome Family History Family History Mother No problems noted. Family history of problems with anesthesia: No Surgical History Surgical History S/P laparoscopic hernia repair History of lobectomy of thyroid Hx of ultrasound guided needle biopsy S/P foot surgery, right H/O esophagogastroduodenoscopy H/O colonoscopy History of Problems with Anesthesia: No Social History Social History Household Members: None Housing: Other Housing Other:: mobile home Are you a primary primary care physician to a significant other at home: No Do you presently have visiting nurse or other home services: No Alcohol intake: current Alcohol intake frequency: does not drink Patient Tobacco Use Status: Former Tobacco user Tobacco use type: Cigarette e-Cigarette/Vaping Use: Never Used Second Hand Smoke Exposure: No Use of substances other than those prescribed or required for medical reasons: No Are you DNR?: No Advance Directives: No Advance Directives Information Provided: Yes Patient : No : No Poor oral hygiene: No service: No Current occupational status: retired Cognitive needs: No Hearing needs: Yes Vision needs: Yes Meds Allergies Allergy/AdvReac Type Severity Reaction Status Date / Time nitrofurantoin Allergy Severe ANAPHYLAXIS Verified 06/30/24 10:42 [From MACROBID] Zvuvaad-OQW-ZlN Reductase Allergy Intermediate MUSCLE Verified 06/30/24 10:42 Inhibitor ACHES [TOHEMSD-WEC-OXB REDUCTASE INHIBITOR] atorvastatin [Lipitor] AdvReac Unknown muscle Verified 06/30/24 10:42 cramping Home Medications ?Medication ?Instructions ?Recorded ?Confirmed ?Last Taken ?Type Mecobalamin [place] 1,000 mcg PO DAILY 12/14/23 06/30/24 11/23/23 History ascorbic acid (vitamin C) 500 mg 500 mg PO DAILY 12/14/23 06/30/24 11/23/23 History tablet (Vitamin C) ergocalciferol (vitamin D2) 200 100 mcg PO DAILY 12/14/23 06/30/24 11/23/23 History mcg/mL (8,000 unit/mL) oral drops allopurinol 100 mg tablet 100 mg PO BID PRN Pain 06/16/24 06/30/24 Unknown History Exam Narrative Narrative: US carotid duplex BI 2021 IMPRESSION: 1. RIGHT: Minimal, non-hemodynamically significant stenosis of the proximal right internal carotid artery corresponding to a 0-49% stenosis by velocity criteria. 2. LEFT: Minimal, non-hemodynamically significant stenosis of the proximal left internal carotid artery corresponding to a 0-49% stenosis by velocity criteria. Assessment and Plan Assessment Anesthesia Assessment: Chart Reviewed Final Anesthetic Review Family History of Problems with Anesthesia: No History of Problems with Anesthesia: No Documented by User: Venita Ornelas MD 08/30/24 10:45 PMFSH Past Medical History Medical History Superficial phlebitis Pre-op exam ROCA (dyspnea on exertion) Elevated LFTs Thyroid nodule Hx of screening mammography Annual physical exam Hypothyroidism Primary osteoarthritis of both knees Raynaud's syndrome Family History Family History Mother No problems noted. Surgical History Surgical History S/P laparoscopic hernia repair History of lobectomy of thyroid Hx of ultrasound guided needle biopsy S/P foot surgery, right H/O esophagogastroduodenoscopy H/O colonoscopy Social History Social History Household Members: None Housing: Other Housing Other:: mobile home Are you a primary primary care physician to a significant other at home: No Do you presently have visiting nurse or other home services: No Alcohol intake: current Alcohol intake frequency: does not drink Patient Tobacco Use Status: Former Tobacco user Tobacco use type: Cigarette e-Cigarette/Vaping Use: Never Used Second Hand Smoke Exposure: No Use of substances other than those prescribed or required for medical reasons: No Are you DNR?: No Advance Directives: No Advance Directives Information Provided: Yes Patient : No : No Poor oral hygiene: No service: No Current occupational status: retired Cognitive needs: No Hearing needs: Yes Vision needs: Yes Meds Allergies Allergy/AdvReac Type Severity Reaction Status Date / Time nitrofurantoin Allergy Severe ANAPHYLAXIS Verified 06/30/24 10:42 [From MACROBID] Ltuophk-KYU-WbO Reductase Allergy Intermediate MUSCLE Verified 06/30/24 10:42 Inhibitor ACHES [ZATQFHP-KCI-RCH REDUCTASE INHIBITOR] atorvastatin [Lipitor] AdvReac Unknown muscle Verified 06/30/24 10:42 cramping Home Medications ?Medication ?Instructions ?Recorded ?Confirmed ?Last Taken ?Type Mecobalamin [place] 1,000 mcg PO DAILY 12/14/23 06/30/24 11/23/23 History ascorbic acid (vitamin C) 500 mg 500 mg PO DAILY 12/14/23 06/30/24 11/23/23 History tablet (Vitamin C) ergocalciferol (vitamin D2) 200 100 mcg PO DAILY 12/14/23 06/30/24 11/23/23 History mcg/mL (8,000 unit/mL) oral drops allopurinol 100 mg tablet 100 mg PO BID PRN Pain 06/16/24 06/30/24 Unknown History Exam Airway Mallampati Class: II TM Dist: >3cm Neck ROM: Full Loose/Missing/Broken Teeth: No Heart: RRR Lungs: CTA Assessment and Plan Assessment Anesthesia Assessment: Anesthesia Plan Discussed Final Anesthetic Review NPO: Yes ASA Class: III Final Preanesthetic Review: Meds/Allgs Chart Reviewed, Consent Obtained/Reviewed and Anes Risks/Benef Reviewed Patient Risk: Intermediate Procedure Risk: Intermediate Anesthetic Plan Anesthetic Plan: MAC: Disposition: Standard PACU
[2024-08-30 10:21] VITALS: BMI 21.2
[2024-08-30 10:27] VITALS: BP 131/69; PULSE 61; RESP 16
--- NOTE | 2024-08-30 10:36 | P.HPSUR_ITS ---
Pre-Procedural Eval Section A - 24 Hr Update-Section A only Date of Service: 08/30/24 The patient is an INPATIENT: No The patient has been examined within 24 hours of the surgical procedure. The History & Physical has been completed within 30 days and I have reviewed it.: No Section B - Complete if H&P > 30 days Chief Complaint: Encounter for surgical aftercare following surgery Details of Present Illness: Food bezoar follow up Relevant Family History (Specify if Yes): No Relevant Social History: None Present Medications: None Medical History: No relevant PMH History of Previous Operations: Relevant previous surgery/procedure and date(s) (Laparoscopic diaphragmatic hernia repair) Allergies: Allergies Allergy/AdvReac Type Severity Reaction Status Date / Time nitrofurantoin Allergy Severe ANAPHYLAXIS Verified 06/30/24 10:42 [From MACROBID] Ufueham-IVD-TaY Reductase Allergy Intermediate MUSCLE Verified 06/30/24 10:42 Inhibitor ACHES [MDFCTPU-XXR-ITK REDUCTASE INHIBITOR] atorvastatin [Lipitor] AdvReac Unknown muscle Verified 06/30/24 10:42 cramping Review of Systems Sugical H&P ROS: Negative: Constitution, Cardiovascular, Respiratory, Neurolo gical, Psychiatric, Hem-Onc, Allergic/Immunologic, Gastrointestinal, Genitourinary, Musculoskeletal, Integumentary, Endocrine and Eyes/Ears/Nose/Throat Exam Surgical H&P Exam: Normal: HEENT, Normal: Heart, Normal: Lungs, Normal: Extremities, Normal: Abdomen, Normal: Skin and Normal: Neurological Plan Diagnosis/Plan: Unchanged (EGD to assess the stomach and follow regarding the food bezoar. Risks of bleeding and perforation were discussed with the patient and she is in agreement with the plan.) I have reviewed the history and physical and performed a pertinent physical examination on my patient. No changes have occurred unless specified. Time Spent With Patient Time: Total time managing care of this patient today ____ minutes.
[2024-08-30 10:39] VITALS: O2SAT 100
--- NOTE | 2024-08-30 10:40 | P.BOP_ITS ---
Brief Operative Note Date of Service: 08/30/24 Pre-op diagnosis: Follow-up for food bezoar Post-op diagnosis: same Procedure: PROCEDURE DATE: 08/30/2024 PREOPERATIVE DIAGNOSIS: GERD POSTOPERATIVE DIAGNOSIS: ?Same as above. 1) small hiatal hernia, 2) resolved food bezoar PROCEDURE: Esophago-gastroscopy with biopsies Surgeon: ?Harpal Nino M.D.. Ph.D. Farm Management Professor: None ? Anesthesia: IV sedation Estimated blood loss: ?Minimal FINDINGS AND PROCEDURE: ? OPERATIVE INDICATIONS: ?The patient is a 73 year old female known to me who underwent a laparoscopic diaphragmatic hernia in November 2023. She did very well but in April presented with food regurgiation and abdominal discomfort. An endoscopy showed a large amount of retained food in the stomach. The diet was modified on a liquid diet and a follow-up endoscopy a month later showed a completely normal stomach with complete resolution of the food bezoar. The patient was placed back on a solid food plan which she has been tolerating very well. A follow-up endoscopy was performed on 08/03/24 which revealed a moderate amount of food contents but the patient was asymptomatic. The diet was modified to alternate between one day on liquids only and one day of a food plan. She remains asymptomatic. She presents today electively to assess the stomach's status. Risks and complications of the surgery were discussed with the patient in advance particularly the possibility of perforation or bleeding that may require surgical intervention. The patient understood the risks and was in agreement with the plan. ? PROCEDURE: After informed consent was obtained by the patient, the patient was ?transferred to the Operating Room and was placed in the supine position.? After successful induction of IV sedation, a mouth block was inserted and the patient was placed in the left lateral decubitus position. An upper endoscopy was performed next, the oropharynx and esophagus appeared within the normal limits. There was a small 1-2cm diaphragmatic hernia. The z- line was smooth. No biopsies were obtained. The stomach was entered and it appeared to be of normal size. There was no gastritis. The previously seen food bezoar has almost completely resolved. There was no stricture or ulcer. Retroflexion of the scope was not performed. The duodenum was also not examined. At that point the stomach were decompressed and the scope was withdrawn from the patient's mouth. The patient extubated and was transferred in stable condition to the Recovery Room for further care. I was present and performed all steps of the procedure. There were no residents to assist with this case. Harpal Nino M.D., Ph.D. Surgeon: Milton Nino MD Anesthesia: MAC Was an Farm Management Professor used for this Procedure?: No Estimated blood loss (mL): 0 IV fluids (mL): 400 Urine output (mL): 0 (No Toro to record output) Pathology: none sent Condition: stable Disposition: PACU
[2024-08-30] MEDS: Lactated Ringers 1,000 ML 80 ML IVCONT (10:48)
[2024-08-30 11:01] VITALS: BP 127/70; PULSE 80; RESP 12; TEMP 36.1; O2SAT 97
[2024-08-30 11:15] VITALS: BP 97/55; PULSE 61; RESP 16; TEMP 36.4; O2SAT 96
== END 2024-08-30 11:50 | disposition home or self-care (01) ==
PROVIDERS: PCP Internal Medicine; Visit Provider Surgery
PROC: 0DJ08ZZ Inspection of Upper Intestinal Tract, Via Natural or Artificial Opening Endoscopic (ICD-10-PCS; CPT 43235; principal; 2024-08-30 12:10)
DX: K21.9 Gastro-esophageal reflux disease without esophagitis (principal); K44.9 Diaphragmatic hernia without obstruction or gangrene; R11.10 Vomiting, unspecified; Z79.899 Other long term (current) drug therapy; Z88.8 Allergy status to other drugs, medicaments and biological substances; Z98.890 Other specified postprocedural states
CPT/HCPCS: 43235; J2003; J2704

== ENCOUNTER → 2024-08-30 10:07 | Outpatient (BNV) | payer MEDICARE, SELFPAY | PROVIDERS: PCP Internal Medicine; Visit Provider Surgery | DX: K44.9 Diaphragmatic hernia without obstruction or gangrene (principal) | CPT/HCPCS: 43239 ==

== ENCOUNTER 2024-09-18 11:01 | Outpatient (AMB) | payer MEDICARE, SELFPAY ==
--- OUTSIDE RECORDS SUMMARY | 2023-07-19 10:30 | XMS_ITS | Continuity of Care Document ---
Author Organization [facility] Address [address] [facility] [address] [place] [address] Phone Care Team Providers Care Butcher Or Smallgoods Maker Name Role Phone [place] ROBLES, GRISELDA, Kirt [...] Mins- [place] & [place] [facility], [address] [facility] [address], [place], [id number], [place] tel:[phone] R - [place] - [place] Varicose veins of bilateral lower extremities with other complicationsPa in in right legPain in left legRestless legs syndromeEssenti al (primary) hypertensionCra mp and spasmLocalized edema 4 [place] ROBLES, GRISELDA, TYRELL Moralez. [address] [facility], [address], [place], [place], [id number] , [place]. tel:[phone] Referring Provider: Angela Deal MD S, [address], [place], [address]. tel:[phone] [facility], [address] [facility] [address], [place], [id number], [place] tel:[phone] CVR - [place] - [place] Varicose veins of bilateral lower extremities with pain 4 [place] ROBLES, RVT, RPVI Kirt. [address] [facility], [address], [place], [place], [id number] , [place]. tel:[phone] Referring Provider: Angela Deal MD S, [address], [place], [address]. tel:[phone] Family History Family Member Type Diagnosis Age At Onset No Information Payers Payer name Insurance type Covered libertarian ID Authoriza tion(s) Medicare MICHELL SPRAGUE [id number] [facility] AARP Supplement [place] [id number] Social History Type Description Quantity Date [...] B susan mass index (BMI) 30.0-30.9, adult Patient education booklet given Related to Varicose veins of bilateral lower extremities with other complications Pre and post instruc tions reviewed and provided Related to Varicose veins of bilateral lower extremities with other complications Assessments Type Assessment Date No Information Patient Care Teams Name Effective Dates (start - stop) Status Members No Information
--- NOTE | 2024-09-18 11:08 | MHC.OFFVIS ---
Vital Signs 09/18/24 11:10 Height 5 ft 4 in Weight 123 lb 7.342 oz BMI 21.2 BP 106/59 L Blood Pressure Location Lt brachial Position Sitting Pulse 86 Intake Visit Reasons: 4 mo f/u Intake Note: Magaly presents in the office as a 4 month follow up. CC: States that she has had an MRI and wantd to discuss her gastroparesis. Avionics Systems Integration Specialist Required: No Allergies nitrofurantoin (From MACROBID) Allergy (Severe, Verified 09/18/24 11:11) ANAPHYLAXIS Ztugbbq-HYL-TnC Reductase Inhibitor (DZIFCZH-NFQ-PKQ REDUCTASE INHIBITOR) Allergy (Intermediate, Verified 09/18/24 11:11) MUSCLE ACHES atorvastatin (Lipitor) Adverse Reaction (Unknown, Verified 09/18/24 11:11) muscle cramping HPI HPI 4 mo f/u: Details: 73 yr old f here for f/u RECAP: she has reflux and regurgiation--not often, wakes her up at night, she is happy with the omeprazole her bowel habit is v variable, can be pellets, or soft sometimes, takes probitoics occ feels food getting stuck upper throat, but unsure if due to sjogrens takes b12 regularly last colonoscopy--2011-- diverticulosis, last EGD: 2019-- small hiatal hernia. LA grade A esophagitis EGD/COlo- 09/2023 Endoscopy Findings: schatzki ring hiatal hernia lax LES Colonoscopy Findings: diverticulosis internal hemorrhoids she had hiatal hernia repair 11/2023 INTERIM: she has been following food plan with Dr Nagel, had EGD with retained food losing weight she has satiety she has cramps in legs iron sat was ok she has issues with reflux she had MR defecograpby with cystocele and rectocele noted, and pelvic laxity EXAM: GENERAL: The patient is well developed and nontoxic. VITAL SIGNS:see workflow HEENT: Nonicteric sclerae, PERRLA, EOMI. Oropharynx clear. Moist mucous membranes. Conjunctivae appear well perfused. No thyroid mass. CHEST: Chest wall is nontender. HEART: Regular rate and rhythm without murmurs. LUNGS: Clear to auscultation bilaterally. ABDOMEN: Soft, positive bowel sounds, nontender, no organomegaly.no flank tenderness SKIN: bandages and stocking on NEUROLOGIC: Cranial nerves II-XII intact without motor/sensory deficit. Psych: normal affect A/P: 1/ GERD-- recurrence s/p surgery with fullness, may have gastroparesis 2/ incomplete evacuation, 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, 2/2 to cystocele and rectocele, pelvic laxity PLAN: 1/ GES 2/ offered PT and tax manager cpa referral she will consider 3/ trial of tauirne for cramps and check ferritin PFSH Medical History Superficial phlebitis Pre-op exam ROCA (dyspnea on exertion) Elevated LFTs Thyroid nodule Hx of screening mammography Annual physical exam Hypothyroidism Primary osteoarthritis of both knees Raynaud's syndrome Surgical History S/P laparoscopic hernia repair History of lobectomy of thyroid Hx of ultrasound guided needle biopsy S/P foot surgery, right H/O esophagogastroduodenoscopy H/O colonoscopy Family History Mother No problems noted. Social History Household Members: None Housing: Other Housing Other:: mobile home Are you a primary dialysis patient care technician to a significant other at home: No Do you presently have visiting nurse or other home services: No Alcohol intake: current Alcohol intake frequency: does not drink Patient Tobacco Use Status: Former Tobacco user Tobacco use type: Cigarette e-Cigarette/Vaping Use: Never Used Second Hand Smoke Exposure: No service: No Current occupational status: retired Cognitive needs: No Hearing needs: Yes Vision needs: Yes Physical Exam Vital Signs: Last Vital Signs Pulse 86 09/18/24 11:10 BP 106/59 L 09/18/24 11:10 BMI result Body Mass Index 21.2 Assessment & Plan Assessment & Plan (1) Abnormal bowel habits: Code(s): R19.8 - Other specified symptoms and signs involving the digestive system and abdomen Category: Medical Plan: as above Orders: Orders NM gastric emptying study Today R68.81 - Early satiety Ferritin Today R19.8 - Other specified symptoms and signs involving the digestive system and abdomen Coding Level of Care Code Est Pt Level 3 (88321) Diagnoses Abnormal bowel habits R19.8
[2024-09-18 11:10] VITALS: BP 106/59; PULSE 86; BMI 21.2
== END 2024-09-18 11:44 | disposition home or self-care (01) ==
LOC: HO.HGI 11:01
PROVIDERS: PCP Internal Medicine; Visit Provider Internal Medicine Gastroenterology
DX: R19.8 Other specified symptoms and signs involving the digestive system and abdomen (principal)
CPT/HCPCS: 99213

== ENCOUNTER → 2024-09-18 11:01 | Outpatient (BNVA) | payer MEDICARE, SELFPAY | PROVIDERS: PCP Internal Medicine; Visit Provider Internal Medicine Gastroenterology | DX: R91.8 Other nonspecific abnormal finding of lung field (principal); R68.81 Early satiety; K21.9 Gastro-esophageal reflux disease without esophagitis | CPT/HCPCS: 99212 ==

== ENCOUNTER 2024-09-26 10:11 | Outpatient (REF) | payer MEDICARE, SELFPAY ==
--- OUTSIDE RECORDS SUMMARY | 2023-07-19 10:30 | XMS_ITS | Continuity of Care Document ---
Author Organization [facility] Address [address] [facility] [address] [place] [address] Phone Care Team Providers Care Embryology Teacher Name Role Phone [place] ROBLES, GRISELDA, Kirt [...] Mins- [place] & [place] [facility], [address] [facility] [address], [place], [id number], [place] tel:[phone] R - [place] - [place] Varicose veins of bilateral lower extremities with other complicationsPa in in right legPain in left legRestless legs syndromeEssenti al (primary) hypertensionCra mp and spasmLocalized edema 4 [place] ROBLES, GRISELDA, TYRELL Moralez. [address] [facility], [address], [place], [place], [id number] , [place]. tel:[phone] Referring Provider: Angela Deal MD S, [address], [place], [address]. tel:[phone] [facility], [address] [facility] [address], [place], [id number], [place] tel:[phone] CVR - [place] - [place] Varicose veins of bilateral lower extremities with pain 4 [place] ROBLES, RVT, RPVI Kirt. [address] [facility], [address], [place], [place], [id number] , [place]. tel:[phone] Referring Provider: Angela Deal MD S, [address], [place], [address]. tel:[phone] Family History Family Member Type Diagnosis Age At Onset No Information Payers Payer name Insurance type Covered republican ID Authoriza tion(s) Medicare MICHELL SPRAGUE [id number] [facility] AARP Supplement CI [id number] Social History Type Description Quantity Date [...]
--- OUTSIDE RECORDS SUMMARY | 2024-09-26 10:59 | XMS_ITS | Data Portability ---
Author Organization [place] [facility] [place] Address [address] [place] [address] Care Team Providers Care Mink Rancher Name Role Phone ANDRE SNYDER Primary Care Provider [phone] Assessment Encounter Date Assessment Date Assessment LastModified [...] in 4 weeks for another wound check. [email or web address] Not available 08/05/2023 11:39:38 09/09/2023 09/09/2023 Overall, she is doing much better. Her wound has finally healed. She may continue to advance her activities and we discussed that her swelling should continue to improve. She will follow-up in 3 months for repeat evaluation with repeat x-rays of her left foot. She may contact me sooner if she needs. [email or web address] Not available 09/09/2023 13:34:57 12/09/2023 12/09/2023 She is approximately 9 months out from surgery. Her foot looks great. She may follow-up as needed. Not available 12/11/2023 18:56:40 Plan of Treatment Reminders Order Date Submit Date Provider Last Modified By Organization Details Last Modified Time Details Appointments None recorded. Lab None recorded. Referral None recorded. Procedures None recorded. Surgeries None recorded. Imaging XR, foot, 3 or more view 2023 024 [place] [address] [facility], [address], [place], [address], 13:53:06 XR, foot, 3 or more view 2023 024 [place] [address] [facility], [address], [place], [address], 20:15:48 Medication Orders Santyl 250 unit/gram topical ointment 2023 024 [email or web address] [id number], [address] [place], [address], 11:33:19 Patient TargetsNo targets recorded. Patient Instructions Encounter Date Encounter Id Patient Instructions Last Modified By Organization Details Last Modified Time 06/10/2023 [id number] 3 views of the left foot obtained weightbearing demonstrate a first MTP fusion as well as PIP arthroplasties of the second, third, fourth, and fifth toes. There is second and third metatarsal osteotomies. Alignment of her forefoot is excellent. [email or web address] Not available 06/10/2023 09:33:04 07/08/2023 38491 3 views of the left foot obtained weightbearing demonstrate a first MTP fusion as well as PIP arthroplasties of the second, third, fourth, and fifth toes. There is second and third metatarsal osteotomies. Alignment of her forefoot is excellent. [email or web address] Not available 07/08/2023 07:56:02 08/05/2023 71880 3 views of the left foot obtained weightbearing demonstrate a first MTP fusion as well as PIP arthroplasties of the second, third, fourth, and fifth toes. There is second and third metatarsal osteotomies. Alignment of her forefoot is excellent. [email or web address] Not available 08/05/2023 09:10:00 09/09/2023 96834 3 views of the left foot obtained weightbearing demonstrate a first MTP fusion as well as PIP arthroplasties of the second, third, fourth, and fifth toes. There is second and third metatarsal osteotomies. Alignment of her forefoot is excellent. [email or web address] Not available 09/09/2023 08:14:20 12/09/2023 70116 3 views of the left foot obtained [...] Recorded Time Metatarsalg ia of left foot 2874224957871 06 Active 2022 OLGA WEI PA-C [address], [place], [address], [place] [facility], [facility] 3 11:59:54 Hammer toe 166572232 Active [address], [place], [address], [place] [facility], [facility] 3 12:00:22 Hammer toe 761227892 Active [address], [place], [address], [place] [facility], [facility] 3 12:00:29 Acquired left hallux rigidus 7338490088964 05 Active 2022 Zulema Almonte MD [address], [place], [address], [facility], P 3 16:04:28 Postoperati ve wound infection 25852041 Active 2023 Zulema Almonte MD [address], [place], [address], [facility] [place], P 4 13:16:07 Problem Notes None recorded. Procedures Surgical History Date Name Laterality Status Provider Name and Address Organization Details Recorded Time procedure on foot completed Merrick Avila [facility], P 07/08/2023 11:21:54 Imaging Results None recorded. Procedure Notes None recorded. Medical Equipment None Reported. Allergies Allergen ID Allergen Name Allergen Category Reaction Reaction Severity Criticality Documentation Date Start Date Code Code System Note Provider Name and Address Organization Details Recorded Time 8157 Macrobid medicatio n Not available Not available Not available 12/03/2022 20537 1 RxNorm Isabel baer, [facility], P 3 11:53:33 8158 Product containin g 3-hydroxy -3-methyl glutaryl- coenzyme A reductase inhibitor (product) medicatio n Not available Not available Not available 12/03/2022 19952 [facility] 11:53:37 Medications Name Sig [...] completed Not Available Not Available Not Available aspirin 325 mg tablet Take 1 tablet every day by oral route for 30 days. 04/01 completed Not Available Not Available Not [...] completed Not Available Not Available Not Available Tylenol Extra Strength 500 mg tablet Take 2 tablets 3 times a day by oral route. 06/09 completed Not Available Not Available Not Available [...] Updated DateTime 06/10/2023 167.64 cm 28.2 kg/m2 [address] [facility] 06/10/2023 12:59:32 Date Recorded Body height Body mass index (BMI) Body weight Provider Name and Address Organization Details Last Updated DateTime 07/08/2023 167.64 cm 28.2 kg/m2 94283.66 g [employer] - [facility], P 07/08/2023 11:19:03 Date Recorded Body height Body mass index (BMI) Body weight Provider Name and Address Organization Details Last Updated DateTime 08/05/2023 167.64 cm 28.2 kg/m2 [address] [facility] 08/05/2023 11:31:57 Date Recorded Body height Body mass index (BMI) Body weight Provider Name and Address Organization Details Last Updated DateTime 09/09/2023 167.64 cm 28.2 kg/m2 64740.66 g [employer] - [facility], P 09/09/2023 11:25:04 Date Recorded Body height Body mass index (BMI) Body weight Provider Name and Address Organization Details Last Updated DateTime 12/09/2023 167.64 cm 28.2 kg/m2 95878.66 g [employer] - [facility], P 12/09/2023 11:12:53 Social History None recorded. Functional Status Question Answer Note LastModified by Organization D etails LastModified Time What is your level of alcohol consumption? None [email or web address] Information not available 12/17/2022 Mental Status None recorded. Family History Nothing Reported. Medical History Condition Response Gout Y Reflux/GERD Y Gynecological HistoryNo gynecological history recorded. Obstetrics History GPAL:G 0 P 0 0 0 0 Past Encounters Encounter ID Performer Location Encounter Start Date Encounter Closed Date Diagnosis/Indication Diagnosis SNOMED-CT Code Diagnosis ICD10 Code Diagnosis Note [id number] OLGA WEI PA-C [facility] [address] [place] [address] 9 12/03/2022 11:41:10 12/03/2022 13:18:25 Pain in left foot 3173184115 23589 M79.672 Metatarsal [place] of left foot 9823291770 86770 M77.42 Hammer toe 593504655 M20 .42 [id number] Zulema Almonte MD [place] [address] 9 12/17/2022 11:35:43 12/17/2022 12:18:59 Metatarsalgia of left foot 9815521214 65060 M77.42 Hammer toe 762202636 M20 .42 [id number] Zulema Almonte MD [place] [address] 9 01/07/2023 12:46:19 01/07/2023 13:17:32 Metatarsalgia of left foot 6395501857 47558 M77.42 Hammer toe 708987856 M20 .42 [id number] Zulema Almonte MD [place] [address] 9 02/25/2023 11:34:58 02/25/2023 12:03:50 Metatarsalgia of left foot 7049502228 41102 M77.42 Hammer toe 510177542 M20 .42 Acquired l eft hallux rigidus 7195101978 64318 M20.22 [id number] ZITA LEOS PA-C [place] [address] 9 04/01/2023 12:53:30 04/01/2023 14:00:12 Metatarsalgia of left foot 8332823144 39805 M77.42 Hammer toe 268583181 M20 .42 Acquired l eft hallux rigidus 3753166920 82258 M20.22 [id number] MD KAMALJIT Castaneda [place] [address] 9 04/29/2023 12:47:41 04/29/2023 13:41:06 Metatarsalgia of left foot 1480374791 48874 M77.42 Hammer toe 837970767 M20 .42 Acquired l eft hallux rigidus 2355995176 33654 M20.22 [id number] MD KAMALJIT Castaneda [place] [address] 9 06/10/2023 12:52:47 06/10/2023 13:19:16 Metatarsalgia of left foot 4177366231 44893 M77.42 Hammer toe 187253045 M20 .42 Acquired l eft hallux rigidus 0808889039 06529 M20.22 Postoperat bekah wound infection 13318353 T81.49XA [id number] [place] [address] 07/08/2023 11:17:45 07/08/2023 11:33:43 Metatarsalgia of left foot 5856990667 07990 M77.42 Hammer toe 928117034 M20 .42 Acquired l eft hallux rigidus 2829797510 43826 M20.22 Postoperat bekah wound infection 58305126 T81.49XA [id number] ZITA LEOS PA-C [place] [address] 9 08/05/2023 11:18:12 08/05/2023 11:39:37 Metatarsalgia of left foot 7184238037 74322 M77.42 Hammer toe 468091904 M20 .42 Acquired l eft hallux rigidus 2674385073 77389 M20.22 Postoperat bekah wound infection 21425782 T81.49XA [id number] MD KAMALJIT Castaneda [place] [address] 9 09/09/2023 11:22:08 09/09/2023 12:04:59 Metatarsalgia of left foot 3521406212 16536 M77.42 Hammer toe 883800262 M20 .42 Acquired l eft hallux rigidus 6613774709 86227 M20.22 Postoperat bekah wound infection 03049672 T81.49XA [id number] Zulema Almonte MD [facility] [address] [place] [address] 12/09/2023 11:10:32 12/09/2023 11:29:02 Metatarsalgia of left foot 7993492579 36200 M77.42 Hammer toe 332299693 M20 .42 Acquired l eft hallux rigidus 1451841897 96975 M20.22 Postoperat bekah wound infection 05514481 T81.49XA Health Concerns Section Related Observation LastModified by Organization Detai ls LastModified Time None Recorded Concern Status LastModified by Organization Details LastModified Time None Recorded Advance Directives Directive None Recorded Payers Insurance Date Sequence Insurance Name Policy Number Policy [place] Covered Member ID [place] Member ID Guarantor Name 12/06/2023 [employer] - SPECIALITY CLAIMS (MEDICARE DME REGION A) MalaItzel Ramirez [id number] Magaly Garciarini 12/06/2023 MEDICARE B-[place]: NGS Mala Ashley [id number] Magaly Fisheregrini 08/05/2023 MEDICARE B-[place]: NGS Mala Ashley [id number] Magaly Fisheregrini 08/05/2023 1 MEDICARE [place]: [employer] Magaly Garciarini [id number] Magaly Fisheregrini 12/13/2023 2 [employer] Magaly Ramirez [id number] Magaly Garciarini 08/05/2023 1 MEDICARE B-[place]: NGS Magaly Fisheregrini [id number] Magaly Fisheregrini 08/05/2023 1 MEDICARE B-[place]: NGS Magaly Ramirez [id number] Magaly Ramirez Notes Date Note Type Note Provider Name [...] time. Pain is a 6/10 on average. She denies chest pain, shortness of breath, calf [...] takes Advil with moderate improvement. From 01/07/23 ([facility]): for follow-up evaluation regarding her left [...] She takes Advil as needed. From 12/17/22 ([facility]): for follow-up evaluation regarding her left foot. She reports that [place] and then got out to [...] Zulema Almonte MD [address], [place], [address], [place] [facility] 06/13/2023 15:57:15 07/08/2023 text/html Date of [...] time. Pain is a 6/10 on average. She denies chest pain, shortness of breath, calf [...] took [place] and then got out to [...] Zulema Almonte MD [address], [place], [address], [place] [facility], P 07/08/2023 13:03:36 08/05/2023 text/html Date of [...] time. Pain is a 6/10 on average. She denies chest pain, shortness of breath, calf [...] takes Advil with moderate improvement. From 01/07/23 ([facility]): for follow-up evaluation regarding her left foot. [...] She takes Advil as needed. From 12/17/22 ([facility]): for follow-up evaluation regarding her left foot. She reports that she [place] and then got out to [...] ZITA LEOS PA-C [address], [place], [address], [place] [facility], P 08/05/2023 11:39:51 09/09/2023 text/html Date of [...] time. Pain is a 6/10 on average. She denies chest pain, shortness of breath, calf [...] takes Advil with moderate improvement. From 01/07/23 ([facility]): for follow-up evaluation regarding her left [...] She takes Advil as needed. From 12/17/22 ([facility]): for follow-up evaluation regarding her left foot. She reports that she [place] and then got out to [...] Zulema Almonte MD [address], [place], [address], [place] [facility], P 09/09/2023 13:35:08 12/09/2023 text/html Date of [...] is pleased with her outcome. From 09/09/23 ([facility]): for follow-up evaluation regarding her left foot. [...] time. Pain is a 6/10 on average. She denies chest pain, shortness of breath, calf [...] takes Advil with moderate improvement. From 01/07/23 ([facility]): for follow-up evaluation regarding her left [...] She takes Advil as needed. From 12/17/22 ([facility]): for follow-up evaluation regarding her left foot. She reports that she [place] and then got out to [...] Zulema Almonte MD [address], [place], [address], [place] [facility], P 12/11/2023 18:57:46 OBGyn Episode No OBEpisode recorded.
[2024-09-26 11:03] LABS: MANUAL DIFF FLAG NO
[2024-09-26 11:05] LABS: Hematocrit 33.3 % (37.0-47.0); Hemoglobin 10.9 g/dl (12.0-16.0); Imm Gran Abs Auto 0.02 X10*3/uL (0.00-0.03); Imm Gran Pct Auto 0.2 % (0.0-0.4); Lymphocytes Absolute Auto 2.1 X10*3/uL (1.2-4.9); Mean Corpuscular HGB Conc 32.7 g/dl (31.0-35.0); Mean Corpuscular Hemoglobin 31.1 pg (27.0-33.0); Mean Corpuscular Volume 95.1 fL (80.0-98.0); NRBC Abs Auto 0.000 X10*3/uL (0.0-0.012); NRBC Pct Auto 0.0 /100WBC (0.0-0.2); Platelet Count 278 X10*3/uL (160-400); Red Blood Count 3.50 X10*6/uL (4.20-5.50); White Blood Count 8.5 X10*3/uL (4.8-10.8)
[2024-09-26 11:55] LABS: Alanine Aminotransferase 8 U/L (0-31); Albumin Level 3.8 g/dL (3.5-5.0); Alkaline Phosphatase 76 U/L (39-117); Anion Gap 10 (12-20); Aspartate Amino Transferase 23 U/L (5-31); Blood Urea Nitrogen 11 mg/dL (9-16); Calcium 9.0 mg/dL (8.4-10.2); Carbon Dioxide 27 mmol/L (22-29); Chloride 106 mmol/L (96-108); Cholesterol 214 mg/dL (<200); Estimated Glomerular Filt Rate > 60; HDL Cholesterol 44 mg/dL (>40); Potassium 4.2 mmol/L (3.3-5.1); Sodium 139 mmol/L (135-145); Total Protein 6.5 g/dL (6.5-8.0); Triglycerides 128 mg/dL (<150)
[2024-09-26 12:15] LABS: Ferritin 248 ng/mL (10-250)
[2024-09-26 12:26] LABS: Folate 5.5 ng/mL (> or = 4.0); Vitamin B12 1227 pg/mL (200-900)
== END 2024-09-26 10:12 | disposition home or self-care (01) ==
LOC: HO.HMGCLDS 10:11
PROVIDERS: PCP Internal Medicine; Referring Provider Internal Medicine Gastroenterology; Visit Provider Internal Medicine
DX: Z00.00 Encounter for general adult medical examination without abnormal findings (principal); E03.9 Hypothyroidism, unspecified; E55.9 Vitamin D deficiency, unspecified; E78.5 Hyperlipidemia, unspecified; R19.8 Other specified symptoms and signs involving the digestive system and abdomen
CPT/HCPCS: 36415; 80053; 80061; 82306; 82607; 82728; 82746; 84443; 85025

== ENCOUNTER 2024-10-03 09:32 | Outpatient (AMB) | payer MEDICARE, SELFPAY ==
--- OUTSIDE RECORDS SUMMARY | 2023-07-19 10:30 | XMS_ITS | Continuity of Care Document ---
Author Organization [facility] Address [address] [facility] [address] [place] [address] Phone Care Team Providers Care Nuclear Licensing Engineer Name Role Phone [place] ROBLES, GRISELDA, Kirt [...] Mins- [place] & [place] [facility], [address] [facility] [address], [place], [id number], [place] tel:[phone] R - [place] - [place] Varicose veins of bilateral lower extremities with other complicationsPa in in right legPain in left legRestless legs syndromeEssenti al (primary) hypertensionCra mp and spasmLocalized edema 4 [place] ROBLES, GRISELDA, TYRELL Moralez. [address] [facility], [address], [place], [place], [id number] , [place]. tel:[phone] Referring Provider: Angela Deal MD S, [address], [place], [address]. tel:[phone] [facility], [address] [facility] [address], [place], [id number], [place] tel:[phone] CVR - [place] - [place] Varicose veins of bilateral lower extremities with pain 4 [place] ROBLES, RVT, RPVI Kirt. [address] [facility], [address], [place], [place], [id number] , [place]. tel:[phone] Referring Provider: Angela Deal MD S, [address], [place], [address]. tel:[phone] Family History Family Member Type Diagnosis Age At Onset No Information Payers Payer name Insurance type Covered democrat ID Authoriza tion(s) Medicare MICHELL SPRAGUE [id number] [facility] AARP Supplement CI [id number] Social History Type Description Quantity Date [...]
[2024-10-03 09:39] VITALS: BP 104/60; PULSE 68; RESP 16; TEMP 36.7; O2SAT 100; BMI 20.6
--- NOTE | 2024-10-03 09:39 | A.OFFVIS_ITS ---
Intake Vital Signs 10/03/24 09:39 Height 5 ft 4 in Weight 120 lb BMI 20.6 BP 104/60 Blood Pressure Location Lt brachial Position Sitting Respiration 16 Pulse 68 Pulse Source Pulse Oximeter Temp 98.0 F Temp Source Oral Pulse Oximetry (%) 100 Oxygen Delivery Method Room Air Intake Visit Reasons: SWV G0439 Allergies nitrofurantoin (From MACROBID) Allergy (Severe, Verified 10/03/24 09:42) ANAPHYLAXIS Fhsysel-MHJ-BzN Reductase Inhibitor (DRQLNJJ-QHM-DOZ REDUCTASE INHIBITOR) Al lergy (Intermediate, Verified 10/03/24 09:42) MUSCLE ACHES atorvastatin (Lipitor) Adverse Reaction (Unknown, Verified 10/03/24 09:42) muscle cramping HPI SWV G0439 HPI Details Initiated the conversation about Advanced Directives. Advanced Directives help? patients prepare for current and future decisions about their medical treatment? and place of care. Discussed with patient that it is a process where a patients? current condition and prognosis are reviewed, their wishes for information? regarding their illness are elicited, and likely medical dilemmas are presented? and options discussed. The form can be amended as needed, reviewed yearly and? make changes as needed IPPE/AWV ? year old presents? for her ? Annual? Wellness Visit, initial visit.? Medical / Social History Reviewed? Past Medical History ?Yes? . ? [place]? of Care / Care Team list updated ?Yes . ? Surgical/Hospitalization? History ?Yes . ? Current Medications? (including OTC and supplements) ?Yes . ? Family History ?Yes? . ? Tobacco? Control form ?Yes . ? AUDIT-C (Alcohol use) form? ?Yes . ? Illicit drug use in Social? History ?Yes . ? Current diagnosis of? depression? ?No ? Appropriate PHQ2/PHQ9? completed ?Yes . ? Data entered by ?Medical? Farm Operator and reviewed by provider ? Fall Risk ? Fall? History? Have you had any falls with? injury in the past year? ?No . ? Have you had two or more? falls in the past year? ?No . ? Fall Risk Assessment: ?No? falls in the past year . ? HRA filled out by? the patient, reviewed by Provider and scanned. ? IPPE/AWV ? Balance? [place]berg? ?Yes . ? Tandem? walk ?Yes . ? Walk and? Turn ?Yes . ? Rise from? sit to stand ?Yes . ?Vision? Corrective? lens ?Yes ? Vision? screen ? Up-to-date, has an appointment [] for vision? screening and glaucoma screening ?Hearing? Whisper? test ?pass .? Initiated the conversation about Advanced Directives. Advanced Directives help? patients prepare for current and future decisions about their medical treatment? and place of care. Discussed with patient that it is a process where a patients? current condition and prognosis are reviewed, their wishes for information? regarding their illness are elicited, and likely medical dilemmas are presented? and options discussed. The form can be amended as needed, reviewed yearly and? make changes as needed Written? Plan?Completed. See Patient? Documents. [facility] Medical History (Updated 10/03/24 @ 10:49 by Angela Deal MD) Annual physical exam Gastroparesis Superficial phlebitis Pre-op exam ROCA (dyspnea on exertion) Elevated LFTs Thyroid nodule Hx of screening mammography Hypothyroidism Primary osteoarthritis of both knees Raynaud's syndrome Surgical History (Updated 10/03/24 @ 10:42 by Angela Deal MD) S/P laparoscopic hernia repair History of lobectomy of thyroid Hx of ultrasound guided needle biopsy S/P foot surgery, right H/O esophagogastroduodenoscopy H/O colonoscopy Family History Mother No problems noted. Social History Household Members: None Housing: Other Housing Other:: mobile home Are you a primary director of home care hospice to a significant other at home: No Do you presently have visiting nurse or other home services: No Alcohol intake: current Alcohol intake frequency: does not drink Patient Tobacco Use Status: Former Tobacco user Tobacco use type: Cigarette e-Cigarette/Vaping Use: Never Used Second Hand Smoke Exposure: No service: No Current occupational status: retired Cognitive needs: No Hearing needs: Yes Vision needs: Yes Questionnaire Medicare Wellness Checkup [age] What gender do you identify with?: female During the past 4 weeks, how much have you been bothered by emotional problems such as feeling anxious, depressed, irritable, sad or downhearted, and blue?: not at all During the past 4 weeks, has your physical & emotional health limited your social activities with family, friends, neighbors, or groups?: not at all During the past 4 weeks, how much bodily pain have you generally had?: mild pain During the past 4 weeks, was someone available to help you if you needed & wanted help?: yes, as much as I wanted During the past 4 weeks, what was the hardest physical activity you could do for at least 2 minutes?: moderate Can you get to places out of walking distance without help? (For eg., can you travel alone on buses, taxis or drive your car?): Yes Can you go shopping for groceries or clothes without someone's help?: Yes Can you prepare your own meals?: Yes Can you do your housework without help?: Yes Because of any health problems, do you need the help of another person with your personal care needs such as eating, bathing, dressing or getting around the house?: No Can you handle your own money without help?: Yes During the past 4 weeks, how would you rate your health in general?: very good During the past 4 weeks how have things been going for you?: pretty well Are you having difficulties driving your car?: no Do you always fasten your seat belt when you are in a car?: yes, usually During past 4 weeks, have you been bothered by the following: never: Falling or dizzy when standing up, Sexual problems?, Trouble eating well?, Teeth or denture problems? and Problems using the telephone? and seldom: Tiredness or fatigue? Have you fallen 2 or more times in the past year?: No Are you afraid of falling?: No Are you a smoker?: no During the past 4 weeks, how many drinks of wine, beer, or other alcoholic beverages did you have?: no alcohol at all Do you exercise for about 20 minutes 3 or more times a week?: yes, most of the time Have you been given information to help with the following?: no: Hazards in your house that might hurt you? and no: Keeping track of your medications? How often do you have trouble taking medicines the way you have been told to take them?: I always take medicine as prescribed How confident are you that you can control & manage most of your health problems?: very confident What is your race?: White Mini Mental State Exam (MMSE) Orientation What is the (year) (season) (date) (day) (month)?: year, season, date, day and month Where are we (state) (county) (town or city) (hospital) (floor)?: state, county, town or city, hospital/clinic and floor Registration Name of 3 unrelated objects clearly and slowly, then ask patient to repeat all 3 of them. (1st repeat determines score. Make sure they can repeat all three): object 1, object 2 and object 3 Attention & Calculation (CHOOSE ONE) Spell WORLD backwards (DLROW): 5 letters Recall Ask patient to repeat the 3 items from question #3.: object 1, object 2 and object 3 Language Show patient a wristwatch & ask what it is. Repeat for pencil.: watch and pencil Ask the patient to repeat the phrase 'No ifs, ands, or buts' after you.: correct Ask the patient to 'take a piece of paper with their right hand' 'fold paper in half' 'place paper on floor': take paper in right hand, fold paper in half and place paper on floor Print the sentence 'CLOSE YOUR EYES' on a piece. If patient actually closes eyes then score.: followed written direction Give patient a blank piece of paper & ask to write a sentence. Score if it contains a noun & verb.: sentence contains subject and verb Score Score: 29 PHQ-9 Over the last 2 weeks, how often have you been bothered by any of the following problems? 1. Little interest or pleasure in doing things: not at all 2. Feeling down, depressed, or hopeless: not at all 3. Trouble falling or staying asleep, or sleeping too much: not at all 4. Feeling tired or having little energy: not at all 5. Poor appetite or overeating: not at all 6. Feeling bad about yourself - or that you are a failure or have let yourself or your family down: not at all 7. Trouble concentrating on things, such as reading the newspaper or watching television: not at all 8. Moving or speaking so slowly that other people could have noticed. Or the opposite - being so fidgety or restless that you have been moving around a lot more than usual: not at all 9. Thoughts that you would be better off or of hurting yourself in some way: not at all Total score: 0 Depression Screening Interpretation: Negative Depression Screening Done: Yes 94600 - PHQ-9 Billing: Yes Source: Developed by Drs. Kirt Najera, Cici Wynn, James Scott and colleagues, with an educational amish from [employer]. Review of Systems Const All systems reviewed & are unremarkable except as noted in HPI and below Eyes Reports no additional complaints ENT Reports no additional complaints Card Reports no additional complaints Resp Reports no additional complaints GI Reports no additional complaints Reports no additional complaints Physical Exam Vital Signs: Last Vital Signs Temp 98.0 F 10/03/24 09:39 Pulse 68 10/03/24 09:39 Resp 16 10/03/24 09:39 BP 104/60 10/03/24 09:39 Pulse Ox 100 10/03/24 09:39 Oxygen Delivery Method Room Air 10/03/24 09:39 BMI result Body Mass Index 20.6 Const General: no acute distress HEENT Head: Yes normal to inspection Ears: TM's normal bilaterally Neck Neck: Yes no lymphadenopathy and Yes supple Resp Effort & Inspection: normal respiratory effort Auscultation: clear to auscultation bilaterally Cardio Rhythm: regular rhythm Heart sounds: S1 normal heart sound present and S2 normal heart sound present GI Inspection: Yes normal to inspection Palpation (GI): Soft to palpation Percussion: Yes normal to percussion Auscultation: normal bowel sounds Extrem General: Yes no clubbing, cyanosis or edema Assessment & Plan Assessment & Plan (1) Hyperlipidemia: Comment: Intolerant to multiple statins, refused PCSK9 Code(s): E78.5 - Hyperlipidemia, unspecified Plan: Continue low-cholesterol diet (2) Hypothyroidism: Comment: s/p partial thyroidectomy, borderline, monitor TSH annually Code(s): E03.9 - Hypothyroidism, unspecified Plan: Monitor TSH (3) Annual physical exam: Code(s): Z00.00 - Encounter for general adult medical examination without abnormal findings Plan: Well-balanced diet regular physical activity discussed with the patient. She will schedule mammogram. Patient declined DEXA and is up-to-date with colonoscopy Quality Reporting (2019) Depression/Bipolar (159/160/161/177) PHQ-9: Total score: 0 Coding Level of Care Code Medicare Subsequent (G0439) Diagnoses Hyperlipidemia E78.5 Hypothyroidism E03.9 Annual physical exam Z00.00 CPT Codes Advance Care Planning - Advance Care Planning discussion: On file, no changes ([id number]) Advance Care Planning - Time spent: 1-15 minutes, on File ([id number]) Additional Codes PHQ-9 - 94516 - PHQ-9 Billing: Yes ([id number]) Advance Care Planning Advance Care Planning discussion: On file, no changes Forms completed: Health Care Proxy Time spent: 1-15 minutes, on File Did not discuss due to Cultural/Spiritual beliefs: Yes
--- OUTSIDE RECORDS SUMMARY | 2024-10-03 10:08 | XMS_ITS | Data Portability ---
Author Organization [place] [facility] [place] Address [address] [place] [address] Care Team Providers Care Meal Cook Name Role Phone ANDRE SNYDER Primary Care [...] in 4 weeks for another wound check. Not available 08/05/2023 11:39:38 09/09/2023 09/09/2023 Overall, [...] foot, 3 or more view 2023 024 [place] [address] [facility], [address], [place], [address], 13:53:06 XR, foot, 3 or more view 2023 024 [place] [address] [facility], [address], [place], [address], 20:15:48 Medication Orders Santyl 250 unit/gram topical ointment 2023 024 [email or web address] [id number], [address] [place], [address], 11:33:19 Patient TargetsNo targets recorded. Patient Instructions Encounter Date Encounter Id Patient Instructions Last Modified By Organization Details Last Modified Time 06/10/2023 [id number] 3 views of the left foot obtained weightbearing demonstrate a first MTP fusion as well as PIP arthroplasties of the second, third, fourth, and fifth toes. There is second and third metatarsal osteotomies. Alignment of her forefoot is excellent. [email or web address] Not available 06/10/2023 09:33:04 07/08/2023 [id number] 3 views of the left foot obtained weightbearing demonstrate a first MTP fusion as well as PIP arthroplasties of the second, third, fourth, and fifth toes. There is second and third metatarsal osteotomies. Alignment of her forefoot is excellent. [email or web address] Not available 07/08/2023 07:56:02 08/05/2023 [id number] 3 views of the left foot obtained weightbearing demonstrate a first MTP fusion as well as PIP arthroplasties of the second, third, fourth, and fifth toes. There is second and third metatarsal osteotomies. Alignment of her forefoot is excellent. [email or web address] Not available 08/05/2023 09:10:00 09/09/2023 [id number] 3 views of the left foot obtained weightbearing demonstrate a first MTP fusion as well as PIP arthroplasties of the second, third, fourth, and fifth toes. There is second and third metatarsal osteotomies. Alignment of her forefoot is excellent. [email or web address] Not available 09/09/2023 08:14:20 12/09/2023 61600 3 views of the left foot obtained [...] Recorded Time Metatarsalg ia of left foot 1777203166591 06 Active 2022 OLGA WEI PA-C [address], [place], [address], [place] [facility] 3 11:59:54 Hammer toe 264402601 Active [address], [place], [address], [place] [facility], [facility] 3 12:00:22 Hammer toe 451792029 Active [address], [place], [address], [place] [facility], [facility] 3 12:00:29 Acquired left hallux rigidus 8484522352427 05 Active 2022 Zulema Almonte MD [address], [place], [address], [facility], P 3 16:04:28 Postoperati ve wound infection 10059314 Active 2023 Zulema Almonte MD [address], [place], [address], [facility], [facility] 4 13:16:07 Problem Notes None recorded. Procedures Surgical History Date Name Laterality Status Provider Name and Address Organization Details Recorded Time procedure on foot completed Merrick Avila [facility], [facility] 07/08/2023 11:21:54 Imaging Results None recorded. Procedure Notes None recorded. Medical Equipment None Reported. Allergies Allergen ID Allergen Name Allergen Category Reaction Reaction Severity Criticality Documentation Date Start Date Code Code System Note Provider Name and Address Organization Details Recorded Time 8157 Macrobid medicatio n Not available Not available Not available 12/03/2022 89678 1 RxNorm Isabel baer, [facility], [facility] 3 11:53:33 8158 Product containin g 3-hydroxy -3-methyl glutaryl- coenzyme A reductase inhibitor (product) medicatio n Not available Not available Not available 12/03/2022 19162 009 [facility] 11:53:37 Medications Name Sig [...] Updated DateTime 06/10/2023 167.64 cm 28.2 kg/m2 [address]4318.[address] [place] [facility] 06/10/2023 12:59:32 Date Recorded Body height Body mass index (BMI) Body weight Provider Name and Address Organization Details Last Updated DateTime 07/08/2023 167.64 cm 28.2 kg/m2 86705.66 g [employer] - [facility] 07/08/2023 11:19:03 Date Recorded Body height Body mass index (BMI) Body weight Provider Name and Address Organization Details Last Updated DateTime 08/05/2023 167.64 cm 28.2 kg/m2 35945.[address] [place] [facility] 08/05/2023 11:31:57 Date Recorded Body height Body mass index (BMI) Body weight Provider Name and Address Organization Details Last Updated DateTime 09/09/2023 167.64 cm 28.2 kg/m2 95707.66 g [employer] - [facility] 09/09/2023 11:25:04 Date Recorded Body height Body mass index (BMI) Body weight Provider Name and Address Organization Details Last Updated DateTime 12/09/2023 167.64 cm 28.2 kg/m2 14069.66 g [employer] - [facility] 12/09/2023 11:12:53 Social History None recorded. [...] SNOMED-CT Code Diagnosis ICD10 Code Diagnosis Note [id number] OLGA WEI PA-C [facility] [address] [place] [address] 12/03/2022 11:41:10 12/03/2022 13:18:25 Pain in left foot 4078646579 14531 M79.672 Metatarsal [place] of left foot 9751794757 77967 M77.42 Hammer toe 712562277 M20 .42 [id number] Zulema Almonte MD [place] [address] 12/17/2022 11:35:43 12/17/2022 12:18:59 Metatarsalgia of left foot 7918237895 84664 M77.42 Hammer toe 628126383 M20 .42 [id number] Zulema Almonte MD [place] [address] 01/07/2023 12:46:19 01/07/2023 13:17:32 Metatarsalgia of left foot 9065806165 30097 M77.42 Hammer toe 305082160 M20 .42 [id number] Zulema Almonte MD [place] [address] 02/25/2023 11:34:58 02/25/2023 12:03:50 Metatarsalgia of left foot 0098443228 93060 M77.42 Hammer toe 379230254 M20 .42 Acquired l eft hallux rigidus 4047576851 64220 M20.22 [id number] ZITA LEOS PA-C [place] [address] 04/01/2023 12:53:30 04/01/2023 14:00:12 Metatarsalgia of left foot 6442043174 40001 M77.42 Hammer toe 871298684 M20 .42 Acquired l eft hallux rigidus 5294581887 35657 M20.22 [id number] MD KAMALJIT Castaneda [place] [address] 04/29/2023 12:47:41 04/29/2023 13:41:06 Metatarsalgia of left foot 3790741824 12759 M77.42 Hammer toe 408015396 M20 .42 Acquired l eft hallux rigidus 1630863343 55960 M20.22 [id number] MD KAMALJIT Castaneda [place] [address] 06/10/2023 12:52:47 06/10/2023 13:19:16 Metatarsalgia of left foot 1548718749 58910 M77.42 Hammer toe 504257983 M20 .42 Acquired l eft hallux rigidus 9556808821 34892 M20.22 Postoperat bekah wound infection 56876234 T81.49XA [id number] [place] [address] 07/08/2023 11:17:45 07/08/2023 11:33:43 Metatarsalgia of left foot 4757967777 35639 M77.42 Hammer toe 425174174 M20 .42 Acquired l eft hallux rigidus 6182250608 17327 M20.22 Postoperat bekah wound infection 88414135 T81.49XA [id number] ZITA LEOS PA-C [place] [address] 08/05/2023 11:18:12 08/05/2023 11:39:37 Metatarsalgia of left foot 7275822133 44193 M77.42 Hammer toe 240122058 M20 .42 Acquired l eft hallux rigidus 8262666954 40405 M20.22 Postoperat bekah wound infection 01918146 T81.49XA [id number] MD KAMALJIT Castaneda [place] [address] 9 09/09/2023 11:22:08 09/09/2023 12:04:59 Metatarsalgia of left foot 0038827405 28158 M77.42 Hammer toe 885101952 M20 .42 Acquired l eft hallux rigidus 3833089672 29854 M20.22 Postoperat bekah wound infection 79865275 T81.49XA [id number] Zulema Almonte MD [facility] [address] [place] [address] 12/09/2023 11:10:32 12/09/2023 11:29:02 Metatarsalgia of left foot 1484964164 72458 M77.42 Hammer toe 902079122 M20 .42 Acquired l eft hallux rigidus 9040717242 46727 M20.22 Postoperat bekah wound infection 85354268 T81.49XA Health Concerns Section Related Observation LastModified by Organization Detai ls LastModified Time None Recorded Concern Status LastModified by Organization Details LastModified Time None Recorded Advance Directives Directive None Recorded Payers Insurance Date Sequence Insurance Name Policy Number Policy [place] Covered Member ID [place] Member ID Guarantor Name 12/06/2023 NORIDIAN - SPECIALITY CLAIMS (MEDICARE DME REGION A) MalaItzel Ramirez [id number] Magaly Garciarini 12/06/2023 MEDICARE B-[place]: NGS Mala Ashley [id number] Magaly Fisheregrini 08/05/2023 MEDICARE B-[place]: NGS Mala Ashley [id number] Magaly Fisheregrini 08/05/2023 1 MEDICARE [place]: [employer] Magaly Garciarini [id number] Magaly Fisheregrini 12/13/2023 2 [employer] Magaly Ramirez [id number] Magaly Garciarini 08/05/2023 1 MEDICARE [place]: NGS Magaly Fisheregrini [id number] Magaly Fisheregrini 08/05/2023 1 MEDICARE [place]: NGS Magaly Ramirez [id number] Magaly Ramirez Notes Date Note Type Note [...] [place] and then got out to [...] Zulema Almonte MD [address], [place], [address], [place] [facility] 06/13/2023 15:57:15 07/08/2023 text/html Date of [...] took [place] and then got out to [...] Zulema Almonte MD [address], [place], [address], [place] [facility] 07/08/2023 13:03:36 08/05/2023 text/html Date of [...] takes Advil with moderate improvement. From 01/07/23 ([facility]): for follow-up evaluation regarding her left [...] She takes Advil as needed. From 12/17/22 ([facility]): for follow-up evaluation regarding her left foot. She reports that she [place] and then got out to [...] ZITA LEOS PA-C [address], [place], [address], [place] [facility] 08/05/2023 11:39:51 09/09/2023 text/html Date of [...] She takes Advil as needed. From 12/17/22 ([facility]): for follow-up evaluation regarding her left foot. She reports that she [place] and then got out to [...] Zulema Almonte MD [address], [place], [address], [place] [facility] 09/09/2023 13:35:08 12/09/2023 text/html Date of [...] is pleased with her outcome. From 09/09/23 ([facility]): for follow-up evaluation regarding her left [...] She takes Advil as needed. From 12/17/22 ([facility]): for follow-up evaluation regarding her left foot. She reports that she [place] and then got out to [...] Zulema Almonte MD [address], [place], [address], [place] [facility] 12/11/2023 18:57:46 OBGyn Episode No OBEpisode recorded.
--- OUTSIDE RECORDS SUMMARY | 2024-10-03 10:08 | XMS_ITS ---
[facility] Name [facility] Organization Unknown History of Medication Use Medication Directions Dispensed Refills Start Date End Date Stat us amoxicillin 875 mg-potassium clavulanate 125 mg tablet TAKE 1 TABLET BY MOUTH TWICE A DAY FOR 7 DAYS 09/09/2023 active cephalexin 500 mg capsule TAKE 1 CAPSULE BY MOUTH EVERY 6 HOURS FOR 7 DAYS 09/09/2023 active Santyl 250 unit/gram topical ointment APPLY TO CLEANSED AFFECTED AREA BY TOPICAL ROUTE ONCE DAILY 09/09/2023 active triamcinolone acetonide 0.025 % topical cream APPLY TO THE AFFECTED AREA TWICE A DAY X 7 DAYS 09/09/2023 completed valacyclovir 1 gram tablet TAKE 1 TABLET BY MOUTH 3 TIMES A DAY FOR 7 DAYS 09/09/2023 completed metronidazole 1 % topical gel APPLY TO FACE EVERY DAY 03/22/2023 completed omeprazole 10 mg capsule,delayed release TAKE 1 CAPSULE BY MOUTH EVERY DAY active pantoprazole 40 mg tablet,delayed release TAKE 1 TABLET BY MOUTH EVERY DAY active Allergies Allergen Reaction Severity Comment Documented Date Source Statu s MACROBID ENS_AONECT [id number] REDUCTASE INHIBITORS ENS_AONECT Problems Problem Status Onset Date Problem Type Date of Resoluti on Source Hammer toe active 2022-12-03 ProblemAct ENS_AON ECT Metatarsalgia of left foot active 2022-12-03 ProblemAct ENS_AONECT Postoperative wound infection active 2023-06-10 ProblemAct ENS_AONECT Acquired left hallux rigidus active 2023-02-28 ProblemAct ENS_AONECT Encounters Encounter Type Encounter Reason Primary Diagnosis Location Date Ambulatory [facility] 12/08/2023 Ambulatory [facility] 08/21/2023 Ambulatory [facility] 07/09/2023 Ambulatory [facility] [place] 07/09/2023 Ambulatory [facility] [place] 07/07/2023 Ambulatory [facility] [place] 07/07/2023 Ambulatory [facility] [place] 06/07/2023 Ambulatory [facility] [place] 06/04/2023 Ambulatory [facility] 04/28/2023 Ambulatory [facility] [place] 04/03/2023 Ambulatory ROUTINE Hallux rigidus, left foot [facility] [place] 03/19/2023 Ambulatory [facility] [place] 03/19/2023 Ambulatory [facility] [place] 02/25/2023 Ambulatory [facility] [place] 02/08/2023 Ambulatory [facility] [place] 12/17/2022 Ambulatory [facility] [place] 12/17/2022 Ambulatory [facility] [place] 12/07/2022 Ambulatory [facility] [place] 12/03/2022 Ambulatory [facility] [place] 12/03/2022 Ambulatory [facility] [place] 12/03/2022 Ambulatory [facility] [place] 12/03/2022 Care Team Organization Name Specialty Phone Email Start Date End Da te [facility] [place] 202203/19/2023 [facility] 202209/12/2024
== END 2024-10-03 10:51 | disposition home or self-care (01) ==
LOC: HO.HMCC 09:32
PROVIDERS: PCP Registered Nurse; Visit Provider Internal Medicine
DX: Z00.00 Encounter for general adult medical examination without abnormal findings (principal); E78.5 Hyperlipidemia, unspecified; E03.9 Hypothyroidism, unspecified

== ENCOUNTER → 2024-10-03 09:32 | Outpatient (BNVA) | payer MEDICARE, SELFPAY | PROVIDERS: PCP Registered Nurse; Visit Provider Internal Medicine | DX: Z00.00 Encounter for general adult medical examination without abnormal findings (principal); E03.9 Hypothyroidism, unspecified; E78.5 Hyperlipidemia, unspecified | CPT/HCPCS: 96127 ==

== ENCOUNTER → 2024-10-10 08:26 | Outpatient (REF) | payer MEDICARE, SELFPAY ==
--- OUTSIDE RECORDS SUMMARY | 2023-07-19 10:30 | XMS_ITS | Continuity of Care Document ---
Author Organization [facility] Address [address] [facility] [address] [place] [address] Phone Care Team Providers Care Fence Making Machine Operator Name Role Phone [place] ROBLES, GRISELDA, Kirt [...] Mins- [place] & [place] [facility], [address] [facility] [address], [place], [id number], [place] tel:[phone] R - [place] - [place] Varicose veins of bilateral lower extremities with other complicationsPa in in right legPain in left legRestless legs syndromeEssenti al (primary) hypertensionCra mp and spasmLocalized edema 4 [place] ROBLES, GRISELDA, TYRELL Moralez. [address] [facility], [address], [place], [place], [id number] , [place]. tel:[phone] Referring Provider: Angela Deal MD S, [address], [place], [address]. tel:[phone] [facility], [address] [facility] [address], [place], [id number], [place] tel:[phone] CVR - [place] - [place] Varicose veins of bilateral lower extremities with pain 4 [place] ROBLES, RVT, RPVI Kirt. [address] [facility], [address], [place], [place], [id number] , [place]. tel:[phone] Referring Provider: Angela Deal MD S, [address], [place], [address]. tel:[phone] Family History Family Member Type Diagnosis Age At Onset No Information Payers Payer name Insurance type Covered libertarian ID Authoriza tion(s) Medicare MICHELL SPRAGUE [id number] [facility] AARP Supplement CI [id number] Social History Type Description Quantity Date [...] Information Instructions Date Instruction Additional Infor mation Lifestyle education Related to B susan mass index (BMI) 30.0-30.9, adult Giving Encouragement to exercise Related to Body mass index (BMI) 30.0-30.9, adult Diet education Related to Body mass index (BMI) 30.0-30.9, adult Pre and [...]
--- NOTE | ~2024-10-10 | NM_ITS ---
EXAMINATION: AR RADIONUCLIDE SOLID FOOD GASTRIC EMPTYING 4-HOUR STUDY CLINICAL INFORMATION: R68.81 - Early satiety COMPARISON: There are no prior studies available for comparison. TECHNIQUE: A standard meal consisting of 3 oz of Egg Beaters brand tagged with 0.92 mCi Tc-99m Sulfur Colloid, 5 oz water and 1 slice of toast with jelly was administered orally to the patient. Images were obtained using a dual head gamma camera in the anterior and posterior projections over of the stomach immediately post ingestion and at hourly intervals up to 4 hours post ingestion. The anterior and posterior counts at each time interval were averaged using the geometric mean and expressed as percentage of the immediate post ingestion counts. FINDINGS: There is visualization of activity in the stomach immediately post ingestion. As the study progresses, there is clearance of activity from the stomach and visualization of progressively increasing small bowel activity. By the end of the study, there is almost no retention noted in the stomach. Retention in the stomach at each time interval was: 1 hour 88% (normal 37%-90%) 2 hours 51% (normal 30%-60%) 3 hours 24% 4 hours 13% (normal 0%-10%) AR/AR gastric emptying study IMPRESSION: Normal 4-hour solid food gastric emptying study. For solid meal, rapid gastric emptying is less than 30% at 60 minutes. Delayed gastric emptying criteria is more than 60% remaining at 120 minutes or more than 10% at 240 minutes. The 4-hour value is the best discriminator of a normal or abnormal result). Gastric emptying study grading per JNMT Consensus Recommendations in 2008 (https://tech.snmjournals.org/content/36/44) Grade 1 (mild retention): 11-20% at 4h Grade 2 (moderate retention): 21-35% at 4h Grade 3 (severe retention): 36-50% at 4h Grade 4 (very severe retention): >50% retention at 4h Electronically signed by: Kirt Rossi MD 10/10/2024 02:06 PM EDT
--- OUTSIDE RECORDS SUMMARY | 2024-10-10 08:39 | XMS_ITS | Data Portability ---
Author Organization [place] [facility] [place] Address [address] [place] [address] Care Team Providers Care Complex Director Name Role Phone ANDRE SNYDER Primary Care Provider [phone] Assessment Encounter Date Assessment Date Assessment LastModified [...] in 4 weeks for another wound check. [email or web address] Not available 08/05/2023 11:39:38 09/09/2023 09/09/2023 Overall, [...] foot, 3 or more view 2023 024 [place] [address] [facility], [address], [place], [address], 13:53:06 XR, foot, 3 or more view 2023 024 [place] [address] [facility], [address], [place], [address], 20:15:48 Medication Orders Santyl 250 unit/gram topical ointment 2023 024 [email or web address] [id number], [address] [place], [address], 11:33:19 Patient TargetsNo targets recorded. Patient Instructions Encounter Date Encounter Id Patient Instructions Last Modified By Organization Details Last Modified Time 06/10/2023 [id number] 3 views of the left foot obtained weightbearing demonstrate a first MTP fusion as well as PIP arthroplasties of the second, third, fourth, and fifth toes. There is second and third metatarsal osteotomies. Alignment of her forefoot is excellent. [email or web address] Not available 06/10/2023 09:33:04 07/08/2023 67252 3 views of the left foot obtained weightbearing demonstrate a first MTP fusion as well as PIP arthroplasties of the second, third, fourth, and fifth toes. There is second and third metatarsal osteotomies. Alignment of her forefoot is excellent. [email or web address] Not available 07/08/2023 07:56:02 08/05/2023 25005 3 views of the left foot obtained weightbearing demonstrate a first MTP fusion as well as PIP arthroplasties of the second, third, fourth, and fifth toes. There is second and third metatarsal osteotomies. Alignment of her forefoot is excellent. [email or web address] Not available 08/05/2023 09:10:00 09/09/2023 43541 3 views of the left foot obtained weightbearing demonstrate a first MTP fusion as well as PIP arthroplasties of the second, third, fourth, and fifth toes. There is second and third metatarsal osteotomies. Alignment of her forefoot is excellent. [email or web address] Not available 09/09/2023 08:14:20 12/09/2023 76969 3 views of the left foot obtained [...] Recorded Time Metatarsalg ia of left foot 3224693006583 06 Active 2022 OLGA WEI PA-C [address], [place], [address], [place] [facility] 3 11:59:54 Hammer toe 752447058 Active [address], [place], [address], [place] [facility] 3 12:00:22 Hammer toe 329646879 Active [address], [place], [address], [place] [facility] 3 12:00:29 Acquired left hallux rigidus 0117403914177 05 Active 2022 Zulema Almonte MD [address], [place], [address], [facility], P 3 16:04:28 Postoperati ve wound infection 82060299 Active 2023 Zulema Almonte MD [address], [place], [address], [facility], [facility] 4 13:16:07 Problem Notes None recorded. Procedures Surgical History Date Name Laterality Status Provider Name and Address Organization Details Recorded Time procedure on foot completed Merrick Avila [facility], [facility] 07/08/2023 11:21:54 Imaging Results None recorded. Procedure Notes None recorded. Medical Equipment None Reported. Allergies Allergen ID Allergen Name Allergen Category Reaction Reaction Severity Criticality Documentation Date Start Date Code Code System Note Provider Name and Address Organization Details Recorded Time 8157 Macrobid medicatio n Not available Not available Not available 12/03/2022 07533 1 RxNorm Isabel baer, [facility], [facility] 3 11:53:33 8158 Product containin g 3-hydroxy -3-methyl glutaryl- coenzyme A reductase inhibitor (product) medicatio n Not available Not available Not available 12/03/2022 93257 009 [facility] [...] Updated DateTime 06/10/2023 167.64 cm 28.2 kg/m2 03621.[address] [employer] [place] [facility] 06/10/2023 12:59:32 Date Recorded Body height Body mass index (BMI) Body weight Provider Name and Address Organization Details Last Updated DateTime 07/08/2023 167.64 cm 28.2 kg/m2 48234.66 g [facility] - [facility] 07/08/2023 11:19:03 Date Recorded Body height Body mass index (BMI) Body weight Provider Name and Address Organization Details Last Updated DateTime 08/05/2023 167.64 cm 28.2 kg/m2 72110.[address] [employer] [place] [facility] 08/05/2023 11:31:57 Date Recorded Body height Body mass index (BMI) Body weight Provider Name and Address Organization Details Last Updated DateTime 09/09/2023 167.64 cm 28.2 kg/m2 48473.66 g [facility] - [facility] 09/09/2023 11:25:04 Date Recorded Body height Body mass index (BMI) Body weight Provider Name and Address Organization Details Last Updated DateTime 12/09/2023 167.64 cm 28.2 kg/m2 86086.66 g [facility] - [facility] 12/09/2023 11:12:53 Social History None recorded. [...] SNOMED-CT Code Diagnosis ICD10 Code Diagnosis Note [id number] OLGA WEI PA-C [facility] [address] [place] [address] 9 12/03/2022 11:41:10 12/03/2022 13:18:25 Pain in left foot 7820384866 82600 M79.672 Metatarsal eduin of left foot 8814164250 09178 M77.42 Hammer toe 524878155 M20 .42 [id number] Zulema Almonte MD [place] [address] 12/17/2022 11:35:43 12/17/2022 12:18:59 Metatarsalgia of left foot 3189009067 26803 M77.42 Hammer toe 248379003 M20 .42 [id number] Zulema Almonte MD [place] [address] 01/07/2023 12:46:19 01/07/2023 13:17:32 Metatarsalgia of left foot 1055845009 17831 M77.42 Hammer toe 335181748 M20 .42 [id number] Zulema Almonte MD [place] [address] 02/25/2023 11:34:58 02/25/2023 12:03:50 Metatarsalgia of left foot 4271364673 98533 M77.42 Hammer toe 991787870 M20 .42 Acquired l eft hallux rigidus 4449145828 25452 M20.22 [id number] ZITA LEOS PA-C [place] [address] 04/01/2023 12:53:30 04/01/2023 14:00:12 Metatarsalgia of left foot 9643219598 89415 M77.42 Hammer toe 692936055 M20 .42 Acquired l eft hallux rigidus 6240732861 99065 M20.22 [id number] MD KAMALJIT Castaneda [place] [address] 9 04/29/2023 12:47:41 04/29/2023 13:41:06 Metatarsalgia of left foot 3487732352 01675 M77.42 Hammer toe 828940993 M20 .42 Acquired l eft hallux rigidus 3344207900 49882 M20.22 [id number] MD KAMALJIT Castaneda [place] [address] 9 06/10/2023 12:52:47 06/10/2023 13:19:16 Metatarsalgia of left foot 3415049482 19945 M77.42 Hammer toe 955843398 M20 .42 Acquired l eft hallux rigidus 9894483423 62867 M20.22 Postoperat bekah wound infection 02392768 T81.49XA [id number] [place] [address] 07/08/2023 11:17:45 07/08/2023 11:33:43 Metatarsalgia of left foot 7653104761 42687 M77.42 Hammer toe 406727841 M20 .42 Acquired l eft hallux rigidus 3845309588 34908 M20.22 Postoperat bekah wound infection 58476529 T81.49XA [id number] ZITA LEOS PA-C [place] [address] 08/05/2023 11:18:12 08/05/2023 11:39:37 Metatarsalgia of left foot 5055860717 14741 M77.42 Hammer toe 236590940 M20 .42 Acquired l eft hallux rigidus 0224671703 56921 M20.22 Postoperat bekah wound infection 26870244 T81.49XA [id number] MD KAMALJIT Castaneda [place] [address] 9 09/09/2023 11:22:08 09/09/2023 12:04:59 Metatarsalgia of left foot 3376724951 94798 M77.42 Hammer toe 798915198 M20 .42 Acquired l eft hallux rigidus 8323605672 87114 M20.22 Postoperat bekah wound infection 54325724 T81.49XA [id number] Zulema Almonte MD [facility] [address] [place] [address] 12/09/2023 11:10:32 12/09/2023 11:29:02 Metatarsalgia of left foot 9502260772 44684 M77.42 Hammer toe 975435806 M20 .42 Acquired l eft hallux rigidus 2144642162 15847 M20.22 Postoperat bekah wound infection 19157670 T81.49XA Health Concerns Section Related Observation LastModified by Organization Detai ls LastModified Time None Recorded Concern Status LastModified by Organization Details LastModified Time None Recorded Advance Directives Directive None Recorded Payers Insurance Date Sequence Insurance Name Policy Number Policy [place] Covered Member ID [place] Member ID Guarantor Name 12/06/2023 NORIDIAN - SPECIALITY CLAIMS (MEDICARE DME REGION A) MalaItzel Ramirez [id number] Magaly Garciarini 12/06/2023 MEDICARE B-CT: NGS Mala Ashley [id number] Magaly Fisheregrini 08/05/2023 MEDICARE B-CT: NGS Mala Ashley [id number] Magaly Fisheregrini 08/05/2023 1 MEDICARE B-[place]: [employer] Magaly Garciarini [id number] Magaly Fisheregrini 12/13/2023 2 [employer] Magaly Ramirez [id number] Magaly Garciarini 08/05/2023 1 MEDICARE B-CT: NGS Magaly Fisheregrini [id number] Magaly Fisheregrini 08/05/2023 1 MEDICARE B-[place]: NGS Magaly Ramirez [id number] Magaly Ramirez Notes Date Note Type Note [...] [place] and then got out to [...] Zulema Almonte MD [address], [place], [address], [place] [facility] 06/13/2023 15:57:15 07/08/2023 text/html Date of [...] [place] and then got out to [...] Zulema Almonte MD [address], [place], [address], [place] [facility] 07/08/2023 13:03:36 08/05/2023 text/html Date of [...] takes Advil with moderate improvement. From 01/07/23 ([facility]): for follow-up evaluation regarding her left [...] She takes Advil as needed. From 12/17/22 ([facility]): for follow-up evaluation regarding her left foot. She reports that [place] and then got out to [...] ZITA LEOS PA-C [address], [place], [address], [place] [facility] 08/05/2023 11:39:51 09/09/2023 text/html Date of [...] She takes Advil as needed. From 12/17/22 ([facility]): for follow-up evaluation regarding her left foot. She reports that she [place] and then got out to [...] Zulema Almonte MD [address], [place], [address], [place] [facility] 09/09/2023 13:35:08 12/09/2023 text/html Date of [...] is pleased with her outcome. From 09/09/23 ([facility]): for follow-up evaluation regarding her left [...] She takes Advil as needed. From 12/17/22 ([facility]): for follow-up evaluation regarding her left foot. She reports that she [place] and then got out to [...] Zulema Almonte MD [address], [place], [address], [place] [facility] 12/11/2023 18:57:46 OBGyn Episode No OBEpisode recorded.
--- OUTSIDE RECORDS SUMMARY | 2024-10-10 08:39 | XMS_ITS | Clinical Summary ---
Author Organization [facility] Address [address] [facility] [address] [place] [address] Phone Care Team Providers Care Drying Tunnel Operator Name Role Phone Angela Deal MD Primary Care Provider [phone] Allergies Active Allergy Reactions Criticality Noted Date Comments Nitrofurantoin Monohyd/M-Cryst Unknown 01/28 Medications omeprazole (PRILOSEC) 10 MG capsule Take 10 mg by mouth daily. Active Social History Tobacco Use Types Packs/Day Years [...] with a working camera? Not on file Comments Unknown Sex and Gender Information Value Date Recorded Sex Assigned at Not on file Legal Sex Female 2:52 PM EDT Gender Identity Not on file Sexual Orientation [...] 2000 OSTEOPOROSIS SCREENING INITI AL (ONE-TIME) 10/07/2015 COVID-19 VACCINE (1 - 2023-2 5 season) 2023 SMOKING Hx [...] age to complete this topic MENINGOCOCCAL VACCINES (B) Aged Out N o longer eligible based on patient's age to complete this topic Medical Devices Not on file Insurance MEDICARE PART A & B [employer] MEDEX SUPPLEMENT MEDICARE PART A & B [employer] MEDEX SUPPLEMENT MEDICARE PART A & B MEDICARE PART A & B MEDICARE PART A & B [employer] MEDEX SUPPLEMENT MEDICARE PART A & B MEDICARE PART A & B MEDEX SUPPLEMENT MEDICARE PART A & B [employer] SUPPLEMENT MEDICARE PART A & B [email or web address] SUPPLEMENT Care Teams Drying Tunnel Operator Relationship Specialty Start Date End Date Angela Deal MD [address] [place] [address] PCP - General Internal Medicine 01/28/21 Additional Source Comments The information contained in this document represents components of the legal health record. It is not the complete legal health record.[facility]
== END ==
LOC: HO.NUCMED 08:26
PROVIDERS: PCP Internal Medicine; Visit Provider Dentist Pediatric Dentistry
DX: R68.81 Early satiety (principal)
CPT/HCPCS: 78264; A9541

== ENCOUNTER → 2024-10-10 08:30 | Outpatient (BNV) | payer MEDICARE, SELFPAY | PROVIDERS: PCP Internal Medicine; Visit Provider Radiology Diagnostic Radiology | DX: R68.81 Early satiety (principal) | CPT/HCPCS: 78264 ==

== ENCOUNTER 2024-11-24 12:47 | Outpatient (AMB) | payer MEDICARE, SELFPAY ==
--- OUTSIDE RECORDS SUMMARY | 2024-11-24 12:58 | XMS_ITS | Clinical Summary ---
Author Organization [facility] Address [address] [facility] [address] [place] [address] Phone Care Team Providers Care Medical Consultant Name Role Phone Angela Deal MD Primary Care Provider Allergies Active Allergy Reactions Criticality Noted Date [...] INITI AL (ONE-TIME) 10/07/2015 INFLUENZA VACCINE (#1) 2024 COVID-19 VACCINE (1 - 2023-2 5 season) 2024 SMOKING Hx and SMOKELESS TOBACCO SCREENING 05/31/2025 [...] file Insurance MEDICARE PART A & B [employer] MEDEX SUPPLEMENT MEDICARE PART A & B [employer] MEDEX SUPPLEMENT MEDICARE PART A & B MEDICARE PART A & B MEDICARE PART A & B [employer] MEDEX SUPPLEMENT MEDICARE PART A & B MEDICARE PART A & B [employer] MEDEX SUPPLEMENT MEDICARE PART A & B [employer] SUPPLEMENT MEDICARE PART A & B Blood cell Storage SUPPLEMENT Care Teams Medical Consultant Relationship Specialty Start Date End Date Angela Deal MD [address] [place] [address] PCP - General Internal Medicine 01/28/21 Additional Source Comments The information contained in this document represents components of the legal health record. It is not the complete legal health record.[facility]
[2024-11-24 12:59] VITALS: BMI 20.3
--- NOTE | 2024-11-24 12:59 | HO.SPINEOV ---
Vital Signs 11/24/24 12:59 Height 5 ft 4 in Weight 118 lb BMI 20.3 Intake Visit Reasons: pinch nerve Intake Note: Ms. Ramirez is here today c/o numbness of the legs and feet. Eight Arm Operator Required: No Allergies nitrofurantoin (From MACROBID) Allergy (Severe, Verified 11/24/24 13:00) ANAPHYLAXIS Yoyixfw-LGZ-IvX Reductase Inhibitor (EQSZAKM-WEL-QDI REDUCTASE INHIBITOR) Allergy (Intermediate, Verified 11/24/24 13:00) MUSCLE ACHES atorvastatin (Lipitor) Adverse Reaction (Unknown, Verified 11/24/24 13:00) muscle cramping Physical Exam Vital Signs: BMI result Body Mass Index 20.3 Assessment & Plan Assessment & Plan (1) Lower extremity numbness: Code(s): R20.0 - Anesthesia of skin Category: Medical Plan Dear Dr Deal, Mrs Ramirez came in self-referred today for evaluation of a constellation of symptoms that has been going on now for about 18 months. She reports that at the beginning she started to have numbness at the distal part of her feet bilaterally which progressively moved its way up to about the tibial region. She can not recall any specific events or things that we are going on around the time that this may have happened but just remembers ever so slowly it began and has been getting worse ever since. Her gait has been very unsteady since this started and has been getting worse. She also reports more recently having trouble with her bladder in that she can sense when she has to urinate but is not able to feel it when she voids. She does not report any saddle anesthesia and sensation is normal with wiping. She is concerned because she has had a few different workups including an EMG which just suggested there might be an L5-S1 radiculopathy, and a lumbar MRI just showing some mild to moderate disc degeneration. She came in to see if there was anything we can do or if this was might be coming from her lumbar spine. She does report some upper extremity symptoms with her hands including clumsiness, but she has Raynaud's so her hands are always cold and numb. 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 History of thyroidectomy partial, cholecystectomy, hiatal hernia repair, some kind of venous seal procedure on her right leg. Denies any history of cardiopulmonary problems, liver, kidneys, bleeding disorders, blood clots etc.. Her chart reports vitamin B12 deficiency and vitamin-D deficiency. Social hx: She has not smoke, drink use any recreational drugs Medications: She takes taurine for cramps in her legs, a multivitamin and Pepcid Allergies: Macrobid and stand and Physical exam: She is very unsteady walking, has a hard time getting up on the examining table without assistance. Tandem gait walking in the hallway she was very unsteady. Motor exam reveals weakness of bilateral hands, as well as hip flexion with iliopsoas and dorsiflexion. All of these I would rate as 4-5. Rest of her major muscle groups are 5/5. Brisk reflexes in the upper extremities but no Obando's sign. Lower extremity reflexes are absent in the Achilles and patella. Imaging review: There is a lumbar MRI done at [facility] about a year ago and this shows some qyfq-sw-sdwualza disc degeneration at L3-4 but no significant central canal stenosis or foraminal stenosis. Impression: 74-year-old female presents with progressive ascending numbness of the lower extremity and loss of sensation with urinating. She also has some degree of hand weakness and weakness of her hip flexion and dorsiflexion lower extremities. She did have an EMG done last year about a month or so after the symptoms started and it did not reveal any thing other than a lumbar radiculopathy. But her lumbar imaging really does not show any compression of the nerves. I am wondering if this was an early EMG if her symptom progression and there was not enough time yet to see the full changes to the nerves on the study as she is presenting with what sounds like a polyneuropathy. I am going to scan her thoracic and cervical just to exclude compressive myelopathy. She does have a history of B12 deficiency according to her records, so maybe this is somehow related. If the cervical and thoracic are negative I am going to have her see Neurology to be evaluated again for possible polyneuropathy. Thank you for allowing us to care for your patient. The total time spent with this visit with this patient was 45 minutes reviewing history, physical exam, lumbar imaging review, and implementation of treatment plan or further diagnostic testing Daniel Hein MD,PhD [facility] Orders: Orders MR thoracic spine wo con Today R20.0 - Anesthesia of skin MR cervical spine wo con Today R20.0 - Anesthesia of skin Coding Level of Care Code New Pt Level 4 (91465) Diagnoses Lower extremity numbness R20.0
== END 2024-11-24 14:50 | disposition home or self-care (01) ==
LOC: HO.HNS 12:47
PROVIDERS: PCP Internal Medicine; Visit Provider Physician Assistant
DX: R20.0 Anesthesia of skin (principal)
CPT/HCPCS: 99204

== ENCOUNTER → 2024-11-24 12:47 | Outpatient (BNVA) | payer MEDICARE, SELFPAY | PROVIDERS: PCP Internal Medicine; Visit Provider Physician Assistant | DX: R20.0 Anesthesia of skin (principal); R26.81 Unsteadiness on feet | CPT/HCPCS: 99202 ==

== ENCOUNTER 2024-12-05 13:48 | Outpatient (AMB) | payer MEDICARE, SELFPAY ==
--- NOTE | 2024-12-05 13:52 | A.OFFVIS_ITS ---
Intake Visit Reasons: follow up PRN Left LE hard vein Intake Note: Patient presents for left leg vein/pain. Patient states her left leg has been swollen for about 6 weeks. Accompanied by: Self / Same As Patient Allergies nitrofurantoin (From MACROBID) Allergy (Severe, Verified 12/05/24 13:54) ANAPHYLAXIS Ibltoyy-GVS-GmS Reductase Inhibitor (IYSBAME-BGF-DIB REDUCTASE INHIBITOR) Allergy (Intermediate, Verified 12/05/24 13:54) MUSCLE ACHES atorvastatin (Lipitor) Adverse Reaction (Unknown, Verified 12/05/24 13:54) muscle cramping HPI HPI follow up PRN Left LE hard vein: Details: The patient is a 74-year-old female presenting with concerns related to venous disease and musculoskeletal pain. She did have a prior venous procedure by us and was concern that it was a venous problem The patient reports a history of varicose veins, which she describes as having appeared rope-like and thrombosed following a deep tissue massage. She managed the condition with massage and compression stockings, noting that the swelling persisted for about six weeks. She has developed a constant pain in particular in the calf area. The patient has not used any oral NSAIDs due to gastrointestinal concerns. [facility] Medical History Annual physical exam Gastroparesis Superficial phlebitis Pre-op exam ROCA (dyspnea on exertion) Elevated LFTs Thyroid nodule Hx of screening mammography Hypothyroidism Primary osteoarthritis of both knees Raynaud's syndrome Surgical History S/P laparoscopic hernia repair History of lobectomy of thyroid Hx of ultrasound guided needle biopsy S/P foot surgery, right H/O esophagogastroduodenoscopy H/O colonoscopy Family History Mother No problems noted. Social History Household Members: None Housing: Other Housing Other:: mobile home Are you a primary intensive care unit registered nurse to a significant other at home: No Do you presently have visiting nurse or other home services: No Alcohol intake: current Alcohol intake frequency: does not drink Patient Tobacco Use Status: Former Tobacco user Tobacco use type: Cigarette e-Cigarette/Vaping Use: Never Used Second Hand Smoke Exposure: No service: No Current occupational status: retired Cognitive needs: No Hearing needs: Yes Vision needs: Yes Review of Systems Const All systems reviewed & are unremarkable except as noted in HPI and below Reports no additional complaints ENT Reports Normal hearing present Card Denies chest pain, Denies chest pain at rest, Denies chest pain with activity and Denies pedal edema Resp Denies cough GI Denies abdominal pain Musc Denies abnormal gait, Denies muscle cramps and Denies radiating pain into limb Skin/Breast Denies skin ulcer and Denies wounds Neuro Reports Normal hearing present and Denies abnormal gait Psych Reports no additional complaints Physical Exam Const General: cooperative, healthy appearing and comfortable Orientation/consciousness: oriented to person, oriented to place and oriented to time HEENT Head: Yes normal to inspection Neck Neck: Yes normal visual inspection Carotids: no bruits Chest Chest palpation & inspection: normal inspection of the chest Resp Effort & Inspection: normal respiratory effort and able to speak in complete sentences Auscultation: clear to auscultation bilaterally, no crackles, no rales, no rhonchi and no wheezes Cardio Rate: regular rate Rhythm: regular rhythm Heart sounds: S1 normal heart sound present and S2 normal heart sound present Bruits: no carotid bruits Peripheral pulses: Peripheral pulses 2+ throughout GI Inspection: Yes normal to inspection Skin Wounds: no wounds Hair: normal Neuro General: oriented to person, oriented to place and oriented to time Cranial nerves: Yes CN's II-XII intact bilaterally and Yes Normal hearing present Cognition (Neuro): normal cognition Motor exam (neuro): 5/5 motor strength present throughout Extrem Other: Pain on deep palpation. Not related to any superficial varicosities. General: No clubbing, No cyanosis and Yes edema Psych Appearance: grossly normal Mental Status: mental status grossly normal Speech and movement: Normal speech and movement present Assessment & Plan Assessment & Plan (1) Lower extremity pain: Code(s): M79.606 - Pain in leg, unspecified Category: Medical Qualifiers: Laterality: bilateral Qualified Code(s): M79.604 - Pain in right leg; M79.605 - Pain in left leg Plan: During the consultation, we discussed the possibility of musculoskeletal involvement in the patient's leg pain, rather than a venous issue. We talked about use of analgesia and over the counter meds for pain control in addition to topical creams that may provide assistance. Should this persist may benefit from orthopedic evaluation. Once again this is not venous in nature. She will follow up with us on an as-needed basis. Coding Level of Care Code Est Pt Level 4 (69852) Diagnoses Pain in both lower extremities M79.604; M79.605 Laterality: bilateral
== END 2024-12-05 14:15 | disposition home or self-care (01) ==
LOC: HO.HVS 13:49
PROVIDERS: PCP Internal Medicine; Visit Provider Surgery Vascular Surgery
DX: M79.604 Pain in right leg (principal); M79.605 Pain in left leg
CPT/HCPCS: 99214

== ENCOUNTER → 2024-12-05 13:48 | Outpatient (BNVA) | payer MEDICARE, SELFPAY | PROVIDERS: PCP Internal Medicine; Visit Provider Surgery Vascular Surgery | DX: M79.604 Pain in right leg (principal); M79.605 Pain in left leg | CPT/HCPCS: 99212 ==

== ENCOUNTER 2024-12-15 10:36 | Outpatient (AMB) | payer MEDICARE, SELFPAY ==
--- NOTE | 2024-12-15 10:40 | MHC.PC.OV ---
Vital Signs 12/15/24 10:48 Height 5 ft 4 in Weight 121 lb BMI 20.8 BP 118/72 Blood Pressure Location Lt brachial Position Sitting Respiration 17 Pulse 72 Pulse Source Pulse Oximeter Temp 97.7 F Temp Source Oral Intake Visit Reasons: swollen L ankle/urine issue Intake Note: Pt is here today for a sick visit. Pt c/o swelling in her L lower leg and ankle. Allergies nitrofurantoin (From MACROBID) Allergy (Severe, Verified 12/15/24 10:51) ANAPHYLAXIS Mfucpmd-YMY-IaJ Reductase Inhibitor (YWFWCYP-KDS-YDG REDUCTASE INHIBITOR) Allergy (Intermediate, Verified 12/15/24 10:51) MUSCLE ACHES atorvastatin (Lipitor) Adverse Reaction (Unknown, Verified 12/15/24 10:51) muscle cramping Medication List - Last Reconciled 12/15/24 by Angela Deal MD famotidine (Pepcid) 20 mg PO DAILY furosemide (Lasix) 20 mg PO DAILY mv-mn-folic alag-V7-urdg 357 240-150 mcg (Alive Women's 50 Plus Ultra Multivitamin) tabs PO Tobacco use date assessed: 12/15/24 Fall risk assessment: No Falls in past year Last assessed Fall Risk: 12/15/24 Dental Screening Dental Screen Date: 06/30/24 HPI swollen L ankle/urine issue HPI Details Pt c/o persistent LLE swelling for 2 months. Patient was evaluated by vascular surgeon Dr. Pulliam last month and was told to elevate lower extremity. She denies any pain in the extremity or injury. [facility] Medical History Annual physical exam Gastroparesis Superficial phlebitis Pre-op exam ROCA (dyspnea on exertion) Elevated LFTs Thyroid nodule Hx of screening mammography Hypothyroidism Primary osteoarthritis of both knees Raynaud's syndrome Surgical History S/P laparoscopic hernia repair History of lobectomy of thyroid Hx of ultrasound guided needle biopsy S/P foot surgery, right H/O esophagogastroduodenoscopy H/O colonoscopy Family History Mother No problems noted. Social History Household Members: None Housing: Other Housing Other:: mobile home Are you a primary body care manager to a significant other at home: No Do you presently have visiting nurse or other home services: No Alcohol intake: current Alcohol intake frequency: does not drink Patient Tobacco Use Status: Former Tobacco user Tobacco use type: Cigarette e-Cigarette/Vaping Use: Never Used Second Hand Smoke Exposure: No service: No Current occupational status: retired Cognitive needs: No Hearing needs: Yes Vision needs: Yes Questionnaire PHQ-9 Over the last 2 weeks, how often have you been bothered by any of the following problems? 1. Little interest or pleasure in doing things: not at all 2. Feeling down, depressed, or hopeless: not at all 3. Trouble falling or staying asleep, or sleeping too much: not at all 4. Feeling tired or having little energy: not at all 5. Poor appetite or overeating: not at all 6. Feeling bad about yourself - or that you are a failure or have let yourself or your family down: not at all 7. Trouble concentrating on things, such as reading the newspaper or watching television: not at all 8. Moving or speaking so slowly that other people could have noticed. Or the opposite - being so fidgety or restless that you have been moving around a lot more than usual: not at all 9. Thoughts that you would be better off or of hurting yourself in some way: not at all Total score: 0 Depression Screening Interpretation: Negative Depression Screening Done: Yes Source: Developed by Drs. Kirt Najera, Cici Wynn, James Scott and colleagues, with an educational amish from [employer]. Thrive Questionnaire Date Thrive assessed: 06/13/24 I am a: Patient What is your living situation today?: I have a steady place to live Within the past 12 months, did the food you bought not last and you didn't have the money to get more?: Sometimes True Within the past 12 months, did you worry whether your food would run out before you got money to buy more?: Never true Do you have trouble paying for medicines?: No Do you have trouble getting transportation to medical appointments?: No Do you have trouble paying your heating and electricity bill?: No Do you have trouble taking care of your child, family member or friend?: No Do you have trouble with day-to-day activities such as bathing, preparing meals, shopping, managing finances, etc.?: No Are you currently unemployed and looking for a job?: No Are you interested in more education?: No Please select the resources that you would like help with: None Currently or been in a relationship where the following occur: No concerns reported THRIVE Score: 1 NAOMI-7 AMB Questionnaire NAOMI-7 Date NAOMI - 7 assessed: 06/16/24 Feeling nervous, anxious, or on edge: 0 = Not at all Not being able to stop or control worryin = Not at all Worrying too much about different things: 0 = Not at all Trouble relaxin = Not at all Being so restless that it is hard to sit still: 0 = Not at all Becoming easily annoyed or irritable: 0 = Not at all Feeling afraid as if something awful might happen: 0 = Not at all Total NAOMI-7 score (0-4 normal; 5-9 mild; 10-14 moderate; 15-21 severe): 0 Source: Developed by Drs. Kirt Najera, Cici Wynn, James Scott and colleagues, with an educational amish from [employer]. Review of Systems Const All systems reviewed & are unremarkable except as noted in HPI and below Card Reports no additional complaints Resp Reports no additional complaints GI Reports no additional complaints Physical exam (Primary Care) Vital Signs: Last Vital Signs Temp 97.7 F 12/15/24 10:48 Pulse 72 12/15/24 10:48 Resp 17 12/15/24 10:48 BP 118/72 12/15/24 10:48 BMI result Body Mass Index 20.8 Tobacco/Smoking Status: Tobacco use Status Tobacco use date assessed 12/15/24 12/15/24 10:59 Patient Tobacco Use Status Former Tobacco user 12/15/24 10:59 Tobacco use type Cigarette 12/15/24 10:40 e-Cigarette/Vaping Use Never Used 12/15/24 10:40 PHQ-9: PHQ-9 Score PHQ-9: Total score 0 12/15/24 11:39 Depression Screening Interpretation: Negative Thrive Assessment: Date of Thrive Assessment Date Thrive assessed 06/13/24 12/15/24 10:40 Currently or been in a relationship where the following occur: No concerns reported Const General: no acute distress HENMT Head: Yes normal to inspection Face and sinus: Yes normal facial exam Neck Neck: Yes supple Resp Effort & Inspection: normal respiratory effort Auscultation: clear to auscultation bilaterally Cardio Rhythm: regular rhythm Heart sounds: S1 normal heart sound present and S2 normal heart sound present Extrem Other: Left calf is bigger than right but no calf tenderness erythema warmth. chronic venous stasis on both lower extremities no ulcers and no pitting edema Coding Level of Care Code Est Pt Level 3 (12839) Diagnoses Venous insufficiency (chronic) (peripheral) I87.2 Assessment & Plan Assessment & Plan (1) Venous insufficiency (chronic) (peripheral): Code(s): I87.2 - Venous insufficiency (chronic) (peripheral) Category: Medical Plan: Patient was advised to wear support knee-highs and elevate lower extremities. Furosemide 20 mg to take PRN is prescribed. Patient is established with vascular surgeon Medications: New furosemide (Lasix) 20 mg PO DAILY 7 tabs 0RF
[2024-12-15 10:48] VITALS: BP 118/72; PULSE 72; RESP 17; TEMP 36.5; BMI 20.8
--- OUTSIDE RECORDS SUMMARY | 2024-12-15 12:06 | XMS_ITS | Clinical Summary ---
Author Organization [facility] Address [address] [facility] [address] [place] [id number] Phone Care Team Providers Care Concert Or Lecture Hall Manager Name Role Phone Angela Deal MD Primary Care Provider [phone] Allergies Active Allergy Reactions Criticality Noted Date [...] file Insurance MEDICARE PART A & B [employer] MEDEX SUPPLEMENT MEDICARE PART A & B [employer] MEDEX SUPPLEMENT MEDICARE PART A & B MEDICARE PART A & B MEDICARE PART A & B [employer] SUPPLEMENT MEDICARE PART A & B MEDICARE PART A & B [employer] SUPPLEMENT MEDICARE PART A & B [employer] SUPPLEMENT MEDICARE PART A & B [employer] SUPPLEMENT Care Teams Concert Or Lecture Hall Manager Relationship Specialty Start Date End Date Angela Deal MD [address] [place] [id number] PCP - General Internal Medicine 01/28/21 Additional Source Comments The information contained in this document represents components of the legal health record. It is not the complete legal health record.[facility]
== END 2024-12-15 16:48 | disposition home or self-care (01) ==
LOC: HO.HMCC 10:37
PROVIDERS: PCP Internal Medicine; Visit Provider Internal Medicine
DX: I87.2 Venous insufficiency (chronic) (peripheral) (principal)

== ENCOUNTER → 2024-12-15 10:36 | Outpatient (BNVA) | payer MEDICARE, SELFPAY | PROVIDERS: PCP Internal Medicine; Visit Provider Internal Medicine | DX: I87.2 Venous insufficiency (chronic) (peripheral) (principal) | CPT/HCPCS: 96127; 99212 ==

== ENCOUNTER 2025-01-04 17:52 | Outpatient (REF) | payer MEDICARE, SELFPAY ==
--- NOTE | ~2025-01-04 | MR_ITS ---
CLINICAL HISTORY: R20.0 - Anesthesia of skin MR thoracic spine without gadolinium Comparison: None provided Findings: No scoliosis or spondylolisthesis. No acute fracture or pathologic bone lesion. Unremarkable thoracic cord. No significant spinal canal or foraminal stenoses. Mild multilevel spondylosis of the thoracic spine with degenerative disc desiccation, disc height loss, and osteophytosis. Paraspinous musculature intact. IMPRESSION: No acute findings. Mild multilevel spondylosis of the thoracic spine without significant spinal canal or neural foraminal narrowing. Mild dextroscoliosis of the thoracic spine. This document has been electronically signed by: Irma Quiñonez MD on 01/04/2025 19:19:58
--- NOTE | ~2025-01-04 | MR_ITS ---
CLINICAL HISTORY: R20.0 - Anesthesia of skin MR cervical spine without gadolinium Comparison: None provided Findings: Vertebral alignment is within normal limits. Moderate multilevel spondylosis of the cervical spine with degenerative disc desiccation, disc height loss, osteophytosis, posterior disc osteophyte complexes, uncovertebral joint hypertrophy and facet arthropathy. At C2-C3, no significant spinal canal or neural foraminal narrowing. At C3-C4, mild spinal canal and mild bilateral neural foraminal narrowing. At C4-C5, mild spinal canal narrowing and mild bilateral neural foraminal narrowing. At C5-C6, mild spinal canal narrowing and ventral cord remodeling. Moderate right and mild left neural foraminal narrowing. At C6-C7, mild spinal canal narrowing and mild bilateral neural foraminal narrowing. At C7-T1, no significant spinal canal or neural foraminal narrowing. No acute fractures or pathologic bone lesions. No acute findings on limited view of the intracranial contents. No cervical fluid collections or masses. Cervical cord normal size and signal. IMPRESSION: No acute findings. Moderate multilevel spondylosis of the cervical spine with multilevel mild spinal canal narrowing. Moderate right neural foraminal narrowing at C5-C6. This document has been electronically signed by: Irma Quiñonez MD on 01/04/2025 19:23:01
--- OUTSIDE RECORDS SUMMARY | 2025-01-04 19:49 | XMS_ITS | Data Portability ---
Author Organization [place] [facility] [place] Address [address] [place] [address] Care Team Providers Care Health Aide Name Role Phone ANDRE SNYDER Primary Care [...] in 4 weeks for another wound check. [email or web address] Not available 08/05/2023 11:39:38 09/09/2023 09/09/2023 Overall, [...] foot, 3 or more view 2023 024 [place] [address] [facility], [address], [place], [address], 13:53:06 XR, foot, 3 or more view 2023 024 [place] [address] [facility], [address], [place], [address], 20:15:48 Medication Orders Santyl 250 unit/gram topical ointment [email or web address] [id number], [address] [place], [address], 11:33:19 Patient TargetsNo targets recorded. Patient Instructions Encounter Date Encounter Id Patient Instructions Last Modified By Organization Details Last Modified Time 06/10/2023 [id number] 3 views of the left foot obtained weightbearing demonstrate a first MTP fusion as well as PIP arthroplasties of the second, third, fourth, and fifth toes. There is second and third metatarsal osteotomies. Alignment of her forefoot is excellent. [email or web address] Not available 06/10/2023 09:33:04 07/08/2023 [id number] 3 views of the left foot obtained weightbearing demonstrate a first MTP fusion as well as PIP arthroplasties of the second, third, fourth, and fifth toes. There is second and third metatarsal osteotomies. Alignment of her forefoot is excellent. [email or web address] Not available 07/08/2023 07:56:02 08/05/2023 46629 3 views of the left foot obtained weightbearing demonstrate a first MTP fusion as well as PIP arthroplasties of the second, third, fourth, and fifth toes. There is second and third metatarsal osteotomies. Alignment of her forefoot is excellent. Not available 08/05/2023 09:10:00 09/09/2023 45860 3 views of the left foot obtained weightbearing demonstrate a first MTP fusion as well as PIP arthroplasties of the second, third, fourth, and fifth toes. There is second and third metatarsal osteotomies. Alignment of her forefoot is excellent. [email or web address] Not available 09/09/2023 08:14:20 12/09/2023 87868 3 views of the left foot obtained [...] Recorded Time Metatarsalg ia of left foot 8548306477121 06 Active 2022 OLGA WEI PA-C [address], [place], [address], [place] [facility] 3 11:59:54 Hammer toe 687024178 Active [address], [place], [address], [place] [facility], [facility] 3 12:00:22 Hammer toe 066556616 Active [address], [place], [address], [place] [facility], [facility] 3 12:00:29 Acquired left hallux rigidus 7767547418693 05 Active 2022 Zulema Almonte MD [address], [place], [address], [facility], P 3 16:04:28 Postoperati ve wound infection 87786626 Active 2023 Zulema Almonte MD [address], [place], [address], [facility] [place], [facility] 4 13:16:07 Problem Notes None recorded. Procedures Surgical History Date Name Laterality Status Provider Name and Address Organization Details Recorded Time procedure on foot completed Merrick Avila [facility], [facility] 07/08/2023 11:21:54 Imaging Results None recorded. Procedure Notes None recorded. Medical Equipment None Reported. Allergies Allergen ID Allergen Name Allergen Category Reaction Reaction Severity Criticality Documentation Date Start Date Code Code System Note Provider Name and Address Organization Details Recorded Time 8157 Macrobid medicatio n Not available Not available Not available 12/03/2022 75694 1 RxNorm Isabel baer, [facility], [facility] 3 11:53:33 8158 Product containin g 3-hydroxy -3-methyl glutaryl- coenzyme A reductase inhibitor (product) medicatio n Not available Not available Not available 12/03/2022 19684 00[facility] 11:53:37 Medications Name Sig [...] Updated DateTime 06/10/2023 167.64 cm 28.2 kg/m2 [address] [facility] 06/10/2023 12:59:32 Date Recorded Body height Body mass index (BMI) Body weight Provider Name and Address Organization Details Last Updated DateTime 07/08/2023 167.64 cm 28.2 kg/m2 45016.66 g [employer] [facility] 07/08/2023 11:19:03 Date Recorded Body height Body mass index (BMI) Body weight Provider Name and Address Organization Details Last Updated DateTime 08/05/2023 167.64 cm 28.2 kg/m2 [address]60[address] [facility] 08/05/2023 11:31:57 Date Recorded Body height Body mass index (BMI) Body weight Provider Name and Address Organization Details Last Updated DateTime 09/09/2023 167.64 cm 28.2 kg/m2 56044.66 g [employer] - [facility] 09/09/2023 11:25:04 Date Recorded Body height Body mass index (BMI) Body weight Provider Name and Address Organization Details Last Updated DateTime 12/09/2023 167.64 cm 28.2 kg/m2 07443.66 g [employer] - [facility] 12/09/2023 11:12:53 Social History None recorded. [...] Diagnosis SNOMED-CT Code Diagnosis ICD10 Code Diagnosis IMO Codes Diagnosis Note [id number] [facility] [address] [place] [address] 12/03/2022 11:41:10 12/03/2022 13:18:25 Pain in left foot 4188088606 50989 M79.672 Metatarsal eduin of left foot 6795961192 50071 M77.42 Hammer toe 985335857 M20 .42 27010 Zulema Almonte MD [place] [address] 12/17/2022 11:35:43 12/17/2022 12:18:59 Metatarsalgia of left foot 7834227032 04913 M77.42 Hammer toe 112248974 M20 .42 [id number] Zulema Almonte MD [place] [address] 01/07/2023 12:46:19 01/07/2023 13:17:32 Metatarsalgia of left foot 8287686612 92866 M77.42 Hammer toe 759911194 M20 .42 [id number] Zulema Almonte MD [place] [address] 9 02/25/2023 11:34:58 02/25/2023 12:03:50 Metatarsalgia of left foot 3864679605 55703 M77.42 Hammer toe 033376438 M20 .42 Acquired l eft hallux rigidus 6955878284 33327 M20.22 71610 ZITA LEOS PA-C [place] [address] 9 04/01/2023 12:53:30 04/01/2023 14:00:12 Metatarsalgia of left foot 6955040315 11132 M77.42 Hammer toe 696135783 M20 .42 Acquired l eft hallux rigidus 0361779902 15036 M20.22 [id number] MD KAMALJIT Castaneda [place] [address] 04/29/2023 12:47:41 04/29/2023 13:41:06 Metatarsalgia of left foot 8118590913 85747 M77.42 Hammer toe 705163898 M20 .42 Acquired l eft hallux rigidus 7561861768 66682 M20.22 [id number] MD KAMALJIT Castaneda [place] [address] 06/10/2023 12:52:47 06/10/2023 13:19:16 Metatarsalgia of left foot 4330726372 78966 M77.42 Hammer toe 505725252 M20 .42 Acquired l eft hallux rigidus 8987053749 06182 M20.22 Postoperat bekah wound infection 13532813 T81.49XA [id number] MD KAMALJIT Castaneda [place] [address] 07/08/2023 11:17:45 07/08/2023 11:33:43 Metatarsalgia of left foot 3142427907 51283 M77.42 Hammer toe 054636770 M20 .42 Acquired l eft hallux rigidus 6124324486 37297 M20.22 Postoperat bekah wound infection 23462320 T81.49XA 52010 JAVED CHU [place] [address] 08/05/2023 11:18:12 08/05/2023 11:39:37 Metatarsalgia of left foot 4414396695 08637 M77.42 Hammer toe 757590809 M20 .42 Acquired l eft hallux rigidus 2634434102 05601 M20.22 Postoperat bekah wound infection 22714913 T81.49XA 30567 MD KAMALJIT Castaneda [place] [address] 09/09/2023 11:22:08 09/09/2023 12:04:59 Metatarsalgia of left foot 9396046165 97251 M77.42 Hammer toe 720925174 M20 .42 Acquired l eft hallux rigidus 2151646937 79938 M20.22 Postoperat bekah wound infection 15977597 T81.49XA [id number] Zulema Almonte MD [facility] [address] [facility] [address] [place] [address] 12/09/2023 11:10:32 12/09/2023 11:29:02 Metatarsalgia of left foot 9204666720 67532 M77.42 Hammer toe 904093276 M20 .42 Acquired l eft hallux rigidus 0171867091 07820 M20.22 Postoperat bekah wound infection 74481928 T81.49XA Health Concerns Section Related Observation LastModified by Organization Detai ls LastModified Time None Recorded Concern Status LastModified by Organization Details LastModified Time None Recorded Advance Directives Directive None Recorded Payers Insurance Date Sequence Insurance Name Policy Number Policy [place] Covered Member ID [place] Member ID Guarantor Name 12/06/2023 [employer] - SPECIALITY CLAIMS (MEDICARE DME REGION A) Mala Ashley [id number] Magaly Fisheregrini 12/06/2023 MEDICARE B-CT: NGS Mala Ashley [id number] Magaly Fisheregrini 08/05/2023 MEDICARE B-CT: NGS Magaly Robbins Ashley [id number] Magaly Fisheregrini 08/05/2023 1 MEDICARE B-[place]: [employer] Mala Ashley [id number] Magaly Fisheregrini 12/13/2023 2 [employer] Magaly Fisheregrini [id number] Magaly Fisheregrini 08/05/2023 1 MEDICARE B-[place]: NGS Mala Ashley [id number] Magaly Fisheregrini 08/05/2023 1 MEDICARE B-[place]: NGS Mala Ashley [id number] Magaly Fisheregrini Notes Date Note Type Note Provider Name and Address Organization Details Recorded Time 06/10/2023 text/html ROS as noted in the HPI Date of Surgery: 03/19/23 left foot 1st [...] [place] and then got out to [...] Zulema Almonte MD [address], [place], [address], [place] [facility] 06/13/2023 15:57:15 07/08/2023 text/html ROS as noted in the HPI Date of Surgery: 03/19/23 left foot 1st [...] Overall, she is improving. From 06/10/23 ([facility]): who presents today for follow-up evaluation [...] her left dorsal midfoot. From 04/29/23 ([facility]): for follow-up evaluation now approximately 6 [...] [place] and then got out to [...] Zulema Almonte MD [address], [place], [address], [place] [facility], [facility] 07/08/2023 13:03:36 08/05/2023 text/html ROS as noted in the HPI Date of Surgery: 03/19/23 left foot 1st [...] Advil with moderate improvement. From 01/07/23 ([facility]): for follow-up evaluation regarding her left [...] takes Advil as needed. From 12/17/22 ([facility]): for follow-up evaluation regarding her left foot. She reports that she [place] and then got out to [...] ZITA LEOS PA-C [address], [place], [address], [place] [facility], [facility] 08/05/2023 11:39:51 09/09/2023 text/html ROS as noted in the HPI Date of Surgery: 03/19/23 left foot 1st [...] Advil with moderate improvement. From 01/07/23 ([facility]): for follow-up evaluation regarding her left [...] takes Advil as needed. From 12/17/22 ([facility]): for follow-up evaluation regarding her left foot. She reports that she [place] and then got out to [...] Zulema Almonte MD [address], [place], [address], [place] [facility], [facility] 09/09/2023 13:35:08 12/09/2023 text/html ROS as noted in the HPI Date of Surgery: 03/19/23: Left foot 1st [...] Advil with moderate improvement. From 01/07/23 ([facility]): for follow-up evaluation regarding her left [...] takes Advil as needed. From 12/17/22 ([facility]): for follow-up evaluation regarding her left foot. She reports that she [place] and then got out to [...] Zulema Almonte MD [address], [place], [address], [place] [facility] 12/11/2023 18:57:46 OBGyn Episode No OBEpisode recorded.
--- OUTSIDE RECORDS SUMMARY | 2025-01-04 19:49 | XMS_ITS | Clinical Summary ---
Author Organization [facility] Address [address] [employer] [facility] [address] [place] [address] Phone Care Team Providers Care Laborer Cheesemaking Name Role Phone Angela Deal MD Primary Care Provider [phone] Allergies Active Allergy Reactions Criticality Noted Date [...] VACCINE (#1) 2024 COVID-19 VACCINE (1 - 2024-2 6 season) 2024 SMOKING Hx and SMOKELESS TOBACCO [...] file Insurance MEDICARE PART A & B [employer] MEDEX SUPPLEMENT MEDICARE PART A & B [employer] MEDEX SUPPLEMENT MEDICARE PART A & B MEDICARE PART A & B MEDICARE PART A & B [employer] MED[employer] SUPPLEMENT MEDICARE PART A & B MEDICARE PART A & B [employer]EX SUPPLEMENT MEDICARE PART A & B [employer] SUPPLEMENT MEDICARE PART A & B [employer] SUPPLEMENT Care Teams Laborer Cheesemaking Relationship Specialty Start Date End Date Angela Deal MD [address] [facility] [place] [address] PCP - General Internal Medicine 01/28/21 Additional Source Comments The information contained in this document represents components of the legal health record. It is not the complete legal health record.[facility]
== END 2025-01-04 17:53 | disposition home or self-care (01) ==
LOC: HO.MRI 17:52
PROVIDERS: PCP Internal Medicine; Visit Provider Physician Assistant
DX: R20.0 Anesthesia of skin (principal)
CPT/HCPCS: 72141; 72146

== ENCOUNTER → 2025-01-04 17:59 | Outpatient (BNV) | payer MEDICARE, SELFPAY | PROVIDERS: PCP Internal Medicine; Visit Provider Student in an Organized Health Care Education/Training Program | DX: M47.814 Spondylosis without myelopathy or radiculopathy, thoracic region (principal); M41.84 Other forms of scoliosis, thoracic region; M47.812 Spondylosis without myelopathy or radiculopathy, cervical region; M48.02 Spinal stenosis, cervical region | CPT/HCPCS: 72141; 72146 ==

== ENCOUNTER 2025-01-08 12:42 | Outpatient (AMB) | payer MEDICARE, SELFPAY ==
--- NOTE | 2025-01-08 12:43 | A.OFFVIS_ITS ---
Intake Visit Reasons: 4 m Intake Note: Patient telehealth followupfor Patient cc: constipation and denies any other GI issues for today. Top Dyeing Machine Loader Required: No Data Network Architect: Data Network Architect offered & declined Allergies nitrofurantoin (From MACROBID) Allergy (Severe, Verified 01/08/25 12:43) ANAPHYLAXIS Dpzcfqc-AJA-QmN Reductase Inhibitor ([id number] REDUCTASE INHIBITOR) Allergy (Intermediate, Verified 01/08/25 12:43) MUSCLE ACHES atorvastatin (Lipitor) Adverse Reaction (Unknown, Verified 01/08/25 12:43) muscle cramping HPI HPI 4 m: Details: 74 yr old f here for f/u RECAP: she has reflux and regurgiation--not often, wakes her up at night, she is happy with the omeprazole her bowel habit is v variable, can be pellets, or soft sometimes, takes probitoics occ feels food getting stuck upper throat, but unsure if due to sjogrens takes b12 regularly last colonoscopy--2011-- diverticulosis, last EGD: 2018-- small hiatal hernia. LA grade A esophagitis EGD/COlo- 09/2023 Endoscopy Findings: schatzki ring hiatal hernia lax LES Colonoscopy Findings: diverticulosis internal hemorrhoids she had hiatal hernia repair 11/2023 she had MR defecography with cystocele and rectocele noted, and pelvic laxity GES 10/13-- mild delay at 13% INTERIM: she is avoiding fatty foods and greasy stool she has pain around the umbilical area going on for few months might be worse with food can be relieved with passing stool and gas she tried taurine for cramps and she is happy with it A/P: 1/ GERD-- recurrence s/p surgery with fullness, may have gastroparesis 2/ incomplete evacuation, 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, 2/2 to cystocele and rectocele, pelvic laxity--the umbilical pain maybe also due to this but need to exclude small bowel enteropathy or pathology PLAN: 1/ CT enterography if neg then refer gyne [facility] Medical History Annual physical exam Gastroparesis Superficial phlebitis Pre-op exam ROCA (dyspnea on exertion) Elevated LFTs Thyroid nodule Hx of screening mammography Hypothyroidism Primary osteoarthritis of both knees Raynaud's syndrome Surgical History S/P laparoscopic hernia repair History of lobectomy of thyroid Hx of ultrasound guided needle biopsy S/P foot surgery, right H/O esophagogastroduodenoscopy H/O colonoscopy Family History Mother No problems noted. Social History Household Members: None Housing: Other Housing Other:: mobile home Are you a primary adult care provider to a significant other at home: No Do you presently have visiting nurse or other home services: No Alcohol intake: current Alcohol intake frequency: does not drink Patient Tobacco Use Status: Former Tobacco user Tobacco use type: Cigarette e-Cigarette/Vaping Use: Never Used Second Hand Smoke Exposure: No service: No Current occupational status: retired Cognitive needs: No Hearing needs: Yes Vision needs: Yes Telehealth Telehealth Telehealth Platform: Telephone Location of provider rendering services: practice address Location of patient: address on file Patient Identification confirmed using: Name, : Yes Telehealth method: voice only Patient verbally consented to treatment: Yes Patient verbally consented to billing insurance company: Yes Patient informed of any privacy concerns related to visit: Yes Minutes spent on Phone/Video with Pt.: 9 Assessment & Plan Assessment & Plan (1) Abnormal bowel habits: Code(s): R19.8 - Other specified symptoms and signs involving the digestive system and abdomen Category: Medical Plan: see above Coding Level of Care Code Tele Est Pt Level 3 (51827) Diagnoses Abnormal bowel habits R19.8
== END 2025-01-08 18:38 | disposition home or self-care (01) ==
LOC: HO.HGI 12:42
PROVIDERS: PCP Internal Medicine; Visit Provider Internal Medicine Gastroenterology
DX: R19.8 Other specified symptoms and signs involving the digestive system and abdomen (principal)
CPT/HCPCS: 99213

== ENCOUNTER 2025-02-14 13:07 | Outpatient (REF) | payer MEDICARE, SELFPAY ==
--- OUTSIDE RECORDS SUMMARY | 2023-07-19 09:30 | XMS_ITS | Continuity of Care Document ---
Author Organization [facility] Address [address] [facility] [address] [place] [address] Phone Care Team Providers Care Gusset Ripper Name Role Phone Phoenix ROBLES, GRISELDA, Kirt SANTILLAN Unavailable U navailable Procedures Procedure Date Office/Oupt E&M New Pt 45 Mins- CT & [place] Duplex Scan-extrem Veins; Comp- CT & [place] Advance Directives Directive Yes / No Effective Date File Name Other Directive No 07/19/2023 N/A WARNING:The information contained in this section is historical and is provided for information only and does not constitute a legal document or any assurance that the information is still accurate. Please verify the information with the uriarte of the legal document before using it for clinical purposes. Encounters Encounter Description Practice Location Reason(s) For Visit Diagnoses Date Provider Providers Copied on Encounter Office/Oupt E&M New Pt 45 Mins- CT & [place] [facility], [address] [facility] [address], [place], [id number], [place] tel:[phone] R - [place] - [place] Varicose veins of bilateral lower extremities with other complicationsPa in in right legPain in left legRestless legs syndromeEssenti al (primary) hypertensionCra mp and spasmLocalized edema 4 [place] ROBLES, GRISELDA, TYRELL Moralez. [address] [facility], [address], [place], [place], [id number] , [place]. tel:[phone] Referring Provider: Angela Deal MD S, [address], [place], [address]. tel:[phone] [facility], [address] [facility] [address], [place], [id number], [place] tel:[phone] [facility] - [place] Varicose veins of bilateral lower extremities with pain 4 Phoenix ROBLES, RVT, RPVI Kirt. [address] [facility], [address], [place], [place], [id number] , [place]. tel:[phone] Referring Provider: Angela Deal MD S, [address], [place], [address]. tel:[phone] Family History Family Member Type Diagnosis Age At Onset No Information Payers Payer name Insurance type Covered alliance party ID Authoriza tion(s) Medicare MICHELL SPRAGUE [id number] [facility] AARP Supplement [place] [id number] Social History Type Description Quantity Date Captured Comments Alcohol Use Details Unknown Caffeine Use Details Unknown Tobacco Use Status Current non-smoker Smoking Status Never Smoker Non-Smoking Tobacco Use Details : No Details Available : No Details Available Sex Female Vital Signs Date / Time: Height Weight BMI Pulse Rate Blood Pressure Temperature Respiratory Rate Body Surface Area Head Circumference Head Circ. Percentile Wt./Roger. Percentile BMI percentile Pulse Ox Inhaled Ox 79.380 kg (175.00 lbs) 30.1 0 kg/m eter (2) 130/80 mm[Hg] Chief Complaint And Reason For Visit No Information Reason For Referral Reason For Referral No Information Plan Of Treatment Date Type Action Status Goal Diet education completed Referral Ordered: Weight management: Referral to physician timeframe: 3 Months (related to Body mass index (BMI) 30.0-30.9, adult) ordered History Of Present Illness Encounter Date Complaint History Of Prese nt Illness No Information Functional Status Date Functional Assessmen t No Information Instructions Date Instruction Additional Infor mation Patient education booklet given Related to Varicose veins of bilateral lower extremities with other complications Pre and post instruc tions reviewed and provided Related to Varicose veins of bilateral lower extremities with other complications Lifestyle education Related to B susan mass index (BMI) 30.0-30.9, adult Giving Encouragement to exercise Related to Body mass index (BMI) 30.0-30.9, adult Diet education Related to Body mass index (BMI) 30.0-30.9, adult Assessments Type Assessment Date No Information Patient Care Teams Name Effective Dates (start - stop) Status Members No Information
--- OUTSIDE RECORDS SUMMARY | 2025-02-14 16:14 | XMS_ITS | Data Portability ---
Author Organization [place] [facility] [place] Address [address] [place] [address] Care Team Providers Care Bullet Lubricant Mixer Name Role Phone ANDRE SNYDER Primary Care Provider [phone] Assessment Encounter Date Assessment Date Assessment LastModified [...] in 4 weeks for another wound check. [email or web address] Not available 08/05/2023 11:39:38 09/09/2023 09/09/2023 Overall, [...] foot, 3 or more view 2023 024 [place] [address] [facility], [address], [place], [address], 13:53:06 XR, foot, 3 or more view 2023 024 [place] [address] [facility], [address], [place], [address], 20:15:48 Medication Orders Santyl 250 unit/gram topical ointment 2023 024 [email or web address] [id number], [address] [place], [address], 11:33:19 Patient TargetsNo targets recorded. Patient Instructions Encounter Date Encounter Id Patient Instructions Last Modified By Organization Details Last Modified Time 06/10/2023 [id number] views of the left foot obtained weightbearing demonstrate a first MTP fusion as well as PIP arthroplasties of the second, third, fourth, and fifth toes. There is second and third metatarsal osteotomies. Alignment of her forefoot is excellent. [email or web address] Not available 06/10/2023 09:33:04 07/08/2023 44880 3 views of the left foot obtained weightbearing demonstrate a first MTP fusion as well as PIP arthroplasties of the second, third, fourth, and fifth toes. There is second and third metatarsal osteotomies. Alignment of her forefoot is excellent. [email or web address] Not available 07/08/2023 07:56:02 08/05/2023 40511 3 views of the left foot obtained weightbearing demonstrate a first MTP fusion as well as PIP arthroplasties of the second, third, fourth, and fifth toes. There is second and third metatarsal osteotomies. Alignment of her forefoot is excellent. [email or web address] Not available 08/05/2023 09:10:00 09/09/2023 89387 3 views of the left foot obtained weightbearing demonstrate a first MTP fusion as well as PIP arthroplasties of the second, third, fourth, and fifth toes. There is second and third metatarsal osteotomies. Alignment of her forefoot is excellent. Not available 09/09/2023 08:14:20 12/09/2023 70692 3 views of the left foot obtained [...] Recorded Time Metatarsalg ia of left foot 2553238519934 06 Active 2022 OLGA WEI PA-C [address], [place], [address], [place] [facility] 3 11:59:54 Hammer toe 886448162 Active [address], [place], [address], [place] [facility] 3 12:00:22 Hammer toe 896816474 Active [address], [place], [address], [place] [facility] 3 12:00:29 Acquired left hallux rigidus 8492517095569 05 Active 2022 Zulema Almonte MD [address], [place], [address], [facility], [facility] 3 16:04:28 Postoperati ve wound infection 87355477 Active 2023 Zulema Almonte MD [address], [place], [address], [facility] 4 13:16:07 Problem Notes None recorded. Procedures Surgical History Date Name Laterality Status Provider Name and Address Organization Details Recorded Time procedure on foot completed Merrick Avila [facility] 07/08/2023 11:21:54 Imaging Results None recorded. Procedure Notes None recorded. Medical Equipment None Reported. Allergies Allergen ID Allergen Name Allergen Category Reaction Reaction Severity Criticality Documentation Date Start Date Code Code System Note Provider Name and Address Organization Details Recorded Time 8157 Macrobid medicatio n Not available Not available Not available 12/03/2022 76586 1 RxNorm Isabel baer, [facility], [facility] 3 11:53:33 8158 Product containin g 3-hydroxy -3-methyl glutaryl- coenzyme A reductase inhibitor (product) medicatio n Not available Not available Not available 12/03/2022 14746 [facility] 11:53[facility]37 Medications Name Sig [...] Updated DateTime 06/10/2023 167.64 cm 28.2 kg/m2 [address] [place] [facility] 06/10/2023 12:59:32 Date Recorded Body height Body mass index (BMI) Body weight Provider Name and Address Organization Details Last Updated DateTime 07/08/2023 167.64 cm 28.2 kg/m2 51426.66 g [place] [facility] 07/08/2023 11:19:03 Date Recorded Body height Body mass index (BMI) Body weight Provider Name and Address Organization Details Last Updated DateTime 08/05/2023 167.64 cm 28.2 kg/m2 [address] [place] [facility] 08/05/2023 11:31:57 Date Recorded Body height Body mass index (BMI) Body weight Provider Name and Address Organization Details Last Updated DateTime 09/09/2023 167.64 cm 28.2 kg/m2 94846.66 g [place] [facility] 09/09/2023 11:25:04 Date Recorded Body height Body mass index (BMI) Body weight Provider Name and Address Organization Details Last Updated DateTime 12/09/2023 167.64 cm 28.2 kg/m2 21373.66 g [place] [facility] 12/09/2023 11:12:53 Social History None recorded. [...] ICD10 Code Diagnosis IMO Codes Diagnosis Note [id number] [facility] [address] [place] [address] 9 12/03/2022 11:41:10 12/03/2022 13:18:25 Pain in left foot 8085214272 46797 M79.672 Metatarsal [place] of left foot 1424482763 99878 M77.42 Hammer toe 558527957 M20 .42 48737 Zulema Almonte MD [place] [address] 12/17/2022 11:35:43 12/17/2022 12:18:59 Metatarsalgia of left foot 0565377475 09166 M77.42 Hammer toe 966567240 M20 .42 [id number] Zulema Almonte MD [place] [address] 01/07/2023 12:46:19 01/07/2023 13:17:32 Metatarsalgia of left foot 3080759121 54946 M77.42 Hammer toe 042232654 M20 .42 70593 Zulema Almonte MD [place] [address] 02/25/2023 11:34:58 02/25/2023 12:03:50 Metatarsalgia of left foot 2743702273 08566 M77.42 Hammer toe 878469758 M20 .42 Acquired l eft hallux rigidus 5668544033 59545 M20.22 42944 ZITA LEOS PA-C [place] [address] 04/01/2023 12:53:30 04/01/2023 14:00:12 Metatarsalgia of left foot 4408159631 31535 M77.42 Hammer toe 523068243 M20 .42 Acquired l eft hallux rigidus 5219356759 14271 M20.22 73857 MD KAMALJIT Castaneda [place] [address] 04/29/2023 12:47:41 04/29/2023 13:41:06 Metatarsalgia of left foot 2274091005 18216 M77.42 Hammer toe 409208985 M20 .42 Acquired l eft hallux rigidus 7172170983 24893 M20.22 78532 MD KAMALJIT Castaneda [place] [address] 06/10/2023 12:52:47 06/10/2023 13:19:16 Metatarsalgia of left foot 8532749383 51056 M77.42 Hammer toe 383210431 M20 .42 Acquired l eft hallux rigidus 2573174989 54772 M20.22 Postoperat bekah wound infection 29396755 T81.49XA 43855 MD KAMALJIT Castaneda [place] [address] 07/08/2023 11:17:45 07/08/2023 11:33:43 Metatarsalgia of left foot 6243772665 03655 M77.42 Hammer toe 841442550 M20 .42 Acquired l eft hallux rigidus 2599980708 45109 M20.22 Postoperat bekah wound infection 19609817 T81.49XA 75378 JAVED CHU [place] [address] 08/05/2023 11:18:12 08/05/2023 11:39:37 Metatarsalgia of left foot 6070782414 78643 M77.42 Hammer toe 756233039 M20 .42 Acquired l eft hallux rigidus 5211522833 32258 M20.22 Postoperat bekah wound infection 73692496 T81.49XA 85419 MD KAMALJIT Castaneda [place] [address] 09/09/2023 11:22:08 09/09/2023 12:04:59 Metatarsalgia of left foot 5176773385 98501 M77.42 Hammer toe 222374506 M20 .42 Acquired l eft hallux rigidus 8890163708 78464 M20.22 Postoperat bekah wound infection 12728584 T81.49XA 13167 Zulema Almonte MD [facility] [address] [place] [address] 12/09/2023 11:10:32 12/09/2023 11:29:02 Metatarsalgia of left foot 7851945288 17910 M77.42 Hammer toe 827270196 M20 .42 Acquired l eft hallux rigidus 0514260795 74691 M20.22 Postoperat bekah wound infection 82314951 T81.49XA Health Concerns Section Related Observation LastModified by Organization Detai ls LastModified Time None Recorded Concern Status LastModified by Organization Details LastModified Time None Recorded Advance Directives Directive None Recorded Payers Insurance Date Sequence Insurance Name Policy Number Policy [place] Covered Member ID [place] Member ID Guarantor Name 12/06/2023 [employer] - SPECIALITY CLAIMS (MEDICARE DME REGION A) Mala Ashley [id number] Magaly Fisheregrini 12/06/2023 MEDICARE B-CT: NGS Mala Ashley [id number] Magaly Fisheregrini 08/05/2023 MEDICARE B-CT: NGS Magaly Robbins Ashley [id number] Magaly Fisheregrini 08/05/2023 1 MEDICARE B-[place]: [employer] Mala Ashley [id number] Magaly Fisheregrini 12/13/2023 2 [employer] Magaly Fisheregrini [id number] Magaly Fisheregrini 08/05/2023 1 MEDICARE B-[place]: NGS Mala Ashley [id number] Magaly Fisheregrini 08/05/2023 1 MEDICARE B-[place]: NGS Mala Ashley [id number] Magaly Fisheregrini Notes Date Note Type Note [...] [place] the [place] November and then got out to [...] Zulema Almonte MD [address], [place], [address], [place] [facility] 06/13/2023 15:57:15 07/08/2023 text/html ROS as [...] toe. Overall, she is improving. From 06/10/23 ([facility]): who presents today for follow-up evaluation [...] from her left dorsal midfoot. From 04/29/23 ([facility]): for follow-up evaluation now approximately 6 [...] took a [place] the [place] in November and then got out to [...] Zulema Almonte MD [address], [place], [address], [place] [facility] 07/08/2023 13:03:36 08/05/2023 text/html ROS as [...] takes Advil with moderate improvement. From 01/07/23 ([facility]): for follow-up evaluation regarding her left [...] She takes Advil as needed. From 12/17/22 ([facility]): for follow-up evaluation regarding her left foot. She reports that she took a [place] the [place] in November and then got out to [...] ZITA LEOS PA-C [address], [place], [address], [place] [facility] 08/05/2023 11:39:51 09/09/2023 text/html ROS as [...] takes Advil with moderate improvement. From 01/07/23 ([facility]): for follow-up evaluation regarding her left [...] She takes Advil as needed. From 12/17/22 ([facility]): for follow-up evaluation regarding her left foot. She reports that she took a [place] the [place] in November and then got out to [...] Zulema Almonte MD [address], [place], [address], [place] [facility] 09/09/2023 13:35:08 12/09/2023 text/html ROS as [...] takes Advil with moderate improvement. From 01/07/23 ([facility]): for follow-up evaluation regarding her left [...] She takes Advil as needed. From 12/17/22 ([facility]): for follow-up evaluation regarding her left foot. She reports that she took a [place] the [place] in November and then got out to [...] Zulema Almonte MD [address], [place], [address], [place] [facility] 12/11/2023 18:57:46 OBGyn Episode No OBEpisode recorded.
--- OUTSIDE RECORDS SUMMARY | 2025-02-14 16:14 | XMS_ITS | Clinical Summary ---
Author Organization [facility] Address [address] [facility] [address] [place] [address] Phone Care Team Providers Care Mural Painter Name Role Phone Angela Deal MD Primary Care Provider [phone] Allergies Active Allergy Reactions Criticality Noted Date [...] file Insurance MEDICARE PART A & B Member Subscriber Plan / Payer (Ef fective 2015-Present) Name:Magaly Ramirez Member ID:[id number] Relation to Subscriber:Self Name:Magaly Ramirez Subscriber ID:[id number] Payer ID:[id number] Group ID:Not on file Type:Medicare Address: [facility] [address] [place] [address] [facility] MEDEX SUPPLEMENT MEDICARE PART A & B Member Subscriber Plan / Payer ( fective 2015-) Name:Magaly Ramirez Member ID:[id number] Relation to Subscriber:Self Name:Magaly Ramirez Subscriber ID:[id number] Payer ID:[id number] Group ID:Not on file Type:Medicare Address: [facility] [address] [place] [phone] [facility] MEDEX SUPPLEMENT MEDICARE PART A & B MEDICARE PART A & B MEDICARE PART A & B Member Subscriber Plan / Payer (Ef fective 2015-Present) Name:Magaly Ramirez Member ID:[id number] Relation to Subscriber:Self Name:Magaly Ramirez Subscriber ID:[id number] Payer ID:[id number] Group ID:Not on file Type:Medicare Address: [facility] [address] [place] [address] [employer] SUPPLEMENT MEDICARE PART A & B Member Subscriber Plan / Payer (Ef fective 2015-Present) Name:Magaly Ramirez Member ID:[id number] Relation to Subscriber:Self Name:Magaly Ramirez Subscriber ID:[id number] Payer ID:[id number] Group ID:Not on file Type:Medicare Address: [facility] [address] [place] [address] MEDICARE PART A & B Member Subscriber Plan / Payer (Ef fective 2015-Present) Name:Magaly Ramirez Member ID:[id number] Relation to Subscriber:Self Name:Magaly Ramirez Subscriber ID:[id number] Payer ID:[id number] Group ID:Not on file Type:Medicare Address: [facility] [address] [place] [address] [employer] SUPPLEMENT MEDICARE PART A & B Member Subscriber Plan / Payer ( fective 2015-Present) Name:Magaly Ramirez Member ID:[id number] Relation to Subscriber:Self Name:Magaly Ramirez Subscriber ID:[id number] Payer ID:[id number] Group ID:Not on file Type:Medicare Address: [facility] [address] [place], [place] [id number] [employer] SUPPLEMENT MEDICARE PART A & B Member Subscriber Plan / Payer ( fective 2015-Present) Name:Magaly Ramirez Member ID:[id number] Relation to Subscriber:Self Name:Magaly Ramirez Subscriber ID:[id number] Payer ID:[id number] Group ID:Not on file Type:Medicare Address: [facility] [address] [place] [phone] [employer] SUPPLEMENT Care Teams Mural Painter Relationship Specialty Start Date End Date Angela Deal MD [address] [place] [address] PCP - General Internal Medicine 01/28/21 Additional Source Comments The information contained in this document represents components of the legal health record. It is not the complete legal health record.[facility]
[2025-02-14 16:50] LABS: Alanine Aminotransferase 8 U/L (0-31); Albumin Level 4.0 g/dL (3.5-5.0); Alkaline Phosphatase 74 U/L (39-117); Anion Gap 10 (12-20); Aspartate Amino Transferase 23 U/L (5-31); Blood Urea Nitrogen 11 mg/dL (9-16); Calcium 9.1 mg/dL (8.4-10.2); Carbon Dioxide 27 mmol/L (22-29); Chloride 107 mmol/L (96-108); Estimated Glomerular Filt Rate > 60; Potassium 4.0 mmol/L (3.3-5.1); Sodium 140 mmol/L (135-145); Total Protein 6.5 g/dL (6.5-8.0)
== END 2025-02-14 13:08 | disposition home or self-care (01) ==
LOC: HO.HMGCLDS 13:07
PROVIDERS: PCP Internal Medicine; Visit Provider Internal Medicine Gastroenterology
DX: E03.9 Hypothyroidism, unspecified (principal); K59.00 Constipation, unspecified
CPT/HCPCS: 36415; 80053; 84443

== ENCOUNTER 2025-02-21 10:03 | Outpatient (REF) | payer MEDICARE, SELFPAY ==
--- OUTSIDE RECORDS SUMMARY | 2023-07-19 09:30 | XMS_ITS | Continuity of Care Document ---
Author Organization [facility] Address [address] [facility] [address] [place] [address] Phone Care Team Providers Care Mail Distribution Clerk Name Role Phone Phoenix ROBLES, GRISELDA, Kirt [...] Mins- [place] & [place] [facility], [address] [facility] [address], [place], [id number], [place] tel:[phone] R - [place] - [place] Varicose veins of bilateral lower extremities with other complicationsPa in in right legPain in left legRestless legs syndromeEssenti al (primary) hypertensionCra mp and spasmLocalized edema 4 Phoenix ROBLES, GRISELDA, TYRELL Moralez. [address] [facility], [address], [place], [place], [id number] , [place]. tel:[phone] Referring Provider: Angela Deal MD S, [address], [place], [address]. tel:[phone] [facility], [address] [facility] [address], [place], [id number], [place] tel:[phone] CVR - [place] - [place] Varicose veins of bilateral lower extremities with pain 4 Phoenix ROBLES, RVT, RPVI Kirt. [address] [facility], [address], [place], [place], [id number] , [place]. tel:[phone] Referring Provider: Angela Deal MD S, [address], [place], [address]. tel:[phone] Family History Family Member Type Diagnosis Age At Onset No Information Payers Payer name Insurance type Covered green party ID Authoriza tion(s) Medicare MICHELL SPRAGUE [id number] [place] AARP Supplement CI [id number] Social History Type Description Quantity Date [...] Information Instructions Date Instruction Additional Infor mation Diet education Related to Body mass index (BMI) 30.0-30.9, adult Giving Encouragement to exercise Related to Body mass index (BMI) 30.0-30.9, adult Lifestyle education Related to B susan mass index (BMI) 30.0-30.9, adult Pre and post instruc tions reviewed and provided Related to Varicose veins of bilateral lower extremities with other complications Patient education booklet given Related to Varicose veins of bilateral lower extremities with other complications Assessments Type Assessment Date No Information Patient Care Teams Name Effective Dates (start - stop) Status Members No Information
--- NOTE | ~2025-02-21 | CT_ITS ---
EXAMINATION: CT ABDOMEN PELVIS ENTEROGRAPHY WITHOUT IV CONTRAST HISTORY: R10.33 - Periumbilical pain COMPARISON: There are no prior studies available for comparison. TECHNIQUE: CT enterography of the abdomen and pelvis was performed following administration of 85 mL Omnipaque 350 using standard departmental protocol. Coronal and sagittal reformatted images were generated and reviewed. The patient received low-density oral contrast material for CT enterography. This CT exam was performed with one or more of the following dose reduction techniques: automated exposure control, adjustment of the mA and/or kV according to patient size, use of iterative reconstruction technique. DLP: 248 mGy-cm FINDINGS: LOWER CHEST: The visualized lung bases are clear. There is no pleural effusion. 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 No abnormality of this portion of the lung is seen. CARDIOVASCULATURE: The heart is normal in size. There is no pericardial effusion. LIVER: The liver is normal in size and contour. No liver mass is identified. The hepatic and portal veins are patent. GALLBLADDER / BILE DUCTS: The gallbladder is surgically absent. There is no intra or extrahepatic biliary ductal dilatation. SPLEEN: The spleen is normal in size. No focal splenic lesion is identified. PANCREAS: The pancreas is unremarkable in appearance. ADRENAL GLANDS: Within normal limits. KIDNEYS/RETROPERITONEUM: No renal calculi are identified. There is no hydronephrosis. There is a 4.0 cm cyst at the upper pole of the right kidney. LYMPH NODES: No abdominal lymphadenopathy. VASCULATURE: The abdominal aorta demonstrates atherosclerotic calcification, but is normal in caliber. MESENTERY/PERITONEUM: No free fluid. No masses. There is no free intraperitoneal gas. STOMACH: There is a small hiatal hernia. The stomach is otherwise well-distended with low-density oral contrast and is unremarkable. SMALL BOWEL: The small bowel is well distended with low-density oral contrast material. There is no abnormal small bowel wall thickening or mass. COLON: There are scattered diverticula at the junction of the descending and sigmoid colon, without evidence of diverticulitis. URINARY BLADDER: The urinary bladder is collapsed. PELVIC ORGANS: There is a probable subcentimeter fibroid on the left. BONES / SOFT TISSUES: There is mild superior endplate depression of L1. CT/CT enterography IMPRESSION: 1. Small hiatal hernia. Diverticulosis at the junction of the descending and sigmoid colon without evidence of diverticulitis. Otherwise unremarkable study CT enterography. 2. 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 Electronically signed by: Kirt Rossi MD 02/21/2025 12:32 PM [facility]
--- OUTSIDE RECORDS SUMMARY | 2025-02-21 11:24 | XMS_ITS | Clinical Summary ---
Author Organization [facility] Address [address] [facility] [address] [place] [address] Phone Care Team Providers Care French Folder Name Role Phone Angela Deal MD Primary Care Provider [phone] Allergies Active Allergy Reactions Criticality Noted Date [...] file Insurance MEDICARE PART A & B [employer] MEDEX SUPPLEMENT MEDICARE PART A & B [employer] MEDEX SUPPLEMENT MEDICARE PART A & B MEDICARE PART A & B MEDICARE PART A & B [employer] SUPPLEMENT MEDICARE PART A & B MEDICARE PART A & B [employer] SUPPLEMENT MEDICARE PART A & B [employer] SUPPLEMENT MEDICARE PART A & B [employer] SUPPLEMENT Care Teams French Folder Relationship Specialty Start Date End Date Angela Deal MD [address] [place] [address] PCP - General Internal Medicine 01/28/21 Additional Source Comments The information contained in this document represents components of the legal health record. It is not the complete legal health record.[facility]
[2025-02-21] MEDS: iohexoL 350 MG/ML 100 ML INFUS..BTL IV (11:32)
[2025-02-21] MEDS: Sorbitol/Mannit/Xanth Imaging 500 ML LIQUID 1500 ML PO (11:33)
== END 2025-02-21 10:04 | disposition home or self-care (01) ==
LOC: HO.CT 10:03
PROVIDERS: PCP Internal Medicine; Visit Provider Internal Medicine Gastroenterology
DX: R10.33 Periumbilical pain (principal)
CPT/HCPCS: 74177; Q9967

== ENCOUNTER → 2025-02-21 10:05 | Outpatient (BNV) | payer MEDICARE, SELFPAY | PROVIDERS: PCP Internal Medicine; Visit Provider Radiology Diagnostic Radiology | DX: K57.30 Diverticulosis of large intestine without perforation or abscess without bleeding (principal); K44.9 Diaphragmatic hernia without obstruction or gangrene | CPT/HCPCS: 74177 ==